=== PATIENT | female | born 1945 | race Caucasian/White ===

== ENCOUNTER → 2016-12-07 | Outpatient (CLI) | payer MEDICARE, BC ==
--- NOTE | 2016-12-07 09:57 | MM ---
Reason for exam: follow-up at short interval from prior study. Last mammogram was performed 7 months ago. History: Patient is postmenopausal. Benign MG stereo VAD BX LT of the left breast, May 26, 2016. Benign stereotactic core biopsy of the right breast, December 17, 1998. Core biopsy of the right breast. Excisional biopsy of the right breast. Took estrogen for 2 years. Physical Findings: Nurse did not find any significant physical abnormalities on exam. MG Diagnostic Mammo LT w CAD CC and MLO view(s) were taken of the left breast. Prior study comparison: May 07, 2016, bilateral MG 3d screening mammo w/cad. There are scattered fibroglandular densities. Previous mammotome biopsy in the left breast. No significant new findings when compared with previous films. These results were verbally communicated with the patient and result sheet given to the patient on 12/07/16. ASSESSMENT: Benign, BI-RAD 2 RECOMMENDATION: Return to routine screening mammogram schedule for both breasts. Back on schedule for April 2017.
== END | disposition home or self-care (01) ==
LOC: RADMAMWWP 08:46
PROVIDERS: ATTEND Internal Medicine
DX: R92.8 Other abnormal and inconclusive findings on diagnostic imaging of breast (principal)

== ENCOUNTER 2017-07-09 18:42 | Observation (INO) | payer MEDICARE, BC ==
--- NOTE | 2017-07-09 19:07 | ED ---
Chest Pain HPI - General Chief Complaint: Chest Pain Stated Complaint: chest pain Time Seen by Provider: 07/09/17 18:45 Source: patient, RN notes reviewed Mode of arrival: wheelchair Limitations: no limitations - History of Present Illness Initial Comments: This is a 72-year-old female who presents with complaints of chest pain that started about 3 hours ago. She points to left side of her chest wall is a 7/10 in severity is a heavy pressure-like pain. She states she's never had pain like this before she states goes from her chest and across her back. She does take 81 mg of aspirin daily she's had no fevers chills cough or phlegm production. The patient does deny any heavy lifting coughing sneezing been expressing long trips or history of blood clots. MD Complaint: chest pain - Related Data Home Medications Medication Instructions Recorded Confirmed Aspirin EC [Ecotrin Low Dose] 81 mg PO DAILY 07/09/17 07/09/17 Cholecalciferol [Vitamin D3] 1,000 unit PO DAILY 07/09/17 07/09/17 Cyanocobalamin [Vitamin B-12] 500 mcg PO BID 07/09/17 07/09/17 Doxycycline Hyclate 50 mg PO DAILY 07/09/17 07/09/17 Esomeprazole Magnesium [NexIUM] 40 mg PO DAILY 07/09/17 07/09/17 Fluticasone/Salmeterol [Advair 1 puff INHALATION RT-BID 07/09/17 07/09/17 100-50 Diskus] Losartan Potassium [Cozaar] 100 mg PO DAILY 07/09/17 07/09/17 Metoprolol Succinate (ER) [Toprol 25 mg PO DAILY 07/09/17 07/09/17 Xl] Phenobarb/Hyoscy/Atropine/Scop 16.2 mg PO TID 07/09/17 07/09/17 [] cycloSPORINE [Restasis] 1 drop BOTH EYES BID 07/09/17 07/09/17 lamoTRIgine [LaMICtal] 150 mg PO BID 07/09/17 07/09/17 Allergies Allergy/AdvReac Type Severity Reaction Status Date / Time Sulfa (Sulfonamide Allergy Unknown Verified 07/09/17 19:31 Antibiotics) Childhood Review of Systems ROS Statement: Those systems with pertinent positive or pertinent negative responses have been documented in the HPI. ROS Other: All systems not noted in ROS Statement are negative. EKG Findings - EKG Results: EKG: interpreted by APRILD, sinus rhythm (Normal sinus rhythm rate of 88. Interval 124 QRS duration 92 QT since QTC of 376/[address]-T wave changes. ) Past Medical History Additional Past Medical History / Comment(s): spastic bowel History of Any Multi-Drug Resistant Organisms: None Reported Past Surgical History: Cholecystectomy, Joint Replacement, Orthopedic Surgery Additional Past Surgical History / Comment(s): brain surgery,rt shoulder,rt knee , rt hand Past Psychological History: Anxiety Smoking Status: Never smoker Past Alcohol Use History: None Reported Past Drug Use History: None Reported General Exam - General Exam Comments Initial Comments: This is a well-developed well-nourished awake alert oriented 3 female Limitations: no limitations General appearance: alert, anxious Head exam: Present: atraumatic, normocephalic, normal inspection Eye exam: Present: normal appearance, PERRL, EOMI. Absent: scleral icterus, conjunctival injection, periorbital swelling ENT exam: Present: normal exam, mucous membranes moist Neck exam: Present: normal inspection. Absent: tenderness, meningismus, lymphadenopathy Respiratory exam: Present: chest wall tenderness. Absent: normal lung sounds bilaterally (Tenderness to palpation across the left costosternal margin. Step- off or crepitation), respiratory distress, wheezes, rales, rhonchi, stridor Cardiovascular Exam: Present: regular rate, normal rhythm, normal heart sounds. Absent: systolic murmur, diastolic murmur, rubs, gallop, clicks GI/Abdominal exam: Present: soft, normal bowel sounds. Absent: distended, tenderness, guarding, rebound, rigid Extremities exam: Present: normal inspection, full ROM, normal capillary refill. Absent: tenderness, pedal edema, joint swelling, calf tenderness Back exam: Present: normal inspection Neurological exam: Present: alert, oriented X3, CN II-XII intact Psychiatric exam: Present: normal affect, normal mood Skin exam: Present: warm, dry, intact, normal color. Absent: rash Course Vital Signs 07/09/17 07/09/17 07/09/17 18:43 19:41 19:50 Temperature 98.0 F Pulse Rate 97 80 106 H Respiratory 20 16 16 Rate Blood Pressure 172/84 145/63 105/58 O2 Sat by Pulse 97 100 99 Oximetry 07/09/17 07/09/17 20:00 20:26 Temperature Pulse Rate 90 98 Respiratory 16 18 Rate Blood Pressure 126/63 143/66 O2 Sat by Pulse 100 96 Oximetry - Reevaluation(s) Reevaluation #1: 07/09/17 20:04 The patient was given a sublingual nitroglycerin the patient blood pressure did drop and she did not feel very well. She does not believe her really help much so she did say she had a brief about 5 second period time with no pain but she had totally related to nitroglycerin. She was given fluid bolus with improvement of her blood pressure. Chest Pain MDM - MDM The patient will be admitted I did discuss case with Dr. Dumas. The patient is started on heparin also Dr. Overton was consulted. Disposition Clinical Impression: Unstable angina pectoris, Chest pain Disposition: ADMITTED IP TO THIS HOSP Condition: Stable Referrals: Becka Fletcher MD [Primary Care Provider] - 1-2 days
[2017-07-09] MEDS ORDERED: ASPIRIN 81 MG PO STA (19:34)
[2017-07-09] MEDS ORDERED: NITROGLYCERIN SL TABS 0.4 MG TAB SUBLINGUAL STA (19:34)
[2017-07-09 19:52] LABS: Basophils % (A) 0 %; CH 31.1; CHCM 34.3; Eosinophils # (A) 0.1 k/uL (0-0.7); Eosinophils % (A) 1 %; HCT 40.9 % (34.0-46.0); HDW 2.61; HGB 14.4 gm/dL (11.4-16.0); Luc # (Auto) 0.16; Luc % (Auto) 2; Lymphocytes % (A) 30 %; MCH 31.9 pg (25.0-35.0); MCHC 35.1 g/dL (31.0-37.0); Mean Platelet Volume 7.2; Monocytes # (A) 0.4 k/uL (0-1.0); Monocytes % (A) 4 %; Neutrophils # (A) 6.1 k/uL (1.3-7.7); Neutrophils % (A) 62 %; RDW 13.2 % (11.5-15.5); WBC 9.8 k/uL (3.8-10.6); WBC (Perox) 9.66
[2017-07-09] MEDS ORDERED: SODIUM CHLORIDE 0.9% 500 ML IV STA (19:54)
[2017-07-09] MEDS ORDERED: ONDANSETRON 4 MG/2 ML VIAL IVP STA (19:54)
[2017-07-09] MEDS ORDERED: KETOROLAC 30 MG/ML 1 ML VIAL IVP STA (20:02)
[2017-07-09 20:05] LABS: Partial Thromboplastin Time 23.8 sec (22.0-30.0); Prothrombin Time 9.8 sec (9.0-12.0)
[2017-07-09 20:16] LABS: ALT 35 U/L (9-52); AST 21 U/L (14-36); Alkaline Phosphatase 95 U/L (38-126); Amylase 38 U/L (30-110); Anion Gap 13 mmol/L; Blood Urea Nitrogen 13 mg/dL (7-17); Calcium 9.3 mg/dL (8.4-10.2); Carbon Dioxide 24 mmol/L (22-30); Chloride 102 mmol/L (98-107); Glucose 88 mg/dL (74-99); Magnesium 1.8 mg/dL (1.6-2.3); Non-African American GFR(MDRD) >60 (>60 ml/min/1.73 sqM); Sodium 139 mmol/L (137-145); Total Bilirubin 0.6 mg/dL (0.2-1.3); Total Protein 6.9 g/dL (6.3-8.2)
[2017-07-09 20:19] LABS: Creatine Kinase 64 U/L (30-135)
[2017-07-09] MEDS ORDERED: RX INFO: IV CONTRAST WAS GIVEN 1 EACH MISC MISCELLANE PRN (20:19)
--- NOTE | 2017-07-09 20:30 | XR ---
EXAMINATION TYPE: XR chest 2V DATE OF EXAM: 07/09/2017 COMPARISON: 10/27/2011 HISTORY: Chest pain TECHNIQUE: Frontal and lateral views of the chest are obtained. FINDINGS: There is no heart failure nor confluent pneumonic infiltrate. Costophrenic angles are selene r. There are chest leads. Bony thorax is intact. IMPRESSION: No active cardiopulmonary disease. No change.
[2017-07-09 20:31] LABS: Creatine Kinase MB 0.6 ng/mL (0.0-2.4); Troponin I <0.012 ng/mL (0.000-0.034)
[2017-07-09] MEDS ORDERED: NITROGLYCERIN SL TABS 0.4 MG TAB SUBLINGUAL PRN (21:17)
[2017-07-09] MEDS ORDERED: HEPARIN SODIUM,PORCINE 5,000 UNIT/ML 1 ML VIAL IV ONE (21:17)
[2017-07-09] MEDS ORDERED: SODIUM CHLORIDE 0.9% 1,000 ML IV SCH (21:30)
[2017-07-09] MEDS ORDERED: HEPARIN SODIUM,PORCINE/D5W PMX 25,000 UNIT in DEXTROSE/WATER 1 500ML.BAG IV SCH (21:30)
[2017-07-09] MEDS ORDERED: PHENOBARB/HYOSCY/ATROPINE/SCOP 16.2 MG TAB PO SCH (22:00)
--- NOTE | 2017-07-09 23:31 | CT ---
EXAM: CT Angiography Chest With Intravenous Contrast CLINICAL HISTORY: Reason: Pain TECHNIQUE: Axial computed tomographic angiography images of the chest with intravenous contrast using pulmonary embolism protocol. DLP is 627 mGy- cm. 88 mL of Omni 350 was administered intravenously for this exam. This CT exam was performed using one or more of the following dose reduction techniques: automated exposure control, adjustment of the mA and/or kV according to patient size, and/or use of iterative reconstruction technique. MIP reconstructed images were created and reviewed. COMPARISON: Chest x-ray from 07/09/17 FINDINGS: Pulmonary arteries: Unremarkable. No pulmonary embolism. Aorta: No acute findings. No thoracic aortic aneurysm. Lungs: Unremarkable. No mass. No consolidation. Pleural space: Unremarkable. No significant effusion. No pneumothorax. Heart: Unremarkable. No cardiomegaly. No significant pericardial effusion. No evidence of RV dysfunction. Bones/joints: No acute fracture. No dislocation. Soft tissues: Unremarkable. Lymph nodes: Unremarkable. No enlarged lymph nodes. IMPRESSION: Normal chest CTA. No pulmonary embolism.
[2017-07-10 01:00] VITALS: BMI 37.5
[2017-07-10 02:25] LABS: Creatine Kinase 55 U/L (30-135)
[2017-07-10 02:38] LABS: Troponin I <0.012 ng/mL (0.000-0.034)
[2017-07-10 02:41] LABS: Creatine Kinase MB 0.6 ng/mL (0.0-2.4)
[2017-07-10] MEDS: NITROGLYCERIN OINT 1 INCH/GM PACKET TOPICAL SCH ×3 (03:55→13:47)
[2017-07-10] MEDS ORDERED: SYMBICORT 80-4.5 MCG INHALER INHALATION SCH (08:00)
[2017-07-10] MEDS ORDERED: lamoTRIgine 100 MG TAB PO SCH (09:00)
[2017-07-10] MEDS ORDERED: ASPIRIN 325 MG TAB PO SCH (09:00)
[2017-07-10] MEDS ORDERED: DOXYCYCLINE 50 MG CAP PO SCH (09:00)
[2017-07-10] MEDS ORDERED: METOPROLOL SUCCINATE (ER) 25 MG TAB.ER.24H PO SCH (09:00)
[2017-07-10] MEDS ORDERED: CYANOCOBALAMIN 500 MCG TAB PO SCH (09:00)
[2017-07-10] MEDS ORDERED: PANTOPRAZOLE 40 MG TABLET PO SCH (09:00)
[2017-07-10] MEDS ORDERED: cycloSPORINE 0.05% OPHTH 0.4 ML DROPERETTE BOTH EYES SCH (09:00)
[2017-07-10] MEDS ORDERED: NON-FORMULARY DRUG (Aspirin Ec 81 MG) PO SCH (09:00)
[2017-07-10] MEDS ORDERED: LOSARTAN 50 MG TAB PO SCH (09:00)
[2017-07-10] MEDS ORDERED: CHOLECALCIFEROL 1,000 UNIT TAB PO SCH (09:00)
[2017-07-10 09:07] LABS: Cholesterol 159 mg/dL (<200); HDL Cholesterol 48 mg/dL (40-60)
[2017-07-10] MEDS ORDERED: PHENOBARB/HYOSCY/ATROPINE/SCOP 16.2 MG TAB PO SCH (10:15)
[2017-07-10 12:09] VITALS: BP 130/58; PULSE 60; RESP 16; TEMP 97.7
--- NOTE | 2017-07-10 12:28 | P.PN ---
Progress Note - Text Patient Lucille Agustin date of 1945 Pravastatin 10 mg by mouth daily is being prescribed for the purpose of reducing future heart attacks and strokes Your 10 year risk of experiencing adverse cardiovascular events is a little above 14% based upon the [employer] risk calculator Your risk is above the threshold of 7.5-10% Pravachol also happens to be a cholesterol-lowering pill. The intent is to lower your cardiovascular risk not simply your cholesterol level Recommendation Lifestyle modification, gradual weight reduction, low-salt diet, hydrate diet and statins
--- NOTE | 2017-07-10 13:35 | CONS ---
Lucille Agustin is a 72-year-old female who presented with chest discomfort lasting for several hours and came to the hospital. Today, she states that the discomfort that she came in with is now passed, but she has heartburn and retrosternal burning sensation ongoing. Cardiac enzymes are normal. Serial EKGs are normal. No dizziness, lightheadedness. No undo shortness of breath. She looks comfortable. REVIEW OF SYSTEMS: No fever, chills or rigors. No cough or expectoration. No nausea, vomiting, or diarrhea. No hematuria or dysuria. No strokes or seizures. No skin lesions or musculoskeletal complaints. Past medical history of hypertension. Her blood pressure is reasonably well controlled on Benicar and low dose beta blockers. She had a past history of cholecystectomy, joint replacement, orthopedic surgery. She has also had a brain tumor in 1988. She smoked in the past, but has stopped smoking for over 20 years now. Home medications include aspirin 81 mg daily, Benicar, metoprolol. Allergies to SULFA. On examination, her blood pressure is 143/66 and 159/73 mmHg, afebrile. Heart rates are normal. Head and neck examination shows no JVD, thyromegaly or carotid bruits. Heart sounds S1 and S2 are normal. No murmurs or gallops. Abdomen is soft and nontender. Extremities are warm. No edema. Labs are reviewed and are normal. Three sets of cardiac enzymes are normal. Her LDL is 94, HDL is 48, total cholesterol 159 and triglycerides 85. Electrolytes are normal. IMPRESSION: 1. Atypical chest discomfort lasting for hours with normal cardiac enzymes, normal ECGs. 2. Heartburn like sensation at this time. 3. Hypertension, reasonably well controlled. 4. ( ) cardiovascular risk calculated at about 14.3%, statins indicated. SUGGEST: Continue home medications. She did not receive any blood pressure medications this morning. Her blood pressure is 159 systolic. At this time, I would restart on the medications. I would also consider adding Pravachol 20 mg p.o. daily to her current regimen with a goal of reducing the LDL by at least 30 %. LDL is about 94 and I would aim for 30% reduction, which would be approximately 65 to 70 mg/dL. I would also recommend either an inpatient or outpatient stress test. She is getting a GI workup at this time because she continues to have the heartburn, which is somewhat different from her admission discomfort and she is being treated for this at this time. I will see her as an outpatient within 2 weeks. ZEE
--- NOTE | 2017-07-10 14:31 | P.HPIM ---
History of Present Illness H&P Date: 07/10/17 Chief Complaint: Chest pain This is a 72-year-old female with past medical history noted below significant for essential hypertension and mixed hyperlipidemia who presented to the hospital with chest discomfort and pain. Patient said that the pain was mostly retrosternal and burning in nature. There was no radiation. I'll was no association with dizziness or lightheadedness. No shortness of breath. Pain was nonexertional. Patient presented to the emergency room and twelve-lead EKG showed no acute ischemic change. Troponin were negative. D-dimer was slightly elevated CT angiogram was negative for PE. Patient was seen and evaluated by cardiology. Her chest pain was thought to be atypical in nature. No further testing recommended at this time. She was cleared for discharge home. She will continue taking her Nexium at home as prescribed. She will follow-up with cardiology in the office as directed. Review of Systems Review of system: 14 points review of systems were obtained and were negative except to what were mentioned in the HPI. Past Medical History Past Medical History: Seizure Disorder Additional Past Medical History / Comment(s): spastic bowel History of Any Multi-Drug Resistant Organisms: None Reported Past Surgical History: Cholecystectomy, Joint Replacement, Orthopedic Surgery Additional Past Surgical History / Comment(s): brain surgery,rt shoulder,rt knee , rt hand Past Anesthesia/Blood Transfusion Reactions: No Reported Reaction Past Psychological History: Anxiety Smoking Status: Never smoker Past Alcohol Use History: None Reported Past Drug Use History: None Reported Medications and Allergies Home Medications Medication Instructions Recorded Confirmed Type Aspirin EC [Ecotrin Low Dose] 81 mg PO DAILY 07/09/17 07/09/17 History Cholecalciferol [Vitamin D3] 1,000 unit PO DAILY 07/09/17 07/09/17 History Cyanocobalamin [Vitamin B-12] 500 mcg PO BID 07/09/17 07/09/17 History Doxycycline Hyclate 50 mg PO DAILY 07/09/17 07/09/17 History Esomeprazole Magnesium [NexIUM] 40 mg PO DAILY 07/09/17 07/09/17 History Fluticasone/Salmeterol [Advair 1 puff INHALATION RT-BID 07/09/17 07/09/17 History 100-50 Diskus] Losartan Potassium [Cozaar] 100 mg PO DAILY 07/09/17 07/09/17 History Metoprolol Succinate (ER) [Toprol 25 mg PO DAILY 07/09/17 07/09/17 History Xl] Phenobarb/Hyoscy/Atropine/Scop 16.2 mg PO TID 07/09/17 07/09/17 History [] cycloSPORINE [Restasis] 1 drop BOTH EYES BID 07/09/17 07/09/17 History lamoTRIgine [LaMICtal] 150 mg PO BID 07/09/17 07/09/17 History Allergies Allergy/AdvReac Type Severity Reaction Status Date / Time Sulfa (Sulfonamide Allergy Unknown Verified 07/09/17 19:31 Antibiotics) Childhood Physical Exam Vitals: Vital Signs Temp Pulse Pulse Pulse Resp BP BP 07/10/17 12:00 97.7 F 60 16 130/58 07/10/17 08:00 97.6 F 62 18 132/66 07/10/17 04:00 97.8 F 65 16 134/62 07/10/17 00:25 97.7 F 68 18 160/63 07/09/17 22:51 90 18 159/73 07/09/17 20:26 98 18 143/66 07/09/17 20:00 90 16 126/63 07/09/17 19:50 106 H 16 105/58 07/09/17 19:41 80 16 145/63 07/09/17 18:43 98.0 F 97 20 172/84 Pulse Ox 07/10/17 12:00 95 07/10/17 08:00 95 07/10/17 04:00 96 07/10/17 00:25 94 L 07/09/17 22:51 97 07/09/17 20:26 96 07/09/17 20:00 100 07/09/17 19:50 99 07/09/17 19:41 100 07/09/17 18:43 97 Intake and Output 07/09/17 07/10/17 07/10/17 22:59 06:59 14:59 Intake Total 186 Balance 186 Intake: Intake, IV Titration 186 Amount Heparin Sodium,Porcine/ 186 D5w Pmx 25,000 unit In Dextrose/Water 1 500ml. bag @ 9.186 UNITS/KG/HR 20 mls/hr IV .Q24H [facility] Rx #:[id number] Other: Voiding Method Toilet Weight 108.862 kg 108.862 kg General: The patient is awake and alert, in no distress Eye: there is normal conjunctiva bilaterally. Neck: The neck is supple, there is no JVD. Cardiovascular: Normal S1-S2, no S3-S4, no murmurs. Respiratory: Lungs clear to auscultation bilaterally Gastrointestinal: Abdomen is soft, nontender Musculoskeletal: There is no pedal edema. Neurological:. Speech is normal. Skin: Skin is warm and dry Results CBC & Chem 7: 07/09/17 18:57 07/09/17 18:57 Labs: Abnormal Lab Results - Last 24 Hours (Table) 07/09/17 07/10/17 Range/Units 18:57 04:11 APTT 35.2 H (22.0-30.0) sec D-Dimer 1.08 H (<0.60) mg/L FEU Thrombosis Risk Factor Assmnt - Choose All That Apply Each Factor Represents 1 point: Obesity (BMI >25) Each Risk Factor Represents 2 Points: Age 61-74 years Thrombosis Risk Factor Assessment Total Risk Factor Score: 3 Thrombosis Risk Factor Assessment Level: Moderate Risk Assessment and Plan Plan: This is a 72-year-old female with past medical history noted below significant for essential hypertension and mixed hyperlipidemia who presented to the hospital with chest discomfort and pain. Patient said that the pain was mostly retrosternal and burning in nature. There was no radiation. I'll was no association with dizziness or lightheadedness. No shortness of breath. Pain was nonexertional. Patient presented to the emergency room and twelve-lead EKG showed no acute ischemic change. Troponin were negative. D-dimer was slightly elevated CT angiogram was negative for PE. Patient was seen and evaluated by cardiology. Her chest pain was thought to be atypical in nature. No further testing recommended at this time. She was cleared for discharge home. She will continue taking her Nexium at home as prescribed. She will follow-up with cardiology in the office as directed.
== END 2017-07-10 15:06 | disposition home or self-care (01) ==
LOC: EC 18:42 → 3OBS 21:17
PROVIDERS: ADMIT Internal Medicine; ATTEND Internal Medicine
DX: R07.89 Other chest pain (principal); F41.9 Anxiety disorder, unspecified; I10 Essential (primary) hypertension; K58.9 Irritable bowel syndrome, unspecified; R12 Heartburn; E78.2 Mixed hyperlipidemia; G40.909 Epilepsy, unspecified, not intractable, without status epilepticus; Z90.49 Acquired absence of other specified parts of digestive tract; Z79.899 Other long term (current) drug therapy; Z79.82 Long term (current) use of aspirin; Z79.51 Long term (current) use of inhaled steroids; Z88.2 Allergy status to sulfonamides; Z87.891 Personal history of nicotine dependence; Z86.03 Personal history of neoplasm of uncertain behavior; Z79.2 Long term (current) use of antibiotics; E66.9 Obesity, unspecified; Z68.37 Body mass index [BMI] 37.0-37.9, adult
CPT/HCPCS: 99285 ×2; 93005 ×2; 96366 ×2; 96376; 96365; 96375; 36415; 94640; 85379; 83880; 80061; 80053; 82150; 82550 ×2; 82553 ×2; 83690; 83735; 84484 ×2; 85025; 85610; 85730 ×2; 71020; 71275; G0378 ×2; J1644 ×2; Q9967; J2405; J1885

== ENCOUNTER → 2018-03-21 | Outpatient (CLI) | payer MEDICARE, BC ==
--- NOTE | 2018-03-21 14:54 | MM ---
Reason for exam: screening (asymptomatic). Last mammogram was performed 1 year and 3 months ago. History: Patient is postmenopausal. Benign MG stereo VAD BX LT of the left breast, May 26, 2016. Benign stereotactic core biopsy of the right breast, December 17, 1998. Core biopsy of the right breast. Excisional biopsy of the right breast. Took estrogen for 2 years. Physical Findings: A clinical breast exam by your physician is recommended on an annual basis and results should be correlated with mammographic findings. MG 3D Screening Mammo W/Cad Bilateral CC and MLO view(s) were taken. XCCL view(s) were taken of the right breast. Prior study comparison: December 07, 2016, left breast MG diagnostic mammo LT w CAD. May 11, 2016, left breast MG 3d work up w/cad LT. There are scattered fibroglandular densities. There are typically benign round calcifications in both breasts. Previous mammotome biopsy in the right and left breast. Grouped calcifications in the left breast increased in number just posterior to clip. ASSESSMENT: Incomplete: need additional imaging evaluation, BI-RAD 0 RECOMMENDATION: Special view mammogram of the left breast. If lesion persists on supplemental views, image directed ultrasound is recommended. [facility] will attempt to contact patient to return for supplemental views and ultrasound if indicated.
== END ==
LOC: RADMAMWWP 08:58
PROVIDERS: ATTEND Internal Medicine
DX: Z12.31 Encounter for screening mammogram for malignant neoplasm of breast (principal)
CPT/HCPCS: 77063; 77067

== ENCOUNTER → 2018-03-25 | Outpatient (CLI) | payer MEDICARE, BC ==
--- NOTE | 2018-03-25 10:07 | MM ---
Reason for exam: additional evaluation requested from abnormal screening. Last mammogram was performed less than 1 month ago. History: Patient is postmenopausal. Benign MG stereo VAD BX LT of the left breast, May 26, 2016. Benign stereotactic core biopsy of the right breast, December 17, 1998. Core biopsy of the right breast. Excisional biopsy of the right breast. Took estrogen for 2 years. Physical Findings: Nurse did not find any significant physical abnormalities on exam. MG 3D Work Up W/Cad LT CC with magnification, ML with magnification, and ML view(s) were taken of the left breast. Prior study comparison: March 21, 2018, bilateral MG 3d screening mammo w/cad. December 07, 2016, left breast MG diagnostic mammo LT w CAD. Increasing indeterminate calcifications posterior to clip, recommend biopsy. These results were verbally communicated with the patient and result sheet given to the patient on 03/25/18. ASSESSMENT: Suspicious, BI-RAD 4 RECOMMENDATION: Stereotactic core biopsy of the left breast. Called Dr. Fletcher with mammographic findings and has scheduled an appointment for the patient for 04/08/18 at 10:[address] Us. PRELIMINARY REPORT CALLED AND FAXED TO DR. US ON 03/25/18.
== END | disposition home or self-care (01) ==
LOC: RADMAMWWP 08:54
PROVIDERS: ATTEND Internal Medicine
DX: R92.8 Other abnormal and inconclusive findings on diagnostic imaging of breast (principal)
CPT/HCPCS: 77065; G0279; 77061

== ENCOUNTER → 2018-04-01 | Outpatient (CLI) | payer MEDICARE, BC ==
--- NOTE | 2018-04-01 12:52 | XR ---
EXAMINATION TYPE: XR chest 2V DATE OF EXAM: 04/01/2018 COMPARISON: NONE HISTORY: Right-sided rib pain and productive cough TECHNIQUE: Frontal and lateral views of the chest are obtained. Additionally frontal and oblique vie ws of the right ribs were obtained. FINDINGS: There is no focal air space opacity, pleural effusion, or pneumothorax seen. The cardiac silhouette size is within normal limits. Moderate multilevel degenerative changes of the thoracic spi ne are seen. Moderate degenerative changes of the right and mild on the left acromioclavicular joint are also noted. Dedicated images of the right ribs demonstrate no evidence of acute displaced rib fracture or chronic healed fracture. Cholecystectomy clips are noted. IMPRESSION: No acute cardiopulmonary process. No displaced acute right rib fracture or healed rib fr acture deformity.
--- NOTE | 2018-04-01 13:21 | XR ---
EXAMINATION TYPE: XR ribs RT DATE OF EXAM: 04/01/2018 COMPARISON: NONE HISTORY: rib pain TECHNIQUE: 2 views FINDINGS: Arthropathy of the AC joint. Rib cage intact. Right lung clear. Hypertrophic and degenerati ve change of the spine. Surgical clips right upper quadrant. IMPRESSION: No acute displaced fracture.
== END | disposition home or self-care (01) ==
LOC: RADXRMAIN 11:40
PROVIDERS: ATTEND Internal Medicine
DX: R05 Cough (principal); R07.81 Pleurodynia
CPT/HCPCS: 71046

== ENCOUNTER → 2018-04-08 | Outpatient (CLI) | payer MEDICARE, BC ==
[2018-04-08 10:01] VITALS: BP 143/76; PULSE 58; TEMP 98.1; BMI 37.7
--- NOTE | 2018-04-08 10:54 | P.GSHP ---
History of Present Illness H&P Date: 04/08/18 Patient is a 72 year old white female who presents with a mammographic abnormality in the left breast. This was done March 25. She had a bilateral mammogram on 03-21-18. Additional views of hte left breast were ordered. Patient does not feel anything of concern in her breast. No nipple discharge or changes. Patient noted a slight rash at the 12 oclock position of the left breast. No pain in the breast. She has had 4 biopies on the right side, and one on the left in the past. The most recent was in 2016 and it was benign. The area now is posterior to that site. Patient breast are very large and she complains of back pain. family history: 1. maternal grandmother: lung cancer 2. brother: cancer uncertain of hte type 3. sister: lymphoma 4. sister: colon cancer 5. brother: lung cancer past surgical history: 1. brain tumor/benign 1987 2. gallbladder 3. shoulder 4. knee replacement 5. breast biopsies past medical history: 1. HTN 2. seizures social history: smoke: none alcohol: none drugs: none menstral periods: 15 pregnancies: 2., breast fed: none menopause: 66 BCP: 2 years hormones: 1 year ROS: HEENT: glasses Heart: HTN lung: asthma muscle skelatal: none skin: skin cancer neurologic: none Psychiatric: anxiety - Constitutional Constitutional: Denies chills, Denies fever - EENT Eyes: denies blurred vision, denies pain Ears: bilateral: decreased hearing, deny: ear discharge, earache, tinnitus Ears, nose, mouth and throat: Reports headache, Denies sore throat - Breasts Breasts: bilateral: as per HPI - Cardiovascular Cardiovascular: Reports high blood pressure - Respiratory Comment: asthma - Gastrointestinal Comment: spastic bowel Gastrointestinal: Reports abdominal pain, Denies diarrhea, Denies nausea, Denies vomiting - Genitourinary (Female) Genitourinary: Denies dysuria, Denies hematuria - Musculoskeletal Musculoskeletal: Denies myalgias - Integumentary Comment: history of skin cancer - Neurological Neurological: Denies numbness, Denies weakness - Psychiatric Psychiatric: Reports anxiety - Endocrine Endocrine: Denies fatigue, Denies weight change - Hematologic/Lymphatic Comment: takes aspirin - Allergic/Immunologic Allergic/Immunologic: Reports seasonal allergies Past Medical History Past Medical History: Seizure Disorder Additional Past Medical History / Comment(s): spastic bowel History of Any Multi-Drug Resistant Organisms: None Reported Past Surgical History: Cholecystectomy, Joint Replacement, Orthopedic Surgery Additional Past Surgical History / Comment(s): brain surgery. rt shoulder,rt knee, rt hand. BREAST BX: x5 Past Anesthesia/Blood Transfusion Reactions: No Reported Reaction Past Psychological History: Anxiety Smoking Status: Former smoker Past Alcohol Use History: None Reported Past Drug Use History: None Reported - Past Family History Mother Family Medical History: Diabetes Mellitus Father Family Medical History: Diabetes Mellitus Additional Family Medical History / Comment(s): HEART DISEASE Medications and Allergies Home Medications Medication Instructions Recorded Confirmed Type Aspirin EC [Ecotrin Low Dose] 81 mg PO DAILY 07/09/17 04/08/18 History Cholecalciferol [Vitamin D3] 1,000 unit PO DAILY 07/09/17 04/08/18 History Cyanocobalamin [Vitamin B-12] 500 mcg PO BID 07/09/17 04/08/18 History Doxycycline Hyclate 50 mg PO DAILY 07/09/17 04/08/18 History Esomeprazole Magnesium [NexIUM] 40 mg PO BID 07/09/17 04/08/18 History Fluticasone/Salmeterol [Advair 1 puff INHALATION RT-BID 07/09/17 04/08/18 History 100-50 Diskus] Losartan Potassium [Cozaar] 100 mg PO DAILY 07/09/17 04/08/18 History Metoprolol Succinate (ER) [Toprol 25 mg PO DAILY 07/09/17 04/08/18 History XL] Phenobarb/Hyoscy/Atropine/Scop 16.2 mg PO TID 07/09/17 04/08/18 History [] cycloSPORINE [Restasis] 1 drop BOTH EYES BID 07/09/17 04/08/18 History lamoTRIgine [LaMICtal] 150 mg PO BID 07/09/17 04/08/18 History Vit A/Vit C/Vit E/Zinc/Copper 1 cap PO DAILY 04/08/18 04/08/18 History [ICAPS SOFTGEL] Allergies Allergy/AdvReac Type Severity Reaction Status Date / Time Sulfa (Sulfonamide Allergy Unknown Verified 07/09/17 19:31 Antibiotics) Childhood Surgical - Exam Vital Signs Temp Pulse BP Pulse Ox 98.1 F 58 L 143/76 97 04/08/18 09:54 04/08/18 09:54 04/08/18 09:54 04/08/18 09:54 - General obese - Eyes normal ocular movement - ENT normal pinna, normal nares - Neck no masses, trachea midline, no lymphadectomy - Respiratory normal respiratory effort, clear to auscultation - Cardiovascular Rhythm: regular Heart Sounds: normal: S1, S2 - Abdomen Abdomen: soft, non tender, no guarding, no rigid, no rebound - Integumentary mild echymosis right flank - Neurologic no disoriented, no combative - Musculoskeletal normal gait, normal posture - Psychiatric oriented to time, oriented to person, oriented to place, speech is normal, memory intact right breast: no masses left breast: no masses breast are large WEARS 48D bra axilla: no adenopathy of concern Assessment and Plan Assessment: Impression/Plan 1. abnormal left breast mammogram 2. back pain 3. HTN 4. spastic bowel 5. recent UTI Plan: 1. sterotactic core biopsy of the left breast/ stop aspirin 1 week prior to biopsy 2. follow up with Dr. Fletcher cc: Dr. Fletcher
== END | disposition home or self-care (01) ==
LOC: WWCWWP 09:48
PROVIDERS: ATTEND Surgery
DX: R92.8 Other abnormal and inconclusive findings on diagnostic imaging of breast (principal); Z53.9 Procedure and treatment not carried out, unspecified reason

== ENCOUNTER 2018-04-12 15:23 | Inpatient (IN) | payer MEDICARE, BC ==
[2018-04-12] MEDS ORDERED: ASPIRIN 81 MG PO STA (15:44)
[2018-04-12] MEDS ORDERED: NITROGLYCERIN SL TABS 0.4 MG TAB SUBLINGUAL STA (15:44)
--- NOTE | 2018-04-12 15:50 | ED ---
General Adult HPI - General Chief complaint: Shortness of Breath Stated complaint: SOB Time Seen by Provider: 04/12/18 15:25 Source: patient, family, EMS, RN notes reviewed Mode of arrival: EMS Limitations: no limitations - History of Present Illness Initial comments: This is a 72-year-old female presents emergency Department chief complaint of chest heaviness and shortness of breath. Patient states symptoms started around 1:45 PM. Patient states that she no significant cardiac history other than hypertension denies diabetes, hyperlipidemia or any family history. Patient denies any fever, chills, cough. She has no current nausea vomiting no diaphoretic episodes. She did state that she was started on Flexeril yesterday because she's been having ongoing back pain which is evaluated by x-rays of her ribs and back. Patient denies a associated complaints. She has no pain with range of motion. - Related Data Home Medications Medication Instructions Recorded Confirmed Aspirin EC [Ecotrin Low Dose] 81 mg PO DAILY 07/09/17 04/12/18 Cholecalciferol [Vitamin D3] 1,000 unit PO BID 07/09/17 04/12/18 Cyanocobalamin [Vitamin B-12] 500 mcg PO BID 07/09/17 04/12/18 Doxycycline Hyclate 50 mg PO DAILY 07/09/17 04/12/18 Esomeprazole Magnesium [NexIUM] 40 mg PO DAILY 07/09/17 04/12/18 Losartan Potassium [Cozaar] 100 mg PO DAILY 07/09/17 04/12/18 Metoprolol Succinate (ER) [Toprol 25 mg PO DAILY 07/09/17 04/12/18 XL] Phenobarb/Hyoscy/Atropine/Scop 16.2 mg PO TID 07/09/17 04/12/18 [] cycloSPORINE [Restasis] 1 drop BOTH EYES BID 07/09/17 04/12/18 lamoTRIgine [LaMICtal] 150 mg PO BID 07/09/17 04/12/18 Vit A/Vit C/Vit E/Zinc/Copper 1 cap PO BID 04/08/18 04/12/18 [ICAPS SOFTGEL] Cyclobenzaprine [Flexeril] 10 mg PO Q8H 04/12/18 04/12/18 Pravastatin Sodium [Pravachol] 10 mg PO DAILY 04/12/18 04/12/18 Allergies Allergy/AdvReac Type Severity Reaction Status Date / Time Sulfa (Sulfonamide Allergy Unknown Verified 04/12/18 15:41 Antibiotics) Childhood Review of Systems ROS Statement: Those systems with pertinent positive or pertinent negative responses have been documented in the HPI. ROS Other: All systems not noted in ROS Statement are negative. Past Medical History Past Medical History: GERD/Reflux, Hypertension, Seizure Disorder Additional Past Medical History / Comment(s): spastic bowel History of Any Multi-Drug Resistant Organisms: None Reported Past Surgical History: Cholecystectomy, Joint Replacement, Orthopedic Surgery Additional Past Surgical History / Comment(s): brain surgery. rt shoulder,rt knee, rt hand. BREAST BX: x5 Past Anesthesia/Blood Transfusion Reactions: No Reported Reaction Past Psychological History: Anxiety Smoking Status: Former smoker Past Alcohol Use History: None Reported Past Drug Use History: None Reported - Past Family History Mother Family Medical History: Diabetes Mellitus Father Family Medical History: Diabetes Mellitus Additional Family Medical History / Comment(s): HEART DISEASE General Exam Limitations: no limitations General appearance: alert, in no apparent distress Head exam: Present: atraumatic, normocephalic, normal inspection ENT exam: Present: normal exam, normal oropharynx, mucous membranes moist Neck exam: Present: normal inspection. Absent: tenderness, meningismus, lymphadenopathy Respiratory exam: Present: normal lung sounds bilaterally. Absent: respiratory distress, wheezes, rales, rhonchi, stridor Cardiovascular Exam: Present: regular rate, normal rhythm, normal heart sounds. Absent: systolic murmur, diastolic murmur, rubs, gallop, clicks GI/Abdominal exam: Present: soft, normal bowel sounds. Absent: distended, tenderness, guarding, rebound, rigid Back exam: Absent: CVA tenderness (R), CVA tenderness (L) Skin exam: Present: warm, dry, intact, normal color. Absent: rash Course Vital Signs 04/12/18 04/12/18 04/12/18 15:25 16:30 16:47 Temperature 98.7 F Pulse Rate 69 66 70 Respiratory 22 20 20 Rate Blood Pressure 174/95 178/77 168/75 O2 Sat by Pulse 99 98 98 Oximetry 04/12/18 18:00 Temperature Pulse Rate 65 Respiratory 20 Rate Blood Pressure 169/61 O2 Sat by Pulse 99 Oximetry EKG Findings - EKG Comments: EKG Findings:: EKG performed at 15:36 normal sinus rhythm with a rate of 78 UT 144 QRS 82 QT/QTC 394/425 Medical Decision Making - Lab Data Result diagrams: 04/12/18 16:30 04/12/18 16:30 Lab Results 04/12/18 04/12/18 04/12/18 Range/Units 16:30 16:30 16:30 WBC 6.8 (3.8-10.6) k/uL RBC 4.19 (3.80-5.40) m/uL Hgb 12.9 (11.4-16.0) gm/dL Hct 38.3 (34.0-46.0) % MCV 91.3 (80.0-100.0) fL MCH 30.9 (25.0-35.0) pg MCHC 33.8 (31.0-37.0) g/dL RDW 13.3 (11.5-15.5) % Plt Count 194 (150-450) k/uL Neutrophils % 67 % Lymphocytes % 25 % Monocytes % 5 % Eosinophils % 2 % Basophils % 0 % Neutrophils # 4.6 (1.3-7.7) k/uL Lymphocytes # 1.7 (1.0-4.8) k/uL Monocytes # 0.3 (0-1.0) k/uL Eosinophils # 0.1 (0-0.7) k/uL Basophils # 0.0 (0-0.2) k/uL PT (9.0-12.0) sec INR (<1.2) APTT (22.0-30.0) sec D-Dimer (<0.60) mg/L FEU Sodium 141 (137-145) mmol/L Potassium 4.1 (3.5-5.1) mmol/L Chloride 103 (98-107) mmol/L Carbon Dioxide 26 (22-30) mmol/L Anion Gap 12 mmol/L BUN 15 (7-17) mg/dL Creatinine 0.70 (0.52-1.04) mg/dL Est GFR (CKD-EPI)AfAm >90 (>60 ml/min/1.73 sqM) Est GFR (CKD-EPI)NonAf 87 (>60 ml/min/1.73 sqM) Glucose 113 H (74-99) mg/dL Calcium 8.6 (8.4-10.2) mg/dL Magnesium 2.0 (1.6-2.3) mg/dL Total Bilirubin 0.3 (0.2-1.3) mg/dL AST 23 (14-36) U/L ALT 24 (9-52) U/L Alkaline Phosphatase 85 (38-126) U/L Total Creatine Kinase 33 (30-135) U/L CK-MB (CK-2) 0.3 (0.0-2.4) ng/mL CK-MB (CK-2) Rel Index 0.9 Troponin I <0.012 (0.000-0.034) ng/mL NT-Pro-B Natriuret Pep pg/mL Total Protein 5.9 L (6.3-8.2) g/dL Albumin 3.4 L (3.5-5.0) g/dL 04/12/18 04/12/18 Range/Units 16:30 16:30 WBC (3.8-10.6) k/uL RBC (3.80-5.40) m/uL Hgb (11.4-16.0) gm/dL Hct (34.0-46.0) % MCV (80.0-100.0) fL MCH (25.0-35.0) pg MCHC (31.0-37.0) g/dL RDW (11.5-15.5) % Plt Count (150-450) k/uL Neutrophils % % Lymphocytes % % Monocytes % % Eosinophils % % Basophils % % Neutrophils # (1.3-7.7) k/uL Lymphocytes # (1.0-4.8) k/uL Monocytes # (0-1.0) k/uL Eosinophils # (0-0.7) k/uL Basophils # (0-0.2) k/uL PT 9.4 (9.0-12.0) sec INR 0.9 (<1.2) APTT 22.5 (22.0-30.0) sec D-Dimer 0.80 H (<0.60) mg/L FEU Sodium (137-145) mmol/L Potassium (3.5-5.1) mmol/L Chloride (98-107) mmol/L Carbon Dioxide (22-30) mmol/L Anion Gap mmol/L BUN (7-17) mg/dL Creatinine (0.52-1.04) mg/dL Est GFR (CKD-EPI)AfAm (>60 ml/min/1.73 sqM) Est GFR (CKD-EPI)NonAf (>60 ml/min/1.73 sqM) Glucose (74-99) mg/dL Calcium (8.4-10.2) mg/dL Magnesium (1.6-2.3) mg/dL Total Bilirubin (0.2-1.3) mg/dL AST (14-36) U/L ALT (9-52) U/L Alkaline Phosphatase (38-126) U/L Total Creatine Kinase (30-135) U/L CK-MB (CK-2) (0.0-2.4) ng/mL CK-MB (CK-2) Rel Index Troponin I (0.000-0.034) ng/mL NT-Pro-B Natriuret Pep 348 pg/mL Total Protein (6.3-8.2) g/dL Albumin (3.5-5.0) g/dL Disposition Clinical Impression: Chest pain Disposition: ADMITTED IP TO THIS HOSP Condition: Stable Referrals: Becka Fletcher MD [Primary Care Provider] - 1-2 days
--- NOTE | 2018-04-12 16:26 | XR ---
EXAMINATION TYPE: XR chest 2V DATE OF EXAM: 04/12/2018 COMPARISON: 04/01/2018 HISTORY: 72 year-old female shortness of breath, chest pain, difficulty breathing TECHNIQUE: AP and lateral views FINDINGS: Heart normal size. Aorta within normal limits. There is increased interstitial opacity with some carlos bronchial cuffing. No consolidation or pleural effusion. IMPRESSION: Increased interstitial changes. Correlate for bronchitis, asthma, or atypical pneumonias.
[2018-04-12 16:48] LABS: Basophils % (A) 0 %; Eosinophils # (A) 0.1 k/uL (0-0.7); Eosinophils % (A) 2 %; HCT 38.3 % (34.0-46.0); HGB 12.9 gm/dL (11.4-16.0); Lymphocytes # (A) 1.7 k/uL (1.0-4.8); Lymphocytes % (A) 25 %; MCH 30.9 pg (25.0-35.0); MCHC 33.8 g/dL (31.0-37.0); MCV 91.3 fL (80.0-100.0); Mean Platelet Volume 7.2; Monocytes # (A) 0.3 k/uL (0-1.0); Monocytes % (A) 5 %; Neutrophils # (A) 4.6 k/uL (1.3-7.7); Neutrophils % (A) 67 %; Platelet Count 194 k/uL (150-450); RBC 4.19 m/uL (3.80-5.40); RDW 13.3 % (11.5-15.5); WBC 6.8 k/uL (3.8-10.6)
[2018-04-12 16:57] LABS: INR 0.9 (<1.2); Partial Thromboplastin Time 22.5 sec (22.0-30.0); Prothrombin Time 9.4 sec (9.0-12.0)
[2018-04-12 17:10] LABS: D-Dimer 0.8 mg/L FEU (<0.60)
[2018-04-12 17:11] LABS: Creatine Kinase 33 U/L (30-135)
[2018-04-12 17:14] LABS: ALT 24 U/L (9-52); AST 23 U/L (14-36); Albumin 3.4 g/dL (3.5-5.0); Alkaline Phosphatase 85 U/L (38-126); Anion Gap 12 mmol/L; Blood Urea Nitrogen 15 mg/dL (7-17); Calcium 8.6 mg/dL (8.4-10.2); Carbon Dioxide 26 mmol/L (22-30); Chloride 103 mmol/L (98-107); Glucose 113 mg/dL (74-99); Potassium 4.1 mmol/L (3.5-5.1); Sodium 141 mmol/L (137-145); Total Bilirubin 0.3 mg/dL (0.2-1.3); Total Protein 5.9 g/dL (6.3-8.2)
[2018-04-12 17:24] LABS: Creatine Kinase MB 0.3 ng/mL (0.0-2.4); Troponin I <0.012 ng/mL (0.000-0.034)
[2018-04-12] MEDS ORDERED: RX INFO: IV CONTRAST WAS GIVEN 1 EACH MISC MISCELLANE PRN (17:29)
--- NOTE | 2018-04-12 18:45 | CT ---
EXAMINATION TYPE: CT angio chest DATE OF EXAM: 04/12/2018 6:04 PM COMPARISON: 07/09/2017 HISTORY: Chest pain, fatigue, and bilateral hand numbness. CT DLP: 560 mGycm Automated exposure control for dose reduction was used. CONTRAST: CTA scan of the thorax is performed with IV Contrast, patient injected with 65ml mL of Isovue 370, pu lmonary embolism protocol. There are 3-D post processed images.. FINDINGS: The lungs are clear of consolidation. There is no pleural effusion. There is no evidence of a pulmona ry mass. I see no filling defects in the pulmonary arteries. There is no evidence of thoracic aortic aneurysm or dissection. There is no mediastinal adenopathy. There is a 1 cm pretracheal lymph node. T here are no hilar masses. There is spurring in the thoracic spine. There is mild thoracolumbar kyphot ic curvature. There is spurring anteriorly. IMPRESSION: NEGATIVE CT ANGIOGRAM OF THE CHEST. NO EVIDENCE OF PULMONARY EMBOLISM. NO ADVERSE CHANGE COMPARED TO OLD EXAM.
[2018-04-12] MEDS ORDERED: NITROGLYCERIN SL TABS 0.4 MG TAB SUBLINGUAL PRN (18:58)
[2018-04-12] MEDS ORDERED: HEPARIN SODIUM,PORCINE 5,000 UNIT/ML 1 ML VIAL IV ONE (18:58)
[2018-04-12] MEDS ORDERED: HEPARIN SODIUM,PORCINE/D5W PMX 25,000 UNIT in DEXTROSE/WATER 1 500ML.BAG IV SCH (19:00)
[2018-04-12] MEDS: SODIUM CHLORIDE 0.9% 500 ML IV SCH (20:00)
[2018-04-12 20:19] LABS: Appearance,Urine Clear (Clear); Bilirubin,Urine Negative (Negative); Blood,Urine Negative (Negative); Color,Urine Colorless; Glucose,Urine (UA) Negative (Negative); Ketones,Urine Negative (Negative); Leukocyte Esterase,Urine Negative (Negative); Nitrite,Urine Negative (Negative); Protein,Urine Negative (Negative); Specific Gravity,Urine 1.003 (1.001-1.035); Urobilinogen,Urine <2.0 mg/dL (<2.0)
[2018-04-12] MEDS ORDERED: HEPARIN SODIUM,PORCINE 5,000 UNIT/ML 1 ML VIAL IV PRN (21:30)
[2018-04-12] MEDS ORDERED: CYCLOBENZAPRINE 10 MG TAB PO PRN (22:15)
[2018-04-12 23:03] LABS: Creatine Kinase 29 U/L (30-135)
[2018-04-12 23:16] LABS: Creatine Kinase MB 0.3 ng/mL (0.0-2.4); Troponin I <0.012 ng/mL (0.000-0.034)
[2018-04-12] MEDS: VIT A,C & E-LUTEIN-MINERALS 1 EACH TAB PO SCH (23:28)
[2018-04-12] MEDS: CYANOCOBALAMIN 500 MCG TAB PO SCH (23:29)
[2018-04-12] MEDS: PHENOBARB/HYOSCY/ATROPINE/SCOP 16.2 MG TAB PO SCH (23:29)
[2018-04-12] MEDS: cycloSPORINE 0.05% OPHTH 0.4 ML DROPERETTE BOTH EYES SCH (23:29)
[2018-04-12] MEDS: CHOLECALCIFEROL 1,000 UNIT TAB PO SCH (23:29)
[2018-04-12] MEDS: lamoTRIgine 100 MG TAB PO SCH (23:29)
[2018-04-13 03:50] LABS: Creatine Kinase 27 U/L (30-135)
[2018-04-13 03:51] LABS: Cholesterol 134 mg/dL (<200); HDL Cholesterol 44 mg/dL (40-60); LDL Cholesterol,Calculated 73 mg/dL (0-99); Triglycerides 84 mg/dL (<150)
[2018-04-13 04:02] LABS: Creatine Kinase MB 0.2 ng/mL (0.0-2.4); Troponin I <0.012 ng/mL (0.000-0.034)
[2018-04-13] MEDS ORDERED: ASPIRIN 325 MG TAB PO SCH (09:00)
[2018-04-13] MEDS ORDERED: METOPROLOL SUCCINATE (ER) 25 MG TAB.ER.24H PO SCH (09:00)
[2018-04-13] MEDS: CHOLECALCIFEROL 1,000 UNIT TAB PO SCH ×2 (09:10→20:16)
[2018-04-13] MEDS: PANTOPRAZOLE SODIUM 40 MG GRANULE PKT PO SCH ×3 (09:10→20:16)
[2018-04-13] MEDS: LOSARTAN 50 MG TAB PO SCH (09:10)
[2018-04-13] MEDS: ASPIRIN 81 MG PO SCH (09:10)
[2018-04-13] MEDS: DOXYCYCLINE 50 MG CAP PO SCH (09:11)
[2018-04-13] MEDS: VIT A,C & E-LUTEIN-MINERALS 1 EACH TAB PO SCH ×2 (09:12→20:16)
[2018-04-13] MEDS: PRAVASTATIN SODIUM 20 MG TAB PO SCH (09:12)
[2018-04-13] MEDS: CYANOCOBALAMIN 500 MCG TAB PO SCH ×2 (09:12→20:16)
[2018-04-13] MEDS: lamoTRIgine 100 MG TAB PO SCH ×2 (09:13→20:16)
[2018-04-13] MEDS: PHENOBARB/HYOSCY/ATROPINE/SCOP 16.2 MG TAB PO SCH ×3 (09:13→21:31)
[2018-04-13] MEDS: cycloSPORINE 0.05% OPHTH 0.4 ML DROPERETTE BOTH EYES SCH ×2 (09:15→21:31)
--- NOTE | 2018-04-13 10:29 | P.HPIM ---
History of Present Illness H&P Date: 04/13/18April Darwin is a 72-year-old female who presented to [facility] emergency room with a chief complaint of chest pain patient describes a pressure sensation in the middle of her chest she was evaluated in emergency room first set of EKG and cardiac enzymes were negative she was admitted to 24- hour observation and further evaluation. D-dimer was slightly elevated in the emergency room at 0.8, patient had a computed tomography scan angiogram of the chest that failed to reveal any evidence of pulmonary embolism, there was no evidence of aortic aneurysm or dissection. Patient had a similar admission in June 2017, at that time cardiac enzymes were negative she was discharged home , she underwent a stress test treadmill echo as outpatient in July 2017 and that was within normal limits per patient. She is also complaining of epigastric and right upper quadrant abdominal pain, she is also complaining of cough with yellow sputum production. Otherwise she denies any complaints. Past Medical History Past Medical History: Asthma, Cancer, Chest Pain / Angina, GERD/Reflux, Hypertension, Pneumonia, Seizure Disorder Additional Past Medical History / Comment(s): had seizure after brain sx, "spastic bowel", put on a statin as preventive, rosacea,anxiety, stress test, had shingelles vaccine not sure of date.skin cancer History of Any Multi-Drug Resistant Organisms: None Reported Past Surgical History: Cholecystectomy, Joint Replacement, Orthopedic Surgery Additional Past Surgical History / Comment(s): brain tumor removed(benign), bruises easily. lt shoulder,rt knee replacemnent, rt hand for dupuytrens contracture. BREAST BX: 3 on rt side and 2 on lt. skin ca removed fron rt arm pt not sure what type Past Anesthesia/Blood Transfusion Reactions: No Reported Reaction Additional Past Anesthesia/Blood Transfusion Reaction / Comment(s): clausterphobia Smoking Status: Former smoker - Past Family History Mother Family Medical History: Diabetes Mellitus Father Family Medical History: Diabetes Mellitus Additional Family Medical History / Comment(s): HEART DISEASE Medications and Allergies Home Medications Medication Instructions Recorded Confirmed Type Aspirin EC [Ecotrin Low Dose] 81 mg PO DAILY 07/09/17 04/12/18 History Cholecalciferol [Vitamin D3] 1,000 unit PO BID 07/09/17 04/12/18 History Cyanocobalamin [Vitamin B-12] 500 mcg PO BID 07/09/17 04/12/18 History Doxycycline Hyclate 50 mg PO DAILY 07/09/17 04/12/18 History Esomeprazole Magnesium [NexIUM] 40 mg PO BID 07/09/17 04/12/18 History Losartan Potassium [Cozaar] 100 mg PO DAILY 07/09/17 04/12/18 History Metoprolol Succinate (ER) [Toprol 25 mg PO DAILY 07/09/17 04/12/18 History XL] Phenobarb/Hyoscy/Atropine/Scop 16.2 mg PO TID 07/09/17 04/12/18 History [] cycloSPORINE [Restasis] 1 drop BOTH EYES BID 07/09/17 04/12/18 History lamoTRIgine [LaMICtal] 150 mg PO BID 07/09/17 04/12/18 History Vit A/Vit C/Vit E/Zinc/Copper 1 cap PO BID 04/08/18 04/12/18 History [ICAPS SOFTGEL] Cyclobenzaprine [Flexeril] 10 mg PO Q8H PRN 04/12/18 04/12/18 History Pravastatin Sodium [Pravachol] 10 mg PO DAILY 04/12/18 04/12/18 History Allergies Allergy/AdvReac Type Severity Reaction Status Date / Time Sulfa (Sulfonamide Allergy Unknown Verified 04/12/18 21:36 Antibiotics) Childhood Physical Exam Vitals: Vital Signs Temp Pulse Pulse Pulse Resp BP BP 04/13/18 10:07 82 160/70 04/13/18 09:58 171/64 04/13/18 08:00 97.7 F 66 16 128/67 04/13/18 04:00 16 04/13/18 03:39 97.8 F 70 16 136/64 04/12/18 23:42 97.6 F 62 16 117/53 04/12/18 21:51 16 04/12/18 20:54 98.3 F 64 16 155/67 04/12/18 20:00 98.3 F 59 L 20 141/63 04/12/18 18:59 63 20 154/68 04/12/18 18:00 65 20 169/61 04/12/18 16:47 70 20 168/75 04/12/18 16:30 66 20 178/77 04/12/18 15:25 98.7 F 69 22 174/95 Pulse Ox 04/13/18 10:07 04/13/18 09:58 04/13/18 08:00 95 04/13/18 04:00 04/13/18 03:39 97 04/12/18 23:42 93 L 04/12/18 21:51 04/12/18 20:54 95 04/12/18 20:00 96 04/12/18 18:59 99 04/12/18 18:00 99 04/12/18 16:47 98 04/12/18 16:30 98 04/12/18 15:25 99 Intake and Output 04/12/18 04/13/18 04/13/18 22:59 06:59 14:59 Intake Total 161.667 Balance 161.667 Intake: Intake, IV Titration 161.667 Amount Heparin Sodium,Porcine/ 161.667 D5w Pmx 25,000 unit In Dextrose/Water 1 500ml. bag @ 9.799 UNITS/KG/HR 20 mls/hr IV .Q24H [facility] Rx #:[id number] Other: Voiding Method Toilet Toilet Toilet # Voids 2 Weight 109.8 kg In general patient is alert and oriented 3 in no apparent distress HEENT head normocephalic and atraumatic Neck is supple no JVD Chest exam is clear to auscultation no crackles no wheezing Cardiac exam reveals regular heart sounds S1 and S2 no gallops no murmurs Abdomen is soft with mild tenderness in the epigastric and right upper quadrant area no organomegaly no palpable masses Extremity exam reveals no edema no cyanosis or clubbing Results CBC & Chem 7: 04/12/18 16:30 04/12/18 16:30 Labs: Abnormal Lab Results - Last 24 Hours (Table) 04/12/18 04/12/18 04/12/18 Range/Units 16:30 16:30 22:19 APTT (22.0-30.0) sec D-Dimer 0.80 H (<0.60) mg/L FEU Glucose 113 H (74-99) mg/dL Total Creatine Kinase 29 L (30-135) U/L Total Protein 5.9 L (6.3-8.2) g/dL Albumin 3.4 L (3.5-5.0) g/dL 04/13/18 04/13/18 Range/Units 03:18 03:18 APTT 34.1 H (22.0-30.0) sec D-Dimer (<0.60) mg/L FEU Glucose (74-99) mg/dL Total Creatine Kinase 27 L (30-135) U/L Total Protein (6.3-8.2) g/dL Albumin (3.5-5.0) g/dL Thrombosis Risk Factor Assmnt - Choose All That Apply Any of the Below Risk Factors Present?: Yes Each Factor Represents 1 point: Obesity (BMI >25) Other Risk Factors: Yes Other congenital or acquired thrombophilia - If yes, enter type in comment: No Thrombosis Risk Factor Assessment Total Risk Factor Score: 1 Thrombosis Risk Factor Assessment Level: Low Risk Assessment and Plan Plan: #1 episode of chest pain, 3 sets of cardiac enzymes and EKG are ordered patient is seen by cardiology, she had a stress test done in July of last year. #2 right upper quadrant and epigastric pain Will check amylase and lipase and check abdomen ultrasound #3 cough was yellow sputum production she would be given IV Rocephin chest x- ray is suggestive of acute bronchitis #4 underlying history of hypertension blood pressure was elevated at the time of presentation #5 underlying history of hyperlipidemia maintained on Pravachol #6 underlying history of seizure disorder #7 underlying history of gastroesophageal reflux disease maintained on Protonix #8 morbid obesity At this time patient is admitted to 24-hour observation serial EKG and cardiac enzymes are ordered cardiology consultation following Will add Rocephin 1 g IV every 24 hours Will check amylase lipase and abdominal ultrasound Will follow during this admission
[2018-04-13 10:55] LABS: Amylase 48 U/L (30-110); Lipase 95 U/L (23-300)
[2018-04-13] MEDS ORDERED: REGADENOSON 0.4 MG/5 ML SYRINGE IV ONE (11:21)
[2018-04-13] MEDS ORDERED: AMINOPHYLLINE 500 MG/20 ML VIAL IV PRN (11:21)
--- NOTE | 2018-04-13 11:21 | P.CRDCN ---
History of Present Illness History of present illness: Mrs. Agustin is a pleasant 72-year-old male past medical history significant for hypertension, asthma, seizures, gastroesophageal reflux disease and anxiety. She has had a cath done in 2004 that was normal 2004 with no evidence of obstructive disease. She follows with Dr. Overton in the office. We have been asked to see her in consultation for chest pain. She states yesterday while she was doing laundry she felt an warm sensation in her chest and generally flushed. After continuing with her day she started feeling a pressure sensation in her chest and b/l shoulders. She describes it as someone was squeezing her upper body and holding her down. She was short of breath and slightly dizzy as well. She told her she didn't feel well and that is the last thing she can recall. She denies syncope or LOC only memory loss. Per her she was coherent and talking but she doesn't recall anything. She also states that she recently started Flexeril and had taken a dose Wednesday night and a second dose Wednesday morning a few hours before this episode. She has had no further symptoms of chest pain since admission. EKG reveals sinus mechanism with no acute ST or T-wave abnormalities. Telemetry tracings have been unremarkable. Chest x-ray reveals possible bronchitis, asthma versus viral pneumonitis. CT angio chest negative for pulmonary embolism. Laboratory data reviewed, hemoglobin 12.9, platelets 194, d-dimer 0.8, sodium 141, potassium 4.1, BUS and 15, creatinine 0.7, magnesium 2.0, cardiac enzymes negative 3, LDL 73, HDL 44, triglycerides 84, total cholesterol 134. Current cardiac medications include pravastatin 10 mg daily, Toprol 25 mg daily , losartan 100 mg daily, aspirin 81 mg daily. She also takes Lamictal, Restasis , , Nexium, doxycycline, Flexeril and vitamin supplementation. Most recent stress echocardiogram performed in the office August 2017 was negative for stress-induced ischemia. Most recent echocardiogram performed in the office July 2017 reveals preserved left ventricular systolic function with ejection fraction 60%. Review of Systems At the time of my exam: CONSTITUTIONAL: Denies fever. Denies chills. EYES: Denies blurred vision. Denies vision changes. Denies eye pain. EARS, NOSE, MOUTH & THROAT: Denies headache. Denies sore throat. Denies ear pain. CARDIOVASCULAR: Denies chest pain. Denies shortness of breath. Denies orthopnea. Denies PND. Denies palpitations. RESPIRATORY: Denies cough. GASTROINTESTINAL: Denies abdominal pain. Denies diarrhea. Denies constipation. Denies nausea. Denies vomiting. MUSCULOSKELETAL: Denies myalgias. INTEGUMENTARY: Denies pruitis. Denies rash. NEUROLOGIC: Denies numbness. Denies tingling. Denies weakness. PSYCHIATRIC: Denies anxiety. Denies depression. ENDOCRINE: Denies fatigue. Denies weight change. Denies polydipsia. Denies polyurina. GENITOURINARY: Denies burning, hematuria or urgency with micturation. HEMATOLOGIC: Denies history of anemia. Denies bleeding. Past Medical History Past Medical History: Asthma, Cancer, Chest Pain / Angina, GERD/Reflux, Hypertension, Pneumonia, Seizure Disorder Additional Past Medical History / Comment(s): had seizure after brain sx, "spastic bowel", put on a statin as preventive, rosacea,anxiety, stress test, had shingelles vaccine not sure of date.skin cancer History of Any Multi-Drug Resistant Organisms: None Reported Past Surgical History: Cholecystectomy, Joint Replacement, Orthopedic Surgery Additional Past Surgical History / Comment(s): brain tumor removed(benign), bruises easily. lt shoulder,rt knee replacemnent, rt hand for dupuytrens contracture. BREAST BX: 3 on rt side and 2 on lt. skin ca removed fron rt arm pt not sure what type Past Anesthesia/Blood Transfusion Reactions: No Reported Reaction Additional Past Anesthesia/Blood Transfusion Reaction / Comment(s): clausterphobia Smoking Status: Former smoker - Past Family History Mother Family Medical History: Diabetes Mellitus Father Family Medical History: Diabetes Mellitus Additional Family Medical History / Comment(s): HEART DISEASE Medications and Allergies Home Medications Medication Instructions Recorded Confirmed Type Aspirin EC [Ecotrin Low Dose] 81 mg PO DAILY 07/09/17 04/12/18 History Cholecalciferol [Vitamin D3] 1,000 unit PO BID 07/09/17 04/12/18 History Cyanocobalamin [Vitamin B-12] 500 mcg PO BID 07/09/17 04/12/18 History Doxycycline Hyclate 50 mg PO DAILY 07/09/17 04/12/18 History Esomeprazole Magnesium [NexIUM] 40 mg PO BID 07/09/17 04/12/18 History Losartan Potassium [Cozaar] 100 mg PO DAILY 07/09/17 04/12/18 History Metoprolol Succinate (ER) [Toprol 25 mg PO DAILY 07/09/17 04/12/18 History XL] Phenobarb/Hyoscy/Atropine/Scop 16.2 mg PO TID 07/09/17 04/12/18 History [] cycloSPORINE [Restasis] 1 drop BOTH EYES BID 07/09/17 04/12/18 History lamoTRIgine [LaMICtal] 150 mg PO BID 07/09/17 04/12/18 History Vit A/Vit C/Vit E/Zinc/Copper 1 cap PO BID 04/08/18 04/12/18 History [ICAPS SOFTGEL] Cyclobenzaprine [Flexeril] 10 mg PO Q8H PRN 04/12/18 04/12/18 History Pravastatin Sodium [Pravachol] 10 mg PO DAILY 04/12/18 04/12/18 History Allergies Allergy/AdvReac Type Severity Reaction Status Date / Time Sulfa (Sulfonamide Allergy Unknown Verified 04/12/18 21:36 Antibiotics) Childhood Physical Exam Vitals: Vital Signs Temp Pulse Pulse Resp BP BP Pulse Ox 04/13/18 04:00 16 04/13/18 03:39 97.8 F 70 16 136/64 97 04/12/18 23:42 97.6 F 62 16 117/53 93 L 04/12/18 21:51 16 04/12/18 20:54 98.3 F 64 16 155/67 95 04/12/18 20:00 98.3 F 59 L 20 141/63 96 04/12/18 18:59 63 20 154/68 99 04/12/18 18:00 65 20 169/61 99 04/12/18 16:47 70 20 168/75 98 04/12/18 16:30 66 20 178/77 98 04/12/18 15:25 98.7 F 69 22 174/95 99 Intake and Output 04/12/18 04/13/18 04/13/18 22:59 06:59 14:59 Intake Total 161.667 Balance 161.667 Intake: Intake, IV Titration 161.667 Amount Heparin Sodium,Porcine/ 161.667 D5w Pmx 25,000 unit In Dextrose/Water 1 500ml. bag @ 9.799 UNITS/KG/HR 20 mls/hr IV .Q24H [facility] Rx #:[id number] Other: Voiding Method Toilet Toilet # Voids 2 Weight 109.8 kg Blood pressure 128/67 heart rate 66 afebrile maintaining oxygen saturation on room air GENERAL: This is a 72-year-old female in no apparent distress at the time of my examination. Obese. HEENT: Head is atraumatic, normocephalic. Pupils are equal, round. Sclerae anicteric. Conjunctivae are clear. Mucous membranes of the mouth are moist. Neck is supple. There is no jugular venous distention. No carotid bruit is heard. LUNGS: Clear to auscultation no wheezes, rales or rhonchi. No chest wall tenderness is noted on palpation or with deep breathing. HEART: Regular rate and rhythm with faint murmur at the base, no rubs or gallops. S1 and S2 heard. ABDOMEN: Soft, nontender. Bowel sounds are heard. No organomegaly noted. EXTREMITIES: No evidence of peripheral edema and no calf tenderness noted. VASCULAR: Radial and dorsalis pedis pulses palpated, no evidence of clubbing. NEUROLOGIC: Patient is awake, alert and oriented x3. Results 04/12/18 16:30 04/12/18 16:30 Cardiac Enzymes 04/12/18 04/12/18 04/12/18 Range/Units 16:30 16:30 22:19 AST 23 (14-36) U/L CK-MB (CK-2) 0.3 0.3 (0.0-2.4) ng/mL Troponin I <0.012 <0.012 (0.000-0.034) ng/mL 04/13/18 Range/Units 03:18 AST (14-36) U/L CK-MB (CK-2) 0.2 (0.0-2.4) ng/mL Troponin I <0.012 (0.000-0.034) ng/mL Coagulation 04/12/18 04/13/18 Range/Units 16:30 03:18 PT 9.4 (9.0-12.0) sec APTT 22.5 34.1 H (22.0-30.0) sec Lipids 05/23/18 Range/Units 03:18 Triglycerides 84 (<150) mg/dL Cholesterol 134 (<200) mg/dL HDL Cholesterol 44 (40-60) mg/dL CBC 04/12/18 Range/Units 16:30 WBC 6.8 (3.8-10.6) k/uL RBC 4.19 (3.80-5.40) m/uL Hgb 12.9 (11.4-16.0) gm/dL Hct 38.3 (34.0-46.0) % Plt Count 194 (150-450) k/uL Comprehensive Metabolic Panel 04/12/18 Range/Units 16:30 Sodium 141 (137-145) mmol/L Potassium 4.1 (3.5-5.1) mmol/L Chloride 103 (98-107) mmol/L Carbon Dioxide 26 (22-30) mmol/L BUN 15 (7-17) mg/dL Creatinine 0.70 (0.52-1.04) mg/dL Glucose 113 H (74-99) mg/dL Calcium 8.6 (8.4-10.2) mg/dL AST 23 (14-36) U/L ALT 24 (9-52) U/L Alkaline Phosphatase 85 (38-126) U/L Total Protein 5.9 L (6.3-8.2) g/dL Albumin 3.4 L (3.5-5.0) g/dL Current Medications Generic Name Dose Route Start Last Admin Trade Name Freq PRN Reason Stop Dose Admin Aspirin 81 mg 04/13/18 09:00 Aspirin PO DAILY [facility] Belladonna/Phenobarbital 16.2 mg 04/12/18 22:30 04/12/18 23:29 PO 16.2 mg TID [facility] Administration Cholecalciferol 1,000 unit 04/12/18 22:30 04/12/18 23:29 Vitamin D3 PO 1,000 unit BID [facility] Administration Cyanocobalamin 500 mcg 04/12/18 22:30 04/12/18 23:29 Vitamin B-12 PO 500 mcg BID [facility] Administration Cyclobenzaprine HCl 10 mg 04/12/18 22:15 Flexeril PO Q8H PRN Muscle Spasm Cyclosporine 1 drops 04/12/18 22:30 04/12/18 23:29 Restasis 0.05% Ophth Soln BOTH EYES 1 drops BID [facility] Administration Doxycycline Monohydrate 50 mg 04/13/18 09:00 Vibramycin PO DAILY [facility] Heparin Sodium (Porcine) 0 unit 04/12/18 21:30 04/13/18 04:09 Heparin IV 4,000 unit PER PROTOCOL PRN Administration Low PTT Protocol Sodium Chloride 500 mls @ 20 mls/hr 04/12/18 19:15 04/12/18 20:00 Saline 0.9% IV 20 mls/hr .Q24H [facility] Administration Lamotrigine 150 mg 04/12/18 22:30 04/12/18 23:29 Lamictal PO 150 mg BID [facility] Administration Losartan Potassium 100 mg 04/13/18 09:00 Cozaar PO DAILY [facility] Metoprolol Succinate 25 mg 04/13/18 09:00 Toprol Xl PO DAILY [facility] Miscellaneous Information 1 each 04/12/18 17:29 Rx Info: Iv Contrast Was Given MISCELLANE 04/14/18 17:29 DAILY PRN Per Protocol Multivitamins/Minerals 1 each 04/12/18 22:30 04/12/18 23:28 Ivite PO 1 each BID [facility] Administration Nitroglycerin 0.4 mg 04/12/18 18:58 Nitrostat SUBLINGUAL Q5M PRN Chest Pain Pantoprazole Sodium 40 mg 04/13/18 07:30 Protonix PO AC-BID [facility] Pravastatin Sodium 10 mg 04/13/18 09:00 Pravachol PO DAILY [facility] Intake and Output 04/12/18 04/13/18 04/13/18 22:59 06:59 14:59 Intake Total 161.667 Balance 161.667 Intake: Intake, IV Titration 161.667 Amount Heparin Sodium,Porcine/ 161.667 D5w Pmx 25,000 unit In Dextrose/Water 1 500ml. bag @ 9.799 UNITS/KG/HR 20 mls/hr IV .Q24H [facility] Rx #:[id number] Other: Voiding Method Toilet Toilet # Voids 2 Weight 109.8 kg 04/12/18 16:30 04/12/18 16:30 Assessment and Plan Assessment: ASSESSMENT 1. Chest pain, atypical. An acute coronary event has been ruled out with no EKG evidence of ischemia and negative cardiac enzymes. 2. Hypertension 3. Dyslipidemia 4. Obesity PLAN Discontinue heparin infusion. An acute coronary event has been ruled out. Increase activity and ambulation in the halls. Continue to assess for chest discomfort. If she develops chest pain with activity we will consider repeating a stress test of a different modality. Thank you kindly for this consultation. Nurse Practitioner note has been reviewed, I agree with a documented findings and plan of care. Patient was seen and examined.
[2018-04-13] MEDS: cefTRIAXone IN SWFI 1,000 MG/10 ML SYRINGE IVP SCH (12:03)
[2018-04-13] MEDS: ACETAMINOPHEN TAB 325 MG TAB PO PRN (12:03)
--- NOTE | 2018-04-13 17:26 | US ---
EXAMINATION TYPE: US abdomen complete DATE OF EXAM: 04/13/2018 COMPARISON: Renal ultrasound 07/10/2014 CLINICAL HISTORY: abdominal pain. Difficult/limited exam due to patient body habitus and overlying florian wel gas. EXAM MEASUREMENTS: Liver Length: 16.4 cm Gallbladder Wall: Surgically absent CBD: 0.5 cm Spleen: 9.9 cm Right Kidney: 9.5 x 4.4 x 4.8 cm Left Kidney: 10.6 x 5.2 x 4.9 cm Pancreas: Obscured by bowel gas Liver: Limited visualization due to overlying bowel gas. Visualized portions are heterogeneous Gallbladder: Surgically absent Evidence for sonographic Jose's sign: No CBD: wnl as visualized, distal portion obscured by bowel gas Spleen: wnl Right Kidney: Hypoechoic area visualized mid pole measuring 1.5 x 1.3 x 1.0 cm, possible parapelvic cyst Left Kidney: No hydronephrosis or masses seen Upper IVC: wnl Abd Aorta: Proximal portion obscured by bowel gas. Atherosclerotic changes visualized IMPRESSION: Small right renal cortical cyst. No hydronephrosis. No dilated ducts.
[2018-04-13] MEDS: METOPROLOL SUCCINATE (ER) 25 MG TAB.ER.24H PO SCH (20:16)
[2018-04-13] MEDS: SODIUM CHLORIDE 0.9% 500 ML IV SCH (23:35)
[2018-04-14] MEDS: ACETAMINOPHEN TAB 325 MG TAB PO PRN ×2 (04:27→12:58)
[2018-04-14] MEDS ORDERED: ALPRAZolam 0.5 MG TAB PO STA (07:52)
--- NOTE | 2018-04-14 11:11 | NM ---
EXAMINATION TYPE: NM stress lexiscan cardiolite DATE OF EXAM: 04/14/2018 COMPARISON: NONE HISTORY: TECHNIQUE: After the intravenous administration of 11 mCi Tc 99m Sestamibi - Cardiolite resting SPEC T images acquired 45 minutes post injection. The patient received 0.4mg Lexiscan, 29.2 mCi Tc 99m Sestamibi - Stress images obtained [address] injection FINDINGS: Review of stress and rest SPECT images decreased perfusion on the rest images involving the inferior wall which may in part be related to attenuation artifact. Following stress imaging there is overall improvement noted within the inferior wall however there is persistent decreased perfusion involving the apical lateral wall which may reflect an area of stress-induced ischemia. Correlate clinically. G ated analysis shows normal wall motion with an estimated left ventricular ejection fraction of 70 %. IMPRESSION: I Cannot exclude a stress-induced ischemia involving the apical lateral wall. Correlate clinically.
[2018-04-14] MEDS: PANTOPRAZOLE SODIUM 40 MG GRANULE PKT PO SCH ×2 (11:17→18:03)
[2018-04-14] MEDS: cycloSPORINE 0.05% OPHTH 0.4 ML DROPERETTE BOTH EYES SCH ×2 (11:18→21:07)
[2018-04-14] MEDS: cefTRIAXone IN SWFI 1,000 MG/10 ML SYRINGE IVP SCH (11:18)
[2018-04-14] MEDS: CHOLECALCIFEROL 1,000 UNIT TAB PO SCH ×2 (11:18→20:35)
[2018-04-14] MEDS: CYANOCOBALAMIN 500 MCG TAB PO SCH ×2 (11:18→20:35)
[2018-04-14] MEDS: ASPIRIN 81 MG PO SCH (11:18)
[2018-04-14] MEDS: DOXYCYCLINE 50 MG CAP PO SCH (11:19)
[2018-04-14] MEDS: lamoTRIgine 100 MG TAB PO SCH ×2 (11:19→20:35)
[2018-04-14] MEDS: VIT A,C & E-LUTEIN-MINERALS 1 EACH TAB PO SCH ×2 (11:19→20:35)
[2018-04-14] MEDS: PRAVASTATIN SODIUM 20 MG TAB PO SCH (11:20)
[2018-04-14] MEDS: LOSARTAN 50 MG TAB PO SCH (11:20)
[2018-04-14] MEDS: PHENOBARB/HYOSCY/ATROPINE/SCOP 16.2 MG TAB PO SCH ×3 (11:20→20:35)
[2018-04-14] MEDS ORDERED: SODIUM CHLORIDE 0.9% 1,000 ML in EMPTY BAG 1 BAG IV ONE (13:43)
--- NOTE | 2018-04-14 13:54 | P.PN ---
Subjective Mrs. Kim underwent Lexiscan stress testing today which revealed possibility of stress-induced ischemia involving the apical lateral wall. Ejection fraction 70%. These results have been explained to the patient in detail my recommend moving forward with cardiac catheterization. Laboratory data obtained today revealed, LDL 73, HDL 44, triglycerides 64, total shoulder 134. Blood pressure 115/52 heart rate 66 afebrile maintaining oxygen saturation on nasal cannula 2 L. She denies having any further symptoms of chest pain 24 hours. Symmetric tracings have been unremarkable. Objective - Vital Signs Vital signs: Vital Signs Temp 97.4 F L 04/14/18 11:58 Pulse 66 04/14/18 12:00 Resp 18 04/14/18 12:00 BP 115/52 04/14/18 11:58 Pulse Ox 96 04/14/18 07:50 Intake & Output 04/13/18 04/14/18 04/14/18 18:59 06:59 18:59 Weight 109.769 kg Other: Voiding Method Toilet Toilet Toilet # Voids 3 - Exam GENERAL: Well-appearing, well-nourished and in no acute distress. NECK: Supple without JVD or thyromegaly. LUNGS: Breath sounds clear to auscultation bilaterally. Respiration equal and unlabored. No wheezes, rales or rhonchi. HEART: Regular rate and rhythm without murmurs, rubs or gallops. S1 and S2 heard. EXTREMITIES: Normal range of motion, no edema. No clubbing or cyanosis. Peripheral pulses intact and strong. - Labs CBC & Chem 7: 04/12/18 16:30 04/12/18 16:30 Assessment and Plan Assessment: ASSESSMENT 1. Chest pain, atypical. An acute coronary event has been ruled out with no EKG evidence of ischemia and negative cardiac enzymes. 2. Hypertension 3. Dyslipidemia 4. Obesity PLAN Recommend proceeding with cardiac catheterization to further assess the abnormal result a Lexiscan stress test. This has been explained to the patient in detail. I have discussed the risks, benefits and alternative therapies for the above-mentioned procedure and for both sedation/analgesia as well as necessary blood product administration, if indicated, as they pertain to this patient. The patient has indicated understanding and acceptance of the risks and procedures discussed. Questions have been answered properly and she is agreeable to move forward with the above stated procedure. She will be ambulated after midnight tonight and the case has been reported with the catheterization lab. Further recommendations based upon clinical course. Nurse Practitioner note has been reviewed, I agree with a documented findings and plan of care. Patient was seen and examined.
--- NOTE | 2018-04-14 15:23 | EST ---
EXERCISE STRESS AGE: 72 SEX: F HT: 5'8" WT: 238 PROTOCOL: Lexiscan Cardiolite Stress Test HEART RATE REST: 63 BLOOD PRESSURE REST: 129/67 MAXIMUM HEART RATE ACHIEVED: 93 MAXIMUM BLOOD PRESSURE: 219/76 INDICATIONS: Chest pain. CLINICAL INFORMATION: STRESS DATA: Pretesting physical examination showed a heart rate of 63, pressure 129/67 mmHg. Baseline EKG showed sinus mechanism. A 0.4 mg of Lexiscan was given to the patient over 15 seconds per protocol. Max heart rate was 93 beats per minute and maximum pressure was 219/76 mmHg. Clinically, the patient did not have any symptoms of chest pain or discomfort and the EKG did not show any significant ST or T-wave abnormalities consistent with ischemia. CONCLUSION: 1. Nondiagnostic electrocardiogram stress testing in response to Lexiscan. 2. Please follow up on the Cardiolite portion on separate report from the Radiology Department. MMODL / IJN: [id number] /
--- NOTE | 2018-04-14 15:51 | P.PN ---
Subjective Progress Note Date: 04/14/18April Darwin is a 72-year-old female who presented to [facility] emergency room with a chief complaint of chest pain patient describes a pressure sensation in the middle of her chest she was evaluated in emergency room first set of EKG and cardiac enzymes were negative she was admitted to 24- hour observation and further evaluation. D-dimer was slightly elevated in the emergency room at 0.8, patient had a computed tomography scan angiogram of the chest that failed to reveal any evidence of pulmonary embolism, there was no evidence of aortic aneurysm or dissection. Patient had a similar admission in June 2017, at that time cardiac enzymes were negative she was discharged home , she underwent a stress test treadmill echo as outpatient in July 2017 and that was within normal limits per patient. She is also complaining of epigastric and right upper quadrant abdominal pain, she is also complaining of cough with yellow sputum production. Otherwise she denies any complaints. 04/14/2018 patient's chest pain has improved. She underwent stress test today which reported cannot exclude a stress test induced ischemia involving the apical lateral wall. Cardiology has scheduled patient for heart catheterization tomorrow Objective - Vital Signs Vital signs: Vital Signs Temp 97.4 F L 04/14/18 11:58 Pulse 66 04/14/18 12:00 Resp 18 04/14/18 12:00 BP 115/52 04/14/18 11:58 Pulse Ox 96 04/14/18 07:50 Intake & Output 04/13/18 04/14/18 04/14/18 18:59 06:59 18:59 Intake Total 480 Balance 480 Weight 109.769 kg Intake: Oral 480 Other: Voiding Method Toilet Toilet Toilet # Voids 3 - Exam Head normocephalic Neck supple Lungs clear to auscultation bilaterally no wheezing or crackles Heart regular rate and rhythm S1-S2, no rub or gallop Abdomen is soft nontender nondistended positive bowel sounds no hepatosplenomegaly Extremities no edema Neuro alert and orientated to 3 - Labs CBC & Chem 7: 04/12/18 16:30 04/12/18 16:30 Assessment and Plan Assessment: #1 chest pain: Troponins negative 3 sets. EKG normal sinus rhythm. Patient's seen evaluated by cardiology underwent stress test that was abnormal. Patient scheduled for heart catheterization tomorrow #2 right upper quadrant and epigastric pain : improved. Amylase lipase LFTs are normal. Abdominal ultrasound only showing a small renal cyst on the right #3 acute tracheal bronchitis continue Rocephin. Cough is improving #4 underlying history of hypertension blood pressure was elevated at the time of presentation #5 underlying history of hyperlipidemia maintained on Pravachol #6 underlying history of seizure disorder #7 underlying history of gastroesophageal reflux disease maintained on Protonix #8 morbid obesity DVT prophylaxis subcu heparin and GI prophylaxis Protonix
[2018-04-14] MEDS: METOPROLOL SUCCINATE (ER) 25 MG TAB.ER.24H PO SCH (20:35)
[2018-04-14] MEDS: SODIUM CHLORIDE 0.9% 500 ML IV SCH (20:36)
[2018-04-14] MEDS: HEPARIN SODIUM,PORCINE 5,000 UNIT/ML 1 ML VIAL SQ SCH (20:42)
[2018-04-15] MEDS: DOXYCYCLINE 50 MG CAP PO SCH (06:00)
[2018-04-15] MEDS: cefTRIAXone IN SWFI 1,000 MG/10 ML SYRINGE IVP SCH (06:00)
[2018-04-15] MEDS: CHOLECALCIFEROL 1,000 UNIT TAB PO SCH ×2 (06:00→21:36)
[2018-04-15] MEDS: VIT A,C & E-LUTEIN-MINERALS 1 EACH TAB PO SCH ×2 (06:00→21:38)
[2018-04-15] MEDS: ASPIRIN 81 MG PO SCH (06:00)
[2018-04-15] MEDS: PANTOPRAZOLE SODIUM 40 MG GRANULE PKT PO SCH ×2 (06:00→15:56)
[2018-04-15] MEDS: PRAVASTATIN SODIUM 20 MG TAB PO SCH (06:01)
[2018-04-15] MEDS: CYANOCOBALAMIN 500 MCG TAB PO SCH ×2 (06:01→21:36)
[2018-04-15] MEDS: LOSARTAN 50 MG TAB PO SCH (06:01)
[2018-04-15] MEDS: PHENOBARB/HYOSCY/ATROPINE/SCOP 16.2 MG TAB PO SCH ×3 (06:01→21:38)
[2018-04-15] MEDS: lamoTRIgine 100 MG TAB PO SCH ×2 (06:01→21:37)
[2018-04-15] MEDS: cycloSPORINE 0.05% OPHTH 0.4 ML DROPERETTE BOTH EYES SCH ×2 (06:02→21:37)
[2018-04-15] MEDS: HEPARIN SODIUM,PORCINE 5,000 UNIT/ML 1 ML VIAL SQ SCH ×2 (06:03→21:40)
[2018-04-15] MEDS ORDERED: ALPRAZolam 0.25 MG TAB PO STA (10:16)
--- NOTE | 2018-04-15 13:51 | P.PN ---
Subjective Progress Note Date: 04/15/18 Principal diagnosis: Chest pain Patient is doing well today. She is very anxious about her left heart catheterization scheduled for this afternoon. No chest pain at this time. Objective - Vital Signs Vital signs: Vital Signs Temp 97.2 F L 04/15/18 12:00 Pulse 61 04/15/18 12:00 Resp 18 04/15/18 12:00 BP 150/68 04/15/18 12:00 Pulse Ox 94 L 04/15/18 12:00 Intake & Output 04/14/18 04/15/18 04/15/18 18:59 06:59 18:59 Intake Total 480 1100 Balance 480 1100 Weight 109.769 kg Intake: IV 1100 Sodium Chloride 0.9% 1, 1100 000 ml In Empty Bag 1 bag @ 1 ML/KG/HR 109.76 mls/ hr IV .Q9H7M [facility] Rx#: [id number] Oral 480 Other: Voiding Method Toilet Toilet Toilet # Voids 2 - Exam General: The patient is awake and alert, in no distress Eye: there is normal conjunctiva bilaterally. Neck: The neck is supple, there is no JVD. Cardiovascular: Normal S1-S2, no S3-S4, no murmurs. Respiratory: Lungs clear to auscultation bilaterally Gastrointestinal: Abdomen is soft, nontender Musculoskeletal: There is no pedal edema. Neurological:. Speech is normal. Skin: Skin is warm and dry - Labs CBC & Chem 7: 04/12/18 16:30 04/12/18 16:30 Assessment and Plan Assessment: #1 chest pain: Troponins negative 3 sets. EKG normal sinus rhythm. Patient's seen evaluated by cardiology underwent stress test that was abnormal. Patient scheduled for heart catheterization today #2 right upper quadrant and epigastric pain : improved. Amylase lipase LFTs are normal. Abdominal ultrasound only showing a small renal cyst on the right #3 acute tracheal bronchitis continue Rocephin. Cough is improving #4 Essential hypertension pressure not well controlled. Related to her anxiety. We will continue to monitor closely #5 underlying history of hyperlipidemia maintained on Pravachol #6 underlying history of seizure disorder #7 underlying history of gastroesophageal reflux disease maintained on Protonix #8 morbid obesity DVT prophylaxis subcu heparin and GI prophylaxis Protonix
[2018-04-15 14:07] LABS: Anion Gap 9 mmol/L; Blood Urea Nitrogen 12 mg/dL (7-17); Calcium 8.7 mg/dL (8.4-10.2); Carbon Dioxide 29 mmol/L (22-30); Chloride 104 mmol/L (98-107); Glucose 84 mg/dL (74-99); Potassium 4.6 mmol/L (3.5-5.1); Sodium 142 mmol/L (137-145)
[2018-04-15] MEDS: SODIUM CHLORIDE 0.9% 500 ML IV SCH (21:30)
[2018-04-15] MEDS: METOPROLOL SUCCINATE (ER) 25 MG TAB.ER.24H PO SCH (21:38)
[2018-04-16] MEDS: ASPIRIN 81 MG PO SCH (06:15)
[2018-04-16] MEDS: CHOLECALCIFEROL 1,000 UNIT TAB PO SCH (06:15)
[2018-04-16] MEDS: DOXYCYCLINE 50 MG CAP PO SCH (06:16)
[2018-04-16] MEDS: CYANOCOBALAMIN 500 MCG TAB PO SCH (06:16)
[2018-04-16] MEDS: lamoTRIgine 100 MG TAB PO SCH ×2 (06:16→19:47)
[2018-04-16] MEDS: LOSARTAN 50 MG TAB PO SCH (06:17)
[2018-04-16] MEDS: PHENOBARB/HYOSCY/ATROPINE/SCOP 16.2 MG TAB PO SCH ×4 (06:17→19:48)
[2018-04-16] MEDS: VIT A,C & E-LUTEIN-MINERALS 1 EACH TAB PO SCH (06:18)
[2018-04-16] MEDS: PRAVASTATIN SODIUM 20 MG TAB PO SCH (06:18)
[2018-04-16 06:38] LABS: Calcium 8.6 mg/dL (8.4-10.2); Potassium 3.9 mmol/L (3.5-5.1)
[2018-04-16] MEDS ORDERED: LIDOCAINE 2% INJ 20 MG/ML (20 ML MDV) ONE (07:11)
[2018-04-16] MEDS ORDERED: VERAPAMIL 2.5 MG/ML 2 ML AMP ONE (07:11)
[2018-04-16] MEDS ORDERED: IV FLUID CONTINUATION 300 ML IV ONE (07:20)
[2018-04-16] MEDS ORDERED: MIDAZOLAM 2 MG/2 ML VIAL IV ONE (07:40)
[2018-04-16] MEDS ORDERED: MIDAZOLAM 2 MG/2 ML VIAL ONE (07:41)
[2018-04-16] MEDS ORDERED: LIDOCAINE 2% INJ 20 MG/ML SQ ONE (07:45)
[2018-04-16] MEDS ORDERED: VERAPAMIL SYRINGE (5 MG/10 ML) INTRAARTER ONE (07:47)
[2018-04-16] MEDS ORDERED: HEPARIN SODIUM 1,000 UN/ML (10ML VL) ONE (07:47)
[2018-04-16] MEDS ORDERED: HEPARIN SODIUM 1,000 UN/ML (10ML VL) IV ONE (07:48)
[2018-04-16] MEDS ORDERED: IOPAMIDOL-370 125ML BTL INJ ONE (08:02)
[2018-04-16] MEDS ORDERED: RX INFO: IV CONTRAST WAS GIVEN 1 EACH MISC MISCELLANE PRN (08:08)
[2018-04-16] MEDS ORDERED: SODIUM CHLORIDE 0.9% 1,000 ML IV SCH (08:15)
[2018-04-16] MEDS: PANTOPRAZOLE SODIUM 40 MG GRANULE PKT PO SCH ×2 (08:45→16:01)
[2018-04-16] MEDS: cycloSPORINE 0.05% OPHTH 0.4 ML DROPERETTE BOTH EYES SCH ×2 (08:45→19:47)
[2018-04-16] MEDS: HEPARIN SODIUM,PORCINE 5,000 UNIT/ML 1 ML VIAL SQ SCH (08:45)
[2018-04-16] MEDS: cefTRIAXone IN SWFI 1,000 MG/10 ML SYRINGE IVP SCH (08:53)
--- NOTE | 2018-04-16 09:34 | CC ---
CARDIAC CATHETERIZATION REPORT DATE OF SERVICE: April 16, 2018 PERFORMING PHYSICIAN: Mark Wray MD, retail support specialist. PROCEDURE PERFORMED: Selective right and left coronary angiogram. INDICATION: This is a pleasant 72-year-old female patient who does have hypertension as well as dyslipidemia who presented to the hospital with chest discomfort and underwent a myocardial perfusion imaging stress test that revealed ischemia. In view of that, heart catheterization was recommended. APPROACH: Right radial artery. COMPLICATION: None. LEVEL OF SEDATION: Moderate with sedation length of 15 minutes. PROCEDURE DESCRIPTION: After obtaining an informed consent, the patient was brought to cardiac cathodic protection technician. The right radial artery was cannulated using micropuncture technique. Micropuncture technique and a micropuncture wire passed easily. Then I placed a 6-English sheath in the right radial artery. After that, I gave the patient 2 mg of verapamil IA and 10,000 units of heparin IV. Subsequently I did selective right and left coronary angiogram using JR4 and JL3.5 catheters. The procedure was completed without any complication. I attempted crossing the aortic valve using the pigtail catheter, but I was unable to cross the valve. The procedure was completed without any complication. SELECTIVE CORONARY ANGIOGRAM: 1. The right coronary artery is a large caliber vessel, dominant vessel as well. The RCA is angiographically normal in the proximal, mid and distal portion. Distally bifurcates into PDA and PLV branches both are angiographically normal. 2. The left main is angiographically normal. It bifurcates into the left circumflex and left anterior descending artery. 3. The left circumflex is a large caliber vessel. It is a nondominant vessel. The proximal circ is angiographically normal and gives rise into a large OM branch which bifurcates into 2 subbranches. The first OM itself with 2 subbranches are angiographically normal. The left circumflex after the first OM continues as a small to medium caliber vessel in the AV groove. 4. Left anterior descending coronary artery: The proximal LAD appeared to be angiographically normal and gives rise into 2 small diagonal branches both are angiographically normal. The mid LAD appeared to have a segment of myocardial bridging. The LAD distally appeared to be angiographically normal and does reach the apex. CONCLUSION: 1. Normal coronary angiogram. 2. Myocardial bridging of the mid LAD. POSTPROCEDURE MANAGEMENT: 1. Maximize medical treatment. 2. Follow up with the patient. MMODL / IJN: [id number] /
--- NOTE | 2018-04-16 13:55 | P.PN ---
Subjective Principal diagnosis: Chest pain Patient is doing well today. She had left heart cath this morning. Objective - Vital Signs Vital signs: Vital Signs Temp 98.0 F 04/16/18 07:15 Pulse 60 04/16/18 07:15 Resp 18 04/16/18 07:15 BP 154/70 04/16/18 07:15 Pulse Ox 97 04/16/18 07:15 Intake & Output 04/15/18 04/16/18 04/16/18 18:59 06:59 18:59 Intake Total 416 100 Balance 416 100 Intake: IV 100 Oral 416 Other: Voiding Method Toilet Toilet # Voids 1 1 - Exam General: The patient is awake and alert, in no distress Eye: there is normal conjunctiva bilaterally. Neck: The neck is supple, there is no JVD. Cardiovascular: Normal S1-S2, no S3-S4, no murmurs. Respiratory: Lungs clear to auscultation bilaterally Gastrointestinal: Abdomen is soft, nontender Musculoskeletal: There is no pedal edema. Neurological:. Speech is normal. Skin: Skin is warm and dry - Labs CBC & Chem 7: 04/12/18 16:30 04/16/18 05:43 Assessment and Plan Assessment: #1 chest pain: Troponins negative 3 sets. EKG normal sinus rhythm. Patient's seen evaluated by cardiology underwent stress test that was abnormal. Status post left heart catheterization with no thickened coronary artery disease. Awaiting radiology clearance for discharge. #2 right upper quadrant and epigastric pain : improved. Amylase lipase LFTs are normal. Abdominal ultrasound only showing a small renal cyst on the right #3 acute tracheal bronchitis continue Rocephin. Switch antibiotic to oral Levaquin #4 Essential hypertension pressure not well controlled. Related to her anxiety. We will continue to monitor closely #5 underlying history of hyperlipidemia maintained on Pravachol #6 underlying history of seizure disorder #7 underlying history of gastroesophageal reflux disease maintained on Protonix #8 morbid obesity DVT prophylaxis subcu heparin and GI prophylaxis Protonix
[2018-04-16] MEDS ORDERED: LEVOFLOXACIN 500 MG TAB PO SCH (14:00)
[2018-04-16] MEDS: ACETAMINOPHEN TAB 325 MG TAB PO PRN (19:46)
[2018-04-16] MEDS: METOPROLOL SUCCINATE (ER) 25 MG TAB.ER.24H PO SCH (19:48)
[2018-04-16] MEDS ORDERED: PRAVASTATIN SODIUM 40 MG TAB PO SCH (21:00)
[2018-04-17 04:57] VITALS: RESP 18
[2018-04-17] MEDS: PANTOPRAZOLE SODIUM 40 MG GRANULE PKT PO SCH (06:25)
[2018-04-17] MEDS: ASPIRIN 81 MG PO SCH (07:45)
[2018-04-17] MEDS: lamoTRIgine 100 MG TAB PO SCH (07:45)
[2018-04-17] MEDS: PHENOBARB/HYOSCY/ATROPINE/SCOP 16.2 MG TAB PO SCH (07:45)
[2018-04-17] MEDS: LOSARTAN 50 MG TAB PO SCH (07:45)
[2018-04-17] MEDS: cycloSPORINE 0.05% OPHTH 0.4 ML DROPERETTE BOTH EYES SCH (07:46)
[2018-04-17 12:02] VITALS: BP 131/73; PULSE 73; TEMP 97.6
--- NOTE | 2018-04-17 13:44 | PN ---
PROGRESS NOTE Mrs. Agustin underwent a cardiac cath performed by Dr. Wray yesterday. Her right radial site is clean and dry with a moderate area of ecchymosis but the pulse is good. She can be discharged today and she will see Dr. Wray in one week. Vital signs are stable. S1-S2 heard normally. Lungs are clear. Abdomen and lower extremity exam is unchanged. Right radial pulse is good. MMODL / IJN: [id number] /
--- NOTE | 2018-04-17 15:57 | P.DS ---
Providers Date of admission: 04/15/18 09:49 Expected date of discharge: 04/17/18 Attending physician: Becka Fletcher Consults: 04/12/18 18:59 Consult Physician Urgent Consulting Provider: Jitendra Overton Consult Reason/Comments: chest pain Do you want consulting provider notified?: Yes Primary care physician: Becka Vencor Hospital Course: #1 chest pain: Troponins negative 3 sets. EKG normal sinus rhythm. Patient's seen evaluated by cardiology underwent stress test that was abnormal. Status post left heart catheterization with no thickened coronary artery disease. Continue medical Management per cardiology #2 right upper quadrant and epigastric pain : improved. Amylase lipase LFTs are normal. Abdominal ultrasound only showing a small renal cyst on the right #3 acute tracheal bronchitis continue Rocephin. Switch antibiotic to oral Levaquin #4 Essential hypertension pressure well controlled #5 underlying history of hyperlipidemia maintained on Pravachol #6 underlying history of seizure disorder #7 underlying history of gastroesophageal reflux disease maintained on Protonix #8 morbid obesity Patient Condition at Discharge: Stable Plan - Discharge Summary Discharge Rx Participant: No New Discharge Prescriptions: Continue cycloSPORINE [Restasis] 1 drop BOTH EYES BID Phenobarb/Hyoscy/Atropine/Scop [] 16.2 mg PO TID Cyanocobalamin [Vitamin B-12] 500 mcg PO BID Cholecalciferol [Vitamin D3] 1,000 unit PO BID lamoTRIgine [LaMICtal] 150 mg PO BID Aspirin EC [Ecotrin Low Dose] 81 mg PO DAILY Doxycycline Hyclate 50 mg PO DAILY Esomeprazole Magnesium [NexIUM] 40 mg PO BID Metoprolol Succinate (ER) [Toprol XL] 25 mg PO DAILY Losartan Potassium [Cozaar] 100 mg PO DAILY Vit A/Vit C/Vit E/Zinc/Copper [ICAPS SOFTGEL] 1 cap PO BID Pravastatin Sodium [Pravachol] 10 mg PO DAILY Cyclobenzaprine [Flexeril] 10 mg PO Q8H PRN PRN Reason: Muscle Spasm Discharge Medication List Aspirin EC [Ecotrin Low Dose] 81 mg PO DAILY 07/09/17 [History] Cholecalciferol [Vitamin D3] 1,000 unit PO BID 07/09/17 [History] Cyanocobalamin [Vitamin B-12] 500 mcg PO BID 07/09/17 [History] Doxycycline Hyclate 50 mg PO DAILY 07/09/17 [History] Esomeprazole Magnesium [NexIUM] 40 mg PO BID 07/09/17 [History] Losartan Potassium [Cozaar] 100 mg PO DAILY 07/09/17 [History] Metoprolol Succinate (ER) [Toprol XL] 25 mg PO DAILY 07/09/17 [History] Phenobarb/Hyoscy/Atropine/Scop [] 16.2 mg PO TID 07/09/17 [History] cycloSPORINE [Restasis] 1 drop BOTH EYES BID 07/09/17 [History] lamoTRIgine [LaMICtal] 150 mg PO BID 07/09/17 [History] Vit A/Vit C/Vit E/Zinc/Copper [ICAPS SOFTGEL] 1 cap PO BID 04/08/18 [History] Cyclobenzaprine [Flexeril] 10 mg PO Q8H PRN 04/12/18 [History] Pravastatin Sodium [Pravachol] 10 mg PO DAILY 04/12/18 [History] Follow up Appointment(s)/Referral(s): Mark Wray MD [STAFF PHYSICIAN] - 1 Week (office closed - please call to make appointment) Becka Fletcher MD [Primary Care Provider] - 1-2 days (office closed - please call to make appointment) Patient Instructions/Handouts: Heart Catheterization (DC), After Radial Heart Catheterization (GEN) Discharge Disposition: HOME SELF-CARE
== END 2018-04-17 16:19 | disposition home or self-care (01) | DRG 287 ==
LOC: EC 15:23 → 3OBS 18:54 → 6SEL 04-14 23:07 → OBSVTOIN 04-15 09:49
PROVIDERS: ADMIT Internal Medicine; ATTEND Internal Medicine
PROC: B2111ZZ Fluoroscopy of Multiple Coronary Arteries using Low Osmolar Contrast (ICD-10-PCS; principal; 2018-04-16 07:30)
DX: R07.9 Chest pain, unspecified (principal); Q24.5 Malformation of coronary vessels; E66.01 Morbid (severe) obesity due to excess calories; E78.5 Hyperlipidemia, unspecified; F41.9 Anxiety disorder, unspecified; G40.909 Epilepsy, unspecified, not intractable, without status epilepticus; I10 Essential (primary) hypertension; J20.9 Acute bronchitis, unspecified; J45.909 Unspecified asthma, uncomplicated; K21.9 Gastro-esophageal reflux disease without esophagitis; N28.1 Cyst of kidney, acquired; L71.9 Rosacea, unspecified; M54.9 Dorsalgia, unspecified; R10.11 Right upper quadrant pain; R10.13 Epigastric pain; Z79.82 Long term (current) use of aspirin; Z79.899 Other long term (current) drug therapy; Z87.891 Personal history of nicotine dependence; Z68.36 Body mass index [BMI] 36.0-36.9, adult; Z88.2 Allergy status to sulfonamides; Z85.828 Personal history of other malignant neoplasm of skin; Z87.01 Personal history of pneumonia (recurrent); Z90.49 Acquired absence of other specified parts of digestive tract; Z96.651 Presence of right artificial knee joint; Z83.3 Family history of diabetes mellitus
CPT/HCPCS: 36415; 71046; 71275; 76700; 78452; 80048; 80053; 80061; 81003; 82150; 82550; 82553; 83690; 83735; 83880; 84484; 85025; 85379; 85610; 85730; 93005; 93017; 93454; 96365; 96376; 99285

== ENCOUNTER → 2018-04-28 | Day surgery (SDC) | payer MEDICARE, BC ==
[2018-04-28 07:17] VITALS: RESP 16; TEMP 98.1; BMI 36.3
[2018-04-28 09:23] VITALS: BP 124/83; PULSE 59
--- NOTE | 2018-04-28 09:56 | PCN ---
PROCEDURE NOTE PRE PROCEDURE DIAGNOSIS: Increasing indeterminate calcifications in the left breast. INDICATIONS: The patient is a 73-year-old white female who on a routine mammogram was noted to have increasing indeterminate calcifications in the left breast in the mid-lateral portion of the breast. No lesions of concern for biopsy were identified in the right breast. The patient on physical examination did not have any dominant mass or nodules of concern in either breast, only fibrocystic changes. No axillary adenopathy of concern. The location of the lesion was in the left breast in the more lateral midportion of the breast. The approach used to target the lesion was lateral to medial. The patient was brought to the stereo unit. The risks and benefits of the procedure have been discussed with the patient and consent obtained. The patient was placed on the stereo table and the area of the lesion was identified using a lateral to medial approach. The skin was prepped using Betadine, 1% lidocaine without epinephrine approximately 20 mL were utilized to anesthetize the area. A 9-gauge vacuum-assisted needle was driven to the correct coordinates after the lesion had been targeted and the six core biopsies were obtained. Radiograph of the specimen revealed microcalcifications in the specimen. A secure top-fish hatchery laborer was placed. There were no immediate postoperative complications. The marker was noted to be in the correct location. The patient tolerated the procedure in stable condition. Please note the patient is scheduled for followup with Dr. Gilmore in 1 week and specimen is sent to pathology. MMODL / IJN: [id number] /
--- NOTE | 2018-04-28 18:18 | MM ---
EXAMINATION TYPE: MG stereo VAD BX LT DATE OF EXAM: 04/28/2018 COMPARISON: NONE CLINICAL HISTORY: Abnormal mammogram TECHNIQUE: Stereotactic guided core biopsy of left breast. FINDINGS: The procedure of stereotactic guided core biopsy was explained to the patient. Benefits, alternatives, and risks were discussed. An informed consent was then obtained. The shortness pathway for biopsy was chosen. Shortness pathway was lateral approach. Dr. Rogers performed the localization, then surgeon, Dr. Mando Curtis performed the remainder of the procedure. A vacuum assisted biopsy gun was used to obtain multiple core samples. Calcifications within the sample. The patient was kept in the radiology department for short stay after the procedure and then discharged home in stable condition. Post biopsy mammogram shows the clip to appear in satisfactory position relative to the targeted area of concern on the preprocedure images. IMPRESSION: 1. Successful core biopsy left breast calcifications. Recommendations: 1. Recommendations are pending pathology results. Pathology Results: Benign BREAST, LEFT, STEREOTACTIC CORE BIOPSY: Fibroadenoma/fibroadenomatoid hyperplasia with hyalinization and calcifications. Background fibrocystic changes. Recommendation Follow up ultrasound of the left breast in 6 months. ZEE
== END | disposition home or self-care (01) ==
LOC: RADMAMWWP 06:52
PROVIDERS: ATTEND Surgery
DX: D24.2 Benign neoplasm of left breast (principal); N60.12 Diffuse cystic mastopathy of left breast; N62 Hypertrophy of breast; R92.1 Mammographic calcification found on diagnostic imaging of breast
CPT/HCPCS: 19081; 88305; A4648; J2001

== ENCOUNTER → 2018-05-05 | Outpatient (CLI) | payer MEDICARE, BC ==
--- NOTE | 2018-05-05 11:37 | P.PN ---
Progress Note - Text Progress Note Date: 05/05/18 Patient is a 73-year-old white female status post left breast stereotactic core biopsy on 04-28-18. Pathology revealed fibroadenoma/fibroadenomatoid hyperplasia , hyalinization and calcifications. She has no complaints at this time. The findings were felt to be concordant with the radiographic findings. Lungs: clear Heart: Regular rate and rhythm Left breast: Puncture site clean and dry no infection Impression/plan: 1. Repeat left breast mammogram in 6 months with physician exam at that time CC: Dr. Fletcher
== END | disposition home or self-care (01) ==
LOC: WWCWWP 10:54
PROVIDERS: ATTEND Surgery
DX: Z53.9 Procedure and treatment not carried out, unspecified reason (principal)

== ENCOUNTER → 2018-05-14 | Outpatient (CLI) | payer MEDICARE, BC ==
--- NOTE | 2018-05-15 11:09 | CT ---
EXAMINATION TYPE: CT thoracic spine wo con DATE OF EXAM: 05/15/2018 COMPARISON: NONE HISTORY: 73-year-old female Pain in thoracic spine TECHNIQUE: Contiguous axial scanning of the thoracic spine without IV contrast. Coronal and sagittal reconstructions performed. CT DLP: 1339.5 mGycm Automated exposure control for dose reduction was used. FINDINGS: There is an accentuated midthoracic kyphosis but with preserved alignment. Bridging anterior endplate spondylosis midthoracic spine compatible with dish. Mild multilevel degenerative disc disease is present with disc space narrowing. By CT, no large focal disc herniation is identified. Scattered mild facet degenerative change. On the left, there is mild neuroforaminal narrowing at T10-T11. On the right, there is mild neuroforaminal narrowing at T3-T4. No evident canal compromise is seen. Some ossification along the supraspinous ligament is noted. Vertebral body heights are maintained. No prevertebral or paravertebral soft tissue abnormality. IMPRESSION: 1. ACCENTUATED MID THORACIC KYPHOSIS. NORMAL ALIGNMENT. NO VERTEBRAL COMPRESSION COLLAPSE. 2. BRIDGING ANTERIOR ENDPLATE SPONDYLOSIS MIDTHORACIC SPINE AND OSSIFICATION ALONG THE SUPRASPINOUS L IGAMENT. FINDINGS SUGGEST DISH. 3. MILD DEGENERATIVE DISC DISEASE MID TO LOWER THORACIC SPINE. NO CANAL COMPROMISE IDENTIFIED BY CT. 4. THERE IS SCATTERED MILD FACET ARTHROPATHY WITH MILD RIGHT NEUROFORAMINAL NARROWING AT T3-T4 AND ON THE LEFT AT T10-T11.
== END | disposition home or self-care (01) ==
LOC: RADCTMAIN 08:16
PROVIDERS: ATTEND Internal Medicine
DX: M99.72 Connective tissue and disc stenosis of intervertebral foramina of thoracic region (principal); M51.34 Other intervertebral disc degeneration, thoracic region; M47.814 Spondylosis without myelopathy or radiculopathy, thoracic region; M46.94 Unspecified inflammatory spondylopathy, thoracic region; M40.204 Unspecified kyphosis, thoracic region
CPT/HCPCS: 72128

== ENCOUNTER 2018-09-23 07:42 | Day surgery (SDC) | payer MEDICARE, BC ==
[2018-09-23 09:05] VITALS: BP 140/67; PULSE 63; RESP 16; TEMP 98.1
--- NOTE | 2018-09-23 10:35 | US ---
EXAMINATION TYPE: US thyroid st tissue head/neck DATE OF EXAM: 09/23/2018 COMPARISON: NONE CLINICAL HISTORY: R22.1 swelling/mass/lump in neck. Left posterior neck palp x 15 years. No pain. S tates it has been getting bigger. Area of palpable scanned. Questionable superficial oval nonvascular lesion seen - 1.7 x 1.3 x 0.4 cm. Contralateral images taken. IMPRESSION: Possible elongated well-circumscribed oval 1.7 cm avascular lesion is seen at the area o f palpable abnormality that is similar in echogenicity to background tissue and could represent an en capsulated lipoma. Given the clinical interval growth enhanced CT neck could be considered.
--- NOTE | 2018-09-23 12:13 | US ---
ULTRASOUND GUIDED FNA NECK MASS: CLINICAL HISTORY: Posterior neck mass FINDINGS: The procedure was explained to the patient. The risks, complications, benefits and alternatives were discussed and any questions were answered. Informed consent was obtained. Patient was placed sitti ng upright position on the ultrasound table and prepped and draped in the usual sterile fashion. Preliminary ultrasound failed to demonstrate a definite underlying mass. IMPRESSION: 1. No definite underlying abnormalities seen by ultrasound prior to biopsy. There is a questionable a bnormality which did blend in with the tissue. Given the uncertainty of ultrasound recommend the giovani ent have a CT of the neck for more adequate assessment of the area for biopsy.
== END 2018-09-23 10:30 | disposition home or self-care (01) ==
LOC: RADPROMAIN 07:42
PROVIDERS: ATTEND Nurse Practitioner Family
DX: R22.1 Localized swelling, mass and lump, neck (principal); R21 Rash and other nonspecific skin eruption; I35.0 Nonrheumatic aortic (valve) stenosis; Z53.9 Procedure and treatment not carried out, unspecified reason; I35.8 Other nonrheumatic aortic valve disorders; K21.9 Gastro-esophageal reflux disease without esophagitis; H60.549 Acute eczematoid otitis externa, unspecified ear; J45.909 Unspecified asthma, uncomplicated; I10 Essential (primary) hypertension; K58.9 Irritable bowel syndrome, unspecified; G40.909 Epilepsy, unspecified, not intractable, without status epilepticus; Z79.82 Long term (current) use of aspirin; Z79.899 Other long term (current) drug therapy; Z79.891 Long term (current) use of opiate analgesic; Z82.49 Family history of ischemic heart disease and other diseases of the circulatory system; Z83.3 Family history of diabetes mellitus
CPT/HCPCS: 76536

== ENCOUNTER → 2018-10-17 | Outpatient (CLI) | payer MEDICARE, BC ==
--- NOTE | 2018-10-17 09:25 | MM ---
Reason for exam: follow-up at short interval from prior study. Last mammogram was performed 7 months ago. History: Patient is postmenopausal. Benign MG stereo VAD BX LT of the left breast, April 28, 2018. Benign MG stereo VAD BX LT of the left breast, May 26, 2016. Benign stereotactic core biopsy of the right breast, December 17, 1998. Core biopsy of the right breast. Excisional biopsy of the right breast. Took estrogen for 2 years. Physical Findings: Nurse did not find any significant physical abnormalities on exam. MG 3D Diag Mammo W/Cad LT CC, MLO, and ML view(s) were taken of the left breast. Prior study comparison: March 25, 2018, left breast MG 3d work up w/cad LT. March 21, 2018, bilateral MG 3d screening mammo w/cad. There are scattered fibroglandular densities. Left biopsy markers noted. Adjacent 2.5mm mass is stable. These results were verbally communicated with the patient and result sheet given to the patient on 10/17/18. ASSESSMENT: Benign, BI-RAD 2 RECOMMENDATION: Return to routine screening mammogram schedule for both breasts. Back on schedule for March 2019.
== END ==
LOC: RADMAMWWP 06:52
PROVIDERS: ATTEND Surgery
DX: R92.8 Other abnormal and inconclusive findings on diagnostic imaging of breast (principal)
CPT/HCPCS: 77065; G0279; 77061

== ENCOUNTER → 2018-10-20 | Outpatient (CLI) | payer MEDICARE, BC ==
[2018-10-20 09:40] VITALS: BP 142/69; PULSE 74; RESP 18; TEMP 97.6; BMI 38.0
== END ==
LOC: WWCWWP 09:06
PROVIDERS: ATTEND Surgery
DX: Z53.9 Procedure and treatment not carried out, unspecified reason (principal)

== ENCOUNTER → 2018-12-08 | Outpatient (CLI) | payer MEDICARE ==
[2018-12-08 09:32] VITALS: BP 127/69; PULSE 69; RESP 16; TEMP 96.1; BMI 36.9
--- NOTE | 2018-12-08 10:20 | P.PN ---
Subjective Progress Note Date: 12/08/18 Lucille is a 73-year-old white female who is status post a left breast stereotactic core biopsy performed on 6717. Pathology revealed fibroadenoma/ fibroadenomatoid hyperplasia, hyalinization and callus calcifications. She has no complaints at this time. The findings were thought to be concordant with her radiographic abnormality at that time. The patient has had a repeat left breast mammogram on 1120 618. This was felt to be benign BIRADS 2 and repeat bilateral mammogram back on schedule in March 2019. Patient with a complaint of headache for about two weeks. Objective - Vital Signs Vital signs: Vital Signs Temp 96.1 F L 12/08/18 09:21 Pulse 69 12/08/18 09:21 Resp 16 12/08/18 09:21 BP 127/69 12/08/18 09:21 Pulse Ox 95 12/08/18 09:21 Intake & Output 12/07/18 12/08/18 12/08/18 18:59 06:59 18:59 Weight 113.398 kg - Constitutional General appearance: Present: obese - EENT Eyes: Present: EOMI ENT: Present: hearing grossly normal - Neck Neck: Present: normal ROM - Respiratory Respiratory: bilateral: CTA - Cardiovascular Rhythm: regular Heart sounds: normal: S1, S2 - Gastrointestinal General gastrointestinal: Present: soft - Integumentary Integumentary Comment(s): Breast examination: Patient has very large breast they approximately 48 double D Right breast: Multiple positional exam no dominant masses or nodules of concern Right axilla: No adenopathy of concern Left breast: Multiple positional exam no dominant masses or nodules of concern Left axilla: No adenopathy of concern Integumentary: Present: normal turgor Assessment and Plan Assessment: Impression: 1. Bilateral fibrocystic breast changes 2. Status post left breast stereotactic core biopsy pathology benign 3. c/o of headache and neck pain Plan: 1. Bilateral Mammograms March 2019 with physician exam at that time 2. Follow-up with Dr. Fletcher regarding headaches/neck pain CC: Dr. Fletcher, Dr. Webb
== END | disposition home or self-care (01) ==
LOC: WWCWWP 09:10
PROVIDERS: ATTEND Surgery
DX: Z53.9 Procedure and treatment not carried out, unspecified reason (principal)

== ENCOUNTER → 2019-03-24 | Outpatient (CLI) | payer MEDICARE ==
--- NOTE | 2019-03-24 11:51 | CT ---
EXAMINATION TYPE: CT abdomen pelvis w con DATE OF EXAM: 03/24/2019 HISTORY: Stomach pains CT DLP: 2488.7mGycm Automated Exposure Control for Dose Reduction was Utilized. CONTRAST: CT scan of the abdomen and pelvis is performed with IV Contrast, patient injected with 100 mL of Isov ue 300. COMPARISON: Complete abdominal ultrasound April 13, 2018 FINDINGS: LUNG BASES: No significant abnormality is appreciated. LIVER/GB: Cholecystectomy clips are present. PANCREAS: No significant abnormality is seen. SPLEEN: A 8 mm splenule anterior splenic hilum axial image 24 is noted ADRENALS: No significant abnormality is seen. KIDNEYS: Simple appearing 1.1 cm cyst anteriorly left kidney upper pole level axial image 34 series 8 . BOWEL: Oral contrast reaches level of the hepatic flexure. There is no suspicious small or large sonia l dilatation. Some diverticula in the sigmoid colon are present without CT evidence for acute diverti culitis. Satisfactorily distended stomach without suspicious wall thickening. UTERUS/ADNEXA: Slightly lobulated contour to the uterus consistent with fibroids, there is 3.2 x 2.5 cm subserosal fibroid posterior superior right margin accident 81 noted. Both ovaries are identified and normal in size superior to this. LYMPH NODES: No greater than 1cm abdominal or pelvic lymph nodes are appreciated. OSSEOUS STRUCTURES: Moderate to advanced disc space narrowing L4-L5 and L5-S1 levels is present. Ther e is facet arthropathy in the lower lumbar spine. There is mild narrowing and spurring in both hip kavya ints. There is moderate multilevel spurring in the thoracic spine. OTHER: No significant additional abnormality is seen. IMPRESSION: No significant acute finding is seen to account for patient's clinical symptoms of epigas tric pain.
== END | disposition home or self-care (01) ==
LOC: RADCTMAIN 09:37
PROVIDERS: ATTEND Internal Medicine
DX: R10.84 Generalized abdominal pain (principal)
CPT/HCPCS: 82565; 84520; 74177; 36415; Q9967 ×2

== ENCOUNTER → 2019-05-31 | Outpatient (CLI) | payer MEDICARE ==
--- NOTE | 2019-06-02 13:40 | MM ---
Reason for exam: screening (asymptomatic). Last mammogram was performed 7 months ago. History: Patient is postmenopausal. Benign MG stereo VAD BX LT of the left breast, April 28, 2018. Benign MG stereo VAD BX LT of the left breast, May 26, 2016. Benign stereotactic core biopsy of the right breast, December 17, 1998. Core biopsy of the right breast. Excisional biopsy of the right breast. Took estrogen for 2 years. Physical Findings: A clinical breast exam by your physician is recommended on an annual basis and results should be correlated with mammographic findings. MG 3D Screening Mammo W/Cad Bilateral CC, MLO, and XCCL view(s) were taken. Prior study comparison: October 17, 2018, left breast MG 3d diag mammo w/cad LT. March 25, 2018, left breast MG 3d work up w/cad LT. Previous mammotome biopsy in the right and left breast. No significant changes when compared with prior studies. ASSESSMENT: Benign, BI-RAD 2 RECOMMENDATION: Routine screening mammogram of both breasts in 1 year.
== END | disposition home or self-care (01) ==
LOC: RADMAMWWP 13:24
PROVIDERS: ATTEND Surgery
DX: Z12.31 Encounter for screening mammogram for malignant neoplasm of breast (principal)
CPT/HCPCS: 77063; 77067

== ENCOUNTER → 2019-07-31 | Outpatient (CLI) | payer MEDICARE ==
--- NOTE | 2019-07-31 12:54 | US ---
EXAMINATION TYPE: US venous doppler duplex LE LT DATE OF EXAM: 07/31/2019 11:24 AM COMPARISON: NONE CLINICAL HISTORY: M79.662,R22.42 PAIN AND SWELLING IN LT LOWER LIMB. SIDE PERFORMED: Left TECHNIQUE: The lower extremity deep venous system is examined utilizing real time linear array sonog aislinn with graded compression, doppler sonography and color-flow sonography. VESSELS IMAGED: External Iliac Vein (EIV) Common Femoral Vein Deep Femoral Vein Greater Saphenous Vein * Femoral Vein Popliteal Vein Small Saphenous Vein * Proximal Calf Veins (* superficial vessels) Results communicated to Office by pest control chemical technician shortly after exam was completed Left Leg: Negative for DVT Grayscale, color doppler, spectral doppler imaging performed of the deep veins of the left lower extr emity. There is normal flow, compressibility, vascular waveforms. IMPRESSION: No ultrasound evidence for acute DVT in the left lower extremity.
== END | disposition home or self-care (01) ==
LOC: RADUSWWP 10:53
PROVIDERS: ATTEND Internal Medicine
DX: M79.662 Pain in left lower leg (principal)

== ENCOUNTER 2019-10-16 17:11 | Emergency (ER) | payer MEDICARE ==
[2019-10-16 17:31] VITALS: RESP 18
[2019-10-16] MEDS ORDERED: METOCLOPRAMIDE 5 MG/ML 2 ML VIAL IVP STA (18:24)
[2019-10-16] MEDS ORDERED: diphenhydrAMINE 50 MG/ML 1 ML VIAL IVP STA (18:24)
[2019-10-16] MEDS ORDERED: DEXAMETHASONE SOD PHOSPHATE 10 MG/ML 1 ML VIAL IV STA (18:25)
[2019-10-16] MEDS ORDERED: MAGNESIUM SULFATE-D5W PMX 1 GM in DEXTROSE/WATER 1 100ML.BAG IVPB ONE (18:25)
[2019-10-16 19:30] LABS: Basophils # (A) 0.1 k/uL (0-0.2); Basophils % (A) 1 %; Eosinophils # (A) 0.1 k/uL (0-0.7); Eosinophils % (A) 2 %; HCT 41.7 % (34.0-46.0); HGB 14.4 gm/dL (11.4-16.0); Lymphocytes % (A) 22 %; MCH 31.9 pg (25.0-35.0); MCHC 34.6 g/dL (31.0-37.0); Mean Platelet Volume 5.8; Monocytes # (A) 0.4 k/uL (0-1.0); Monocytes % (A) 4 %; Neutrophils # (A) 6.5 k/uL (1.3-7.7); Neutrophils % (A) 71 %; Platelet Count 213 k/uL (150-450); RBC 4.53 m/uL (3.80-5.40); RDW 12.9 % (11.5-15.5); WBC 9.2 k/uL (3.8-10.6)
[2019-10-16 19:37] LABS: Albumin 4.2 g/dL (3.5-5.0); Calcium 9.1 mg/dL (8.4-10.2); Potassium 4.5 mmol/L (3.5-5.1); Total Bilirubin 0.5 mg/dL (0.2-1.3); Total Protein 7.1 g/dL (6.3-8.2)
--- NOTE | 2019-10-16 20:11 | CT ---
EXAMINATION TYPE: CT brain wo con DATE OF EXAM: 10/16/2019 COMPARISON: None HISTORY: headache CT DLP: 1019.4 mGycm Automated exposure control for dose reduction was used. FINDINGS: There is bilateral posterior frontal lobe hypodensity. There is frontal craniotomy defect. Ventricles have normal size. There is no midline shift. There is no sign of intracranial hemorrhage. Skull base is intact. IMPRESSION: PREVIOUS SURGERY. BILATERAL POSTERIOR FRONTAL LOBE ENCEPHALOMALACIA. NO ACUTE INTRACRANIAL ABNORMALIT Y.
[2019-10-16] MEDS ORDERED: KETOROLAC 30 MG/ML 1 ML VIAL IVP STA (20:35)
--- NOTE | 2019-10-16 20:39 | ED ---
Headache HPI - General Chief Complaint: Headache Stated Complaint: headache Time Seen by Provider: 10/16/19 17:30 Mode of arrival: ambulatory Limitations: no limitations - History of Present Illness Initial Comments: Patient is a 74 year old female who presents to the ED with headache that has been persistent for 3 weeks. She has a history of brain tumor with resection 30 years ago. Saw her neurologist last week in office. She notified him that she was having a global headache. No fevers or chills. Denies visual changes. No sudden onset or maximal intensity. No unilateral numbness or weakness. He suggest that she have an MRI however she has yet to set this up. No recent t ravel. No blunt head trauma. - Related Data Home Medications Medication Instructions Recorded Confirmed Aspirin EC [Ecotrin Low Dose] 81 mg PO DAILY 07/09/17 12/08/18 Cholecalciferol [Vitamin D3 (25 1,000 unit PO BID 07/09/17 12/08/18 Mcg = 1000 Iu)] Cyanocobalamin [Vitamin B-12] 500 mcg PO BID 07/09/17 12/08/18 Doxycycline Hyclate 50 mg PO DAILY 07/09/17 12/08/18 Esomeprazole Magnesium [NexIUM] 40 mg PO BID 07/09/17 12/08/18 Losartan Potassium [Cozaar] 100 mg PO DAILY 07/09/17 12/08/18 Metoprolol Succinate (ER) [Toprol 25 mg PO DAILY 07/09/17 12/08/18 XL] Phenobarb/Hyoscy/Atropine/Scop 16.2 mg PO TID 07/09/17 12/08/18 [] cycloSPORINE [Restasis] 1 drop BOTH EYES BID 07/09/17 12/08/18 lamoTRIgine [LaMICtal] 150 mg PO BID 07/09/17 12/08/18 Vit A/Vit C/Vit E/Zinc/Copper 1 cap PO BID 04/08/18 12/08/18 [ICAPS SOFTGEL] Cyclobenzaprine [Flexeril] 10 mg PO Q8H PRN 04/12/18 12/08/18 Pravastatin Sodium [Pravachol] 40 mg PO DAILY 04/12/18 12/08/18 Allergies Allergy/AdvReac Type Severity Reaction Status Date / Time Sulfa (Sulfonamide Allergy Unknown Verified 10/16/19 17:31 Antibiotics) Childhood Review of Systems ROS Statement: Those systems with pertinent positive or pertinent negative responses have been documented in the HPI. ROS Other: All systems not noted in ROS Statement are negative. Past Medical History Past Medical History: Asthma, GERD/Reflux, Hypertension, Seizure Disorder Additional Past Medical History / Comment(s): had seizure after brain sx,"spastic bowel", put on a statin as preventive, rosacea,anxiety, stress test, had shingelles vaccine not sure of date.skin cancer History of Any Multi-Drug Resistant Organisms: None Reported Past Surgical History: Cholecystectomy, Heart Catheterization, Joint Replacement, Orthopedic Surgery Additional Past Surgical History / Comment(s): brain tumor removed(benign), bruises easily. lt shoulder,rt knee replacemnent, rt hand for dupuytrens contracture. BREAST BX: 3 on rt side and 2 on lt. skin ca removed fron rt arm pt not sure what type Past Anesthesia/Blood Transfusion Reactions: No Reported Reaction Additional Past Anesthesia/Blood Transfusion Reaction / Comment(s): clausterphobia Past Psychological History: Anxiety Smoking Status: Former smoker Past Alcohol Use History: None Reported Past Drug Use History: None Reported - Past Family History Mother Family Medical History: Diabetes Mellitus Father Family Medical History: Diabetes Mellitus Additional Family Medical History / Comment(s): HEART DISEASE General Exam Limitations: no limitations General appearance: alert, in no apparent distress Head exam: Present: atraumatic, normocephalic, normal inspection Eye exam: Present: normal appearance, PERRL, EOMI. Absent: scleral icterus, conjunctival injection, periorbital swelling ENT exam: Present: normal exam, mucous membranes moist Neck exam: Present: normal inspection. Absent: tenderness, meningismus, lymphadenopathy Respiratory exam: Present: normal lung sounds bilaterally. Absent: respiratory distress, wheezes, rales, rhonchi, stridor Cardiovascular Exam: Present: regular rate, normal rhythm, normal heart sounds. Absent: systolic murmur, diastolic murmur, rubs, gallop, clicks GI/Abdominal exam: Present: soft, normal bowel sounds. Absent: distended, tenderness, guarding, rebound, rigid Extremities exam: Present: normal inspection, full ROM, normal capillary refill. Absent: tenderness, pedal edema, joint swelling, calf tenderness Back exam: Present: normal inspection Neurological exam: Present: alert, oriented X3, CN II-XII intact Psychiatric exam: Present: normal affect, normal mood Skin exam: Present: warm, dry, intact, normal color. Absent: rash Course Vital Signs 10/16/19 10/16/19 17:26 20:50 Temperature 98 F 98.2 F Pulse Rate 73 65 Respiratory 18 18 Rate Blood Pressure 153/59 149/70 O2 Sat by Pulse 96 97 Oximetry Medical Decision Making - Medical Decision Making Patient was placed into room 23. I recommended lab studies and a CT. I discussed the diagnosis, differential and treatment options. Patient was given a migraine cocktail and feels much improved. She is instructed to follow up with her neurologist as she still may need an MRI. Return to the ED for any new or worsening symptoms She was in agreement and was discharged. - Lab Data Result diagrams: 10/16/19 19:18 10/16/19 19:18 Lab Results 10/16/19 10/16/19 Range/Units 19:18 19:18 WBC 9.2 (3.8-10.6) k/uL RBC 4.53 (3.80-5.40) m/uL Hgb 14.4 (11.4-16.0) gm/dL Hct 41.7 (34.0-46.0) % MCV 92.0 (80.0-100.0) fL MCH 31.9 (25.0-35.0) pg MCHC 34.6 (31.0-37.0) g/dL RDW 12.9 (11.5-15.5) % Plt Count 213 (150-450) k/uL Neutrophils % 71 % Lymphocytes % 22 % Monocytes % 4 % Eosinophils % 2 % Basophils % 1 % Neutrophils # 6.5 (1.3-7.7) k/uL Lymphocytes # 2.0 (1.0-4.8) k/uL Monocytes # 0.4 (0-1.0) k/uL Eosinophils # 0.1 (0-0.7) k/uL Basophils # 0.1 (0-0.2) k/uL Sodium 139 (137-145) mmol/L Potassium 4.5 (3.5-5.1) mmol/L Chloride 102 (98-107) mmol/L Carbon Dioxide 28 (22-30) mmol/L Anion Gap 9 mmol/L BUN 15 (7-17) mg/dL Creatinine 0.79 (0.52-1.04) mg/dL Est GFR (CKD-EPI)AfAm 87 (>60 ml/min/1.73 sqM) Est GFR (CKD-EPI)NonAf 75 (>60 ml/min/1.73 sqM) Glucose 100 H (74-99) mg/dL Calcium 9.1 (8.4-10.2) mg/dL Total Bilirubin 0.5 (0.2-1.3) mg/dL AST 23 (14-36) U/L ALT 24 (9-52) U/L Alkaline Phosphatase 92 (38-126) U/L Total Protein 7.1 (6.3-8.2) g/dL Albumin 4.2 (3.5-5.0) g/dL Disposition Clinical Impression: Headache Disposition: HOME SELF-CARE Condition: Stable Instructions (If sedation given, give patient instructions): Acute Headache (ED) Additional Instructions: Please follow-up with Dr. Webb in 2-4 days. Return to the emergency room for any new or worsening symptoms Is patient prescribed a controlled substance at d/c from ED?: No Referrals: Becka Fletcher MD [Primary Care Provider] - 1-2 days Time of Disposition: 20:38
[2019-10-16 20:53] VITALS: BP 149/70; PULSE 65; TEMP 98.2
== END 2019-10-16 20:50 | disposition home or self-care (01) ==
LOC: EC 17:11
DX: R51 Headache (principal); J45.909 Unspecified asthma, uncomplicated; K21.9 Gastro-esophageal reflux disease without esophagitis; I10 Essential (primary) hypertension; G40.909 Epilepsy, unspecified, not intractable, without status epilepticus; K58.9 Irritable bowel syndrome, unspecified; Z87.891 Personal history of nicotine dependence; Z88.2 Allergy status to sulfonamides; Z79.82 Long term (current) use of aspirin; Z79.899 Other long term (current) drug therapy; Z85.828 Personal history of other malignant neoplasm of skin; Z86.011 Personal history of benign neoplasm of the brain; Z98.890 Other specified postprocedural states
CPT/HCPCS: 36415; 80053; 85025; 70450; 99284; 96365; 96375 ×4; J1200; J1100; J2765; J1885; J3475

== ENCOUNTER → 2019-11-17 | Outpatient (CLI) | payer MEDICARE ==
--- NOTE | 2019-11-17 13:57 | US ---
EXAMINATION TYPE: US kidneys/renal and bladder DATE OF EXAM: 11/17/2019 COMPARISON: CT abdomen and pelvis March 24, 2019. CLINICAL HISTORY: rt flank pain R10.9. Microhematuria EXAM MEASUREMENTS: Right Kidney: 10.2 x 4.8 x 4.0 cm Left Kidney: 10.3 x 4.8 x 5.4 Right Kidney: No hydronephrosis or masses seen Left Kidney: No hydronephrosis or masses seen Bladder: mildly distended, anechoic Bilateral Jets not seen There is no evidence for hydronephrosis at this point in time. No nephrolithiasis is seen. No miguel s are identified. The urinary bladder is greatly distended. Bilateral ureteral jets are not seen. IMPRESSION: No hydronephrosis noted bilaterally. No source of right flank pain and microhematuria gayle ntified.
== END | disposition home or self-care (01) ==
LOC: RADUSWWP 13:27
PROVIDERS: ATTEND Internal Medicine
DX: R10.9 Unspecified abdominal pain (principal)
CPT/HCPCS: 76770

== ENCOUNTER 2020-01-24 07:44 | Day surgery (SDC) | payer MEDICARE ==
[2020-01-19 12:52] VITALS: BMI 37.8
[~2020-01-24 07:44] MED LIST: LIDOCAINE 1% (10MG/ML) FOR IV START INTRADERMA PRN
[2020-01-24 08:02] VITALS: TEMP 97.6
[2020-01-24] MEDS: LACTATED RINGERS 1,000 ML IV SCH ×2 (08:15→08:42)
[2020-01-24] MEDS ORDERED: LIDOCAINE 1% INJ 10MG/ML (20 ML MDV) ONE (08:27)
[2020-01-24] MEDS ORDERED: PROPOFOL 10 MG/ML 20 ML VIAL IV ONE (08:27)
--- NOTE | 2020-01-24 08:49 | P.PCN ---
Date of Procedure: 01/24/20 Procedure(s) Performed: Brief history: Patient is a pleasant 71-year-old white female scheduled for an elective upper endoscopy as well as colonoscopy as a part of evaluation of GERD and intermittent dysphagia to solids for the last 6 months duration. She has been on Nexium 40 mg daily. She also has prior history of colon polyps. Last colonoscopy was in 2013. Procedure performed: Esophagogastroduodenoscopy with biopsy Colonoscopy with biopsy Preoperative diagnosis: GERD/intermittent dysphagia to solids History of colon polyps Anesthesia: MAC Procedure: After informed consent was obtained from the patient was brought into the endoscopy unit and IV sedation was administered by anesthesia under continuous monitoring. Initially upper endoscopy was done. The Olympus GF 160 video endoscope was inserted inserted into the mouth and esophagus intubated without any difficulty and was gradually advanced into the stomach and duodenum and carefully examined. The bulb and second part of the duodenum appeared normal. The scope was then withdrawn into the stomach adequately insufflated with air and upon careful examination the antrum had mild gastritis and biopsies were done from this area. The body, cardia and fundus appeared normal. The scope was then withdrawn into the esophagus. The GE junction was located at 40 cm to the incisors. It appeared regular with no erythema erosions or ulcerations. The mucosa involving the mid and distal esophagus had somewhat thickened folds suspicious for eosinophilic esophagitis and hence biopsies were done from this area. Rest of the esophagus appeared normal. No evidence of esophageal stricture. Patient tolerated the procedure well. At this time the patient continued to remain sedation. Initial digital rectal examination was normal. Olympus CF 160 video colonoscope was then inserted into the rectum and gradually advanced to the cecum without any difficulty. Careful examination was performed as the scope was gradually being withdrawn. The prep was excellent. The cecum, ascending colon, appeared normal. In the mid transverse colon there was a 5 limited sessile polyp that was removed by cold biopsy. Rest of the transverse colon, descending colon, sigmoid colon and rectum appeared normal. Scattered similar diverticulosis seen. Retroflexion was performed in the rectum and no lesions were noted. Patient tolerated the procedure well. Impression: 1. Upper endoscopy revealed mild antral gastritis and mild thickening of the esophageal folds status post biopsy to rule out years of age esophagitis. No evidence of esophageal stricture. 2. Colonoscopy revealed a 5 mm sessile mid transverse colon polyp status post r emoval by cold biopsy. Scattered sigmoid diverticulosis. Recommendations: Findings of this examination were discussed with the patient as well chaya family. She was advised to follow with the biopsy results. She will continue with Nexium 40 mg daily and follow antireflux measures. She can have a repeat surveillance colonoscopy in 5 years.
[2020-01-24 09:22] VITALS: BP 117/66; PULSE 66; RESP 18
== END 2020-01-24 09:54 | disposition home or self-care (01) ==
LOC: ORWHC2ENDO 07:44
PROVIDERS: ATTEND Internal Medicine Gastroenterology
DX: Z12.11 Encounter for screening for malignant neoplasm of colon (principal); D12.3 Benign neoplasm of transverse colon; K29.50 Unspecified chronic gastritis without bleeding; K21.9 Gastro-esophageal reflux disease without esophagitis; K57.30 Diverticulosis of large intestine without perforation or abscess without bleeding; Z86.010 Personal history of colon polyps; I10 Essential (primary) hypertension; J45.909 Unspecified asthma, uncomplicated; R32 Unspecified urinary incontinence; Z85.828 Personal history of other malignant neoplasm of skin; R56.9 Unspecified convulsions; F41.9 Anxiety disorder, unspecified; L71.9 Rosacea, unspecified; Z87.440 Personal history of urinary (tract) infections; Z79.899 Other long term (current) drug therapy; Z79.82 Long term (current) use of aspirin; Z88.2 Allergy status to sulfonamides
CPT/HCPCS: 88305; 45380; 43239; J2001; J2704

== ENCOUNTER 2020-05-13 10:22 | Inpatient (IN) | payer MEDICARE ==
[2020-05-13] MEDS ORDERED: SODIUM CHLORIDE 0.9% 500 ML 500 ML IV ONE (10:46)
--- NOTE | 2020-05-13 11:06 | ED ---
General Adult HPI - General Chief complaint: Neuro Symptoms/Deficit Stated complaint: Headache, facial numbness Time Seen by Provider: 05/13/20 10:32 Source: patient, RN notes reviewed, old records reviewed Mode of arrival: wheelchair Limitations: no limitations - History of Present Illness Initial comments: 75-year-old female history of hypertension presenting for evaluation of headache, facial numbness, and elevated blood pressure. Patient has had headache which is been ongoing for the past one month. She has been dealing with her blood pressure as well as some dizziness. She's had several adjustments of her medication and has had an elevated blood pressure over the past one week. Her blood pressure medication and previously been decreased. She developed a left facial numbness, no facial weakness, no limb weakness. This symptom began at approximately 9 PM yesterday evening area 14 hours prior to arrival. She states it has improved since its onset. Denies any slurred speech, headache is persistent and is occipital in nature. Headache was gradual in onset and has been present for approximately one month. - Related Data Home Medications Medication Instructions Recorded Confirmed Aspirin EC [Ecotrin Low Dose] 81 mg PO HS 07/09/17 05/13/20 Cholecalciferol [Vitamin D3 (25 1,000 unit PO DAILY 07/09/17 05/13/20 Mcg = 1000 Iu)] Esomeprazole Magnesium [NexIUM] 40 mg PO BID 07/09/17 05/13/20 Losartan Potassium [Cozaar] 100 mg PO DAILY 07/09/17 05/13/20 Metoprolol Succinate (ER) [Toprol 25 mg PO DAILY 07/09/17 05/13/20 XL] Phenobarb/Hyoscy/Atropine/Scop 16.2 mg PO TID 07/09/17 05/13/20 [] cycloSPORINE [Restasis] 1 drop BOTH EYES BID 07/09/17 05/13/20 Vit A/Vit C/Vit E/Zinc/Copper 1 cap PO DAILY 04/08/18 05/13/20 [ICAPS SOFTGEL] Amitriptyline HCl [Elavil] 10 mg PO HS 01/19/20 05/13/20 lamoTRIgine 200 mg PO BID 01/19/20 05/13/20 Fluticasone/Salmeterol [Advair 2 puff INHALATION RT-BID 05/13/20 05/13/20 100-50 Diskus] Pravastatin Sodium [Pravachol] 40 mg PO HS 05/13/20 05/13/20 Allergies Allergy/AdvReac Type Severity Reaction Status Date / Time Sulfa (Sulfonamide Allergy Unknown Verified 05/13/20 10:55 Antibiotics) Childhood sertraline [From Zoloft] AdvReac DEPRESSION Verified 05/13/20 10:55 Review of Systems ROS Statement: Those systems with pertinent positive or pertinent negative responses have been documented in the HPI. ROS Other: All systems not noted in ROS Statement are negative. Past Medical History Past Medical History: Asthma, Cancer, GERD/Reflux, Hyperlipidemia, Hypertension, Seizure Disorder Additional Past Medical History / Comment(s): had seizure after brain sx,"spastic bowel", put on a statin as preventive, rosacea,anxiety, skin cancer, HAS BEEN HAVING PROBLEMS SWALLOWING AND SOME HEART BURN AT TIMES History of Any Multi-Drug Resistant Organisms: None Reported Past Surgical History: Cholecystectomy, Heart Catheterization, Joint Replacement, Orthopedic Surgery Additional Past Surgical History / Comment(s): brain tumor removed(benign), bruises easily. lt shoulder,rt knee replacemnent, rt hand for dupuytrens contracture. BREAST BX: 3 on rt side and 2 on lt. skin ca removed fron rt arm pt not sure what type. COLONOSCOPY Past Anesthesia/Blood Transfusion Reactions: No Reported Reaction Additional Past Anesthesia/Blood Transfusion Reaction / Comment(s): claustrophobia Past Psychological History: Anxiety Smoking Status: Former smoker - Past Family History Mother Family Medical History: Diabetes Mellitus Father Family Medical History: Diabetes Mellitus Additional Family Medical History / Comment(s): HEART DISEASE General Exam Limitations: no limitations General appearance: alert, in no apparent distress, anxious Head exam: Present: atraumatic, normocephalic Eye exam: Present: normal appearance, PERRL, EOMI ENT exam: Present: normal exam Neck exam: Present: normal inspection. Absent: tenderness, meningismus Respiratory exam: Present: normal lung sounds bilaterally. Absent: respiratory distress, wheezes Cardiovascular Exam: Present: regular rate, normal rhythm. Absent: bradycardia, tachycardia GI/Abdominal exam: Present: soft. Absent: distended, tenderness, guarding, rebound Extremities exam: Present: normal inspection, normal capillary refill. Absent: pedal edema Neurological exam: Present: alert, oriented X3, CN II-XII intact, other (NIH of 0). Absent: motor sensory deficit Psychiatric exam: Present: anxious Skin exam: Present: warm, dry, intact. Absent: cyanosis, diaphoretic Course Vital Signs 05/13/20 10:25 Temperature 98 F Pulse Rate 74 Respiratory 18 Rate Blood Pressure 174/69 O2 Sat by Pulse 97 Oximetry EKG Findings - EKG Comments: EKG Findings:: EKG: Normal sinus rhythm, LVH, rate of 64, VT interval 152, QRS duration 80, QTC 408, no ST segment elevation. Medical Decision Making - Medical Decision Making 75-year-old female presenting with headache, hypertension, left facial numbness which has improved since its onset yesterday evening. Head CT is performed shows encephalomalacia with previous history of brain tumor status post resection in the remote past. No acute intracranial hemorrhage. Cervical spine negative for fracture subluxation. Chest x-ray negative for acute cardiopulmonary disease. She has normal CBC, normal CMP. EKG is sinus rhythm. Patient given an aspirin in the emergency department, will be admitted for further TIA, CVA workup. Case discussed with Dr. Fletcher who will admit. - Lab Data Result diagrams: 05/13/20 11:08 05/13/20 11:08 Lab Results 05/13/20 05/13/20 05/13/20 Range/Units 11:08 11:08 11:08 WBC 8.7 (3.8-10.6) k/uL RBC 4.64 (3.80-5.40) m/uL Hgb 14.1 (11.4-16.0) gm/dL Hct 42.8 (34.0-46.0) % MCV 92.3 (80.0-100.0) fL MCH 30.4 (25.0-35.0) pg MCHC 32.9 (31.0-37.0) g/dL RDW 13.1 (11.5-15.5) % Plt Count 192 (150-450) k/uL Neutrophils % 64 % Lymphocytes % 29 % Monocytes % 4 % Eosinophils % 1 % Basophils % 0 % Neutrophils # 5.5 (1.3-7.7) k/uL Lymphocytes # 2.5 (1.0-4.8) k/uL Monocytes # 0.3 (0-1.0) k/uL Eosinophils # 0.1 (0-0.7) k/uL Basophils # 0.0 (0-0.2) k/uL PT 9.5 (9.0-12.0) sec INR 0.9 (<1.2) APTT 23.1 (22.0-30.0) sec Sodium 136 L (137-145) mmol/L Potassium 4.4 (3.5-5.1) mmol/L Chloride 104 (98-107) mmol/L Carbon Dioxide 24 (22-30) mmol/L Anion Gap 8 mmol/L BUN 13 (7-17) mg/dL Creatinine 0.74 (0.52-1.04) mg/dL Est GFR (CKD-EPI)AfAm >90 (>60 ml/min/1.73 sqM) Est GFR (CKD-EPI)NonAf 81 (>60 ml/min/1.73 sqM) Glucose 104 H (74-99) mg/dL Calcium 8.8 (8.4-10.2) mg/dL Total Bilirubin 0.4 (0.2-1.3) mg/dL AST 25 (14-36) U/L ALT 18 (4-34) U/L Alkaline Phosphatase 80 (38-126) U/L Troponin I (0.000-0.034) ng/mL Total Protein 7.1 (6.3-8.2) g/dL Albumin 4.1 (3.5-5.0) g/dL 05/13/20 Range/Units 11:08 WBC (3.8-10.6) k/uL RBC (3.80-5.40) m/uL Hgb (11.4-16.0) gm/dL Hct (34.0-46.0) % MCV (80.0-100.0) fL MCH (25.0-35.0) pg MCHC (31.0-37.0) g/dL RDW (11.5-15.5) % Plt Count (150-450) k/uL Neutrophils % % Lymphocytes % % Monocytes % % Eosinophils % % Basophils % % Neutrophils # (1.3-7.7) k/uL Lymphocytes # (1.0-4.8) k/uL Monocytes # (0-1.0) k/uL Eosinophils # (0-0.7) k/uL Basophils # (0-0.2) k/uL PT (9.0-12.0) sec INR (<1.2) APTT (22.0-30.0) sec Sodium (137-145) mmol/L Potassium (3.5-5.1) mmol/L Chloride (98-107) mmol/L Carbon Dioxide (22-30) mmol/L Anion Gap mmol/L BUN (7-17) mg/dL Creatinine (0.52-1.04) mg/dL Est GFR (CKD-EPI)AfAm (>60 ml/min/1.73 sqM) Est GFR (CKD-EPI)NonAf (>60 ml/min/1.73 sqM) Glucose (74-99) mg/dL Calcium (8.4-10.2) mg/dL Total Bilirubin (0.2-1.3) mg/dL AST (14-36) U/L ALT (4-34) U/L Alkaline Phosphatase (38-126) U/L Troponin I <0.012 (0.000-0.034) ng/mL Total Protein (6.3-8.2) g/dL Albumin (3.5-5.0) g/dL Critical Care Time Critical Care Time: Yes Total Critical Care Time: 35 Disposition Clinical Impression: Transient cerebral ischemia, Cerebrovascular accident (CVA) Disposition: ADMITTED IP TO THIS [facility] Condition: Stable Is patient prescribed a controlled substance at d/c from ED?: No Referrals: Becka Fletcher MD [Primary Care Provider] - 1-2 days Decision to Admit Reason: Admit from EC Decision Date: 05/13/20 Decision Time: 12:19
[2020-05-13 11:29] LABS: INR 0.9 (<1.2); Partial Thromboplastin Time 23.1 sec (22.0-30.0); Prothrombin Time 9.5 sec (9.0-12.0)
[2020-05-13 11:30] LABS: ALT 18 U/L (4-34); AST 25 U/L (14-36); African American GFR (CKD) >90 (>60 ml/min/1.73 sqM); Albumin 4.1 g/dL (3.5-5.0); Alkaline Phosphatase 80 U/L (38-126); Anion Gap 8 mmol/L; Blood Urea Nitrogen 13 mg/dL (7-17); Calcium 8.8 mg/dL (8.4-10.2); Carbon Dioxide 24 mmol/L (22-30); Chloride 104 mmol/L (98-107); Glucose 104 mg/dL (74-99); Non-African American GFR(CKD) 81 (>60 ml/min/1.73 sqM); Potassium 4.4 mmol/L (3.5-5.1); Sodium 136 mmol/L (137-145); Total Bilirubin 0.4 mg/dL (0.2-1.3); Total Protein 7.1 g/dL (6.3-8.2)
[2020-05-13 11:37] LABS: Basophils % (A) 0 %; Eosinophils # (A) 0.1 k/uL (0-0.7); Eosinophils % (A) 1 %; HCT 42.8 % (34.0-46.0); HGB 14.1 gm/dL (11.4-16.0); Lymphocytes # (A) 2.5 k/uL (1.0-4.8); Lymphocytes % (A) 29 %; MCH 30.4 pg (25.0-35.0); MCHC 32.9 g/dL (31.0-37.0); MCV 92.3 fL (80.0-100.0); Mean Platelet Volume 7.4; Monocytes # (A) 0.3 k/uL (0-1.0); Monocytes % (A) 4 %; Neutrophils # (A) 5.5 k/uL (1.3-7.7); Neutrophils % (A) 64 %; Platelet Count 192 k/uL (150-450); RBC 4.64 m/uL (3.80-5.40); RDW 13.1 % (11.5-15.5); WBC 8.7 k/uL (3.8-10.6)
--- NOTE | 2020-05-13 11:39 | XR ---
EXAMINATION TYPE: XR chest 2V DATE OF EXAM: 05/13/2020 COMPARISON: Chest x-ray and CTA chest April 12, 2018. HISTORY: Altered mental status and weakness. TECHNIQUE: Frontal and lateral views of the chest are obtained. FINDINGS: Low lung volumes are redemonstrated. There is no focal air space opacity, pleural effusion , or pneumothorax seen. The cardiac silhouette size is stable and within normal limits with atherosc lerotic change aortic knob. Multilevel spurring in the thoracic spine is present. Cholecystectomy cli ps are redemonstrated. IMPRESSION: Chronic changes without new suspicious acute pulmonary process.
--- NOTE | 2020-05-13 11:43 | CT ---
EXAMINATION TYPE: CT brain kit wo con DATE OF EXAM: 05/13/2020 COMPARISON: 10/16/2019 HISTORY: Headache, facial numbness CT DLP: 1170.2 mGycm, Automated exposure control for dose reduction was used. CONTRAST: Patient injected with mL of . CT of the brain is performed utilizing 3 mm thick sections through the posterior fossa and 3 mm thick sections through the remaining calvarium. Study is performed within 24 hours of arrival to the hospital. No abnormal hyperdensity is present to suggest an acute intracranial hemorrhage. No mass lesion is evident. No acute infarcts are evident. There is hypodensity through the frontal lobes near the vertex can be related to prior trauma and encephalomalacia. Subcortical infarcts could be considered. Acute change s are not evident. Away from the suspected encephalomalacia, Ventricles and sulci are appropriate for the patient age. Craniotomy is noted at the vertex and is contributing related to postsurgical change. Paranasal sinuses and mastoid air cells within the [id number] are clear. Hyperostosis frontalis internus is present. IMPRESSIONS: 1. There appears to be stable encephalomalacia at the frontal lobes Vertex. 2. No acute intracranial process. CT cervical spine. COMPARISON: None CT of the cervical spine is performed in the axial plane at 2 mm thick sections. Reconstructed image s in the coronal, and sagittal plane are reviewed on the computer. No acute fractures are evident. Vertebral body alignment is normal. Disc space narrowing is present C5-6 C6-7 to mild degree C3-4. Vertebral body heights are preserved. No spinal canal stenosis is evident. Uncovertebral joint hypertrophy at C5-6 is contributing to moderate bilateral foraminal stenosis. Tyrese e left foraminal narrowing at C6-7 is present. IMPRESSIONS: 1. No acute osseous abnormality cervical spine. 2. Degenerative changes within the cervical spine discussed above.
[2020-05-13] MEDS ORDERED: ASPIRIN 325 MG TAB PO STA (12:17)
--- NOTE | 2020-05-13 14:20 | US ---
EXAMINATION TYPE: US carotid duplex BILAT DATE OF EXAM: 05/13/2020 COMPARISON: NONE CLINICAL HISTORY: Stenosis. Light headed headaches and numbness. EXAM MEASUREMENTS: RIGHT: Peak Systolic Velocity (PSV) cm/sec ----- Right CCA: 70.9 ----- Right ICA: 129.9 ----- Right ECA: 66.8 ICA/CCA ratio: 1.8 RIGHT: End Diastole cm/sec ----- Right CCA: 12.8 ----- Right ICA: 25.4 ----- Right ECA: 12.8 LEFT: Peak Systolic Velocity (PSV) cm/sec ----- Left CCA: 64.8 ----- Left ICA: 98.2 ----- Left ECA: 104.1 ICA/CCA ratio: 1.5 LEFT: End Diastole cm/sec ----- Left CCA: 9.6 ----- Left ICA: 27.4 ----- Left ECA: 0 VERTEBRALS (direction of flow): Right Vertebral: Antegrade Left Vertebral: Antegrade Rhythm: Normal Some atheromatous plaquing is present at the right internal carotid artery origin. Minimal intimal th ickening is present on the left. IMPRESSION: Mild narrowing slightly greater than 50% based on velocities within the right internal c arotid artery. Criteria for Assigning % of Stenosis / Diameter reduction (Estimation based on the indirect measurements of the internal carotid artery velocities (ICA PSV). 1. Normal (no stenosis)=ICA PSV < 125 cm/s: ratio < 2.0: ICA EDV<40 cm/s. 2. Less than 50% stenosis=ICA PSV < 125 cm/s: ratio < 2.0: ICA EDV<40 cm/s. 3. 50 to 69% stenosis=ICA PSV of 125 to 230 cm/s: ration 2.0 ? 4.0: ICA EDV 40-100 cm/s. 4. Greater than 70% stenosis to near occlusion= ICA PSV > 230 cm/s: ratio > 4.0: ICA EDV > 100 cm/s. 5. Near occlusion= ICA PSV velocities may be low or undetectable: variable ratio and ICA EDV. 6. Total occlusion=unable to detect flow.
[2020-05-13] MEDS ORDERED: LOSARTAN 50 MG TAB PO SCH (19:30)
--- NOTE | 2020-05-13 19:30 | P.HPIM ---
History of Present Illness H&P Date: 05/13/20 Chief Complaint: Left facial numbness Lucille Hodge is a 75-year-old female who presented to [facility] emergency room with a chief complaint of left sided facial numbness, she states that over the last 2 weeks her blood pressure was on the low side and she was feeling dizzy she decided to stop taking her blood pressure medication losartan, subsequently her blood pressure was very high, she tried to take the pill again but she was not able to control her blood pressure, this morning she started having numbness on the left side of her face and she decided to come to emergency room for further evaluation, computed tomography scan of the brain was done in the emergency room and did not reveal any evidence of acute bleeding or acute stroke, she was admitted to telemetry floor for further evaluation, echocardiogram and carotid Doppler were ordered neurology consultation was requested. Patient denies any other symptoms there is no weakness or numbness in any of her extremities there is no change in her vision speech or gait. There is no fever or chills no headache or dizziness no chest pain no shortness of breath no cough no nausea or vomiting no abdominal pain no diarrhea no burning with urination no frequency or urgency and no hematuria. Past Medical History Past Medical History: Asthma, Cancer, GERD/Reflux, GI Bleed, Hearing Disorder / Deafness, Hypertension, Pneumonia, Seizure Disorder, Skin Disorder Additional Past Medical History / Comment(s): Intermittent dysphagia, diverticular disease, IBS, lower GI bleed, pt states placed on statin as a precaution, brain surgery for benign tumor, seizures since brain surgery with last seizure less than a year ago, bilateral tinnitis since brain surgery, bronchitis, sinus problems, rosacea, skin cancer with removal. History of Any Multi-Drug Resistant Organisms: None Reported Past Surgical History: Cholecystectomy, Heart Catheterization, Joint Replacement, Orthopedic Surgery Additional Past Surgical History / Comment(s): Brain tumor resection (benign), skin cancer removal R arm, L shoulder surgery for spur, total R knee arthroplasty, R hand dupuytren's surgery, 3 R breast biopsies (benign) and 2 L breast biopsies (benign), EGDs, colonoscopies/bening polypectomies Past Anesthesia/Blood Transfusion Reactions: No Reported Reaction, Postoperative Nausea & Vomiting (PONV) Additional Past Anesthesia/Blood Transfusion Reaction / Comment(s): claustrophobia Smoking Status: Former smoker - Past Family History Mother Family Medical History: Diabetes Mellitus Father Family Medical History: Diabetes Mellitus Additional Family Medical History / Comment(s): HEART DISEASE Medications and Allergies Home Medications Medication Instructions Recorded Confirmed Type Aspirin EC [Ecotrin Low Dose] 81 mg PO HS 07/09/17 05/13/20 History Cholecalciferol [Vitamin D3 (25 1,000 unit PO DAILY 07/09/17 05/13/20 History Mcg = 1000 Iu)] Esomeprazole Magnesium [NexIUM] 40 mg PO BID 07/09/17 05/13/20 History Losartan Potassium [Cozaar] 100 mg PO DAILY 07/09/17 05/13/20 History Metoprolol Succinate (ER) [Toprol 25 mg PO DAILY 07/09/17 05/13/20 History XL] Phenobarb/Hyoscy/Atropine/Scop 16.2 mg PO TID 07/09/17 05/13/20 History [] cycloSPORINE [Restasis] 1 drop BOTH EYES BID 07/09/17 05/13/20 History Vit A/Vit C/Vit E/Zinc/Copper 1 cap PO DAILY 04/08/18 05/13/20 History [ICAPS SOFTGEL] Amitriptyline HCl [Elavil] 10 mg PO HS 01/19/20 05/13/20 History lamoTRIgine 200 mg PO BID 01/19/20 05/13/20 History Fluticasone/Salmeterol [Advair 2 puff INHALATION RT-BID 05/13/20 05/13/20 History 100-50 Diskus] Pravastatin Sodium [Pravachol] 40 mg PO HS 05/13/20 05/13/20 History Allergies Allergy/AdvReac Type Severity Reaction Status Date / Time Sulfa (Sulfonamide Allergy Unknown Verified 05/13/20 10:55 Antibiotics) Childhood sertraline [From Zoloft] AdvReac DEPRESSION Verified 05/13/20 10:55 Physical Exam Vitals: Vital Signs Temp Pulse Pulse Resp BP BP Pulse Ox 05/13/20 16:00 98.3 F 58 L 16 144/73 97 05/13/20 14:00 61 152/62 05/13/20 13:50 55 L 152/62 05/13/20 12:50 56 L 170/78 94 L 05/13/20 10:25 98 F 74 18 174/69 97 Intake and Output 05/13/20 05/13/20 05/13/20 06:59 14:59 22:59 Intake Total 480 Balance 480 Intake: Oral 480 Other: # Voids 1 Weight 112.945 kg In general patient is alert and oriented 3 in no apparent distress HEENT head normocephalic and atraumatic Neck is supple no JVD no goiter no lymphadenopathy Chest exam reveals a few scattered crackles no wheezing Cardiac exam reveals regular heart sounds no gallops no murmurs Abdomen is soft nontender no organomegaly with normal bowel sounds Extremity exam reveals no edema no cyanosis or clubbing Neurological examination reveals no gross focal deficit Results CBC & Chem 7: 05/13/20 11:08 05/13/20 11:08 Labs: Abnormal Lab Results - Last 24 Hours (Table) 05/13/20 Range/Units 11:08 Sodium 136 L (137-145) mmol/L Glucose 104 H (74-99) mg/dL Thrombosis Risk Factor Assmnt - Choose All That Apply Any of the Below Risk Factors Present?: Yes Each Factor Represents 1 point: Obesity (BMI >25) Other Risk Factors: Yes Each Risk Factor Represents 2 Points: Age 61-74 years, Malignancy Other congenital or acquired thrombophilia - If yes, enter type in comment: No Thrombosis Risk Factor Assessment Total Risk Factor Score: 5 Thrombosis Risk Factor Assessment Level: High Risk Assessment and Plan Plan: 1. Left sided facial numbness, improved but was not totally resolved since admission, possible TIA, will check echo cardiogram with check carotid Doppler resume aspirin neurology consultation was requested, will keep patient on telem etry monitoring to rule out any cardiac arrhythmia. 2. Hypertension blood pressure is not well controlled we will resume losartan at 50 mg by mouth daily we will continue with atenolol, will monitor blood pressure and adjust medications as needed. 3. Underlying history of hyperlipidemia, maintained on pravastatin continue 4. Underlying history of gastroesophageal reflux disease maintained on Nexium continue. 5. Underlying history of brain surgery for benign tumor excision and subsequent history of seizure disorder 6. For DVT prophylaxis we will use subcu Lovenox Will follow during this admission for medical management
[2020-05-13] MEDS: AMITRIPTYLINE HCL 10 MG TAB PO SCH (20:25)
[2020-05-13] MEDS: PANTOPRAZOLE 40 MG TABLET PO SCH (20:25)
[2020-05-13] MEDS: PRAVASTATIN SODIUM 40 MG TAB PO SCH (20:25)
[2020-05-13] MEDS: lamoTRIgine 100 MG TAB PO SCH (20:25)
[2020-05-13] MEDS: METOPROLOL SUCCINATE (ER) 25 MG TAB.ER.24H PO SCH (20:28)
[2020-05-13] MEDS ORDERED: NON FORMULARY DRUG (Aspirin Ec 81 MG) PO SCH (21:00)
[2020-05-13] MEDS: cycloSPORINE 0.05% OPHTH 0.4 ML DROPERETTE BOTH EYES SCH (21:19)
[2020-05-13] MEDS: SYMBICORT 80-4.5 MCG INHALER INHALATION SCH (21:34)
[2020-05-14] MEDS: PHENOBARB/HYOSCY/ATROPINE/SCOP 16.2 MG TAB PO SCH ×4 (01:29→20:16)
[2020-05-14] MEDS: SYMBICORT 80-4.5 MCG INHALER INHALATION SCH ×2 (07:17→20:45)
[2020-05-14] MEDS: lamoTRIgine 100 MG TAB PO SCH ×2 (08:57→20:16)
[2020-05-14] MEDS: VIT A,C & E-LUTEIN-MINERALS 1 EACH TAB PO SCH (08:57)
[2020-05-14] MEDS: METOPROLOL SUCCINATE (ER) 25 MG TAB.ER.24H PO SCH ×2 (08:58→11:45)
[2020-05-14] MEDS: CHOLECALCIFEROL 1,000 UNIT TAB PO SCH (08:58)
[2020-05-14] MEDS: PANTOPRAZOLE 40 MG TABLET PO SCH ×2 (08:58→20:16)
[2020-05-14] MEDS: cycloSPORINE 0.05% OPHTH 0.4 ML DROPERETTE BOTH EYES SCH ×2 (08:59→20:17)
[2020-05-14] MEDS: ENOXAPARIN 40 MG/0.4 ML SYRINGE SQ SCH (08:59)
[2020-05-14] MEDS ORDERED: ASPIRIN 325 MG TAB PO SCH (09:00)
[2020-05-14] MEDS ORDERED: LOSARTAN 50 MG TAB PO SCH (09:00)
[2020-05-14 09:04] LABS: Basophils % (A) 0 %; Eosinophils # (A) 0.1 k/uL (0-0.7); Eosinophils % (A) 2 %; HCT 40.4 % (34.0-46.0); HGB 13.4 gm/dL (11.4-16.0); Lymphocytes # (A) 2.2 k/uL (1.0-4.8); Lymphocytes % (A) 36 %; MCH 31.2 pg (25.0-35.0); MCHC 33.1 g/dL (31.0-37.0); MCV 94.4 fL (80.0-100.0); Mean Platelet Volume 7.2; Monocytes # (A) 0.4 k/uL (0-1.0); Monocytes % (A) 6 %; Neutrophils # (A) 3.4 k/uL (1.3-7.7); Neutrophils % (A) 54 %; Platelet Count 166 k/uL (150-450); RBC 4.28 m/uL (3.80-5.40); WBC 6.2 k/uL (3.8-10.6)
[2020-05-14 09:19] LABS: Albumin 3.4 g/dL (3.5-5.0); Calcium 8.4 mg/dL (8.4-10.2); Potassium 5.1 mmol/L (3.5-5.1); Total Bilirubin 0.4 mg/dL (0.2-1.3); Total Protein 6.1 g/dL (6.3-8.2)
[2020-05-14] MEDS ORDERED: LORazepam 2 MG/ML INJ IV STA ×3 (12:04→12:31)
--- NOTE | 2020-05-14 15:35 | MR ---
EXAMINATION TYPE: MR angio head wo con DATE OF EXAM: 05/14/2020 3:30 PM COMPARISON: NONE HISTORY: Facial numbness, headache, encephalomalacia, hx brain tumor resection Three-dimensional [id number] intracranial MRA was performed with multiple intensity projection im ages submitted and source data reviewed at the workstation. The vertebrobasilar system as well as intracranial portions of the internal carotid arteries and thei r major tributaries are patent. I do not see evidence for sizable aneurysm or vascular malformation. IMPRESSION: Normal study.
--- NOTE | 2020-05-14 15:47 | MR ---
EXAMINATION TYPE: MR brain wo/w cspine wo DATE OF EXAM: 05/14/2020 COMPARISON: CT brain and cervical spine from yesterday. HISTORY: Facial numbness, headache, encephalomalacia, hx brain tumor resection TECHNIQUE: Multiplanar, multisequence images of the brain and brainstem is performed without and with IV contras t, utilizing 11 mL intravenous Gadavist . Multiplanar, multisequence imaging of cervical spine is per formed without contrast. FINDINGS: Examination is suboptimal as patient unable to hold still because of claustrophobia, fast b rain protocol had to be utilized. Brain: Diffusion weighted images demonstrate no evidence of a recent infarct or other diffusion abnormality. There is mild ventricular and sulcal prominence redemonstrated. There is artifact from high left fr ontal craniotomy with adjacent area of encephalomalacia involving the superior bilateral frontal lobe s redemonstrated. A few additional scattered foci of T2 hyperintensity seen throughout the deep and p eriventricular white matter. Midline structures demonstrate normal morphology. The craniocervical junction appears within normal limits. Post contrast images demonstrate no abnormal enhancement. The dural venous sinuses appear pa tent. The visualized sinuses are clear and the globes are intact. Nasal septum redemonstrated deviate d to the left of midline. IMPRESSION: High left frontal craniotomy changes with bilateral high frontal encephalomalacia. Backgr ound mild diffuse age-related cerebral atrophy and chronic small vessel ischemic change. No MRI evide nce for recent infarct or suspicious new enhancement identified. MRI CERVICAL SPINE: FINDINGS: Coronal images show slight dextro convex scoliotic curvature positioning in the upper thora cic spine. Sagittal images of the cervical spine show the craniocervical junction to appear within no rmal limits. The cervical and upper thoracic spinal cord is likely normal in course, caliber, and si gnal though there is significant motion artifact degradation present. Vertebral alignment is satisfa ctory on sagittal images. The vertebral body heights are normal. Mild to moderate spurring and disc space narrowing C5-C6 and C6-C7 levels with heterogeneous Modic type II endplate changes. Axial images are significantly degraded by artifact with multilevel uncovertebral facet degenerative changes causing multilevel neural foraminal narrowing likely greatest at C5-C6 and C6-C7 levels. Post erior spur disc complex mildly effaces the anterior thecal sac at C6-C7 level. IMPRESSION: Suboptimal study with some mild/moderate multilevel degenerative changes appreciated as d etailed above.
--- NOTE | 2020-05-14 16:43 | P.CNNES ---
History of Present Illness Consult date: 05/14/20 Reason for Consult: Headache facial numbness Chief complaint: Headache and facial numbness History of Present Illness: This is a new consult for a 75-year-old female who presented with headaches and facial numbness complaints and increasing blood pressure. The patient reported that her headache started 1 month prior to admission on and off. This appeared to be she thought closely correlated with her poorly controlled blood pressure. One week prior to admission she reports her primary care physician had adjusted her blood pressure medications decreasing the dosage. Approximately 14 hours prior to admission which would've been 9 PM the patient began to experience left facial numbness and weakness and on arrival to the emergency room this appeared to had improved. The patient's past medical history is significant for a benign brain tumor removal leaving her with a stable area of encephalomalacia involving the left frontal lobe. An MRI of the brain was obtained today and confirming that there is a high left frontal craniotomy with bilateral high frontal encephalomalacia. Mild diffuse age-related cerebral atrophy and chronic ischemic vascular changes but no evidence of any recent infarction. A computed tomography scan on admission showed stable encephalomalacia involving the frontal lobes and vertex. Patient underwent a carotid ultrasound during this admission showing some atheromatous plaque in the right internal carotid artery with mild narrowing less than 50%. Minimal thickening of the left internal carotid artery. An MRI of the C-spine and MRA of the head and neck were ordered as well today with the patient requiring pain medication with Ativan. The MRI of the C-spine and MRA of the head were not completed as of yet most likely due to the patient's inability to remain in the MRI scanner. During this intake the patient shows to be very highly anxious and tearful. There are significant social stressors in her life now that she was not willing to discuss. The patient does admit though that she has had very poor sleep continuity over the last several months, poor eating habits and overall her health is declining. At the present time the patient reports that her headache is minimal and the left facial numbness and weakness is subsiding. The patient was placed on seizure prophylaxis with lamotrigine now at 400 mg per day which is a high dose. She is also followed by a neurologist in the community for this closely. She reports she is never been evaluated for sleep apnea which is suspicious based on her history of poor sleep continuity mild snoring and excessive daytime sleepiness. Past medical history: Reactive airway disease. Skin cancer. Reflux. Dysli pidemia. Hypertension. Seizure disorder. Review of systems: A 10 point review of systems was obtained with positive pertinent negatives related to history of present illness. Patient does report difficulty more lately with swallowing and easy bruising. Next para if surgical history: Cholecystectomy. Heart catheterization. Joint replacement. Orthopedic surgery. Benign brain tumor removal. Rest biopsy. Past Medical History Past Medical History: Asthma, Cancer, GERD/Reflux, GI Bleed, Hearing Disorder / Deafness, Hypertension, Pneumonia, Seizure Disorder, Skin Disorder Additional Past Medical History / Comment(s): Intermittent dysphagia, diverticular disease, IBS, lower GI bleed, pt states placed on statin as a precaution, brain surgery for benign tumor, seizures since brain surgery with last seizure less than a year ago, bilateral tinnitis since brain surgery, bronchitis, sinus problems, rosacea, skin cancer with removal. History of Any Multi-Drug Resistant Organisms: None Reported Past Surgical History: Cholecystectomy, Heart Catheterization, Joint Replacement, Orthopedic Surgery Additional Past Surgical History / Comment(s): Brain tumor resection (benign), skin cancer removal R arm, L shoulder surgery for spur, total R knee arthropl asty, R hand dupuytren's surgery, 3 R breast biopsies (benign) and 2 L breast biopsies (benign), EGDs, colonoscopies/bening polypectomies Past Anesthesia/Blood Transfusion Reactions: No Reported Reaction, Postoperative Nausea & Vomiting (PONV) Additional Past Anesthesia/Blood Transfusion Reaction / Comment(s): claustrophobia Smoking Status: Former smoker - Past Family History Mother Family Medical History: Diabetes Mellitus Father Family Medical History: Diabetes Mellitus Additional Family Medical History / Comment(s): HEART DISEASE Medications and Allergies Home Medications Medication Instructions Recorded Confirmed Type Aspirin EC [Ecotrin Low Dose] 81 mg PO HS 07/09/17 05/13/20 History Cholecalciferol [Vitamin D3 (25 1,000 unit PO DAILY 07/09/17 05/13/20 History Mcg = 1000 Iu)] Esomeprazole Magnesium [NexIUM] 40 mg PO BID 07/09/17 05/13/20 History Losartan Potassium [Cozaar] 100 mg PO DAILY 07/09/17 05/13/20 History Metoprolol Succinate (ER) [Toprol 25 mg PO DAILY 07/09/17 05/13/20 History XL] Phenobarb/Hyoscy/Atropine/Scop 16.2 mg PO TID 07/09/17 05/13/20 History [] cycloSPORINE [Restasis] 1 drop BOTH EYES BID 07/09/17 05/13/20 History Vit A/Vit C/Vit E/Zinc/Copper 1 cap PO DAILY 04/08/18 05/13/20 History [ICAPS SOFTGEL] Amitriptyline HCl [Elavil] 10 mg PO HS 01/19/20 05/13/20 History lamoTRIgine 200 mg PO BID 01/19/20 05/13/20 History Fluticasone/Salmeterol [Advair 2 puff INHALATION RT-BID 05/13/20 05/13/20 History 100-50 Diskus] Pravastatin Sodium [Pravachol] 40 mg PO HS 05/13/20 05/13/20 History Allergies Allergy/AdvReac Type Severity Reaction Status Date / Time Sulfa (Sulfonamide Allergy Unknown Verified 05/13/20 10:55 Antibiotics) Childhood sertraline [From Zoloft] AdvReac DEPRESSION Verified 05/13/20 10:55 Physical Examination - Vital Signs Vital Signs: Vital Signs Temp Pulse Resp BP Pulse Ox 05/14/20 15:48 97.9 F 62 16 146/69 96 05/14/20 13:00 63 16 175/74 96 05/14/20 12:30 207/93 05/14/20 12:00 97.9 F 58 L 16 158/69 98 05/14/20 08:00 97.8 F 60 18 118/69 96 05/14/20 04:18 97.9 F 53 L 16 132/60 97 05/13/20 20:00 97.8 F 60 18 120/71 96 Intake and Output 05/14/20 05/14/20 05/14/20 06:59 14:59 22:59 Intake Total 120 370 Balance 120 370 Intake: IV 10 0.9 10 Oral 120 360 Other: # Voids 1 2 Weight 106.9 kg Gen. exam: Appearance: No acute distress. Moderately obese. HEENT: Clear sclera oropharynx clear. Shavon Romero grade 3. Narrow posterior pharynx. Neck supple. Chest: Clear to auscultation throughout. Cardiac: Regular rate and rhythm no murmurs noted. No carotid bruits present. Pulses: Radial pedal pulses are equal and symmetric. Skin: Poor skin turgor some mild bruising noted of different ages. Extremities: No edema noted in the hands or feet. Mild arthritic changes noted in the hands bilaterally. Neurologic exam Mental status: Awake alert speech fluent. Affect appropriate. Pupils: 2 mm equally reactive to light and accommodation. Cranial nerve examination: Tracks well no nystagmus noted on vertical horizontal gaze. Face symmetric. V1 through V3 sensory is intact symmetrically. Palate elevates symmetrically. Cranial nerve VIII is intact by clinical observation. Tongue is midline without fasciculations or deviation. Shoulder shrug symmetric. Motor examination normal muscle bulk and tone throughout. Strength is 5 out of 5 throughout. Pronator drift negative. Moves all 4 extremities equally. Coordination testing: Intact to finger to nose testing with eyes open and eyes closed. Rapid sequential finger tapping intact. He'll barragan maneuver intact. Deep tendon reflexes trace over the biceps brachial radialis. Patellar reflexes are trace bilaterally. Ankle jerks are absent bilaterally. Plantar responses are flexor bilaterally. Gait examination: Patient is able to transfer from sitting to standing and able to ambulate without assistance. No ataxia noted. Results - Laboratory Findings CBC and BMP: 05/14/20 08:26 05/14/20 08:26 Abnormal Lab Findings: Abnormal Labs 05/13/20 05/14/20 11:08 08:26 Sodium 136 L Glucose 104 H 104 H Total Protein 6.1 L Albumin 3.4 L HDL Cholesterol 34 L Assessment and Plan Assessment: 75-year-old female with poorly controlled blood pressure stroke risk factors of dyslipidemia hypertension MRI of the brain does not show any evidence of an acute recent infarct ischemic or hemorrhagic but does confirm her area craniotomy and extensive encephalomalacia in that area. As a result this patient is on lamotrigine for seizure prophylaxis. The patient's symptoms of left facial numbness and weakness, could still now be related to cervical neck disease the area that she points to is not closely related to the trigeminal area and more along C1-C2 dermatome distribution. Anticipate discharge after the MRI of the C-spine and MRA of the head is obtained. In the meantime we will recheck out to her neurologist and assure that she has had a recent lamotrigine level and has not supratherapeutic or subtherapeutic. I would also recommend checking a B12 folate level as well as thyroid panel. This patient has significant anxiety which raises concern for po ssible hyperthyroidism. Summary 1. Headache with intermittent left facial numbness weakness though no overt weakness seen on exam. 2. Stroke risk factors: Dyslipidemia and hypertension. 3. Seizure disorder on lamotrigine. 4. 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 5. History of panic disorder. Significant social stressors occurring now in her life. Recommendations: 1. Hold discharge until MRI of the C-spine and MRA of the head is completed. If there is cervical neck disease we will address that issue. 2. Labs: TSH, free T4 total T3. B12 and folate level tonight. 3. Continue with neuro checks every 4 hours while awake per nursing protocol. 4. Schedule formal swallow evaluation tomorrow based on patient's review of systems of increasing difficulty and trouble swallowing. 5. Continue with current home meds 6. Contact patient's neurologist to discuss current admission along with lamotrigine management and referral for workup for obstructive sleep apnea. Obstructive sleep apnea is the third leading risk factor for stroke independent of diabetes hypertension and atrial fibrillation. 7. Continue with current blood pressure management maintaining systolic blood pressures between 120-130 DBP: 8090 8. If her medical workup is negative would consider psychiatry consult. Thank you for this consultation. This patient's prognosis remains guarded. Further recommendations will be made as this case evolves.
--- NOTE | 2020-05-14 16:56 | P.PN ---
Subjective Progress Note Date: 05/14/20April Ayesha is a 75-year-old female who presented to [facility] emergency room with a chief complaint of left sided facial numbness, she states that over the last 2 weeks her blood pressure was on the low side and she was feeling dizzy she decided to stop taking her blood pressure medication losartan, subsequently her blood pressure was very high, she tried to take the pill again but she was not able to control her blood pressure, this morning she started having numbness on the left side of her face and she decided to come to emergency room for further evaluation, computed tomography scan of the brain was done in the emergency room and did not reveal any evidence of acute bleeding or acute stroke, she was admitted to telemetry floor for further evaluation, echocardiogram and carotid Doppler were ordered neurology consultation was requested. Patient denies any other symptoms there is no weakness or numbness in any of her extremities there is no change in her vision speech or gait. There is no fever or chills no headache or dizziness no chest pain no shortness of breath no cough no nausea or vomiting no abdominal pain no diarrhea no burning with urination no frequency or urgency and no hematuria. 05/14/2020 patient was seen and examined on the medical floor she is alert and oriented 3 in no apparent distress she just got back from having a MRI and MRA results are still pending she is drowsy at this time due to taking Ativan, blood pressure was quite elevated this morning despite taking Cozaar 50 mg daily Will increase to 50 mg twice daily and continue to monitor status tomorrow Objective - Vital Signs Vital signs: Vital Signs Temp 97.9 F 05/14/20 15:48 Pulse 62 05/14/20 15:48 Resp 16 05/14/20 15:48 BP 146/69 05/14/20 15:48 Pulse Ox 96 05/14/20 15:48 Intake & Output 05/13/20 05/14/20 05/14/20 18:59 06:59 18:59 Intake Total 480 120 370 Balance 480 120 370 Weight 112.945 kg 106.9 kg Intake: IV 10 0.9 10 Oral 480 120 360 Other: # Voids 1 1 2 - Exam In general patient is alert and oriented 3 in no apparent distress HEENT head normocephalic and atraumatic Neck is supple no JVD no goiter no lymphadenopathy Chest exam reveals a few scattered crackles no wheezing Cardiac exam reveals regular heart sounds no gallops no murmurs Abdomen is soft nontender no organomegaly with normal bowel sounds Extremity exam reveals no edema no cyanosis or clubbing Neurological examination reveals no gross focal deficit - Labs CBC & Chem 7: 05/14/20 08:26 05/14/20 08:26 Labs: Abnormal Lab Results - Last 24 Hours (Table) 05/14/20 Range/Units 08:26 Glucose 104 H (74-99) mg/dL Total Protein 6.1 L (6.3-8.2) g/dL Albumin 3.4 L (3.5-5.0) g/dL HDL Cholesterol 34 L (40-60) mg/dL Assessment and Plan Plan: 1. Left sided facial numbness, improved but was not totally resolved since admission, possible TIA, will check echo cardiogram with check carotid Doppler resume aspirin neurology consultation was requested, will keep patient on telemetry monitoring to rule out any cardiac arrhythmia. 2. Hypertension blood pressure is not well controlled we will resume losartan at 50 mg by mouth daily we will continue with atenolol, will monitor blood pressure and adjust medications as needed. 3. Underlying history of hyperlipidemia, maintained on pravastatin continue 4. Underlying history of gastroesophageal reflux disease maintained on Nexium continue. 5. Underlying history of brain surgery for benign tumor excision and subsequent history of seizure disorder 6. For DVT prophylaxis we will use subcu Lovenox Will follow during this admission for medical management
[2020-05-14] MEDS: LOSARTAN 50 MG TAB PO SCH (20:16)
[2020-05-14] MEDS: ASPIRIN 325 MG TAB PO SCH (20:16)
[2020-05-14] MEDS: PRAVASTATIN SODIUM 40 MG TAB PO SCH (20:16)
[2020-05-14] MEDS: AMITRIPTYLINE HCL 10 MG TAB PO SCH (20:16)
[2020-05-14] MEDS ORDERED: METOPROLOL SUCCINATE (ER) 25 MG TAB.ER.24H PO SCH (21:00)
[2020-05-15] MEDS: PHENOBARB/HYOSCY/ATROPINE/SCOP 16.2 MG TAB PO SCH ×3 (09:13→23:00)
[2020-05-15] MEDS: VIT A,C & E-LUTEIN-MINERALS 1 EACH TAB PO SCH (09:13)
[2020-05-15] MEDS: ENOXAPARIN 40 MG/0.4 ML SYRINGE SQ SCH (09:13)
[2020-05-15] MEDS: lamoTRIgine 100 MG TAB PO SCH ×2 (09:13→21:07)
[2020-05-15] MEDS: PANTOPRAZOLE 40 MG TABLET PO SCH ×2 (09:13→21:08)
[2020-05-15] MEDS: LOSARTAN 50 MG TAB PO SCH ×2 (09:13→21:08)
[2020-05-15] MEDS: METOPROLOL SUCCINATE (ER) 25 MG TAB.ER.24H PO SCH (09:14)
[2020-05-15] MEDS: CHOLECALCIFEROL 1,000 UNIT TAB PO SCH (09:14)
[2020-05-15] MEDS: cycloSPORINE 0.05% OPHTH 0.4 ML DROPERETTE BOTH EYES SCH ×2 (09:15→21:07)
[2020-05-15] MEDS: SYMBICORT 80-4.5 MCG INHALER INHALATION SCH ×2 (09:51→20:46)
--- NOTE | 2020-05-15 11:01 | ECHOF ---
Referral Reason:TIA MEASUREMENTS -------- HEIGHT: 175.3 cm WEIGHT: 106.6 kg BP: 132/60 RVIDd: 3.4 cm (< 3.3) IVSd: 1.2 cm (0.6 - 1.1) LVIDd: 3.3 cm (3.9 - 5.3) LVPWd: 1.3 cm (0.6 - 1.1) IVSs: 1.9 cm LVIDs: 1.9 cm LVPWs: 1.8 cm LAESV Index (A-L): 17.87 ml/m Ao Diam: 3.4 cm (2.0 - 3.7) AV Cusp: 2.5 cm (1.5 - 2.6) MV EXCURSION: 12.495 mm (> 18.000) MV EF SLOPE: 51 mm/s (70 - 150) EPSS: 1.1 cm MV E Mason: 0.82 m/s MV DecT: 232 ms MV A Mason: 0.99 m/s MV E/A Ratio: 0.83 AR PHT: 452 ms RAP: 5.00 mmHg RVSP: 34.46 mmHg FINDINGS -------- Resting bradycardia (HR<60bpm). This was a technically good study. The left ventricular size is normal. There is mild concentric left ventricular hypertrophy. Overa ll left ventricular systolic function is normal with, an EF between 60 - 65 %. The diastolic fillin g pattern is normal for the age of the patient 10.02. The right ventricle is mildly enlarged. Normal LA size by volume 22+/-6 ml/m2. The right atrial size is normal. Interatrial and interventricular septum intact. There is mild aortic valve sclerosis. Trace amount of aortic regurgitation. There is no evidence of aortic stenosis. Mild mitral annular calcification present. There is trace mitral regurgitation. Mild tricuspid regurgitation present. There is borderline pulmonary hypertension. The right ventr icular systolic pressure, as measured by Doppler, is 34.46mmHg. There is no pulmonic regurgitation present. The aortic root size is normal. IVC Not well visulized. There is no pericardial effusion. CONCLUSIONS -------- 1. Resting bradycardia (HR<60bpm). 2. This was a technically good study. 3. The left ventricular size is normal. 4. There is mild concentric left ventricular hypertrophy. 5. Overall left ventricular systolic function is normal with, an EF between 60 - 65 %. 6. The diastolic filling pattern is normal for the age of the patient 10.02 7. The right ventricle is mildly enlarged. 8. Normal LA size by volume 22+/-6 ml/m2. 9. The right atrial size is normal. 10. Interatrial and interventricular septum intact. 11. There is mild aortic valve sclerosis. 12. Trace amount of aortic regurgitation. 13. There is no evidence of aortic stenosis. 14. Mild mitral annular calcification present. 15. There is trace mitral regurgitation. 16. Mild tricuspid regurgitation present. 17. There is borderline pulmonary hypertension. 18. The right ventricular systolic pressure, as measured by Doppler, is 34.46mmHg. 19. There is no pulmonic regurgitation present. 20. The aortic root size is normal. 21. IVC Not well visulized. 22. There is no pericardial effusion. BOX INSPECTOR: Mayra Valiente RDCS
--- NOTE | 2020-05-15 12:17 | EEG ---
ELECTROENCEPHALOGRAM REPORT DATE OF SERVICE: May 14, 2020. DATE OF INTERPRETATION: May 15, 2020. 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 The patient came in for left-sided numbness and weakness of the face. This EEG is performed to establish baseline and rule out subclinical seizures. The patient is on lamotrigine at 400 mg per day for seizure prevention. TECHNICAL REPORT: This is an inpatient EEG performed on the live[employer] EEG monitor with electrodes placed according to the International 10-20 system and a single EKG channel. Simultaneous video EEG monitoring was performed. This EEG was reviewed in both longitudinal bipolar common average referential and transverse montages. Photic stimulation was performed. Hyperventilation was not performed due to the patient's underlying medical condition. The recording begins with a low amplitude synchronous background with posterior dominant rhythm between 8-9 hertz that attenuates with eye opening. Intermittent muscle and movement artifact contaminate tracing. Low amplitude beta activity is prominent over the anterior and central head regions. Intermittent electric pop occurs at the electrode artifact at the left frontal head region. Photic stimulation was performed at various flash frequencies and failed to elicit a consistent driving response. Deeper stages of sleep were not achieved during the study. IMPRESSION: This is a normal wake only EEG study. The patient did not enter drowsiness or other deeper stages of sleep. No epileptiform activity, electrographic seizures or clinical events were recorded. No abnormalities were noted in the EKG. CLINICAL CORRELATION: A normal wake only EEG does not preclude an underlying seizure tendency thus further clinical correlation is needed. If clinically indicated, serial EEGs and/or a more prolonged overnight ambulatory EEG could be helpful. MMODL / IJN: [id number] /
--- NOTE | 2020-05-15 17:45 | P.PN ---
Subjective Progress Note Date: 05/15/20April Ayesha is a 75-year-old female who presented to [facility] emergency room with a chief complaint of left sided facial numbness, she states that over the last 2 weeks her blood pressure was on the low side and she was feeling dizzy she decided to stop taking her blood pressure medication losartan, subsequently her blood pressure was very high, she tried to take the pill again but she was not able to control her blood pressure, this morning she started having numbness on the left side of her face and she decided to come to emergency room for further evaluation, computed tomography scan of the brain was done in the emergency room and did not reveal any evidence of acute bleeding or acute stroke, she was admitted to telemetry floor for further evaluation, echocardiogram and carotid Doppler were ordered neurology consultation was requested. Patient denies any other symptoms there is no weakness or numbness in any of her extremities there is no change in her vision speech or gait. There is no fever or chills no headache or dizziness no chest pain no shortness of breath no cough no nausea or vomiting no abdominal pain no diarrhea no burning with urination no frequency or urgency and no hematuria. 05/14/2020 patient was seen and examined on the medical floor she is alert and oriented 3 in no apparent distress she just got back from having a MRI and MRA results are still pending she is drowsy at this time due to taking Ativan, blood pressure was quite elevated this morning despite taking Cozaar 50 mg daily Will increase to 50 mg twice daily and continue to monitor status tomorrow. On 05/15/2020 patient is alert and oriented 3 in no apparent distress she is still complaining of left sided facial numbness otherwise she denies any complaints there is no fever or chills no headache or dizziness no chest pain no shortness of breath no cough no nausea or vomiting no abdominal pain no diarrhea no burning was urination no frequency or urgency and no hematuria, patient is scheduled for EEG today Will follow closely Objective - Vital Signs Vital signs: Vital Signs Temp 97.9 F 05/15/20 08:30 Pulse 61 05/15/20 12:15 Resp 18 05/15/20 12:15 BP 109/55 05/15/20 12:15 Pulse Ox 95 05/15/20 12:15 Intake & Output 05/14/20 05/15/20 05/15/20 18:59 06:59 18:59 Intake Total 370 480 Balance 370 480 Weight 107 kg Intake: IV 10 0.9 10 Oral 360 480 Other: # Voids 2 1 2 - Exam In general patient is alert and oriented 3 in no apparent distress HEENT head normocephalic and atraumatic Neck is supple no JVD no goiter no lymphadenopathy Chest exam reveals a few scattered crackles no wheezing Cardiac exam reveals regular heart sounds no gallops no murmurs Abdomen is soft nontender no organomegaly with normal bowel sounds Extremity exam reveals no edema no cyanosis or clubbing Neurological examination reveals no gross focal deficit - Labs CBC & Chem 7: 05/14/20 08:26 05/14/20 08:26 Assessment and Plan Plan: 1. Left sided facial numbness, improved but was not totally resolved since admission, possible TIA, will check echo cardiogram with check carotid Doppler resume aspirin neurology consultation was requested, will keep patient on telemetry monitoring to rule out any cardiac arrhythmia. 2. Hypertension blood pressure is not well controlled we will resume losartan at 50 mg by mouth daily we will continue with atenolol, will monitor blood pressure and adjust medications as needed. 3. Underlying history of hyperlipidemia, maintained on pravastatin continue 4. Underlying history of gastroesophageal reflux disease maintained on Nexium continue. 5. Underlying history of brain surgery for benign tumor excision and subsequent history of seizure disorder 6. For DVT prophylaxis we will use subcu Lovenox Will follow during this admission for medical management
--- NOTE | 2020-05-15 18:03 | P.PN ---
Subjective Progress Note Date: 05/15/20 Principal diagnosis: Headache and left-sided facial numbness Subjective: Patient reports overall she has had no increase or worsening of her symptoms. Headache has been mild today. Patient was able to undergo MRI scan with the use of Ativan. Patient reports her headache now is at a level of 2-3. There is still mild numbness along the V1 through V3 sensory distribution. The patient reports that she still notices at times she has difficulty pronouncing words simple words such as like. The patient tells me now that she has been seen by speech therapy in the past for this. We have reviewed the results of her studies the EEG and MRI. The only study that is pending a has not been completed and it is the cervical spine. We discussed the reasons for a cervical spine to rule out possibly any cervical disc disease that could be explaining the headache that appears to have an occipital distribution and C1-C2 along with numbness in her face. Objective - Vital Signs Vital signs: Vital Signs Temp 97.9 F 05/15/20 08:30 Pulse 61 05/15/20 12:15 Resp 18 05/15/20 12:15 BP 109/55 05/15/20 12:15 Pulse Ox 95 05/15/20 12:15 Intake & Output 05/14/20 05/15/20 05/15/20 18:59 06:59 18:59 Intake Total 370 480 Balance 370 480 Weight 107 kg Intake: IV 10 0.9 10 Oral 360 480 Other: # Voids 2 1 2 - Exam Examined chart reviewed. Examination: Mental status: Awake alert oriented times place and person. Her speech is fluent. Cranial nerves: Radial nurse 3 through 12 appear intact there is still however s ome mild decrease to light touch V1 through V3. There is mild tenderness along the posterior left neck. Motor examination normal muscle bulk and tone throughout. Her strength is 5 out of 5 throughout. Pronator drift negative. No tremors noted. Coordination testing reflexes and gait examination deferred. Next para of sensory examination grossly intact to light touch throughout. Gait examination the patient is been able to walk without assistance today no ataxia or difficulty with gait noted or reported. - Labs CBC & Chem 7: 05/14/20 08:26 05/14/20 08:26 Assessment and Plan Assessment: 75-year-old female with poorly controlled blood pressure stroke risk factors of dyslipidemia hypertension MRI of the brain does not show any evidence of an acute recent infarct ischemic or hemorrhagic but does confirm her area craniotomy and extensive encephalomalacia in that area. As a result this patient is on lamotrigine for seizure prophylaxis and followed by a outpatient neurologist Dr. Webb. The patient's symptoms of left facial numbness and weakness, could still now be related to cervical neck disease along C1-C2 dermatome distribution. Anticipate discharge after the MRI of the C-spine. B12 folate levels are normal. Normal awake only EEG study. I have spoken with Dr. Webb her neurologist today who recommends holding discharge until she can complete the MRI of the C-spine to rule out possible cervical neck disease. This was discussed today with the patient and her and they agree to proceed with this. 1. Headache with intermittent left facial numbness weakness though no overt weakness seen on exam. 2. Stroke risk factors: Dyslipidemia and hypertension. 3. Seizure disorder on lamotrigine. 4. 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 5. History of panic disorder. Significant social stressors occurring now in her life. Recommendations: 1. Hold discharge until MRI of the C-spine. 2. . 3. Continue with neuro checks every 8 hours while awake per nursing protocol. 4. Continue with current home meds 6. I have discussed with patient's neurologist current admission along with lamotrigine management and referral for workup for obstructive sleep apnea and chronic sleep onset and sleep maintenance insomnia. Obstructive sleep apnea is the third leading risk factor for stroke indepen dent of diabetes hypertension and atrial fibrillation. 7. Continue with current blood pressure management maintaining systolic blood pressures between 120-130 DBP: 8090 8. Anticipate discharge planning once MRI of C-spine is completed. Thank you for this consultation. Further recommendations will be made as this case evolves.
[2020-05-15] MEDS: AMITRIPTYLINE HCL 10 MG TAB PO SCH (21:06)
[2020-05-15] MEDS: ASPIRIN 325 MG TAB PO SCH (21:07)
[2020-05-15] MEDS: PRAVASTATIN SODIUM 40 MG TAB PO SCH (21:08)
[2020-05-16] MEDS: SYMBICORT 80-4.5 MCG INHALER INHALATION SCH (07:23)
[2020-05-16] MEDS: CHOLECALCIFEROL 1,000 UNIT TAB PO SCH (08:23)
[2020-05-16] MEDS: cycloSPORINE 0.05% OPHTH 0.4 ML DROPERETTE BOTH EYES SCH (08:24)
[2020-05-16] MEDS: lamoTRIgine 100 MG TAB PO SCH (08:24)
[2020-05-16] MEDS: ENOXAPARIN 40 MG/0.4 ML SYRINGE SQ SCH (08:24)
[2020-05-16] MEDS: PANTOPRAZOLE 40 MG TABLET PO SCH (08:25)
[2020-05-16] MEDS: PHENOBARB/HYOSCY/ATROPINE/SCOP 16.2 MG TAB PO SCH ×2 (08:25→16:07)
[2020-05-16] MEDS: METOPROLOL SUCCINATE (ER) 25 MG TAB.ER.24H PO SCH (08:25)
[2020-05-16] MEDS: LOSARTAN 50 MG TAB PO SCH (08:25)
[2020-05-16] MEDS: VIT A,C & E-LUTEIN-MINERALS 1 EACH TAB PO SCH (08:26)
[2020-05-16] MEDS ORDERED: LORazepam 2 MG/ML INJ IV STA (08:47)
--- NOTE | 2020-05-16 13:15 | MR ---
EXAMINATION TYPE: MR angio neck wo con DATE OF EXAM: 05/16/2020 COMPARISON: Carotid ultrasound May 13, 2020. HISTORY: Headache, facial numbness, abnormal US Standard multiplanar, multisequence MRI departmental protocol MR imaging of the neck performed without contrast. 2-D and 3-D reconstructed images created on MRI sc an and reviewed. FINDINGS: Exam noted suboptimal due to lack of IV contrast. The level of carotid bulbs there is no significant stenosis in the distal common carotid or proximal internal carotid arteries. There are patent external carotid arteries without significant stenosis. T here is adequate visualization to mid internal carotid artery level. There is codominant vertebrobasi lar system patent to the basilar junction. IMPRESSION: No significant stenosis at carotid bulb level bilaterally. Findings correlate with caroti d ultrasound 3 days earlier.
[2020-05-16 15:57] VITALS: BP 136/75; PULSE 59; RESP 16; TEMP 98.1
--- NOTE | 2020-05-18 11:59 | CDI ---
Documentation Clarification Form Date: 05/18/20 From: Gertrude Kaur Phone: If you have a question about this query, please contact Mary Membreno, Parking Regulation Enforcement Officer at [phone] between 8am and 5pm. Admit Date: 05/13/20 Discharge Date: 05/17/20 Patient Name: ANGEL YIN Visit Number: [id number] ATTENTION: The Clinical Documentation Specialists (CDI) and [facility] Coding Staff appreciate your assistance in clarifying documentation. Please respond to the clarification below the line at the bottom and electronically sign. The CDI & [facility] Coding staff will review the response and follow-up if needed. Please note: Queries are made part of the Legal Health Record. If you have any questions, please contact the author of this message via ITS. Dear Dr. Ashu Fletcher, The patients principal diagnosis has not been clearly identified and requires clarification. She presented with the following left sided facial numbness, improved but was not totally resolved since admission per H&P. Per consult patient also had headaches and increasing blood pressure. History/Risk factors: HTN, s/p removal of benign brain tumor now w encephalomalacia involvgin the frontal lobes and vertex, Lab findings: Na-136, Glucose-104 Brain MRI: High left frontal craniotomy changes with bilateral high frontal encephalomalacia. Background mild diffuse age-related cerebral atrophy and chronic small vessel ischemic change. No MRI evidence for recent infarct or suspicious new enhancement identified. Vital Signs: T-98, P-58, R-18, BP-151/68, O2-97 Treatment: Neuro checks every 8 hrs, maintain SBP: 120-130 & DBP: 80-90 In your professional opinion, can you please clarify which diagnosis, after study, accounted for the patients presenting symptoms and was the reason chiefly responsible for the admission? TIA due to right carotid stenosis TIA Epilepsy Other specified TIA MTDD
== END 2020-05-16 17:42 | disposition home or self-care (01) | DRG 69 ==
LOC: EC 10:22 → 3SCARD 12:17
PROVIDERS: ADMIT Internal Medicine; ATTEND Internal Medicine
DX: G45.9 Transient cerebral ischemic attack, unspecified (principal); R51 Headache; I11.9 Hypertensive heart disease without heart failure; G93.89 Other specified disorders of brain; E78.5 Hyperlipidemia, unspecified; G40.909 Epilepsy, unspecified, not intractable, without status epilepticus; G31.9 Degenerative disease of nervous system, unspecified; Z11.59 Encounter for screening for other viral diseases; R13.10 Dysphagia, unspecified; I65.21 Occlusion and stenosis of right carotid artery; H93.13 Tinnitus, bilateral; J45.909 Unspecified asthma, uncomplicated; F41.0 Panic disorder [episodic paroxysmal anxiety]; K21.9 Gastro-esophageal reflux disease without esophagitis; K58.9 Irritable bowel syndrome, unspecified; L71.9 Rosacea, unspecified; H91.90 Unspecified hearing loss, unspecified ear; E66.9 Obesity, unspecified; Z68.35 Body mass index [BMI] 35.0-35.9, adult; Z79.82 Long term (current) use of aspirin; Z79.51 Long term (current) use of inhaled steroids; Z79.899 Other long term (current) drug therapy; Z86.011 Personal history of benign neoplasm of the brain; Z85.828 Personal history of other malignant neoplasm of skin; Z90.49 Acquired absence of other specified parts of digestive tract; Z87.19 Personal history of other diseases of the digestive system; Z87.891 Personal history of nicotine dependence; Z96.651 Presence of right artificial knee joint; Z87.01 Personal history of pneumonia (recurrent); Z98.890 Other specified postprocedural states; Z88.2 Allergy status to sulfonamides; Z91.048 Other nonmedicinal substance allergy status; Z83.3 Family history of diabetes mellitus; Z82.49 Family history of ischemic heart disease and other diseases of the circulatory system
CPT/HCPCS: 36415; 70450; 70544; 70547; 70553; 71046; 72125; 72141; 80053; 80061; 84484; 85025; 85610; 85730; 93005; 93306; 93880; 94640; 95816; 96360; 99291

== ENCOUNTER 2020-12-28 16:59 | Observation (INO) | payer MEDICARE ==
[2020-12-28] MEDS ORDERED: ASPIRIN 81 MG PO STA (17:20)
[2020-12-28] MEDS ORDERED: NITROGLYCERIN SL TABS 0.4 MG TAB SUBLINGUAL STA (17:20)
--- NOTE | 2020-12-28 17:24 | ED ---
Chest Pain HPI - General Source: patient Mode of arrival: ambulatory Limitations: no limitations <Humza Lucio - Last Filed: 12/28/20 19:30> <Dominick Curtis - Last Filed: 12/28/20 19:43> - General Chief Complaint: Chest Pain Stated Complaint: Chest Pain Time Seen by Provider: 12/28/20 17:11 - History of Present Illness Initial Comments: 75-year-old female with history of CVA, GERD,hypertension, dyslipidemia presents to the emergency department with a chief complaint of chest pain. States that pain began yesterday after she was eating. Patient states it felt like indigestion initially but then it continued. Patient reports it feels like a squeezing pressure in the midsternal region with some radiation to her right breast. She reports the pain is exacerbated on exertion. She also reports mild exertional dyspnea as well. She does report feeling lightheaded but denies any dizziness. reports she had a stress test performed about one year ago and an echocardiogram along with a Holter monitor were performed [address] Overton., blurry vision, headache, one-sided weakness or paresthesias. she denies history of smoking, diabetes but does have strong family history of a early cardiac related events. (Humza Lucio) - Related Data Home Medications Medication Instructions Recorded Confirmed Aspirin EC [Ecotrin Low Dose] 81 mg PO HS 07/09/17 12/28/20 Cholecalciferol [Vitamin D3 (25 25 mcg PO DAILY 07/09/17 12/28/20 Mcg = 1000 Iu)] Esomeprazole Magnesium [NexIUM] 40 mg PO BID 07/09/17 12/28/20 Losartan Potassium [Cozaar] 100 mg PO DAILY 07/09/17 12/28/20 Metoprolol Succinate (ER) [Toprol 25 mg PO HS 07/09/17 12/28/20 XL] Phenobarb/Hyoscy/Atropine/Scop 16.2 mg PO TID 07/09/17 12/28/20 [] lamoTRIgine 200 mg PO BID 01/19/20 12/28/20 Fluticasone/Salmeterol [Advair 1 puff INHALATION RT-BID 05/13/20 12/28/20 100-50 Diskus] Pravastatin Sodium [Pravachol] 40 mg PO HS 05/13/20 12/28/20 Baclofen [Lioresal] 10 mg PO HS 12/28/20 12/28/20 Cyanocobalamin (Vitamin B-12) 1,000 mcg PO DAILY 12/28/20 12/28/20 [Vitamin B-12] Vit C/E/Zn/Coppr/Lutein/Zeaxan 1 cap PO HS 12/28/20 12/28/20 [Preservision Areds 2 Softgel] Allergies Allergy/AdvReac Type Severity Reaction Status Date / Time Sulfa (Sulfonamide Allergy Unknown Verified 12/28/20 17:59 Antibiotics) Childhood sertraline [From Zoloft] AdvReac DEPRESSION Verified 12/28/20 17:59 Review of Systems ROS Other: All systems not noted in ROS Statement are negative. <Humza Lucio - Last Filed: 12/28/20 19:30> ROS Other: All systems not noted in ROS Statement are negative. <Dominick Curtis - Last Filed: 12/28/20 19:43> ROS Statement: Those systems with pertinent positive or pertinent negative responses have been documented in the HPI. Past Medical History Past Medical History: Asthma, Cancer, GERD/Reflux, GI Bleed, Hearing Disorder / Deafness, Hypertension, Pneumonia, Seizure Disorder, Skin Disorder Additional Past Medical History / Comment(s): Intermittent dysphagia, diverticular disease, IBS, lower GI bleed, pt states placed on statin as a precaution, brain surgery for benign tumor, seizures since brain surgery with last seizure less than a year ago, bilateral tinnitis since brain surgery, bronchitis, sinus problems, rosacea, skin cancer with removal. History of Any Multi-Drug Resistant Organisms: None Reported Past Surgical History: Cholecystectomy, Heart Catheterization, Joint Replacement, Orthopedic Surgery Additional Past Surgical History / Comment(s): Brain tumor resection (benign), skin cancer removal R arm, L shoulder surgery for spur, total R knee arthroplasty, R hand dupuytren's surgery, 3 R breast biopsies (benign) and 2 L breast biopsies (benign), EGDs, colonoscopies/bening polypectomies Past Anesthesia/Blood Transfusion Reactions: No Reported Reaction, Postoperative Nausea & Vomiting (PONV) Additional Past Anesthesia/Blood Transfusion Reaction / Comment(s): claustrophobia Past Psychological History: No Psychological Hx Reported Smoking Status: Former smoker Past Alcohol Use History: None Reported Past Drug Use History: None Reported - Past Family History Mother Family Medical History: Diabetes Mellitus Father Family Medical History: Diabetes Mellitus Additional Family Medical History / Comment(s): HEART DISEASE <Humza Lucio - Last Filed: 12/28/20 19:30> General Exam Limitations: no limitations General appearance: alert, in no apparent distress, obese Head exam: Present: atraumatic, normocephalic, normal inspection Eye exam: Present: normal appearance, PERRL, EOMI Pupils: Present: normal accommodation ENT exam: Present: normal exam, normal oropharynx, mucous membranes moist Neck exam: Present: normal inspection, full ROM. Absent: tenderness Respiratory exam: Present: normal lung sounds bilaterally. Absent: respiratory distress Cardiovascular Exam: Present: regular rate, normal rhythm, normal heart sounds GI/Abdominal exam: Present: soft. Absent: distended, tenderness, guarding, rebound Extremities exam: Present: normal inspection, full ROM, normal capillary refill Back exam: Present: normal inspection, full ROM. Absent: tenderness, CVA tenderness (R), CVA tenderness (L) Neurological exam: Present: alert, oriented X3, normal gait Psychiatric exam: Present: normal affect, normal mood Skin exam: Present: warm, dry, intact, normal color <Humza Lucio - Last Filed: 12/28/20 19:30> Course <Humza Lucio - Last Filed: 12/28/20 19:30> <Dominick Curtis - Last Filed: 12/28/20 19:43> Vital Signs 12/28/20 12/28/20 12/28/20 17:00 17:58 19:08 Temperature 98.0 F Pulse Rate 78 64 57 L Respiratory 18 18 16 Rate Blood Pressure 145/82 124/60 112/60 O2 Sat by Pulse 99 98 97 Oximetry - Reevaluation(s) Reevaluation #1: 12/28/20 19:32 medical records reviewed (Humza Lucio) Reevaluation #2: 12/28/20 19:43 PEs supervision: I did evaluate this case patient did present with complaints of chest pain which was consistent with angina. Currently the workup was negative however for acute EKG or enzyme changes. She currently is pain-free. Patient workup will be completed and patient did discuss case with Dr. Fletcher. DL to be consulted. Ultrasound were reviewed. (Dominick Curtis) Chest Pain MDM <Humza Lucio - Last Filed: 12/28/20 19:30> - MDM 75-year-old female with history of dyslipidemia and hypertension presents emergency Department with a chief complaint of chest pain. On physical examination, patient is resting comfortably. She is not diaphoretic or in any respiratory distress. She has palpable pulses in bilateral upper and lower extremities. CBC CMP unremarkable. D-dimer is 0.64 . Initial troponins negative. EKG appears to be similar to her most recent one. chest x-ray is unremarkable. patient was given aspirin and nitro. There was improvement in her symptoms after taking the nitro. 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 Patient will be admitted for further medical management. Serial troponins. Case was discussed with Dr. Curtis. Admitting physician is Dr. Fletcher Cardiology consulted (Humza Lucio) Disposition Is patient prescribed a controlled substance at d/c from ED?: No Time of Disposition: 19:33 <Humza Lucio - Last Filed: 12/28/20 19:30> <Dominick Curtis - Last Filed: 12/28/20 19:43> Clinical Impression: Chest pain Disposition: ADMITTED IP TO THIS HOSP Condition: Stable Instructions (If sedation given, give patient instructions): Chest Pain (ED) Referrals: Becka Fletcher MD [Primary Care Provider] - 1-2 days
[2020-12-28 17:30] LABS: Basophils # (A) 0.1 k/uL (0-0.2); Basophils % (A) 1 %; Eosinophils # (A) 0.1 k/uL (0-0.7); Eosinophils % (A) 1 %; HCT 44.9 % (34.0-46.0); HGB 15.3 gm/dL (11.4-16.0); Lymphocytes # (A) 3.7 k/uL (1.0-4.8); Lymphocytes % (A) 41 %; MCH 30.9 pg (25.0-35.0); MCHC 34.1 g/dL (31.0-37.0); MCV 90.6 fL (80.0-100.0); Mean Platelet Volume 7.1; Monocytes # (A) 0.4 k/uL (0-1.0); Monocytes % (A) 4 %; Neutrophils # (A) 4.8 k/uL (1.3-7.7); Neutrophils % (A) 52 %; Platelet Count 186 k/uL (150-450); RBC 4.96 m/uL (3.80-5.40); RDW 12.9 % (11.5-15.5); WBC 9.2 k/uL (3.8-10.6)
[2020-12-28 17:40] LABS: Albumin 4.2 g/dL (3.5-5.0); Calcium 9.4 mg/dL (8.4-10.2); Total Bilirubin 0.7 mg/dL (0.2-1.3); Total Protein 7.5 g/dL (6.3-8.2)
[2020-12-28 17:42] LABS: Potassium 4.2 mmol/L (3.5-5.1)
[2020-12-28 17:55] LABS: INR 0.9 (<1.2); Partial Thromboplastin Time 22.6 sec (22.0-30.0)
--- NOTE | 2020-12-28 17:58 | XR ---
EXAMINATION TYPE: XR chest 2V DATE OF EXAM: 12/28/2020 COMPARISON: 05/13/2020 HISTORY: Chest pain TECHNIQUE: 2 views FINDINGS: Heart and mediastinum are normal. Lungs are clear. Diaphragm is normal. Bony thorax is inta ct. There are chest leads. IMPRESSION: No active cardiopulmonary disease. No change.
[2020-12-28 17:59] LABS: D-Dimer 0.64 mg/L FEU (<0.60)
[2020-12-28] MEDS ORDERED: NITROGLYCERIN SL TABS 0.4 MG TAB SUBLINGUAL PRN (18:45)
[2020-12-28] MEDS: ENOXAPARIN 40 MG/0.4 ML SYRINGE SQ SCH (22:50)
[2020-12-29 07:40] VITALS: BP 124/78; PULSE 61; RESP 18; TEMP 97.6
[2020-12-29] MEDS ORDERED: SYMBICORT 80-4.5 MCG INHALER INHALATION SCH (08:00)
[2020-12-29] MEDS: ENOXAPARIN 40 MG/0.4 ML SYRINGE SQ SCH (08:17)
[2020-12-29] MEDS ORDERED: PANTOPRAZOLE 40 MG TABLET PO SCH (09:00)
[2020-12-29] MEDS ORDERED: CYANOCOBALAMIN 500 MCG TAB PO SCH (09:00)
[2020-12-29] MEDS ORDERED: LOSARTAN 50 MG TAB PO SCH (09:00)
[2020-12-29] MEDS ORDERED: PHENOBARB/HYOSCY/ATROPINE/SCOP 16.2 MG TAB PO SCH (09:00)
[2020-12-29] MEDS ORDERED: CHOLECALCIFEROL 25 MCG (1000 IU) TABLET PO SCH (09:00)
[2020-12-29] MEDS ORDERED: lamoTRIgine 100 MG TAB PO SCH (09:00)
[2020-12-29] MEDS ORDERED: ASPIRIN 325 MG TAB PO SCH (09:00)
[2020-12-29 10:37] LABS: Basophils # (A) 0.03 X 10*3/uL (0.00-0.10); Basophils % (A) 0.4 %; Eosinophils # (A) 0.11 X 10*3/uL (0.04-0.35); Eosinophils % (A) 1.5 %; HCT 40.6 % (37.2-46.3); HGB 13.2 g/dL (12.0-15.0); Lymphocytes % (A) 42.8 %; MCH 30.3 pg (27.0-32.0); MCHC 32.5 g/dL (32.0-37.0); MCV 93.3 fL (80.0-97.0); Mean Platelet Volume 10.3 fL (9.5-12.2); Monocytes # (A) 0.56 X 10*3/uL (0.20-1.00); Monocytes % (A) 7.7 %; Neutrophils # (A) 3.43 X 10*3/uL (1.80-7.70); Neutrophils % (A) 47.5 %; Platelet Count 171 X 10*3/uL (140-440); RBC 4.35 X 10*6/uL (4.10-5.20); RDW 12.6 % (11.5-14.5); WBC 7.24 X 10*3/uL (4.50-10.00)
[2020-12-29 11:03] LABS: African American GFR (CKD) 84.2 (60.0-200.0); Albumin/Globulin Ratio 2.22 (1.60-3.17); Anion Gap 10.7 mmol/L (4.00-12.00); BUN/Creat Ratio 17.5 Ratio (12.00-20.00); Calcium 8.9 mg/dL (8.7-10.3); Carbon Dioxide 24.3 mmol/L (21.6-31.8); Chol/HDL Ratio 4.24; Globulin 1.8 g/dL (1.6-3.3); LDL Cholesterol,Calculated 96.2 mg/dL (0.0-131.0); Non-African American GFR(CKD) 72.6 (60.0-200.0); Total Bilirubin 0.3 mg/dL (0.2-1.2); Total Protein 5.8 g/dL (6.2-8.2); VLDL Calculation 23.8 mg/dL (5.00-40.00)
--- NOTE | 2020-12-29 11:26 | P.HPIM ---
History of Present Illness H&P Date: 12/29/20 Chief Complaint: Chest pain Lucille Agustin, is a 75-year-old female who presented to [facility] emergency room with a chief complaint of chest pain, patient stated that on the day before admission she was having episodes of acid reflux with heartburn, subsequently she felt a pressure sensation in her chest, patient stated that her pain was relieved after she received sublingual nitroglycerin in the emergency room , she was evaluated in the emergency room, vital examination on presentation revealed a temperature of 98 pulse 78 respiration 18 blood press ure 145/82 pulse ox 99% on room air laboratory data revealed a white blood count of 9.2 hemoglobin 15.3 platelet count 186 d-dimer was mildly elevated at 0.64 sodium 138 potassium 4.2 glucose 104 first troponin was less than 0.012 coronavirus PCR was negative EKG on presentation was normal, chest x-ray revealed no active cardiopulmonary disease. Patient was admitted to telemetry floor cardiology consultation was requested in regard to chest pain. Her past medical history is significant for history of hypertension, history of asthma, history of gastroesophageal reflux disease, history of gastrointestinal bleeding, history of seizure disorder, and history of brain tumor with resection. Patient had a cardiac catheterization in March 2018 that revealed normal coronary arteries. On review of systems patient is alert and oriented 3 in no apparent distress there is no fever or chills no headache or dizziness no chest pain at this time no shortness of breath no cough no palpitation no nausea or vomiting no abdominal pain no diarrhea no blood in the stools no burning with urination no frequency or urgency and no hematuria Past Medical History Past Medical History: Asthma, Cancer, GERD/Reflux, GI Bleed, Hearing Disorder / Deafness, Hypertension, Pneumonia, Seizure Disorder, Skin Disorder Additional Past Medical History / Comment(s): Intermittent dysphagia, diverticular disease, IBS, lower GI bleed, pt states placed on statin as a precaution, brain surgery for benign tumor, seizures since brain surgery with last seizure less than a year ago, bilateral tinnitis since brain surgery, bronchitis, sinus problems, rosacea, skin cancer with removal. History of Any Multi-Drug Resistant Organisms: None Reported Past Surgical History: Cholecystectomy, Heart Catheterization, Joint Replacement, Orthopedic Surgery Additional Past Surgical History / Comment(s): Brain tumor resection (benign), skin cancer removal R arm, L shoulder surgery for spur, total R knee arthroplasty, R hand dupuytren's surgery, 3 R breast biopsies (benign) and 2 L breast biopsies (benign), EGDs, colonoscopies/bening polypectomies Past Anesthesia/Blood Transfusion Reactions: No Reported Reaction, Postoperative Nausea & Vomiting (PONV) Additional Past Anesthesia/Blood Transfusion Reaction / Comment(s): claustrophobia Past Psychological History: No Psychological Hx Reported Additional Psychological History / Comment(s): Pt resides with her spouse and adult grandson. She is independent. Smoking Status: Former smoker Past Alcohol Use History: None Reported Additional Past Alcohol Use History / Comment(s): Pt started smoking in 1957 and quit in 1984, smoked 1/2 ppd Past Drug Use History: None Reported - Past Family History Mother Family Medical History: Diabetes Mellitus Father Family Medical History: Diabetes Mellitus Additional Family Medical History / Comment(s): HEART DISEASE Medications and Allergies Home Medications Medication Instructions Recorded Confirmed Type Aspirin EC [Ecotrin Low Dose] 81 mg PO HS 07/09/17 12/28/20 History Cholecalciferol [Vitamin D3 (25 25 mcg PO DAILY 07/09/17 12/28/20 History Mcg = 1000 Iu)] Esomeprazole Magnesium [NexIUM] 40 mg PO BID 07/09/17 12/28/20 History Losartan Potassium [Cozaar] 100 mg PO DAILY 07/09/17 12/28/20 History Metoprolol Succinate (ER) [Toprol 25 mg PO HS 07/09/17 12/28/20 History XL] Phenobarb/Hyoscy/Atropine/Scop 16.2 mg PO TID 07/09/17 12/28/20 History [] lamoTRIgine 200 mg PO BID 01/19/20 12/28/20 History Fluticasone/Salmeterol [Advair 1 puff INHALATION RT-BID 05/13/20 12/28/20 History 100-50 Diskus] Pravastatin Sodium [Pravachol] 40 mg PO HS 05/13/20 12/28/20 History Baclofen [Lioresal] 10 mg PO HS 12/28/20 12/28/20 History Cyanocobalamin (Vitamin B-12) 1,000 mcg PO DAILY 12/28/20 12/28/20 History [Vitamin B-12] Vit C/E/Zn/Coppr/Lutein/Zeaxan 1 cap PO HS 12/28/20 12/28/20 History [Preservision Areds 2 Softgel] Allergies Allergy/AdvReac Type Severity Reaction Status Date / Time Sulfa (Sulfonamide Allergy Unknown Verified 12/28/20 17:59 Antibiotics) Childhood sertraline [From Zoloft] AdvReac DEPRESSION Verified 12/28/20 17:59 Physical Exam Vitals: Vital Signs Temp Pulse Pulse Resp BP BP Pulse Ox 12/29/20 07:39 97.6 F 61 18 124/78 95 12/29/20 01:50 97.7 F 60 101/60 95 12/28/20 20:25 98.4 F 57 L 122/75 98 12/28/20 20:20 98.4 F 57 L 122/75 98 12/28/20 19:08 57 L 16 112/60 97 12/28/20 17:58 64 18 124/60 98 12/28/20 17:00 98.0 F 78 18 145/82 99 Intake and Output 12/28/20 12/29/20 12/29/20 22:59 06:59 14:59 Intake Total 320 Balance 320 Intake: Oral 320 Other: Voiding Method Toilet Weight 112.945 kg In general patient is alert confused in no apparent distress HEENT head normocephalic and atraumatic Neck is supple no JVD no goiter no lymphadenopathy Chest exam reveals a few scattered rhonchi no wheezing Cardiac exam reveals regular heart sounds S1 and S2 no gallops no murmurs Abdomen is soft nontender no organomegaly with normal bowel sounds Extremity exam reveals no edema no cyanosis or clubbing Neurological examination reveals no gross focal deficit Results CBC & Chem 7: 12/29/20 03:42 12/29/20 03:42 Labs: Abnormal Lab Results - Last 24 Hours (Table) 12/28/20 12/28/20 Range/Units 17:23 17:23 D-Dimer 0.64 H (<0.60) mg/L FEU Glucose 104 H (74-99) mg/dL Thrombosis Risk Factor Assmnt - Choose All That Apply Each Factor Represents 1 point: Obesity (BMI >25) Each Risk Factor Represents 2 Points: Age 61-74 years Thrombosis Risk Factor Assessment Total Risk Factor Score: 3 Thrombosis Risk Factor Assessment Level: Moderate Risk Assessment and Plan Plan: 1. Episode of chest pain 2. Underlying history of hypertension 3. Underlying history of seizure disorder 4. Previous history of brain tumor with resection 5. Underlying history of gastroesophageal reflux disease maintained on Nexium 6. Slightly elevated d-dimer in the emergency room At this time, patient is admitted to telemetry floor, serial EKG and cardiac enzymes ordered repeat d-dimer ordered patient was started on subcu Lovenox Cardiology consultation requested Will follow closely
--- NOTE | 2020-12-29 11:29 | P.DS ---
Providers Date of admission: 12/28/20 19:42 Expected date of discharge: 12/29/20 Attending physician: Becka Fletcher Consults: 12/28/20 18:45 Consult Physician Urgent Consulting Provider: Jitendra Overton Consult Reason/Comments: chest pain Do you want consulting provider notified?: Yes Primary care physician: Becka Fletcher [facility] Course: Discharge diagnosis 1. Episode of chest pain . Troponins negative 3. D-dimer negative. Patient was evaluated by cardiology and cleared for discharge 2. Underlying history of hypertension 3. Underlying history of seizure disorder 4. Previous history of brain tumor with resection 5. Underlying history of gastroesophageal reflux disease maintained on Nexium 6. Slightly elevated d-dimer in the emergency room. Repeat d-dimer 0.45 Hospital course Lucille Agustin, is a 75-year-old female who presented to [facility] emergency room with a chief complaint of chest pain, patient stated that on the day before admission she was having episodes of acid reflux with heartburn, subsequently she felt a pressure sensation in her chest, patient stated that her pain was relieved after she received sublingual nitroglycerin in the emergency room , she was evaluated in the emergency room, vital examination on presentation revealed a temperature of 98 pulse 78 respiration 18 blood pressure 145/82 pulse ox 99% on room air laboratory data revealed a white blood count of 9.2 hemoglobin 15.3 platelet count 186 d-dimer was mildly elevated at 0.64 sodium 138 potassium 4.2 glucose 104 first troponin was less than 0.012 coronavirus PCR was negative EKG on presentation was normal, chest x-ray revealed no active cardiopulmonary disease. Patient was admitted to telemetry floor cardiology consultation was requested in regard to chest pain. Her past medical history is significant for history of hypertension, history of asthma, history of gastroesophageal reflux disease, history of gastrointestinal bleeding, history of seizure disorder, and history of brain tumor with resection. Patient had a cardiac catheterization in March 2018 that revealed normal coronary arteries. On review of systems patient is alert and oriented 3 in no apparent distress there is no fever or chills no headache or dizziness no chest pain at this time no shortness of breath no cough no palpitation no nausea or vomiting no abdominal pain no diarrhea no blood in the stools no burning with urination no frequency or urgency and no hematuria On 12/29/2020 patient is alert and oriented 3. Patient has been cleared for discharge from cardiology standpoint. Repeat d-dimer 0.45. Troponins negative 3. Spoke to nurse practitioner with cardiology team patient cleared for discharge Patient Condition at Discharge: Stable Plan - Discharge Summary New Discharge Prescriptions: Continue Phenobarb/Hyoscy/Atropine/Scop [] 16.2 mg PO TID Cholecalciferol [Vitamin D3 (25 Mcg = 1000 Iu)] 25 mcg PO DAILY Aspirin EC [Ecotrin Low Dose] 81 mg PO HS Esomeprazole Magnesium [NexIUM] 40 mg PO BID Metoprolol Succinate (ER) [Toprol XL] 25 mg PO HS Losartan Potassium [Cozaar] 100 mg PO DAILY lamoTRIgine 200 mg PO BID Fluticasone/Salmeterol [Advair 100-50 Diskus] 1 puff INHALATION RT-BID Pravastatin Sodium [Pravachol] 40 mg PO HS Cyanocobalamin (Vitamin B-12) [Vitamin B-12] 1,000 mcg PO DAILY Baclofen [Lioresal] 10 mg PO HS Vit C/E/Zn/Coppr/Lutein/Zeaxan [Preservision Areds 2 Softgel] 1 cap PO HS Discharge Medication List Aspirin EC [Ecotrin Low Dose] 81 mg PO HS 07/09/17 [History] Cholecalciferol [Vitamin D3 (25 Mcg = 1000 Iu)] 25 mcg PO DAILY 07/09/17 [Hi story] Esomeprazole Magnesium [NexIUM] 40 mg PO BID 07/09/17 [History] Losartan Potassium [Cozaar] 100 mg PO DAILY 07/09/17 [History] Metoprolol Succinate (ER) [Toprol XL] 25 mg PO HS 07/09/17 [History] Phenobarb/Hyoscy/Atropine/Scop [] 16.2 mg PO TID 07/09/17 [History] lamoTRIgine 200 mg PO BID 01/19/20 [History] Fluticasone/Salmeterol [Advair 100-50 Diskus] 1 puff INHALATION RT-BID 05/13/20 [History] Pravastatin Sodium [Pravachol] 40 mg PO HS 05/13/20 [History] Baclofen [Lioresal] 10 mg PO HS 12/28/20 [History] Cyanocobalamin (Vitamin B-12) [Vitamin B-12] 1,000 mcg PO DAILY 12/28/20 [History] Vit C/E/Zn/Coppr/Lutein/Zeaxan [Preservision Areds 2 Softgel] 1 cap PO HS 12/28/20 [History] Follow up Appointment(s)/Referral(s): Becka Fletcher MD [Primary Care Provider] - 1-2 days Patient Instructions/Handouts: Chest Pain (ED) Discharge Disposition: HOME SELF-CARE
--- NOTE | 2020-12-29 11:51 | P.CRDCN ---
History of Present Illness Consult date: 12/29/20 History of present illness: CHIEF COMPLAINT: Chest pain HISTORY OF PRESENT ILLNESS: This is a 75-year-old female with a past medical history significant for hypertension, hyperlipidemia, GERD, seizure disorder, and obesity. Patient follows in the office with Dr. Overton. We have been asked to see the patient in consultation for chest pain. Patient examined this morning at the bedside. Patient states she began having some chest discomfort 2 days ago. She initially states that it felt like heartburn. She reports then h aving some sharp shooting pains on the right side of her chest. She states that it felt like her whole chest was squeezing in on her. She states the pain radiated into her back. She reports feeling diaphoretic. She denied nausea or vomiting. Denies shortness of breath. She states the pain was not worse with movement or deep inspiration. She states the pain lasted for approximately 2 days and was not relieved until she received nitro in the emergency room. At the time of examination this morning, the patient denies any chest pain or pressure. The patient does have tenderness with palpation of chest wall this morning. Patient underwent a heart cath in 2017 revealing normal coronary a rteries. She had an echocardiogram completed in April 2020 revealing an ejection fraction of 60-65% DIAGNOSTICS: EKG reveals sinus mechanism with no signs of acute ischemia Chest xray negative for acute process Laboratory data: WBC 7.24. Hemoglobin 13.2. Platelet count 171. D-dimer 0.45. Sodium 139. Potassium 4.0. B UN 14. Creatinine 0.8. Troponin negative 3. Current home cardiac medications include metoprolol succinate 25 mg daily, losartan 100 mg daily, aspirin 81 mg daily REVIEW OF SYSTEMS: At the time of my exam: CONSTITUTIONAL: Denies fever or chills. HEENT: Denies blurred vision, vision changes, or eye pain. Denies hemoptysis CARDIOVASCULAR: Denies chest pain, orthopnea, PND or palpitations RESPIRATORY: No shortness of breath. GASTROINTESTINAL: Denies abdominal pain. Denies nausea or vomiting. HEMATOLOGIC: Denies bleeding disorders. GENITOURINARY: Denies any blood in urine. SKIN: Denies pruitis. Denies rash. PHYSICAL EXAM: VITAL SIGNS: Reviewed. GENERAL: Well-developed in no acute distress. HEENT: Head is normocephalic. Pupils are equal, round. Sclerae anicteric. Mucous membranes of the mouth are moist. Neck supple. No JVD or thyromegaly LUNGS: Respirations even and unlabored. Lungs essentially clear to auscultation bilaterally. HEART: Regular rate and rhythm. S1 and S2 heard. Tenderness upon palpation of chest wall. ABDOMEN: Soft. Nondistended. Nontender. EXTREMITIES: Normal range of motion. No clubbing or cyanosis. Peripheral pulses intact. No lower extremity edema NEUROLOGIC: Awake and alert. Oriented x 3. ASSESSMENT: Chest pain, atypical, troponin negative 3 Hypertension Hyperlipidemia Seizure disorder GERD Obesity: BMI 36.8 PLAN: An acute coronary event has been ruled out Resume home cardiac medications Patient may be discharged home today and follow up outpatient with Dr. Overton Nurse practitioner note has been reviewed by physician. Signing provider agrees with the documented findings, assessment, and plan of care. Past Medical History Past Medical History: Asthma, Cancer, GERD/Reflux, GI Bleed, Hearing Disorder / Deafness, Hypertension, Pneumonia, Seizure Disorder, Skin Disorder Additional Past Medical History / Comment(s): Intermittent dysphagia, diverticular disease, IBS, lower GI bleed, pt states placed on statin as a precaution, brain surgery for benign tumor, seizures since brain surgery with last seizure less than a year ago, bilateral tinnitis since brain surgery, bronchitis, sinus problems, rosacea, skin cancer with removal. History of Any Multi-Drug Resistant Organisms: None Reported Past Surgical History: Cholecystectomy, Heart Catheterization, Joint Rep lacement, Orthopedic Surgery Additional Past Surgical History / Comment(s): Brain tumor resection (benign), skin cancer removal R arm, L shoulder surgery for spur, total R knee arthroplasty, R hand dupuytren's surgery, 3 R breast biopsies (benign) and 2 L breast biopsies (benign), EGDs, colonoscopies/bening polypectomies Past Anesthesia/Blood Transfusion Reactions: No Reported Reaction, Postoperative Nausea & Vomiting (PONV) Additional Past Anesthesia/Blood Transfusion Reaction / Comment(s): claustrophobia Past Psychological History: No Psychological Hx Reported Additional Psychological History / Comment(s): Pt resides with her spouse and adult grandson. She is independent. Smoking Status: Former smoker Past Alcohol Use History: None Reported Additional Past Alcohol Use History / Comment(s): Pt started smoking in 1958 and quit in 1984, smoked 1/2 ppd Past Drug Use History: None Reported - Past Family History Mother Family Medical History: Diabetes Mellitus Father Family Medical History: Diabetes Mellitus Additional Family Medical History / Comment(s): HEART DISEASE Medications and Allergies Home Medications Medication Instructions Recorded Confirmed Type Aspirin EC [Ecotrin Low Dose] 81 mg PO HS 07/09/17 12/28/20 History Cholecalciferol [Vitamin D3 (25 25 mcg PO DAILY 07/09/17 12/28/20 History Mcg = 1000 Iu)] Esomeprazole Magnesium [NexIUM] 40 mg PO BID 07/09/17 12/28/20 History Losartan Potassium [Cozaar] 100 mg PO DAILY 07/09/17 12/28/20 History Metoprolol Succinate (ER) [Toprol 25 mg PO HS 07/09/17 12/28/20 History XL] Phenobarb/Hyoscy/Atropine/Scop 16.2 mg PO TID 07/09/17 12/28/20 History [] lamoTRIgine 200 mg PO BID 01/19/20 12/28/20 History Fluticasone/Salmeterol [Advair 1 puff INHALATION RT-BID 05/13/20 12/28/20 History 100-50 Diskus] Pravastatin Sodium [Pravachol] 40 mg PO HS 05/13/20 12/28/20 History Baclofen [Lioresal] 10 mg PO HS 12/28/20 12/28/20 History Cyanocobalamin (Vitamin B-12) 1,000 mcg PO DAILY 12/28/20 12/28/20 History [Vitamin B-12] Vit C/E/Zn/Coppr/Lutein/Zeaxan 1 cap PO HS 12/28/20 12/28/20 History [Preservision Areds 2 Softgel] Allergies Allergy/AdvReac Type Severity Reaction Status Date / Time Sulfa (Sulfonamide Allergy Unknown Verified 12/28/20 17:59 Antibiotics) Childhood sertraline [From Zoloft] AdvReac DEPRESSION Verified 12/28/20 17:59 Physical Exam Vitals: Vital Signs Temp Pulse Pulse Resp BP BP Pulse Ox 12/29/20 07:39 97.6 F 61 18 124/78 95 12/29/20 01:50 97.7 F 60 101/60 95 12/28/20 20:25 98.4 F 57 L 122/75 98 12/28/20 20:20 98.4 F 57 L 122/75 98 12/28/20 19:08 57 L 16 112/60 97 12/28/20 17:58 64 18 124/60 98 12/28/20 17:00 98.0 F 78 18 145/82 99 Intake and Output 12/28/20 12/29/20 12/29/20 22:59 06:59 14:59 Intake Total 320 Balance 320 Intake: Oral 320 Other: Voiding Method Toilet Weight 112.945 kg Results 12/29/20 03:42 12/29/20 03:42 Cardiac Enzymes 12/28/20 12/28/20 12/28/20 Range/Units 17:23 17:23 20:52 AST 30 (14-36) U/L Troponin I <0.012 <0.012 (0.000-0.034) ng/mL 12/28/20 12/29/20 Range/Units 23:51 03:42 AST 22 (14-36) U/L Troponin I <0.012 (0.000-0.034) ng/mL Coagulation 12/28/20 Range/Units 17:23 PT 10.0 (9.0-12.0) sec APTT 22.6 (22.0-30.0) sec Lipids 12/29/20 Range/Units 03:42 Triglycerides 119.0 (0.0-149.0) mg/dL Cholesterol 157 (0-200) mg/dL HDL Cholesterol 37.0 L (40.0-60.0) mg/dL Cholesterol/HDL Ratio 4.24 CBC 12/28/20 12/29/20 Range/Units 17:23 03:42 WBC 9.2 7.24 (3.8-10.6) k/uL RBC 4.96 4.35 (3.80-5.40) m/uL Hgb 15.3 13.2 (11.4-16.0) gm/dL Hct 44.9 40.6 (34.0-46.0) % Plt Count 186 171 (150-450) k/uL Comprehensive Metabolic Panel 12/28/20 12/29/20 Range/Units 17:23 03:42 Sodium 138 139 (137-145) mmol/L Potassium 4.2 4.0 (3.5-5.1) mmol/L Chloride 102 104 (98-107) mmol/L Carbon Dioxide 25 24.3 (22-30) mmol/L BUN 12 14.0 (7-17) mg/dL Creatinine 0.80 0.8 (0.52-1.04) mg/dL Glucose 104 H 85 (74-99) mg/dL Calcium 9.4 8.9 (8.4-10.2) mg/dL AST 30 22 (14-36) U/L ALT 23 20 (4-34) U/L Alkaline Phosphatase 79 71 (38-126) U/L Total Protein 7.5 5.8 L (6.3-8.2) g/dL Albumin 4.2 4.00 (3.5-5.0) g/dL Current Medications Generic Name Dose Route Start Last Admin Trade Name Freq PRN Reason Stop Dose Admin Aspirin 81 mg 12/29/20 21:00 Aspirin 81 Mg PO HS JAIME Baclofen 10 mg 12/29/20 21:00 Baclofen 10 Mg Tab PO HS JAIME Belladonna/Phenobarbital 16.2 mg 12/29/20 09:00 12/29/20 08:18 Phenobarb/Hyoscy/Atropine/Scop 16.2 Mg Tab PO 16.2 mg TID JAIME Administration Budesonide/Formoterol Fumarate 2 puff 12/29/20 08:00 12/29/20 08:18 Symbicort 80-4.5 Mcg Inhaler INHALATION 2 puff RT-BID JAIME Administration Cholecalciferol 25 mcg 12/29/20 09:00 12/29/20 08:17 Cholecalciferol 25 Mcg (1000 Iu) Tablet PO 25 mcg DAILY JAIME Administration Cyanocobalamin 1,000 mcg 12/29/20 09:00 12/29/20 08:17 Cyanocobalamin 500 Mcg Tab PO 1,000 mcg DAILY JAIME Administration Enoxaparin Sodium 40 mg 12/28/20 23:00 12/29/20 08:17 Enoxaparin 40 Mg/0.4 Ml Syringe SQ 40 mg DAILY JAIME Administration Lamotrigine 200 mg 12/29/20 09:00 12/29/20 08:18 Lamotrigine 100 Mg Tab PO 200 mg BID JAIME Administration Losartan Potassium 100 mg 12/29/20 09:00 12/29/20 08:18 Losartan 50 Mg Tab PO 100 mg DAILY JAIME Administration Metoprolol Succinate 25 mg 12/29/20 21:00 Metoprolol Succinate (Er) 25 Mg Tab.Er.24h PO HS [facility] Multivitamins/Minerals 1 each 12/29/20 21:00 Vit A,C & S-[id number] 1 Each Tab PO HS [facility] Nitroglycerin 0.4 mg 12/28/20 18:45 Nitroglycerin Sl Tabs 0.4 Mg Tab SUBLINGUAL Q5M PRN Chest Pain Pantoprazole Sodium 40 mg 12/29/20 09:00 12/29/20 08:18 Pantoprazole 40 Mg Tablet PO 40 mg BID JAIME Administration Pravastatin Sodium 40 mg 12/29/20 21:00 Pravastatin Sodium 40 Mg Tab PO HS [facility] Intake and Output 12/28/20 12/29/20 12/29/20 22:59 06:59 14:59 Intake Total 320 Balance 320 Intake: Oral 320 Other: Voiding Method Toilet Weight 112.945 kg 12/29/20 03:42 12/29/20 03:42
[2020-12-29] MEDS ORDERED: METOPROLOL SUCCINATE (ER) 25 MG TAB.ER.24H PO SCH (21:00)
[2020-12-29] MEDS ORDERED: VIT A,C & E-LUTEIN-MINERALS 1 EACH TAB PO SCH (21:00)
[2020-12-29] MEDS ORDERED: BACLOFEN 10 MG TAB PO SCH (21:00)
[2020-12-29] MEDS ORDERED: PRAVASTATIN SODIUM 40 MG TAB PO SCH (21:00)
[2020-12-29] MEDS ORDERED: ASPIRIN 81 MG PO SCH (21:00)
== END 2020-12-29 12:35 | disposition home or self-care (01) ==
LOC: EC 16:59 → 6NMEDSUR 19:42
PROVIDERS: ADMIT Internal Medicine; ATTEND Internal Medicine
DX: R07.89 Other chest pain (principal); K21.9 Gastro-esophageal reflux disease without esophagitis; I10 Essential (primary) hypertension; E78.5 Hyperlipidemia, unspecified; R06.09 Other forms of dyspnea; R42 Dizziness and giddiness; R12 Heartburn; R61 Generalized hyperhidrosis; R79.89 Other specified abnormal findings of blood chemistry; Z86.011 Personal history of benign neoplasm of the brain; J45.909 Unspecified asthma, uncomplicated; G40.909 Epilepsy, unspecified, not intractable, without status epilepticus; H91.90 Unspecified hearing loss, unspecified ear; R13.10 Dysphagia, unspecified; K58.9 Irritable bowel syndrome, unspecified; L71.9 Rosacea, unspecified; Z79.82 Long term (current) use of aspirin; Z79.899 Other long term (current) drug therapy; Z88.2 Allergy status to sulfonamides; Z88.8 Allergy status to other drugs, medicaments and biological substances; Z87.19 Personal history of other diseases of the digestive system; Z87.01 Personal history of pneumonia (recurrent); Z85.828 Personal history of other malignant neoplasm of skin; Z90.49 Acquired absence of other specified parts of digestive tract; Z96.651 Presence of right artificial knee joint; Z86.73 Personal history of transient ischemic attack (TIA), and cerebral infarction without residual deficits; Z87.891 Personal history of nicotine dependence; E66.9 Obesity, unspecified; Z68.36 Body mass index [BMI] 36.0-36.9, adult; Z83.3 Family history of diabetes mellitus; Z82.49 Family history of ischemic heart disease and other diseases of the circulatory system; Z20.822 Contact with and (suspected) exposure to COVID-19
CPT/HCPCS: 96372 ×2; 93005 ×2; 99285; 36415; 94640; 85379 ×2; 80061; 80053 ×2; 83735; 84484; 85025 ×2; 85610; 85730; 87635; 71046; G0378 ×2; J1650 ×2

== ENCOUNTER 2021-04-09 07:24 | Emergency (ER) | payer MEDICARE ==
[2021-04-09 07:29] VITALS: RESP 18; TEMP 97.5
--- NOTE | 2021-04-09 08:08 | ED ---
General Adult HPI - General Chief complaint: Abdominal Pain Stated complaint: abd pain Time Seen by Provider: 04/09/21 07:41 Source: patient Mode of arrival: ambulatory Limitations: no limitations - History of Present Illness Initial comments: 75-year-old female with a past medical history of asthma, GERD, hypertension, seizure disorder, diverticular disease presents to the emergency room for a chief complaint of abdominal pain. Patient reports a few days ago she started to have a pressure in her lower abdomen. States she had some nausea vomiting when the pain first started. States it has progressed from a pressure type pain yesterday. Patient did have some loose stool as well. She denies fevers. Patient does report she has prolapsed bladder. States that she has been urinating less than normal. Hx of cholecystectomy, tubal ligation. Patient has no other complaints at this time including shortness of breath, chest pain, headache, or visual changes. - Related Data Home Medications Medication Instructions Recorded Confirmed Aspirin EC [Ecotrin Low Dose] 81 mg PO HS 07/09/17 12/28/20 Cholecalciferol [Vitamin D3 (25 25 mcg PO DAILY 07/09/17 12/28/20 Mcg = 1000 Iu)] Esomeprazole Magnesium [NexIUM] 40 mg PO BID 07/09/17 12/28/20 Losartan Potassium [Cozaar] 100 mg PO DAILY 07/09/17 12/28/20 Metoprolol Succinate (ER) [Toprol 25 mg PO HS 07/09/17 12/28/20 XL] Phenobarb/Hyoscy/Atropine/Scop 16.2 mg PO TID 07/09/17 12/28/20 [] lamoTRIgine 200 mg PO BID 01/19/20 12/28/20 Fluticasone/Salmeterol [Advair 1 puff INHALATION RT-BID 05/13/20 12/28/20 100-50 Diskus] Pravastatin Sodium [Pravachol] 40 mg PO HS 05/13/20 12/28/20 Baclofen [Lioresal] 10 mg PO HS 12/28/20 12/28/20 Cyanocobalamin (Vitamin B-12) 1,000 mcg PO DAILY 12/28/20 12/28/20 [Vitamin B-12] Vit C/E/Zn/Coppr/Lutein/Zeaxan 1 cap PO HS 12/28/20 12/28/20 [Preservision Areds 2 Softgel] Previous Rx's Medication Instructions Recorded Ondansetron [Zofran ODT] 4 mg PO Q8HR PRN #15 tab 04/09/21 Allergies Allergy/AdvReac Type Severity Reaction Status Date / Time Sulfa (Sulfonamide Allergy Unknown Verified 04/09/21 07:26 Antibiotics) Childhood sertraline [From Zoloft] AdvReac DEPRESSION Verified 04/09/21 07:26 Review of Systems ROS Statement: Those systems with pertinent positive or pertinent negative responses have been documented in the HPI. ROS Other: All systems not noted in ROS Statement are negative. Past Medical History Past Medical History: Asthma, Cancer, GERD/Reflux, GI Bleed, Hearing Disorder / Deafness, Hypertension, Pneumonia, Seizure Disorder, Skin Disorder Additional Past Medical History / Comment(s): Intermittent dysphagia, diverticular disease, IBS, lower GI bleed, pt states placed on statin as a precaution, brain surgery for benign tumor, seizures since brain surgery with last seizure less than a year ago, bilateral tinnitis since brain surgery, bronchitis, sinus problems, rosacea, skin cancer with removal. History of Any Multi-Drug Resistant Organisms: None Reported Past Surgical History: Cholecystectomy, Heart Catheterization, Joint Replacement, Orthopedic Surgery Additional Past Surgical History / Comment(s): Brain tumor resection (benign), skin cancer removal R arm, L shoulder surgery for spur, total R knee arthroplasty, R hand dupuytren's surgery, 3 R breast biopsies (benign) and 2 L breast biopsies (benign), EGDs, colonoscopies/bening polypectomies Past Anesthesia/Blood Transfusion Reactions: No Reported Reaction, Postoperative Nausea & Vomiting (PONV) Additional Past Anesthesia/Blood Transfusion Reaction / Comment(s): claustrophobia Past Psychological History: No Psychological Hx Reported Smoking Status: Former smoker Past Alcohol Use History: None Reported Past Drug Use History: None Reported - Past Family History Mother Family Medical History: Diabetes Mellitus Father Family Medical History: Diabetes Mellitus Additional Family Medical History / Comment(s): HEART DISEASE General Exam Limitations: no limitations General appearance: alert, in no apparent distress Head exam: Present: atraumatic, normocephalic, normal inspection Eye exam: Present: normal appearance, PERRL, EOMI. Absent: scleral icterus, conjunctival injection, periorbital swelling ENT exam: Present: normal exam, mucous membranes moist Neck exam: Present: normal inspection, full ROM. Absent: tenderness, meningismus, lymphadenopathy Respiratory exam: Present: normal lung sounds bilaterally. Absent: respiratory distress, wheezes, rales, rhonchi, stridor Cardiovascular Exam: Present: regular rate, normal rhythm, normal heart sounds. Absent: systolic murmur, diastolic murmur, rubs, gallop, clicks GI/Abdominal exam: Present: soft, tenderness (suprapubic tenderness, no upper abdominal tenderness), normal bowel sounds. Absent: distended, guarding, rebound, rigid Course Vital Signs 04/09/21 07:26 Temperature 97.5 F L Pulse Rate 65 Respiratory 18 Rate Blood Pressure 158/85 O2 Sat by Pulse 97 Oximetry Medical Decision Making - Medical Decision Making Vitals are stable. HPI physical exam is documented. Patient was given fluids. CBC CMP unremarkable. Urinalysis will be cultured. CT abdomen and pelvis did show prominent fluid-filled small bowel loops in the mid and lower abdomen and liquid stool in the cecum. Consider a nonspecific enteritis. This is consistent with patient's symptoms of abdominal pain, nausea vomiting, and diar debbie. At this time A she is stable for discharge home. We will start her on Zofran. She will follow up with her doctor. She will return here for any worsening symptoms. - Lab Data Result diagrams: 04/09/21 08:04 04/09/21 08:04 Lab Results 04/09/21 04/09/21 04/09/21 Range/Units 08:04 08:04 08:40 WBC 8.0 (3.8-10.6) k/uL RBC 4.43 (3.80-5.40) m/uL Hgb 13.9 (11.4-16.0) gm/dL Hct 40.3 (34.0-46.0) % MCV 91.1 (80.0-100.0) fL MCH 31.4 (25.0-35.0) pg MCHC 34.5 (31.0-37.0) g/dL RDW 13.0 (11.5-15.5) % Plt Count 186 (150-450) k/uL MPV 7.1 Neutrophils % 64 % Lymphocytes % 28 % Monocytes % 5 % Eosinophils % 1 % Basophils % 0 % Neutrophils # 5.1 (1.3-7.7) k/uL Lymphocytes # 2.3 (1.0-4.8) k/uL Monocytes # 0.4 (0-1.0) k/uL Eosinophils # 0.1 (0-0.7) k/uL Basophils # 0.0 (0-0.2) k/uL Sodium 139 (137-145) mmol/L Potassium 4.0 (3.5-5.1) mmol/L Chloride 103 (98-107) mmol/L Carbon Dioxide 30 (22-30) mmol/L Anion Gap 6 mmol/L BUN 11 (7-17) mg/dL Creatinine 0.87 (0.52-1.04) mg/dL Est GFR (CKD-EPI)AfAm 76 (>60 ml/min/1.73 sqM) Est GFR (CKD-EPI)NonAf 66 (>60 ml/min/1.73 sqM) Glucose 106 H (74-99) mg/dL Calcium 8.9 (8.4-10.2) mg/dL Total Bilirubin 0.5 (0.2-1.3) mg/dL AST 27 (14-36) U/L ALT 18 (4-34) U/L Alkaline Phosphatase 80 (38-126) U/L Total Protein 6.5 (6.3-8.2) g/dL Albumin 4.0 (3.5-5.0) g/dL Lipase 25 (23-300) U/L Urine Color Yellow Urine Appearance Cloudy H (Clear) Urine pH 6.0 (5.0-8.0) Ur Specific [place] 1.022 (1.001-1.035) Urine Protein Trace H (Negative) Urine Glucose (UA) Negative (Negative) Urine Ketones Negative (Negative) Urine Blood Negative (Negative) Urine Nitrite Negative (Negative) Urine Bilirubin Negative (Negative) Urine Urobilinogen <2.0 (<2.0) mg/dL Ur Leukocyte Esterase Large H (Negative) Urine RBC 4 (0-5) /hpf Urine WBC 12 H (0-5) /hpf Ur Squamous Epith Cells 7 H (0-4) /hpf Urine Bacteria Many H (None) /hpf Urine Mucus Many H (None) /hpf Disposition Clinical Impression: Abdominal pain, Enteritis Disposition: HOME SELF-CARE Condition: Good Instructions (If sedation given, give patient instructions): Abdominal Pain (ED), Acute Nausea and Vomiting (ED) Additional Instructions: Please drink plenty of fluids. Please follow-up with your doctor in one to 2 days. Return to the emergency room for any worsening symptoms. Prescriptions: Ondansetron [Zofran ODT] 4 mg PO Q8HR PRN #15 tab PRN Reason: Nausea Is patient prescribed a controlled substance at d/c from ED?: No Referrals: Becka Fletcher MD [Primary Care Provider] - 1-2 days Time of Disposition: 10:25
[2021-04-09] MEDS ORDERED: MORPHINE SULFATE 2 MG/ML SYRINGE IVP STA (08:11)
[2021-04-09] MEDS ORDERED: SODIUM CHLORIDE 0.9% 500 ML 500 ML IV STA (08:11)
[2021-04-09] MEDS ORDERED: ONDANSETRON 4 MG/2 ML VIAL IVP STA (08:11)
[2021-04-09] MEDS ORDERED: KETOROLAC 15 MG/ML 1 ML VIAL IVP STA (08:19)
[2021-04-09 08:21] LABS: Basophils % (A) 0 %; Eosinophils # (A) 0.1 k/uL (0-0.7); Eosinophils % (A) 1 %; HCT 40.3 % (34.0-46.0); HGB 13.9 gm/dL (11.4-16.0); Lymphocytes # (A) 2.3 k/uL (1.0-4.8); Lymphocytes % (A) 28 %; MCH 31.4 pg (25.0-35.0); MCHC 34.5 g/dL (31.0-37.0); MCV 91.1 fL (80.0-100.0); Mean Platelet Volume 7.1; Monocytes # (A) 0.4 k/uL (0-1.0); Monocytes % (A) 5 %; Neutrophils # (A) 5.1 k/uL (1.3-7.7); Neutrophils % (A) 64 %; Platelet Count 186 k/uL (150-450); RBC 4.43 m/uL (3.80-5.40)
[2021-04-09 08:33] LABS: Calcium 8.9 mg/dL (8.4-10.2); Total Bilirubin 0.5 mg/dL (0.2-1.3); Total Protein 6.5 g/dL (6.3-8.2)
[2021-04-09 09:19] LABS: Appearance,Urine Cloudy (Clear); Bacteria,Urine Many /hpf; Bilirubin,Urine Negative (Negative); Blood,Urine Negative (Negative); Color,Urine Yellow; Glucose,Urine (UA) Negative (Negative); Ketones,Urine Negative (Negative); Leukocyte Esterase,Urine Large (Negative); Mucus,Urine Many /hpf; Nitrite,Urine Negative (Negative); Protein,Urine Trace (Negative); RBC,Urine 4 /hpf (0-5); Specific Gravity,Urine 1.022 (1.001-1.035); Squamous Epithelial Cell,Urine 7 /hpf (0-4); Urobilinogen,Urine <2.0 mg/dL (<2.0); WBC,Urine 12 /hpf (0-5)
--- NOTE | 2021-04-09 09:31 | CT ---
EXAMINATION TYPE: CT abdomen pelvis w con DATE OF EXAM: 04/09/2021 COMPARISON: 03/24/2019 HISTORY: 75-year-old female Abdominal pain TECHNIQUE: Contiguous axial scanning of the abdomen and pelvis following administration of 100 ml Iso selene 300 IV contrast. Delayed images through the kidneys and coronal/sagittal reconstructions perform ed. CT DLP: 2673.4 mGycm Automated exposure control for dose reduction was used. FINDINGS: Heart normal size without pericardial effusion. Lung bases clear without pleural effusion. Liver mildly enlarged at 18.9 cm. Portal venous system is patent. No biliary ductal dilatation. Laura cystectomy clips. Adrenal glands, right kidney, spleen with hilar splenule, and atrophic pancreas show no gross abnorma lity. A 1.3 cm cyst anterior left kidney slightly larger from 1 cm in 2019. No dilated small bowel, free fluid, or free air. No mesenteric or retroperitoneal lymphadenopathy. Some scattered prominent fluid within mid to lower abdominal small bowel loops and liquid stool in th e cecum. Normal appendix. Sigmoid diverticulosis without pericolonic inflammation. Bladder nondistended. Pelvic phleboliths. Uterus is retroverted. Redemonstrated synthetic subserosal 3.4 cm fibroid from the left posterior uterine body versus 3.2 cm on 03/24/2019. Both ovaries are visua lized. No abnormal fluid collection pelvis or pelvic lymphadenopathy. Bones: Osteitis pubis. Mild degenerative change at the hips. Advanced degenerative disc disease L4-L5 and L5-S1. Facet arthropathy mid to lower lumbar spine. Trace grade 1 anterolisthesis L3-L4. IMPRESSION: 1. SOME PROMINENT FLUID-FILLED SMALL BOWEL LOOPS IN THE MID AND LOWER ABDOMEN AND LIQUID STOOL IN THE CECUM. CONSIDER A NONSPECIFIC ENTERITIS. 2. SIGMOID DIVERTICULOSIS WITHOUT ACUTE DIVERTICULITIS. 3. EXOPHYTIC 3.4 CM FIBROID FROM THE LEFT POSTERIOR UTERINE BODY VERSUS 3.2 CM ON 03/24/2019.
[2021-04-09 10:34] VITALS: BP 143/72; PULSE 53
== END 2021-04-09 10:34 | disposition home or self-care (01) ==
LOC: EC 07:24
DX: K52.9 Noninfective gastroenteritis and colitis, unspecified (principal); K57.30 Diverticulosis of large intestine without perforation or abscess without bleeding; G40.909 Epilepsy, unspecified, not intractable, without status epilepticus; I10 Essential (primary) hypertension; J45.909 Unspecified asthma, uncomplicated; K21.9 Gastro-esophageal reflux disease without esophagitis; Z79.51 Long term (current) use of inhaled steroids; Z79.82 Long term (current) use of aspirin; Z79.899 Other long term (current) drug therapy; Z82.49 Family history of ischemic heart disease and other diseases of the circulatory system; Z83.3 Family history of diabetes mellitus; Z85.828 Personal history of other malignant neoplasm of skin; Z87.891 Personal history of nicotine dependence; Z88.2 Allergy status to sulfonamides; Z90.49 Acquired absence of other specified parts of digestive tract; Z96.651 Presence of right artificial knee joint
CPT/HCPCS: 99284; 96374; 96375; 96361 ×2; 51798; 36415; 80053; 83690; 85025; 81001; 87086; 74177; J2405; J1885; Q9967

== ENCOUNTER 2022-10-27 17:45 | Observation (INO) | payer MEDICARE ==
[2022-10-27] MEDS ORDERED: ACETAMINOPHEN TAB 500 MG TAB PO STA (19:27)
[2022-10-27 19:54] LABS: Basophils % (A) 0 %; Eosinophils # (A) 0.1 k/uL (0-0.7); Eosinophils % (A) 1 %; HCT 40.1 % (34.0-46.0); Lymphocytes % (A) 26 %; MCH 31.4 pg (25.0-35.0); MCV 89.8 fL (80.0-100.0); Monocytes # (A) 0.4 k/uL (0-1.0); Monocytes % (A) 5 %; Neutrophils # (A) 5.2 k/uL (1.3-7.7); Neutrophils % (A) 66 %; Platelet Count 202 k/uL (150-450); RBC 4.47 m/uL (3.80-5.40); RDW 12.8 % (11.5-15.5); WBC 7.9 k/uL (3.8-10.6)
[2022-10-27 20:16] LABS: Calcium 9.1 mg/dL (8.4-10.2)
--- NOTE | 2022-10-27 20:42 | XR ---
EXAMINATION TYPE: XR chest 2V DATE OF EXAM: 10/27/2022 COMPARISON: 11/28/2021 HISTORY: Chest pain TECHNIQUE: 2 views FINDINGS: Heart is normal. Lungs are clear. Diaphragm is normal. Bony thorax is intact IMPRESSION: Normal chest. No change.
--- NOTE | 2022-10-27 20:42 | ED ---
Chest Pain HPI - General Chief Complaint: Chest Pain Stated Complaint: Chest Pain Source: patient Mode of arrival: wheelchair Limitations: no limitations - History of Present Illness Initial Comments: 77-year-old female with past history of asthma, hypertension presents to the emergency department with chest pain since 10 AM. She describes it as a sharp substernal pain which radiates in between her shoulder blades. No associated shortness of breath. No nausea, vomiting or diaphoresis. No fevers or cough. No history of cardiac disease. Had an echo one month ago. Is scheduled for a stress test in 1 week. She did not take any medications at home for her symptoms before coming into the emergency department. She denies ripping or tearing sensation. No numbness, tingling or weakness in her extremities. No other alleviating, precipitating or modifying factors - Related Data Home Medications Medication Instructions Recorded Confirmed Aspirin EC [Ecotrin Low Dose] 81 mg PO DAILY 07/09/17 11/28/21 Esomeprazole Magnesium [NexIUM] 40 mg PO BID 07/09/17 11/28/21 Losartan Potassium [Cozaar] 100 mg PO DAILY 07/09/17 11/28/21 Metoprolol Succinate (ER) [Toprol 25 mg PO HS 07/09/17 11/28/21 XL] Phenobarb/Hyoscy/Atropine/Scop 16.2 mg PO BID 07/09/17 11/28/21 [] lamoTRIgine 200 mg PO BID 01/19/20 11/28/21 Fluticasone Propion/Salmeterol 1 puff INHALATION RT-BID 05/13/20 11/28/21 [Advair 100-50 Diskus] Baclofen [Lioresal] 10 mg PO HS 12/28/20 11/28/21 Vit C/E/Zn/Coppr/Lutein/Zeaxan 1 cap PO DAILY 12/28/20 11/28/21 [Preservision Areds 2 Softgel] ALPRAZolam [Xanax] 0.25 mg PO BID PRN 11/28/21 11/28/21 Cholecalciferol [Vitamin D3 (125 125 mcg PO DAILY 11/28/21 11/28/21 Mcg = 5000 Iu)] Linaclotide [Linzess] 145 mcg PO AC-BRKFST 11/28/21 11/28/21 Rosuvastatin [Crestor] 10 mg PO HS 11/28/21 11/28/21 amLODIPine [Norvasc] 5 mg PO HS 11/28/21 11/28/21 cycloSPORINE 0.05% OPHTH SOLN 1 drop BOTH EYES BID 11/28/21 11/28/21 [Restasis] Allergies Allergy/AdvReac Type Severity Reaction Status Date / Time Sulfa (Sulfonamide Allergy Unknown Verified 11/28/21 11:23 Antibiotics) Childhood sertraline [From Zoloft] AdvReac DEPRESSION Verified 11/28/21 11:23 Review of Systems ROS Statement: Those systems with pertinent positive or pertinent negative responses have been documented in the HPI. ROS Other: All systems not noted in ROS Statement are negative. EKG Findings - EKG Comments: EKG Findings:: EKG completed at 1832 demented sinus rhythm with rate of 67. MN of 154. QRS 80. QTC of 395. No acute ST segment elevations or depressions EKG interpreted by myself Past Medical History Past Medical History: Asthma, Cancer, GERD/Reflux, GI Bleed, Hearing Disorder / Deafness, Hypertension, Pneumonia, Seizure Disorder, Skin Disorder Additional Past Medical History / Comment(s): Intermittent dysphagia, diverticular disease, IBS, lower GI bleed, pt states placed on statin as a precaution, brain surgery for benign tumor, seizures since brain surgery with last seizure less than a year ago, bilateral tinnitis since brain surgery, bronchitis, sinus problems, rosacea, skin cancer with removal. History of Any Multi-Drug Resistant Organisms: None Reported Past Surgical History: Cholecystectomy, Heart Catheterization, Joint Replacement, Orthopedic Surgery Additional Past Surgical History / Comment(s): Brain tumor resection (benign), skin cancer removal R arm, L shoulder surgery for spur, total R knee arthroplasty, R hand dupuytren's surgery, 3 R breast biopsies (benign) and 2 L breast biopsies (benign), EGDs, colonoscopies/bening polypectomies Past Anesthesia/Blood Transfusion Reactions: No Reported Reaction, Postoperative Nausea & Vomiting (PONV) Additional Past Anesthesia/Blood Transfusion Reaction / Comment(s): claustrophobia Past Psychological History: No Psychological Hx Reported Smoking Status: Former smoker Past Alcohol Use History: None Reported Past Drug Use History: None Reported - Past Family History Mother Family Medical History: Diabetes Mellitus Father Family Medical History: Diabetes Mellitus Additional Family Medical History / Comment(s): HEART DISEASE General Exam Limitations: no limitations Course Vital Signs 10/27/22 10/27/22 18:03 19:46 Temperature 97.7 F Pulse Rate 69 97 Respiratory 16 18 Rate Blood Pressure 99/55 132/70 O2 Sat by Pulse 98 97 Oximetry Chest Pain MDM - MDM On arrival patient was placed in room 19. A thorough history and physical exam was performed. IV access is established laboratory studies are conducted. Patient was given Tylenol for pain control. Laboratory studies are reviewed and demonstrate a d-dimer of 0.69. This is suggested for the patient's age and is negative. Troponin is negative. Chest x-ray demonstrates no acute process. Results are discussed with the patient. Recommend admission for cardio consult and to trend the patient's troponins. She was agreeable to this. Patient given an aspirin. She does remain pain-free with in the emergency department. She is pending a bed on the floor in stable condition Disposition Clinical Impression: Chest pain Disposition: ADMITTED IP TO THIS HOSP Condition: Stable Is patient prescribed a controlled substance at d/c from ED?: No Referrals: Becka Fletcher MD [Primary Care Provider] - 1-2 days Time of Disposition: 21:57 Decision to Admit Reason: Admit from EC
[2022-10-27 20:48] LABS: Potassium 4.7 mmol/L (3.5-5.1)
[2022-10-27 20:49] LABS: Magnesium 1.8 mg/dL (1.6-2.3); Total Bilirubin 1.1 mg/dL (0.2-1.3)
[2022-10-27 21:03] LABS: INR 0.9 (<1.2)
[2022-10-27] MEDS ORDERED: NALOXONE 0.4 MG/ML 1 ML VIAL IV PRN (22:05)
[2022-10-27] MEDS ORDERED: ASPIRIN 81 MG PO STA (22:05)
[2022-10-28 04:27] LABS: Basophils % (A) 0 %; Eosinophils # (A) 0.1 k/uL (0-0.7); Eosinophils % (A) 1 %; HCT 37.1 % (34.0-46.0); HGB 12.9 gm/dL (11.4-16.0); Lymphocytes # (A) 3.1 k/uL (1.0-4.8); Lymphocytes % (A) 40 %; MCH 31.7 pg (25.0-35.0); MCHC 34.9 g/dL (31.0-37.0); MCV 90.7 fL (80.0-100.0); Mean Platelet Volume 7.8; Monocytes # (A) 0.4 k/uL (0-1.0); Monocytes % (A) 5 %; Neutrophils # (A) 3.8 k/uL (1.3-7.7); Neutrophils % (A) 50 %; Platelet Count 192 k/uL (150-450); RBC 4.09 m/uL (3.80-5.40); WBC 7.6 k/uL (3.8-10.6)
[2022-10-28 04:37] LABS: Calcium 8.7 mg/dL (8.4-10.2)
--- NOTE | 2022-10-28 10:31 | P.HPIM ---
History of Present Illness H&P Date: 10/28/22April Vamsi, is a 77 year old female who presented to [facility] with a chief complaint of chest pain, patient describes a pressure sensation in the lower sternal area radiating to the back and radiating to the left arm that started on the day prior to admission and was intensifying. Patient also stated that she has been having episodes of chest pain on and off for the last several weeks she had an appointment to see cardiology and was scheduled for a stress test on November 05 as outpatient, however she was having more severe and constant chest pain and she decided to come to emergency room. She was evaluated in the emergency room vital examination on presentation reve aled a temperature of 97.7 pulse 69 aspiration 16 blood pressure 99/55 pulse ox 98% on room air Laboratory data revealed a white blood count of 7.9 hemoglobin 14.0 platelet count 202 BUN 20 creatinine 0.91 d-dimer 0.69 troponin level less than 0.012 Testing in the emergency room revealed EKG done in the emergency room revealed sinus rhythm with possible old anterior myocardial infarction, chest x-ray done in the emergency room revealed normal chest. Patient was admitted to medical floor for further evaluation and treatment. Past Medical History Past Medical History: Asthma, Cancer, GERD/Reflux, GI Bleed, Hearing Disorder / Deafness, Hypertension, Pneumonia, Seizure Disorder, Skin Disorder Additional Past Medical History / Comment(s): Intermittent dysphagia, diverticular disease, IBS, lower GI bleed, pt states placed on statin as a precaution, brain surgery for benign tumor, seizures since brain surgery with last seizure less than a year ago, bilateral tinnitis since brain surgery, bronchitis, sinus problems, rosacea, skin cancer with removal. History of Any Multi-Drug Resistant Organisms: None Reported Past Surgical History: Cholecystectomy, Heart Catheterization, Joint Replacement, Orthopedic Surgery Additional Past Surgical History / Comment(s): Brain tumor resection (benign), skin cancer removal R arm, L shoulder surgery for spur, total R knee arthroplasty, R hand dupuytren's surgery, 3 R breast biopsies (benign) and 2 L breast biopsies (benign), EGDs, colonoscopies/bening polypectomies Past Anesthesia/Blood Transfusion Reactions: No Reported Reaction, Postoperative Nausea & Vomiting (PONV) Additional Past Anesthesia/Blood Transfusion Reaction / Comment(s): claustrophobia Past Psychological History: No Psychological Hx Reported Smoking Status: Former smoker Past Alcohol Use History: None Reported Past Drug Use History: None Reported - Past Family History Mother Family Medical History: Diabetes Mellitus Father Family Medical History: Diabetes Mellitus Additional Family Medical History / Comment(s): HEART DISEASE Medications and Allergies Home Medications Medication Instructions Recorded Confirmed Type Aspirin EC [Ecotrin Low Dose] 81 mg PO DAILY 07/09/17 10/27/22 History Esomeprazole Magnesium [NexIUM] 40 mg PO BID 07/09/17 10/27/22 History Phenobarb/Hyoscy/Atropine/Scop 16.2 mg PO BID 07/09/17 10/27/22 History [] lamoTRIgine 200 mg PO BID 01/19/20 10/27/22 History Fluticasone Propion/Salmeterol 1 puff INHALATION RT-BID 05/13/20 10/27/22 History [Advair 100-50 Diskus] Baclofen [Lioresal] 10 mg PO HS 12/28/20 10/27/22 History Vit C/E/Zn/Coppr/Lutein/Zeaxan 1 cap PO DAILY@1200 12/28/20 10/27/22 History [Preservision Areds 2 Softgel] Cholecalciferol [Vitamin D3 (125 125 mcg PO DAILY@1200 11/28/21 10/27/22 History Mcg = 5000 Iu)] amLODIPine [Norvasc] 5 mg PO BID 11/28/21 10/27/22 History cycloSPORINE 0.05% OPHTH SOLN 1 drop BOTH EYES BID 11/28/21 10/27/22 History [Restasis] Atorvastatin [Lipitor] 20 mg PO HS 10/27/22 10/27/22 History Losartan/Hydrochlorothiazide 1 tab PO DAILY 10/27/22 10/27/22 History [Losartan-Hctz 100-12.5 mg Tab] Allergies Allergy/AdvReac Type Severity Reaction Status Date / Time Sulfa (Sulfonamide Allergy Unknown Verified 11/28/21 11:23 Antibiotics) Childhood sertraline [From Zoloft] AdvReac DEPRESSION Verified 11/28/21 11:23 Physical Exam Vitals: Vital Signs Temp Pulse Pulse Resp BP BP Pulse Ox 10/28/22 08:44 97.6 F 68 17 143/65 98 10/28/22 07:30 98.0 F 85 16 134/54 98 10/28/22 00:05 67 18 134/54 98 10/27/22 22:00 18 148/58 98 10/27/22 19:46 97 18 132/70 97 10/27/22 18:03 97.7 F 69 16 99/55 98 Intake and Output 10/27/22 10/28/22 10/28/22 22:59 06:59 14:59 Other: Weight 113.398 kg In general patient is alert and oriented x 3 in no distress HEENT head normocephalic and atraumatic Neck is supple no JVD no goiter no lymphadenopathy no carotid bruit Chest examination is clear to auscultation no crackles no wheezing Cardiac exam reveals regular heart sounds S1 and S2 no gallops no murmurs Abdomen is soft nontender no organomegaly with normal bowel sounds Extremity exam reveals no edema no cyanosis or clubbing Neurological examination reveals no gross focal deficits Results CBC & Chem 7: 10/28/22 03:52 10/28/22 03:52 Labs: Abnormal Lab Results - Last 24 Hours (Table) 10/27/22 10/27/22 10/28/22 Range/Units 19:39 19:39 03:52 D-Dimer 0.69 H (<0.60) mg/L FEU Sodium 133 L 132 L (137-145) mmol/L BUN 20 H 19 H (7-17) mg/dL Glucose 107 H (74-99) mg/dL AST 40 H (14-36) U/L Assessment and Plan Plan: Episodes of chest pain Underlying history of hypertension Underlying history of gastroesophageal reflux disease Underlying history of asthma Previous history of gastrointestinal bleeding Underlying history of seizure disorder Previous history of brain surgery for benign tumor At this time patient was seen and examined on the telemetry floor Home medications reviewed and reordered Cardiology consultation was requested Will follow closely
[2022-10-28] MEDS: lamoTRIgine 100 MG TAB PO SCH ×2 (10:45→20:43)
[2022-10-28] MEDS: CHOLECALCIFEROL 125 MCG (5000 IU) TABLET PO SCH (10:45)
[2022-10-28] MEDS: LOSARTAN 50 MG TAB PO SCH (10:45)
[2022-10-28] MEDS: amLODIPine 5 MG TAB PO SCH ×2 (10:45→20:43)
[2022-10-28] MEDS: VIT A,C & E-LUTEIN-MINERALS 1 EACH TAB PO SCH (11:46)
[2022-10-28] MEDS: LOSARTAN-HCTZ 50-12.5 MG 1 EACH TAB PO SCH (11:46)
[2022-10-28] MEDS: PANTOPRAZOLE 40 MG TABLET PO SCH (17:39)
[2022-10-28] MEDS ORDERED: ALPRAZolam 0.25 MG TAB PO PRN (20:41)
[2022-10-28] MEDS ORDERED: ACETAMINOPHEN TAB 325 MG TAB PO PRN (20:41)
[2022-10-28] MEDS: cycloSPORINE 0.05% OPHTH 0.4 ML DROPERETTE BOTH EYES SCH (20:43)
[2022-10-28] MEDS: PHENOBARB/HYOSCY/ATROPINE/SCOP 16.2 MG TAB PO SCH (20:43)
[2022-10-28] MEDS ORDERED: ATORVASTATIN 20 MG TAB PO SCH (21:00)
[2022-10-28] MEDS ORDERED: BACLOFEN 10 MG TAB PO SCH (21:00)
[2022-10-28] MEDS ORDERED: METOPROLOL SUCCINATE (ER) 25 MG TAB.ER.24H PO SCH ×2 (21:00)
[2022-10-28] MEDS: SYMBICORT 80-4.5 MCG INHALER INHALATION SCH (21:29)
[2022-10-29] MEDS: PANTOPRAZOLE 40 MG TABLET PO SCH ×2 (06:40→13:41)
[2022-10-29 07:40] VITALS: RESP 18
[2022-10-29] MEDS: SYMBICORT 80-4.5 MCG INHALER INHALATION SCH (07:57)
[2022-10-29] MEDS ORDERED: ASPIRIN 81 MG PO SCH (09:00)
[2022-10-29] MEDS: amLODIPine 5 MG TAB PO SCH (09:06)
[2022-10-29] MEDS: cycloSPORINE 0.05% OPHTH 0.4 ML DROPERETTE BOTH EYES SCH (09:06)
[2022-10-29] MEDS: lamoTRIgine 100 MG TAB PO SCH (09:06)
[2022-10-29] MEDS: PHENOBARB/HYOSCY/ATROPINE/SCOP 16.2 MG TAB PO SCH (09:06)
--- NOTE | 2022-10-29 11:01 | P.CRDCN ---
History of Present Illness Consult date: 10/29/22 Consult reason: chest pain History of present illness: HISTORY OF PRESENT ILLNESS: This is a 77-year-old female with a past medical history significant for hypertension, hyperlipidemia, GERD, seizure disorder, and obesity. Patient follows in the office with Dr. Overton. We have been asked to see the patient in consultation for chest pain. Patient gives history that a couple nights ago she had burning in her stomach and it continued to worsen and went up into her chest pain was sharp and between her shoulder blades. Patient states she has GERD and has appointment with Dr. Dolores Cazares next week. Patient noted has significant tenderness in epigastric area and right upper quadrant. Patient underwent a heart cath in 2018 revealing normal coronary arteries. She had an echocardiogram completed in April 2020 revealing an ejection fraction of 60-65% DIAGNOSTICS: EKG reveals sinus mechanism with slightly flat T waves, no signs of acute ischemia Chest xray negative for acute process Laboratory data: CBC within normal limits. Creatinine 0.92. D-dimer initially 0.69 and repeated at 0.49. Troponins negative on 3 draws. Lipid panel from 08/2022 reveals triglycerides 66, cholesterol 128, HDL 47, LDL 66. Current home cardiac medications include amlodipine 5 mg twice daily, Lipitor 20 mg at bedtime, losartan/hydrochlorothiazide 89112 0.5 mg daily, Toprol-XL 25 mg at bedtime REVIEW OF SYSTEMS: At the time of my exam: CONSTITUTIONAL: Denies fever or chills. HEENT: Denies blurred vision, vision changes, or eye pain. Denies hemoptysis CARDIOVASCULAR: Denies chest pain, orthopnea, PND or palpitations RESPIRATORY: No shortness of breath. GASTROINTESTINAL: Reports abdominal pain. Denies nausea or vomiting. HEMATOLOGIC: Denies bleeding disorders. GENITOURINARY: Denies any blood in urine. SKIN: Denies pruitis. Denies rash. PHYSICAL EXAM: VITAL SIGNS: Reviewed. GENERAL: Well-developed in no acute distress. HEENT: Head is normocephalic. Pupils are equal, round. Sclerae anicteric. Mucous membranes of the mouth are moist. Neck supple. No JVD or thyromegaly LUNGS: Respirations even and unlabored. Lungs essentially clear to auscultation bilaterally. HEART: Regular rate and rhythm. S1 and S2 heard. Tenderness upon palpation of chest wall. ABDOMEN: Soft. Nondistended. Nontender. EXTREMITIES: Normal range of motion. No clubbing or cyanosis. Peripheral pulses intact. No lower extremity edema NEUROLOGIC: Awake and alert. Oriented x 3. ASSESSMENT: Chest pain, atypical, troponin negative 3, acute coronary syndrome ruled out Epigastric pain and tenderness Hypertension Hyperlipidemia Seizure disorder GERD Obesity: BMI 36.8 PLAN: An acute coronary event has been ruled out Resume home cardiac medications Patient may be discharged home today and follow up outpatient with Dr. Overton Recommend follow-up with GI as scheduled. Nurse practitioner note has been reviewed by physician. Signing provider agrees with the documented findings, assessment, and plan of care. Past Medical History Past Medical History: Asthma, Cancer, GERD/Reflux, GI Bleed, Hearing Disorder / Deafness, Hypertension, Pneumonia, Seizure Disorder, Skin Disorder Additional Past Medical History / Comment(s): Intermittent dysphagia, diverticular disease, IBS, lower GI bleed, pt states placed on statin as a precaution, brain surgery for benign tumor, seizures since brain surgery with last seizure less than a year ago, bilateral tinnitis since brain surgery, bronchitis, sinus problems, rosacea, skin cancer with removal. History of Any Multi-Drug Resistant Organisms: None Reported Past Surgical History: Cholecystectomy, Heart Catheterization, Joint Replacement, Orthopedic Surgery Additional Past Surgical History / Comment(s): Brain tumor resection (benign), skin cancer removal R arm, L shoulder surgery for spur, total R knee arthroplasty, R hand dupuytren's surgery, 3 R breast biopsies (benign) and 2 L breast biopsies (benign), EGDs, colonoscopies/bening polypectomies Past Anesthesia/Blood Transfusion Reactions: No Reported Reaction, Postoperative Nausea & Vomiting (PONV) Additional Past Anesthesia/Blood Transfusion Reaction / Comment(s): claustrophobia Past Psychological History: No Psychological Hx Reported Additional Psychological History / Comment(s): Pt resides with her spouse and adult grandson. She is independent. Smoking Status: Former smoker Past Alcohol Use History: None Reported Additional Past Alcohol Use History / Comment(s): Pt started smoking in 1958 and quit in 1984, smoked 1/2 ppd Past Drug Use History: None Reported - Past Family History Mother Family Medical History: Diabetes Mellitus Father Family Medical History: Diabetes Mellitus Additional Family Medical History / Comment(s): HEART DISEASE Medications and Allergies Home Medications Medication Instructions Recorded Confirmed Type Aspirin EC [Ecotrin Low Dose] 81 mg PO DAILY 07/09/17 10/27/22 History Esomeprazole Magnesium [NexIUM] 40 mg PO BID 07/09/17 10/27/22 History Phenobarb/Hyoscy/Atropine/Scop 16.2 mg PO BID 07/09/17 10/27/22 History [] lamoTRIgine 200 mg PO BID 01/19/20 10/27/22 History Fluticasone Propion/Salmeterol 1 puff INHALATION RT-BID 05/13/20 10/27/22 History [Advair 100-50 Diskus] Baclofen [Lioresal] 10 mg PO HS 12/28/20 10/27/22 History Vit C/E/Zn/Coppr/Lutein/Zeaxan 1 cap PO DAILY@1200 12/28/20 10/27/22 History [Preservision Areds 2 Softgel] Cholecalciferol [Vitamin D3 (125 125 mcg PO DAILY@1200 11/28/21 10/27/22 History Mcg = 5000 Iu)] amLODIPine [Norvasc] 5 mg PO BID 11/28/21 10/27/22 History cycloSPORINE 0.05% OPHTH SOLN 1 drop BOTH EYES BID 11/28/21 10/27/22 History [Restasis] Atorvastatin [Lipitor] 20 mg PO HS 10/27/22 10/27/22 History Losartan/Hydrochlorothiazide 1 tab PO DAILY 10/27/22 10/27/22 History [Losartan-Hctz 100-12.5 mg Tab] Metoprolol Succinate (ER) [Toprol 25 mg PO HS 10/28/22 10/28/22 History Xl] Allergies Allergy/AdvReac Type Severity Reaction Status Date / Time Sulfa (Sulfonamide Allergy Unknown Verified 11/28/21 11:23 Antibiotics) Childhood sertraline [From Zoloft] AdvReac DEPRESSION Verified 11/28/21 11:23 Physical Exam Vitals: Vital Signs Temp Pulse Resp BP Pulse Ox 10/29/22 07:00 98.1 F 58 L 18 106/59 94 L 10/29/22 02:29 97.5 F L 68 16 118/58 94 L 10/28/22 18:59 98.1 F 75 17 150/71 98 10/28/22 15:03 97.2 F L 96 17 145/72 96 10/28/22 13:21 97.2 F L 84 17 145/72 96 10/28/22 08:44 97.6 F 68 17 143/65 98 Intake and Output 10/28/22 10/29/22 10/29/22 22:59 06:59 14:59 Other: Voiding Method Toilet # Voids 2 2 Results 10/28/22 03:52 10/28/22 03:52 Current Medications Generic Name Dose Route Start Last Admin Trade Name Freq PRN Reason Stop Dose Admin Acetaminophen 650 mg 10/28/22 20:41 10/28/22 20:54 Acetaminophen Tab 325 Mg Tab PO 650 mg Q6HR PRN Administration Fever and/ or Pain Alprazolam 0.25 mg 10/28/22 20:41 10/28/22 20:54 Alprazolam 0.25 Mg Tab PO 0.25 mg QID PRN Administration Anxiety Amlodipine Besylate 5 mg 10/28/22 09:45 10/28/22 20:43 Amlodipine 5 Mg Tab PO 5 mg BID JAIME Administration Aspirin 81 mg 10/29/22 09:00 Aspirin 81 Mg PO DAILY JAIME Atorvastatin Calcium 20 mg 10/28/22 21:00 10/28/22 20:43 Atorvastatin 20 Mg Tab PO 20 mg HS JAIME Administration Baclofen 10 mg 10/28/22 21:00 10/28/22 20:43 Baclofen 10 Mg Tab PO 10 mg HS JAIME Administration Belladonna/Phenobarbital 16.2 mg 10/28/22 21:00 10/28/22 20:43 Phenobarb/Hyoscy/Atropine/Scop 16.2 Mg Tab PO Not Given BID JAIME Budesonide/Formoterol Fumarate 2 puff 10/28/22 20:00 10/29/22 07:57 Symbicort 80-4.5 Mcg Inhaler INHALATION 2 puff RT-BID JAIME Administration Cholecalciferol 125 mcg 10/28/22 12:00 10/28/22 10:45 Cholecalciferol 125 Mcg (5000 Iu) Tablet PO 125 mcg DAILY@1200 JAIME Administration Cyclosporine 1 drops 10/28/22 21:00 10/28/22 20:43 Cyclosporine 0.05% Ophth 0.4 Ml Droperette BOTH EYES 1 drops BID JAIME Administration HCTZ/Losartan Potassium 1 each 10/28/22 09:45 10/28/22 11:46 Losartan-Hctz 50-12.5 Mg 1 Each Tab PO 1 each DAILY JAIME Administration Lamotrigine 200 mg 10/28/22 09:45 10/28/22 20:43 Lamotrigine 100 Mg Tab PO 200 mg BID JAIME Administration Losartan Potassium 50 mg 10/28/22 09:45 10/28/22 10:45 Losartan 50 Mg Tab PO 50 mg DAILY JAIME Administration Metoprolol Succinate 25 mg 10/28/22 21:00 10/28/22 20:43 Metoprolol Succinate (Er) 25 Mg Tab.Er.24h PO 25 mg HS JAIME Administration Multivitamins/Minerals 1 each 10/28/22 12:00 10/28/22 11:46 Vit A,C & X-Zraizv-Glecqlyb 1 Each Tab PO 1 each DAILY@1200 JAIME Administration Naloxone HCl 0.2 mg 10/27/22 22:05 Naloxone 0.4 Mg/Ml 1 Ml Vial IV Q2M PRN Opioid Reversal Pantoprazole Sodium 40 mg 10/28/22 17:30 10/29/22 06:40 Pantoprazole 40 Mg Tablet PO 40 mg AC-BID JAIME Administration Intake and Output 10/28/22 10/29/22 10/29/22 22:59 06:59 14:59 Other: Voiding Method Toilet # Voids 2 2 10/28/22 03:52 10/28/22 03:52
[2022-10-29] MEDS: VIT A,C & E-LUTEIN-MINERALS 1 EACH TAB PO SCH (12:48)
[2022-10-29] MEDS: LOSARTAN 50 MG TAB PO SCH (12:48)
[2022-10-29] MEDS: CHOLECALCIFEROL 125 MCG (5000 IU) TABLET PO SCH (12:48)
[2022-10-29] MEDS: LOSARTAN-HCTZ 50-12.5 MG 1 EACH TAB PO SCH (12:48)
--- NOTE | 2022-10-29 13:11 | P.DS ---
Providers Date of admission: 10/27/22 22:06 Expected date of discharge: 10/29/22 Attending physician: Bekca Fletcher Consults: 10/27/22 22:05 Consult Physician Urgent Consulting Provider: [facility] Consult Reason/Comments: acute chest pain, possible acs Do you want consulting provider notified?: Yes Primary care physician: Beckaderrek Fletcher [facility] Course: Diagnosis on discharge: Episodes of chest pain Underlying history of hypertension Underlying history of gastroesophageal reflux disease Underlying history of asthma Previous history of gastrointestinal bleeding Underlying history of seizure disorder Previous history of brain surgery for benign tumor Hospital course: Lucille Agustin, is a 77 year old female who presented to [facility] with a chief complaint of chest pain, patient describes a pressure sensation in the lower sternal area radiating to the back and radiating to the left arm that started on the day prior to admission and was intensifying. Patient also stated that she has been having episodes of chest pain on and off for the last several weeks she had an appointment to see cardiology and was scheduled for a stress test on November 05 as outpatient, however she was having more severe and constant chest pain and she decided to come to emergency room. She was evaluated in the emergency room vital examination on presentation revealed a temperature of 97.7 pulse 69 aspiration 16 blood pressure 99/55 pulse ox 98% on room air Laboratory data revealed a white blood count of 7.9 hemoglobin 14.0 platelet count 202 BUN 20 creatinine 0.91 d-dimer 0.69 troponin level less than 0.012 Testing in the emergency room revealed EKG done in the emergency room revealed sinus rhythm with possible old anterior myocardial infarction, chest x-ray done in the emergency room revealed normal chest. Patient was admitted to medical floor for further evaluation and treatment. On 10/29/2022 patient was seen and examined on the telemetry floor she is alert and oriented 3 in no apparent distress she is complaining of heartburn she denies any new episodes of chest pain serial EKG and cardiac enzymes were negative patient was seen by cardiology and cleared for discharge no intervention or testing necessary at this time patient will keep her appointment for stress test as outpatient as scheduled from before patient will also follow- up was Dr. Marychuy Cazares in regard to her upper GI symptoms. She will resume same medications as prior to admission she will be followed in our office within one week for further evaluation and treatment Patient Condition at Discharge: Stable Plan - Discharge Summary Discharge Rx Participant: No New Discharge Prescriptions: Continue Phenobarb/Hyoscy/Atropine/Scop [] 16.2 mg PO BID Aspirin EC [Ecotrin Low Dose] 81 mg PO DAILY Esomeprazole Magnesium [NexIUM] 40 mg PO BID lamoTRIgine 200 mg PO BID Fluticasone Propion/Salmeterol [Advair 100-50 Diskus] 1 puff INHALATION RT- BID Baclofen [Lioresal] 10 mg PO HS Vit C/E/Zn/Coppr/Lutein/Zeaxan [Preservision Areds 2 Softgel] 1 cap PO DAILY@1200 Atorvastatin [Lipitor] 20 mg PO HS Metoprolol Succinate (ER) [Toprol XL] 25 mg PO HS cycloSPORINE 0.05% OPHTH SOLN [Restasis] 1 drop BOTH EYES BID amLODIPine [Norvasc] 5 mg PO BID Cholecalciferol [Vitamin D3 (125 Mcg = 5000 Iu)] 125 mcg PO DAILY@1200 Losartan/Hydrochlorothiazide [Losartan-Hctz 100-12.5 mg Tab] 1 tab PO DAILY Discharge Medication List Aspirin EC [Ecotrin Low Dose] 81 mg PO DAILY 07/09/17 [History] Esomeprazole Magnesium [NexIUM] 40 mg PO BID 07/09/17 [History] Phenobarb/Hyoscy/Atropine/Scop [] 16.2 mg PO BID 07/09/17 [History] lamoTRIgine 200 mg PO BID 01/19/20 [History] Fluticasone Propion/Salmeterol [Advair 100-50 Diskus] 1 puff INHALATION RT-BID 05/13/20 [History] Baclofen [Lioresal] 10 mg PO HS 12/28/20 [History] Vit C/E/Zn/Coppr/Lutein/Zeaxan [Preservision Areds 2 Softgel] 1 cap PO DAILY@1200 12/28/20 [History] Cholecalciferol [Vitamin D3 (125 Mcg = 5000 Iu)] 125 mcg PO DAILY@1200 11/28/21 [History] amLODIPine [Norvasc] 5 mg PO BID 11/28/21 [History] cycloSPORINE 0.05% OPHTH SOLN [Restasis] 1 drop BOTH EYES BID 11/28/21 [History] Atorvastatin [Lipitor] 20 mg PO HS 10/27/22 [History] Losartan/Hydrochlorothiazide [Losartan-Hctz 100-12.5 mg Tab] 1 tab PO DAILY 10/27/22 [History] Metoprolol Succinate (ER) [Toprol XL] 25 mg PO HS 10/28/22 [History] Follow up Appointment(s)/Referral(s): Jitendra Overton MD [STAFF PHYSICIAN] - 11/12/22 2:45 pm (Previously scheduled outpatient stress test at [facility] on 11/05/2022 at 7:45 AM and previously scheduled follow-up with Dr. Overton on 11/12/2022 at 2:45 PM.) Becka Fletcher MD [Primary Care Provider] - 1-2 days
[2022-10-29 14:53] VITALS: BP 126/65; PULSE 52; TEMP 98
--- NOTE | 2022-10-30 09:05 | CA ---
Transthoracic Echo Report Name: Lucille Agustin Age: 77 Gender: F : 1945 Exam Date: 10/29/2022 09:15 Exam Location: [place] [facility] Ht (in): 67 Wt (lb): 250 Ordering Physician: Deana Julio Attending/Referring Phys: [id number], [employer] Technician Mayra Valiente RDCS Procedure CPT: Indications: LVF Cardiac Hx: Technical Quality: Fair Contrast 1: Total Dose (mL): Contrast 2: Total Dose (mL): MEASUREMENTS (Male / Female) Normal Values 2D ECHO LV Diastolic Diameter PLAX 2.9 cm 4.2 - 5.9 / 3.9 - 5.3 cm LV Systolic Diameter PLAX 2.1 cm IVS Diastolic Thickness 1.4 cm 0.6 - 1.0 / 0.6 - 0.9 cm LVPW Diastolic Thickness 1.2 cm 0.6 - 1.0 / 0.6 - 0.9 cm LV Relative Wall Thickness 0.9 RV Internal Dim ED PLAX 2.8 cm LA Volume 53.9 cm??? 18 - 58 / 22 - 52 cm??? M-MODE Aortic Root Diameter MM 3.4 cm DOPPLER AV Peak Velocity 125.1 cm/s AV Peak Gradient 6.3 mmHg AV Mean Velocity 92.6 cm/s AV Mean Gradient 3.7 mmHg AV Velocity Time Integral 26.8 cm AI Peak Velocity 365.6 cm/s AI Peak Gradient 53.5 mmHg AI Pressure Half Time 651.0 ms LVOT Peak Velocity 111.6 cm/s LVOT Peak Gradient 5.0 mmHg MV Area PHT 2.7 cm??? Mitral E Point Velocity 65.0 cm/s Mitral A Point Velocity 104.9 cm/s Mitral E to A Ratio 0.6 MV Deceleration Time 283.9 ms MV E' Velocity 7.0 cm/s Mitral E to MV E' Ratio 9.3 TR Peak Velocity 177.2 cm/s TR Peak Gradient 12.6 mmHg Right Ventricular Systolic Press 17.6 mmHg FINDINGS Left Ventricle Moderately increased left ventricular wall thickness. Normal left ventricular systolic function with no obvious regional wall motion abnormalities. Left ventricular ejection fraction is estimated at 55-60 %. Right Ventricle Normal right ventricular size and function. Right ventricular systolic pressure within normal limits. Right Atrium Normal right atrial size. Left Atrium Mildly increased left atrial volume. Mitral Valve Structurally normal mitral valve. Mitral valve thickened. Mild mitral annular calcification. Mild mitral regurgitation. Aortic Valve Trileaflet aortic valve. Aortic valve sclerosis. Trace to mild aortic regurgitation. Tricuspid Valve Structurally normal tricuspid valve. Mild tricuspid regurgitation. Pulmonic Valve Trace pulmonic regurgitation. Pericardium No pericardial effusion. Aorta Normal size aortic root and proximal ascending aorta. CONCLUSIONS LVH with preserved systolic function Mildly dilated RV with preserved systolic functio Previewed by: Dr. Sekou Castillo MD (Electronically Signed) Final Date: 30 October 2022 09:04
== END 2022-10-29 14:55 | disposition home or self-care (01) ==
LOC: EC 17:45 → 6NMEDSUR 22:06
PROVIDERS: ADMIT Internal Medicine; ATTEND Internal Medicine
DX: R07.89 Other chest pain (principal); I10 Essential (primary) hypertension; J45.909 Unspecified asthma, uncomplicated; K21.9 Gastro-esophageal reflux disease without esophagitis; K58.9 Irritable bowel syndrome, unspecified; E78.5 Hyperlipidemia, unspecified; G40.909 Epilepsy, unspecified, not intractable, without status epilepticus; E66.9 Obesity, unspecified; Z68.36 Body mass index [BMI] 36.0-36.9, adult; Z98.890 Other specified postprocedural states; Z85.828 Personal history of other malignant neoplasm of skin; Z96.651 Presence of right artificial knee joint; Z87.891 Personal history of nicotine dependence; Z79.82 Long term (current) use of aspirin; Z79.899 Other long term (current) drug therapy; Z88.2 Allergy status to sulfonamides
CPT/HCPCS: 99285; 36415; 94640 ×2; 93005; 93306; 85379 ×2; 80053; 80048; 83690; 83735; 84484 ×2; 85025 ×2; 85610; 85730; 71046; G0378 ×3

== ENCOUNTER → 2023-02-16 | Outpatient (CLI) | payer MEDICARE ==
--- NOTE | 2023-02-16 11:21 | CT ---
EXAMINATION TYPE: CT iac w con DATE OF EXAM: 02/16/2023 COMPARISON: None HISTORY: Tinnitus, unspecified ear, bilateral pulsitile CT DLP: 257 mGycm Automated exposure control for dose reduction was used. CONTRAST: CT scan of the IACs is performed with IV Contrast, patient injected with 100 ml mL of Isovue 300. FINDINGS: The external auditory canals are patent bilaterally. Mastoid air cells show no evidence of abnormal opacification bilaterally. The middle ear ossicles are symmetric and unremarkable. There is no evidence of suspicious surrounding soft tissue density to suggest cholesteatoma. The scutum is preserved bilaterally. The cochlea and the semicircular canals are symmetric and unremarkable. Ves tibular aqueduct and internal carotid canal appear unremarkable. Temporomandibular joints are mainta ined bilaterally. IMPRESSION: No significant abnormality seen to account for patient's symptoms.
== END | disposition home or self-care (01) ==
LOC: RADCTMAIN 09:56
PROVIDERS: ATTEND Otolaryngology
DX: H93.13 Tinnitus, bilateral (principal)
CPT/HCPCS: 82565; 84520; 70481; 36415; Q9967

== ENCOUNTER → 2024-01-19 | Outpatient (CLI) | payer MEDICARE ==
--- NOTE | 2024-01-19 22:21 | MM ---
Reason for Exam: Screening (asymptomatic). Last mammogram was performed 4 year(s) and 7 month(s) ago. Patient History: Menarche at age 16. First Full-Term at age 21. Postmenopausal. Patient used Estrogen for 2 years. Core Biopsy on the Right side. Excisional Biopsy on the Right side. 04/28/2018, Benign Core Biopsy on the left side. 05/26/2016, Benign Core Biopsy on the left side. 12/17/1998, Benign Stereotactic Core Biopsy on the right side. Risk Values: Yessy 5 year model risk: 2.1%. NCI Lifetime model risk: 4.1%. Prior Study Comparison: 03/25/2018 Left Diagnostic Mammogram, [facility]. 10/17/2018 Left Diagnostic Mammogram, [facility]. 05/31/2019 Bilateral Screening Mammogram, [facility]. Tissue Density: There are scattered fibroglandular densities. Findings: Analyzed By CAD. The pattern is symmetrical. Scattered benign calcifications present bilaterally. A core marker is adjacent to microcalcifications left breast. Core markers within the right breast. No suspicious groups of microcalcifications, spiculated or lobular masses, architectural distortion or other secondary signs of malignancy are mammographically apparent. Overall Assessment: Benign, BI-RAD 2 Management: Screening Mammogram of both breasts in 1 year. A negative mammogram report should not preclude additional follow up of suspicious palpable abnormalities. Patient should continue monthly self breast exam. A clinical breast exam by your physician is recommended on an annual basis and results should be correlated with mammographic findings. Electronically signed and approved by: Amari Rogers D.O. Radiologis
== END | disposition home or self-care (01) ==
LOC: RADMAMWWP 11:11
PROVIDERS: ATTEND Internal Medicine
DX: Z12.31 Encounter for screening mammogram for malignant neoplasm of breast (principal); Z78.0 Asymptomatic menopausal state
CPT/HCPCS: 77063; 77067

== ENCOUNTER 2024-12-13 15:46 | Observation (INO) | payer MEDICARE ==
--- NOTE | 2024-12-13 16:28 | ED ---
Chest Pain HPI - General Chief Complaint: Chest Pain Stated Complaint: chest pain Time Seen by Provider: 12/13/24 16:26 Source: patient, family, RN notes reviewed Mode of arrival: ambulatory Limitations: no limitations - History of Present Illness Initial Comments: 79-year-old female presented to the ER for evaluation of chest discomfort. Patient states for the past 3 days she has been experiencing a heaviness sensation across her chest. She does report radiation into bilateral axilla. She states pain started while she was sitting in her recliner. She does state the pain is intermittent in nature with no known triggers. She currently rates her discomfort an 8 out of 10. She reports minimal shortness of breath and lightheadedness. She denies any nausea, vomiting or diaphoresis. Patient denies a history of myocardial infarction or cardiac stents. She does have a history of atrial fibrillation for which she takes Eliquis. She reports a cough for "a while". Denies congestion, abdominal pain, constipation/diarrhea, urinary complaints or peripheral edema. - Related Data Home Medications Medication Instructions Recorded Confirmed lamoTRIgine 200 mg PO BID 01/19/20 12/13/24 Fluticasone Propion/Salmeterol 1 puff INHALATION RT-BID 05/13/20 12/13/24 [Advair 100-50 Diskus] cycloSPORINE 0.05% OPHTH SOLN 1 drop BOTH EYES BID 11/28/21 12/13/24 [Restasis] Atorvastatin [Lipitor] 20 mg PO HS 10/27/22 12/13/24 Pantoprazole [Protonix] 40 mg PO W/SUPPER 01/14/23 12/13/24 Dicyclomine [Bentyl] 10 mg PO TID 12/13/24 12/13/24 Losartan/Hydrochlorothiazide 1 tab PO W/SUPPER 12/13/24 12/13/24 [Hyzaar 100-12.5 Tablet] Previous Rx's Medication Instructions Recorded Apixaban [Eliquis] 5 mg PO BID 30 Days #60 tab 01/17/23 Metoprolol Succinate (ER) [Toprol 50 mg PO DAILY 30 Days #30 tab 01/17/23 XL] Allergies Allergy/AdvReac Type Severity Reaction Status Date / Time Sulfa (Sulfonamide Allergy Unknown Verified 12/13/24 18:22 Antibiotics) Childhood sertraline [From Zoloft] AdvReac DEPRESSION Verified 12/13/24 18:22 Review of Systems ROS Statement: Those systems with pertinent positive or pertinent negative responses have been documented in the HPI. ROS Other: All systems not noted in ROS Statement are negative. EKG Findings - EKG Comments: EKG Findings:: EKG taken at 16: 01 showing a sinus bradycardia. No ST segment elevations or depressions. No T wave abnormalities. Ventricular rate 51, CA interval 163, QRS duration 94, QT/QTc 441/417. Past Medical History Past Medical History: Atrial Fibrillation, Asthma, Cancer, GERD/Reflux, GI Bleed, Hearing Disorder / Deafness, Hypertension, Pneumonia, Seizure Disorder, Skin Disorder Additional Past Medical History / Comment(s): Intermittent dysphagia, diverticular disease, IBS, lower GI bleed, pt states placed on statin as a precaution, brain surgery for benign tumor, seizures since brain surgery with last seizure less than a year ago, bilateral tinnitis since brain surgery, bronchitis, sinus problems, rosacea, skin cancer with removal. History of Any Multi-Drug Resistant Organisms: None Reported Past Surgical History: Cholecystectomy, Heart Catheterization, Joint Replacement, Orthopedic Surgery Additional Past Surgical History / Comment(s): Brain tumor resection (benign), skin cancer removal R arm, L shoulder surgery for spur, total R knee arthroplasty, R hand dupuytren's surgery, 3 R breast biopsies (benign) and 2 L breast biopsies (benign), EGDs, colonoscopies/bening polypectomies Past Anesthesia/Blood Transfusion Reactions: No Reported Reaction, Postoperative Nausea & Vomiting (PONV) Additional Past Anesthesia/Blood Transfusion Reaction / Comment(s): claustrophobia Past Psychological History: No Psychological Hx Reported Smoking Status: Former smoker Past Alcohol Use History: Rare Past Drug Use History: None Reported - Past Family History Mother Family Medical History: Diabetes Mellitus Father Family Medical History: Diabetes Mellitus Additional Family Medical History / Comment(s): HEART DISEASE General Exam Limitations: no limitations General appearance: alert, in no apparent distress Respiratory exam: Present: normal lung sounds bilaterally. Absent: respiratory distress, wheezes, rales, rhonchi, stridor Cardiovascular Exam: Present: regular rate, normal rhythm, normal heart sounds. Absent: systolic murmur, diastolic murmur, rubs, gallop, clicks GI/Abdominal exam: Present: soft, normal bowel sounds. Absent: distended, tenderness, guarding, rebound, rigid Extremities exam: Present: normal inspection, full ROM, normal capillary refill. Absent: tenderness, pedal edema, joint swelling, calf tenderness Neurological exam: Present: alert, oriented X3, CN II-XII intact Skin exam: Present: warm, dry, intact, normal color. Absent: rash Course Vital Signs 12/13/24 12/13/24 12/13/24 15:49 16:41 17:57 Temperature 97.3 F L Pulse Rate 80 51 L 51 L Respiratory 16 16 18 Rate Blood Pressure 152/72 172/80 173/84 O2 Sat by Pulse 98 100 98 Oximetry - Reevaluation(s) Reevaluation #1: 12/13/24 18:[address] Fletcher for admission. 12/13/24 18:03 HEART score 4. Chest Pain MDM - MDM Was pt. sent in by a medical professional or institution (, PA, SLASHER, urgent care, hospital, or senior care...) When possible be specific @ -No Did you speak to anyone other than the patient for history (EMS, parent, family, police, friend...)? What history was obtained from this source @ -No Did you review nursing and triage notes (agree or disagree)? Why? @ -I reviewed and agree with nursing and triage notes Were old charts reviewed (outside hosp., previous admission, EMS record, old EKG, old radiological studies, urgent care reports/EKG's, senior care records)? Report findings @ -No old charts were reviewed Differential Diagnosis (chest pain, altered mental status, abdominal pain women, abdominal pain men, vaginal bleeding, weakness, fever, dyspnea, syncope, headache, dizziness, GI bleed, back pain, seizure, CVA, palpatations, mental health, musculoskeletal)? @ -Differential Chest Pain:Stable Angina, Unstable Angina, STEMI, NSTEMI Aortic Dissection, Pneumothorax, Musculoskeletal, Esophageal Spasm GERD, Cholecystitis, Pancreatitis, Zoster, this is not meant to be an all-inclusive list. EKG interpreted by me (3pts min.). @ -As above X-rays interpreted by me (1pt min.). @ -CXR interpreted negative for focal consolidations, pneumothorax or pleural effusions. CT interpreted by me (1pt min.). @ -None done U/S interpreted by me (1pt. min.). @ -None done What testing was considered but not performed or refused? (CT, X-rays, U/S, labs)? Why? @ -None What meds were considered but not given or refused? Why? @ -None Did you discuss the management of the patient with other professionals (professionals i.e. , PA, SLASHER, lab, RT, psych nurse, social science research assistant, parakeet raiser, teacher, chief communications officer, casework specialist)? Give summary @ -Yes, case and admission discussed with Dr. Fletcher. Was smoking cessation discussed for >3mins.? @ -No Was critical care preformed (if so, how long)? @ -No Were there social determinants of health that impacted care today? How? (Homeles sness, low income, unemployed, alcoholism, drug addiction, transportation, low edu. Level, literacy, decrease access to med. care, [facility], rehab)? @ -No Was there de-escalation of care discussed even if they declined (Discuss DNR or withdrawal of care, Hospice)? DNR status @ -No What co-morbidities impacted this encounter? (DM, HTN, Smoking, COPD, CAD, Cancer, CVA, ARF, Chemo, Hep., AIDS, mental health diagnosis, sleep apnea, morbid obesity)? @ -hx a.fib on eliquis, hypertension Was patient admitted / discharged? Hospital course, mention meds given and route, prescriptions, significant lab abnormalities, going to OR and other pertinent info. @ -Admitted. 79-year-old female presented the ER for evaluation of chest discomfort. Upon rooming, history and physical exam completed. Vitals within acceptable limits. Patient in no signs of acute distress nontoxic-appearing. EKG showing a sinus bradycardia with no acute evidence of infarct or ischemia. CBC unremarkable. Troponin undetectable. MIAN with a BUN of 21, creatinine 1.31 and a GFR of 39 for which patient received 1 L IV fluids. CXR negative. Nitropaste for chest discomfort in the ER. Given patient's comorbidities and age admission was considered and discussed with Dr. Fletcher for cardiac rule out. Cardiology on consult. Patient agreeable. Case discussed with the attending by Dr. Day. Undiagnosed new problem with uncertain prognosis? @ -No Drug Therapy requiring intensive monitoring for toxicity (Heparin, Nitro, Insulin, Cardizem)? @ -No Were any procedures done? @ -No Diagnosis/symptom? @ -Chest pain/MIAN Acute, or Chronic, or Acute on Chronic? @ -Acute Uncomplicated (without systemic symptoms) or Complicated (systemic symptoms)? @ -Complicated Side effects of treatment? @ -No Exacerbation, Progression, or Severe Exacerbation? @ -No Poses a threat to life or bodily function? How? (Chest pain, USA, PA, pneumonia, PE, COPD, DKA, ARF, appy, cholecystitis, CVA, Diverticulitis, Homicidal, Suicidal, threat to staff... and all critical care pts) @ -Yes, chest pain can be an ACS which can lead to lethal cardiac arrhythmias. Disposition Clinical Impression: Chest pain, MIAN (acute kidney injury) Disposition: ADMITTED IP TO THIS HOSP Condition: Stable Time of Disposition: 18:03
[2024-12-13] MEDS: NITROGLYCERIN OINT 1 INCH/GM PACKET TOPICAL STA (16:40)
[2024-12-13] MEDS: SODIUM CHLORIDE 0.9% 1,000 ML IV STA (16:40)
[2024-12-13 16:42] LABS: Basophils % (A) 0 %; Eosinophils # (A) 0.1 k/uL (0-0.7); Eosinophils % (A) 2 %; HCT 40.2 % (34.0-46.0); HGB 13.6 gm/dL (11.4-16.0); Lymphocytes # (A) 2.9 k/uL (1.0-4.8); Lymphocytes % (A) 37 %; MCH 31.1 pg (25.0-35.0); MCHC 33.8 g/dL (31.0-37.0); Mean Platelet Volume 7.4; Monocytes # (A) 0.4 k/uL (0-1.0); Monocytes % (A) 5 %; Neutrophils # (A) 4.3 k/uL (1.3-7.7); Neutrophils % (A) 54 %; Platelet Count 182 k/uL (150-450); RBC 4.37 m/uL (3.80-5.40); RDW 12.8 % (11.5-15.5); WBC 7.9 k/uL (3.8-10.6)
[2024-12-13 16:51] LABS: Partial Thromboplastin Time 25.1 sec (22.0-30.0); Prothrombin Time 11.2 sec (10.0-12.5)
[2024-12-13 17:07] LABS: ALT 19 U/L (4-34); AST 23 U/L (14-36); African American GFR (CKD) 45 (>60 ml/min/1.73 sqM); Albumin 3.8 g/dL (3.5-5.0); Alkaline Phosphatase 128 U/L (38-126); Anion Gap 9 mmol/L; Blood Urea Nitrogen 21 mg/dL (7-17); Calcium 9.5 mg/dL (8.4-10.2); Carbon Dioxide 28 mmol/L (22-30); Chloride 99 mmol/L (98-107); Glucose 109 mg/dL (74-99); Magnesium 1.9 mg/dL (1.6-2.3); Non-African American GFR(CKD) 39 (>60 ml/min/1.73 sqM); Potassium 3.9 mmol/L (3.5-5.1); Sodium 136 mmol/L (137-145); Total Bilirubin 0.8 mg/dL (0.2-1.3); Total Protein 6.9 g/dL (6.3-8.2)
--- NOTE | 2024-12-13 17:33 | XR ---
EXAMINATION TYPE: XR chest 2V DATE OF EXAM: 12/13/2024 CLINICAL HISTORY: Chest pain TECHNIQUE: Frontal and lateral views of the chest are obtained. COMPARISON: Prior chest x-ray January 14, 2023 FINDINGS: Low lung volumes are redemonstrated. There is no focal air space opacity, pleural effusion, or pneumothorax seen. The cardiac silhouette size is within normal limits. Degenerative change left glenohumeral joint. IMPRESSION: No acute pulmonary process. [facility], , 12/13/2024 5:31 PM
[2024-12-13 17:37] LABS: Influenza A Not Detected (Not Detectd); Influenza B Not Detected (Not Detectd); RSV Not Detected (Not Detectd)
[2024-12-13] MEDS ORDERED: ACETAMINOPHEN TAB 325 MG TAB PO PRN (18:01)
[2024-12-13] MEDS ORDERED: NALOXONE 0.4 MG/ML 1 ML VIAL IV PRN (18:01)
[2024-12-13] MEDS: SODIUM CHLORIDE 0.9% 1,000 ML IV SCH (18:41)
[2024-12-13] MEDS: SYMBICORT 80-4.5 MCG INHALER INHALATION SCH (19:58)
[2024-12-13] MEDS: DICYCLOMINE 10 MG CAP PO SCH (20:20)
[2024-12-13] MEDS: LOSARTAN 50 MG TAB PO SCH (20:20)
[2024-12-13] MEDS: hydroCHLOROthiazide 12.5 MG CAP PO SCH (20:20)
[2024-12-13] MEDS: cycloSPORINE 0.05% OPHTH 0.4 ML DROPERETTE BOTH EYES SCH (20:20)
[2024-12-13] MEDS: APIXABAN 5 MG TAB PO SCH (20:22)
[2024-12-13] MEDS: ATORVASTATIN 20 MG TAB PO SCH (20:22)
[2024-12-13 21:15] VITALS: RESP 17
[2024-12-13] MEDS: lamoTRIgine 100 MG TAB PO SCH (21:31)
[2024-12-14 08:32] VITALS: BP 129/74; TEMP 97.5
[2024-12-14 08:37] VITALS: PULSE 65
[2024-12-14] MEDS: METOPROLOL SUCCINATE (ER) 50 MG TAB.ER.24H PO SCH (08:45)
--- NOTE | 2024-12-14 09:57 | P.HPIM ---
History of Present Illness H&P Date: 12/14/24April Vamsi is a 79-year-old female patient who presented with complaints of chest pain. Patient reports for the past 3 days she has been experiencing heaviness across her chest denies any associated shortness of breath and that the pain is intermittent in nature.. Denies any recent illness denies associated nausea vomiting or diaphoresis patient does have a history of OR and cardiac stents. Patient additional medical history includes A-fib in which she takes Eliquis, asthma, GERD, GI bleed, hypertension, seizure disorder, IBS and cholecystectomy. Chest x-ray completed showing no acute pulmonary process. EKG completed showing sinus bradycardia heart rate 51. Lab work revealing creat inine 1.31 bun 21 WBC 7.9 troponins negative x 2. Influenza RSV and COVID-19 negative. At this time patient will be admitted cardiology services have been consulted. Patient is resting comfortably in bed. Patient denies chest pain or shortness of breath. Patient denies nausea vomiting or diarrhea. Patient denies any urinary burning or frequency Review of Systems Please refer to HPI otherwise unremarkable Past Medical History Past Medical History: Atrial Fibrillation, Asthma, Cancer, GERD/Reflux, GI Bleed, Hearing Disorder / Deafness, Hypertension, Pneumonia, Seizure Disorder, Skin Disorder Additional Past Medical History / Comment(s): Intermittent dysphagia, diverticular disease, IBS, lower GI bleed, pt states placed on statin as a precaution, brain surgery for benign tumor, seizures since brain surgery with last seizure less than a year ago, bilateral tinnitis since brain surgery, bronchitis, sinus problems, rosacea, skin cancer with removal. History of Any Multi-Drug Resistant Organisms: None Reported Past Surgical History: Cholecystectomy, Heart Catheterization, Joint Replacement, Orthopedic Surgery Additional Past Surgical History / Comment(s): Brain tumor resection (benign), skin cancer removal R arm, L shoulder surgery for spur, total R knee arthroplasty, R hand dupuytren's surgery, 3 R breast biopsies (benign) and 2 L breast biopsies (benign), EGDs, colonoscopies/bening polypectomies. left hand s urgery Past Anesthesia/Blood Transfusion Reactions: No Reported Reaction, Postoperative Nausea & Vomiting (PONV) Additional Past Anesthesia/Blood Transfusion Reaction / Comment(s): claustrophobia Past Psychological History: No Psychological Hx Reported Additional Psychological History / Comment(s): Pt resides with her spouse and adult grandson. She is independent. Smoking Status: Former smoker Past Alcohol Use History: Rare Additional Past Alcohol Use History / Comment(s): Pt started smoking in 1958 and quit in 1984, smoked 1/2 ppd Past Drug Use History: None Reported - Past Family History Mother Family Medical History: Diabetes Mellitus Father Family Medical History: Diabetes Mellitus Additional Family Medical History / Comment(s): HEART DISEASE Medications and Allergies Home Medications Medication Instructions Recorded Confirmed Type lamoTRIgine 200 mg PO BID 01/19/20 12/13/24 History Fluticasone Propion/Salmeterol 1 puff INHALATION RT-BID 05/13/20 12/13/24 History [Advair 100-50 Diskus] cycloSPORINE 0.05% OPHTH SOLN 1 drop BOTH EYES BID 11/28/21 12/13/24 History [Restasis] Atorvastatin [Lipitor] 20 mg PO HS 10/27/22 12/13/24 History Pantoprazole [Protonix] 40 mg PO W/SUPPER 01/14/23 12/13/24 History Apixaban [Eliquis] 5 mg PO BID 30 Days #60 tab 01/17/23 12/13/24 Rx Metoprolol Succinate (ER) [Toprol 50 mg PO DAILY 30 Days #30 tab 01/17/23 12/13/24 Rx XL] Dicyclomine [Bentyl] 10 mg PO TID 12/13/24 12/13/24 History Losartan/Hydrochlorothiazide 1 tab PO W/SUPPER 12/13/24 12/13/24 History [Hyzaar 100-12.5 Tablet] Allergies Allergy/AdvReac Type Severity Reaction Status Date / Time Sulfa (Sulfonamide Allergy Unknown Verified 12/13/24 18:22 Antibiotics) Childhood sertraline [From Zoloft] AdvReac DEPRESSION Verified 12/13/24 18:22 Physical Exam Vitals: Vital Signs Temp Pulse Pulse Resp BP BP Pulse Ox 12/14/24 08:28 65 12/14/24 07:00 97.5 F L 55 L 17 129/74 95 12/14/24 02:00 97.9 F 72 17 126/60 96 12/13/24 20:00 97.7 F 70 17 136/55 93 L 12/13/24 19:29 51 L 18 146/76 98 12/13/24 17:57 51 L 18 173/84 98 12/13/24 16:41 51 L 16 172/80 100 12/13/24 15:49 97.3 F L 80 16 152/72 98 Intake and Output 12/13/24 12/14/24 12/14/24 22:59 06:59 14:59 Other: Voiding Method Toilet Toilet # Voids 1 4 Weight 108.862 kg Head normocephalic Neck supple Lungs clear to auscultation bilaterally no wheezing or crackles Heart regular rate and rhythm S1-S2, no rub or gallop Abdomen is soft nontender nondistended positive bowel sounds no hepatosplenomegaly Extremities no edema Neuro alert and orientated to 3 Results CBC & Chem 7: 12/13/24 16:22 12/13/24 16:22 Labs: Abnormal Lab Results - Last 24 Hours (Table) 12/13/24 Range/Units 16:22 Sodium 136 L (137-145) mmol/L BUN 21 H (7-17) mg/dL Creatinine 1.31 H (0.52-1.04) mg/dL Glucose 109 H (74-99) mg/dL Alkaline Phosphatase 128 H (38-126) U/L Thrombosis Risk Factor Assmnt - Choose All That Apply Any of the Below Risk Factors Present?: Yes Each Factor Represents 1 point: Obesity (BMI >25) Each Risk Factor Represents 3 Points: Age 75 years or older Thrombosis Risk Factor Assessment Total Risk Factor Score: 4 Thrombosis Risk Factor Assessment Level: Moderate Risk Assessment and Plan Assessment: 1. Chest pain. Troponins negative x 3 2. History of paroxysmal atrial fibrillation maintained on Eliquis 3. History of essential hypertension 4. History of GERD 5. History of GI bleed 6. History of seizure disorder 7. History of brain surgery for benign tumor 8. History of hyperlipidemia DVT prophylaxis Eliquis. GI prophylaxis Protonix Cardiology services consulted Repeat labs ordered Time with Patient: Greater than 30 (Greater than 60% of the total time spent in counseling and coordination of care)
--- NOTE | 2024-12-14 13:41 | P.CRDCN ---
History of Present Illness Consult date: 12/14/24 Consult reason: chest pain History of present illness: This is a 79-year old female patient of Dr. Overton with past medical history of paroxysmal atrial fibrillation on Eliquis, dyslipidemia, hypertension. We have been asked to evaluate the patient for chest pain. Patient states that she has been having chest pain that comes and goes but yesterday it woke her at 630 and is stayed all day. She denies any other symptoms with it. She does states she has had a cough for the past 6 months. No fever or chills. Yesterday the pain was at 8 out of 10. She did receive Nitropaste and about 20 minutes later the chest pain seemed to ease up. Pain today is a 1 out of 10. She denies any new medications. Her blood pressure has been up but she states this usually just happens when she is anxious. She denies any palpitations. No nausea vomiting or diarrhea. Pain is across the upper to mid chest area and it was tender earlier but not now. Blood pressure 129/74, heart rate 55, pulse ox 95% on room air. Patient has been resumed on her home medications, status post 1 L of IV fluid and Nitropaste. -EKG: Sinus bradycardia [address] changes -Chest x-ray: No acute process. -Laboratory studies: CBC and INR within normal limits. Sodium 136, potassium 3.9, BUN 21 creatinine 1.31. Alkaline phosphatase 128. Troponin negative x 2. Cepheid negative. -Home cardiac medications: Eliquis 5 mg twice daily, atorvastatin 20 mg at bed time, losartan hydrochlorothiazide 100-12.5 mg with supper, metoprolol succinate 50 mg daily. -Echocardiogram performed 01/01/2024 in the office reveals normal EF, mild to moderate AR, mild TR, mild MR. -Lexiscan Cardiolite stress test performed in the office on 11/05/2022 revealed EF of 60% and probably normal study. -Cardiac catheterization performed 04/15/2018 revealed normal coronaries, right dominant, LAD bridging. Review Of Systems: At the time of my exam: CONSTITUTIONAL: Denies fever or chills. HEENT: Denies blurred vision, vision changes, or eye pain. Denies hemoptysis CARDIOVASCULAR: Denies chest pain. Denies orthopnea. Denies PND. Denies palpitations RESPIRATORY: Denies shortness of breath. GASTROINTESTINAL: Denies abdominal pain. Denies nausea or vomiting. HEMATOLOGIC: Denies bleeding disorders. GENITOURINARY: Denies any blood in urine. SKIN: Denies puritis. Denies rash. Physical examination: Gen: This is a 79-year-old female in no acute distress VS: reviewed HEENT: Head is atraumatic, normocephalic. Pupils equal, round. Sclerae is anicteric. NECK: Supple. No JVD. LUNGS: Clear to auscultation. No wheezes or rhonchi. No intercostal retractions. HEART: Regular rate and rhythm. 2/6 systolic murmur. ABDOMEN: Soft No tenderness. EXTREMITIES: No pedal edema. No calf tenderness. NEUROLOGICAL: Patient is awake, alert and oriented x3. Assessment: Atypical chest pain, acute coronary syndrome ruled out Paroxysmal atrial fibrillation currently in sinus rhythm Dyslipidemia Hypertension Plan: Resume patient's home cardiac medications No further cardiac workup at this time. Patient is cleared for discharge and may follow-up with Dr. Overton in 1 to 2 weeks. Thank you kindly for this consultation. Nurse practitioner note has been reviewed, I agree with documented findings and plan of care. Patient was seen and examined. Past Medical History Past Medical History: Atrial Fibrillation, Asthma, Cancer, GERD/Reflux, GI B leed, Hearing Disorder / Deafness, Hypertension, Pneumonia, Seizure Disorder, Skin Disorder Additional Past Medical History / Comment(s): Intermittent dysphagia, diverticular disease, IBS, lower GI bleed, pt states placed on statin as a precaution, brain surgery for benign tumor, seizures since brain surgery with last seizure less than a year ago, bilateral tinnitis since brain surgery, bronchitis, sinus problems, rosacea, skin cancer with removal. History of Any Multi-Drug Resistant Organisms: None Reported Past Surgical History: Cholecystectomy, Heart Catheterization, Joint Replacement, Orthopedic Surgery Additional Past Surgical History / Comment(s): Brain tumor resection (benign), skin cancer removal R arm, L shoulder surgery for spur, total R knee arthroplasty, R hand dupuytren's surgery, 3 R breast biopsies (benign) and 2 L breast biopsies (benign), EGDs, colonoscopies/bening polypectomies. left hand surgery Past Anesthesia/Blood Transfusion Reactions: No Reported Reaction, Postoperative Nausea & Vomiting (PONV) Additional Past Anesthesia/Blood Transfusion Reaction / Comment(s): claustrophobia Past Psychological History: No Psychological Hx Reported Additional Psychological History / Comment(s): Pt resides with her spouse and adult grandson. She is independent. Smoking Status: Former smoker Past Alcohol Use History: Rare Additional Past Alcohol Use History / Comment(s): Pt started smoking in 1957 and quit in 1984, smoked 1/2 ppd Past Drug Use History: None Reported - Past Family History Mother Family Medical History: Diabetes Mellitus Father Family Medical History: Diabetes Mellitus Additional Family Medical History / Comment(s): HEART DISEASE Medications and Allergies Home Medications Medication Instructions Recorded Confirmed Type lamoTRIgine 200 mg PO BID 01/19/20 12/13/24 History Fluticasone Propion/Salmeterol 1 puff INHALATION RT-BID 05/13/20 12/13/24 History [Advair 100-50 Diskus] cycloSPORINE 0.05% OPHTH SOLN 1 drop BOTH EYES BID 11/28/21 12/13/24 History [Restasis] Atorvastatin [Lipitor] 20 mg PO HS 10/27/22 12/13/24 History Pantoprazole [Protonix] 40 mg PO W/SUPPER 01/14/23 12/13/24 History Apixaban [Eliquis] 5 mg PO BID 30 Days #60 tab 01/17/23 12/13/24 Rx Metoprolol Succinate (ER) [Toprol 50 mg PO DAILY 30 Days #30 tab 01/17/23 12/13/24 Rx XL] Dicyclomine [Bentyl] 10 mg PO TID 12/13/24 12/13/24 History Losartan/Hydrochlorothiazide 1 tab PO W/SUPPER 12/13/24 12/13/24 History [Hyzaar 100-12.5 Tablet] Allergies Allergy/AdvReac Type Severity Reaction Status Date / Time Sulfa (Sulfonamide Allergy Unknown Verified 12/13/24 18:22 Antibiotics) Childhood sertraline [From Zoloft] AdvReac DEPRESSION Verified 12/13/24 18:22 Physical Exam Vitals: Vital Signs Temp Pulse Pulse Resp BP BP Pulse Ox 12/14/24 08:28 65 12/14/24 07:00 97.5 F L 55 L 17 129/74 95 12/14/24 02:00 97.9 F 72 17 126/60 96 12/13/24 20:00 97.7 F 70 17 136/55 93 L 12/13/24 19:29 51 L 18 146/76 98 12/13/24 17:57 51 L 18 173/84 98 12/13/24 16:41 51 L 16 172/80 100 12/13/24 15:49 97.3 F L 80 16 152/72 98 Intake and Output 12/13/24 12/14/24 12/14/24 22:59 06:59 14:59 Other: Voiding Method Toilet # Voids 1 4 Weight 108.862 kg Results 12/13/24 16:22 12/13/24 16:22 Cardiac Enzymes 12/13/24 12/13/24 12/13/24 Range/Units 16:22 16:22 19:47 AST 23 (14-36) U/L Troponin I <0.012 <0.012 (0.000-0.034) ng/mL Coagulation 12/13/24 Range/Units 16:22 PT 11.2 (10.0-12.5) sec APTT 25.1 (22.0-30.0) sec CBC 12/13/24 Range/Units 16:22 WBC 7.9 (3.8-10.6) k/uL RBC 4.37 (3.80-5.40) m/uL Hgb 13.6 (11.4-16.0) gm/dL Hct 40.2 (34.0-46.0) % Plt Count 182 (150-450) k/uL Comprehensive Metabolic Panel 12/13/24 Range/Units 16:22 Sodium 136 L (137-145) mmol/L Potassium 3.9 (3.5-5.1) mmol/L Chloride 99 (98-107) mmol/L Carbon Dioxide 28 (22-30) mmol/L BUN 21 H (7-17) mg/dL Creatinine 1.31 H (0.52-1.04) mg/dL Glucose 109 H (74-99) mg/dL Calcium 9.5 (8.4-10.2) mg/dL AST 23 (14-36) U/L ALT 19 (4-34) U/L Alkaline Phosphatase 128 H (38-126) U/L Total Protein 6.9 (6.3-8.2) g/dL Albumin 3.8 (3.5-5.0) g/dL Current Medications Generic Name Dose Route Start Last Admin Trade Name Freq PRN Reason Stop Dose Admin Acetaminophen 650 mg 12/13/24 18:01 Acetaminophen Tab 325 Mg Tab PO Q6HR PRN Mild Pain or Fever > 100.5 Apixaban 5 mg 12/13/24 21:00 12/13/24 20:22 Apixaban 5 Mg Tab PO 5 mg BID JAIME Administration Protocol Atorvastatin Calcium 20 mg 12/13/24 21:00 12/13/24 20:22 Atorvastatin 20 Mg Tab PO 20 mg HS JAIME Administration Budesonide/Formoterol Fumarate 2 puff 12/13/24 20:00 12/13/24 19:58 Symbicort 80-4.5 Mcg Inhaler INHALATION 2 puff RT-BID JAIME Administration Cyclosporine 1 drops 12/13/24 21:00 12/13/24 20:20 Cyclosporine 0.05% Ophth 0.4 Ml Droperette BOTH EYES 1 drops BID JAIME Administration Dicyclomine HCl 10 mg 12/13/24 22:00 12/13/24 20:20 Dicyclomine 10 Mg Cap PO 10 mg TID JIAME Administration Hydrochlorothiazide 12.5 mg 12/13/24 19:30 12/13/24 20:20 Hydrochlorothiazide 12.5 Mg Cap PO 12.5 mg W/SUPPER JAIME Administration Sodium Chloride 1,000 mls @ 75 mls/hr 12/13/24 18:15 12/13/24 18:41 Saline 0.9% IV 75 mls/hr .[id number] JAIME Administration Lamotrigine 200 mg 12/13/24 21:00 12/13/24 21:31 Lamotrigine 100 Mg Tab PO 200 mg BID JAIME Administration Losartan Potassium 100 mg 12/13/24 19:30 12/13/24 20:20 Losartan 50 Mg Tab PO 100 mg W/SUPPER JAIME Administration Metoprolol Succinate 50 mg 12/14/24 09:00 Metoprolol Succinate (Er) 50 Mg Tab.Er.24h PO DAILY JAIME Naloxone HCl 0.2 mg 12/13/24 18:01 Naloxone 0.4 Mg/Ml 1 Ml Vial IV Q2M PRN Opioid Reversal Pantoprazole Sodium 40 mg 12/14/24 17:30 Pantoprazole 40 Mg Tablet PO W/SUPPER JAIME Intake and Output 12/13/24 12/14/24 12/14/24 22:59 06:59 14:59 Other: Voiding Method Toilet # Voids 1 4 Weight 108.862 kg 12/13/24 16:22 12/13/24 16:22
--- NOTE | 2024-12-14 14:56 | P.DS ---
Providers Date of admission: 12/13/24 17:48 Expected date of discharge: 12/14/24 Attending physician: Becka Fletcher Consults: 12/13/24 18:01 Consult Physician Urgent Consulting Provider: Sekou Castillo Consult Reason/Comments: chest pain hx a fib Do you want consulting provider notified?: Yes, Notify in am Primary care physician: Becka Fletcher [facility] Course: Diagnosis on discharge: 1. Chest pain. Troponins negative x 3 2. History of paroxysmal atrial fibrillation maintained on Eliquis 3. History of essential hypertension 4. History of GERD 5. History of GI bleed 6. History of seizure disorder 7. History of brain surgery for benign tumor 8. History of hyperlipidemia Hospital course: Lucille Agustin is a 79-year-old female patient who presented with complaints of chest pain. Patient reports for the past 3 days she has been experiencing heaviness across her chest denies any associated shortness of breath and that the pain is intermittent in nature.. Denies any recent illness denies associated nausea vomiting or diaphoresis patient does have a history of DE and cardiac stents. Patient additional medical history includes A-fib in which she takes Eliquis, asthma, GERD, GI bleed, hypertension, seizure disorder, IBS and cholecystectomy. Chest x-ray completed showing no acute pulmonary process. EKG completed showing sinus bradycardia heart rate 51. Lab work revealing creatinine 1.31 bun 21 WBC 7.9 troponins negative x 2. Influenza RSV and COVID- 19 negative. At this time patient will be admitted cardiology services have been consulted. Patient is resting comfortably in bed. Patient denies chest pain or shortness of breath. Patient denies nausea vomiting or diarrhea. Patient denies any urinary burning or frequency On 12/14/2024 patient was seen and examined on the medical floor she is alert and oriented x 3 in no apparent distress there is no fever or chills no headache or dizziness no new episodes of chest pain no shortness of breath no cough no nausea or vomiting no abdominal pain no diarrhea no urinary symptoms. Cardiac enzymes and EKGs are within normal limits. Patient was evaluated by cardiology and was cleared for discharge. No further cardiac testing was recommended at this time. Patient will follow-up with her director of safety Dr. Overton in 1 to 2 weeks. Patient Condition at Discharge: Stable Plan - Discharge Summary Discharge Rx Participant: No New Discharge Prescriptions: Continue lamoTRIgine 200 mg PO BID Fluticasone Propion/Salmeterol [Advair 100-50 Diskus] 1 puff INHALATION RT- BID Atorvastatin [Lipitor] 20 mg PO HS Pantoprazole [Protonix] 40 mg PO W/SUPPER Apixaban [Eliquis] 5 mg PO BID 30 Days #60 tab Dicyclomine [Bentyl] 10 mg PO TID Losartan/Hydrochlorothiazide [Hyzaar 100-12.5 Tablet] 1 tab PO W/SUPPER cycloSPORINE 0.05% OPHTH SOLN [Restasis] 1 drop BOTH EYES BID Metoprolol Succinate (ER) [Toprol XL] 50 mg PO DAILY 30 Days #30 tab Discharge Medication List lamoTRIgine 200 mg PO BID 01/19/20 [History] Fluticasone Propion/Salmeterol [Advair 100-50 Diskus] 1 puff INHALATION RT-BID 05/13/20 [History] cycloSPORINE 0.05% OPHTH SOLN [Restasis] 1 drop BOTH EYES BID 11/28/21 [History] Atorvastatin [Lipitor] 20 mg PO HS 10/27/22 [History] Pantoprazole [Protonix] 40 mg PO W/SUPPER 01/14/23 [History] Apixaban [Eliquis] 5 mg PO BID 30 Days #60 tab 01/17/23 [Rx] Metoprolol Succinate (ER) [Toprol XL] 50 mg PO DAILY 30 Days #30 tab 01/17/23 [Rx] Dicyclomine [Bentyl] 10 mg PO TID 12/13/24 [History] Losartan/Hydrochlorothiazide [Hyzaar 100-12.5 Tablet] 1 tab PO W/SUPPER 12/13/24 [History] Follow up Appointment(s)/Referral(s): Jitendra Overton MD [STAFF PHYSICIAN] - 1 Week Becka Fletcher MD [Primary Care Provider] - 1-2 days
[2024-12-14] MEDS ORDERED: PANTOPRAZOLE 40 MG TABLET PO SCH (17:30)
== END 2024-12-14 15:53 | disposition home or self-care (01) ==
LOC: EC 15:46 → 6NMEDSUR 17:48
PROVIDERS: ADMIT Internal Medicine; ATTEND Internal Medicine
DX: R07.89 Other chest pain (principal); N17.9 Acute kidney failure, unspecified; I48.0 Paroxysmal atrial fibrillation; E78.5 Hyperlipidemia, unspecified; I10 Essential (primary) hypertension; K21.9 Gastro-esophageal reflux disease without esophagitis; J45.909 Unspecified asthma, uncomplicated; G40.909 Epilepsy, unspecified, not intractable, without status epilepticus; I25.2 Old myocardial infarction; Z85.828 Personal history of other malignant neoplasm of skin; Z87.891 Personal history of nicotine dependence; Z95.5 Presence of coronary angioplasty implant and graft; Z79.01 Long term (current) use of anticoagulants; Z79.51 Long term (current) use of inhaled steroids; Z79.899 Other long term (current) drug therapy; Z88.2 Allergy status to sulfonamides
CPT/HCPCS: 99285; 36415; 94640 ×2; 93005; 80053; 83735; 84484; 85025; 85610; 85730; 87636; 71046; G0378 ×2

== ENCOUNTER 2025-01-11 21:14 | Observation (INO) | payer MEDICARE ==
--- NOTE | 2025-01-11 21:45 | ED ---
Fall HPI - General Source: patient, EMS, RN notes reviewed Mode of arrival: EMS Limitations: no limitations - History of Present Illness MD Complaint: fall <Grace Armstrong - Last Filed: 01/12/25 00:39> <Marva Strickland - Last Filed: 01/12/25 07:19> - General Chief Complaint: Fall Stated Complaint: Weakness Time Seen by Provider: 01/11/25 21:29 - History of Present Illness Initial Comments: This is a 79-year-old female who presents to the emergency department for weakness and a fall. Patient was evaluated here earlier today and diagnosed with influenza A. States that when she was discharged home she continued to feel very weak. She tried to go to bed this evening, but states that in the process she ended up falling and hitting her back and left ankle. She is on a blood thinner but denies hitting her head. Denies any loss of consciousness. Currently complaining of pain to the mid to lower back and left ankle. She also continues to feel very weak and is worried about her ability to get around at home in her current state. She is also concerned about her being able to help her. Denies any chest pain or shortness of breath. She does continue to have a cough, which she states is similar to earlier today. (Grace Armstrong) - Related Data Home Medications Medication Instructions Recorded Confirmed lamoTRIgine 200 mg PO BID 01/19/20 12/13/24 Fluticasone Propion/Salmeterol 1 puff INHALATION RT-BID 05/13/20 12/13/24 [Advair 100-50 Diskus] cycloSPORINE 0.05% OPHTH SOLN 1 drop BOTH EYES BID 11/28/21 12/13/24 [Restasis] Atorvastatin [Lipitor] 20 mg PO HS 10/27/22 12/13/24 Pantoprazole [Protonix] 40 mg PO W/SUPPER 01/14/23 12/13/24 Dicyclomine [Bentyl] 10 mg PO TID 12/13/24 12/13/24 Losartan/Hydrochlorothiazide 1 tab PO W/SUPPER 12/13/24 12/13/24 [Hyzaar 100-12.5 Tablet] Previous Rx's Medication Instructions Recorded Apixaban [Eliquis] 5 mg PO BID 30 Days #60 tab 01/17/23 Metoprolol Succinate (ER) [Toprol 50 mg PO DAILY 30 Days #30 tab 01/17/23 XL] Azithromycin [Zithromax Z Pack] 0 tab PO DIRECTED #6 tab 01/11/25 Oseltamivir [Tamiflu] 75 mg PO Q12HR #10 cap 01/11/25 predniSONE 50 mg PO DAILY #5 tab 01/11/25 Allergies Allergy/AdvReac Type Severity Reaction Status Date / Time Sulfa (Sulfonamide Allergy Unknown Verified 01/11/25 21:23 Antibiotics) Childhood sertraline [From Zoloft] AdvReac DEPRESSION Verified 01/11/25 21:23 Review of Systems ROS Other: All systems not noted in ROS Statement are negative. <Grace Armstrong - Last Filed: 01/12/25 00:39> ROS Other: All systems not noted in ROS Statement are negative. <Marva Strickland - Last Filed: 01/12/25 07:19> ROS Statement: Those systems with pertinent positive or pertinent negative responses have been documented in the HPI. Past Medical History Past Medical History: Atrial Fibrillation, Asthma, Cancer, GERD/Reflux, GI Bleed, Hearing Disorder / Deafness, Hypertension, Pneumonia, Seizure Disorder, Skin Disorder Additional Past Medical History / Comment(s): Intermittent dysphagia, diverticular disease, IBS, lower GI bleed, pt states placed on statin as a precaution, brain surgery for benign tumor, seizures since brain surgery with last seizure less than a year ago, bilateral tinnitis since brain surgery, bro nchitis, sinus problems, rosacea, skin cancer with removal. History of Any Multi-Drug Resistant Organisms: None Reported Past Surgical History: Cholecystectomy, Heart Catheterization, Joint Replacement, Orthopedic Surgery Additional Past Surgical History / Comment(s): Brain tumor resection (benign), skin cancer removal R arm, L shoulder surgery for spur, total R knee arthroplasty, R hand dupuytren's surgery, 3 R breast biopsies (benign) and 2 L breast biopsies (benign), EGDs, colonoscopies/bening polypectomies. left hand surgery Past Anesthesia/Blood Transfusion Reactions: No Reported Reaction, Postoperative Nausea & Vomiting (PONV) Additional Past Anesthesia/Blood Transfusion Reaction / Comment(s): claustrophobia Past Psychological History: No Psychological Hx Reported Smoking Status: Former smoker Past Alcohol Use History: Rare Past Drug Use History: None Reported - Past Family History Mother Family Medical History: Diabetes Mellitus Father Family Medical History: Diabetes Mellitus Additional Family Medical History / Comment(s): HEART DISEASE <Grace Armstrong - Last Filed: 01/12/25 00:39> General Exam Limitations: no limitations General appearance: alert, in no apparent distress Head exam: Present: atraumatic, normocephalic, normal inspection Respiratory exam: Present: normal lung sounds bilaterally. Absent: respiratory distress, wheezes, rales, rhonchi, stridor Cardiovascular Exam: Present: regular rate, normal rhythm Extremities exam: Present: other (Tenderness to palpation of the left ankle. Full range of motion. No swelling or ecchymosis. 2+ DP and PT pulses) Back exam: Present: other (Tenderness to the left mid back. No ecchymosis.) Neurological exam: Present: alert, oriented X3, CN II-XII intact Psychiatric exam: Present: normal affect, normal mood Skin exam: Present: warm, dry, intact, normal color. Absent: rash <Grace Armstrong - Last Filed: 01/12/25 00:39> Course Vital Signs 01/11/25 01/12/25 01/12/25 21:16 00:37 00:56 Temperature 97.4 F L 97.8 F Pulse Rate 53 L Respiratory 18 19 Rate Blood Pressure 120/62 123/57 107/46 O2 Sat by Pulse 95 Oximetry 01/12/25 01/12/25 01/12/25 02:21 03:31 04:07 Temperature 98.1 F Pulse Rate 61 62 18 L Respiratory 20 16 15 Rate Blood Pressure 149/49 146/48 136/70 O2 Sat by Pulse 96 96 96 Oximetry Medical Decision Making - Lab Data Result diagrams: 01/11/25 21:51 01/11/25 21:53 - Radiology Data Radiology results: report reviewed, image reviewed <Grace Armstrong - Last Filed: 01/12/25 00:39> - Lab Data Result diagrams: 01/11/25 21:51 01/11/25 21:53 <Marva Strickland - Last Filed: 01/12/25 07:19> - Medical Decision Making This is a 79-year-old female who presents to the emergency department for a fall and weakness. Was pt. sent in by a medical professional or institution? @ -No Did you speak to anyone other than the patient for history? @ -No Did you review nursing and triage notes? @ -Yes, and I agree, it is accurate with regards to the patient's symptoms. Were old charts reviewed? @ -Influenza test from earlier today which was positive. Differential Diagnosis? @ -Differential Weakness: Hypoglycemia, shock, sepsis, hyponatremia, anemia, infection, [place], ETOH, adverse medicine reaction, overdose, stroke, this is not meant to be an all-inclusive list. EKG interpreted by me (3pts min.)? @ -EKG interpreted by me demonstrating the following: Sinus rhythm. Ventricular rate 60 bpm, WV interval 145 ms, QRS duration 106 ms, QTc 405 ms. X-rays interpreted by me (1pt min.)? @ -X-ray of the left ankle, thoracic spine, and lumbar spine obtained. My interpretation identifies no acute fractures. CT interpreted by me (1pt min.)? @ -Not obtained U/S interpreted by me (1pt. min.)? @ -Not obtained What testing was considered but not performed? (CT, X-rays, U/S, labs)? Why? @ -None What meds were considered but not given? Why? @ -None Did you discuss the management of the patient with other professionals? @ -No Did you reconcile home meds? @ -No Was smoking cessation discussed for >3mins.? @ -No Was critical care preformed (if so, how long)? @ -No Were there social determinants of health that impacted care today? How? (Homelessness, low income, unemployed, alcoholism, drug addiction, transportation, low edu. Level, literacy, decrease access to med. care, usp, rehab)? @ -No Was there de-escalation of care discussed even if they declined? (Discuss DNR or withdrawal of care, Hospice)? @ -No What co-morbidities impacted this encounter? (DM, HTN, Smoking, COPD, CAD, Cancer, CVA, Hep., AIDS, mental health diagnosis, sleep apnea, morbid obesity)? @ -A-fib, HTN, asthma Was patient admitted / discharged? @ -Lab work demonstrates signs of dehydration and mild hypokalemia of 3.4. Urinalysis negative for signs of infection. X-ray of the left ankle, thoracic spine, and lumbar spine obtained revealing no acute process. 1 L of IV fluids administered along with Tylenol and a lidocaine patch for her discomfort. We tried to get the patient up for an ambulation trial, however she started to get lightheaded and had to sit back down. Blood pressure then checked and she was found to be hypotensive. Patient requested to rest and try again in a little bit. Case signed out to Dr. Strickland, ED attending, at shift completion pending second ambulation trial and disposition. Undiagnosed new problem with uncertain prognosis? @ -None Drug Therapy requiring intensive monitoring for toxicity (Heparin, Nitro, Insulin, Cardizem)? @ -None Were any procedures done? @ -None (Grace Armstrong) Patient signed out to myself pending repeat ambulatory trial. Patient apparently becomes weak and dizzy upon standing, did become hypotensive as well consistent with orthostatic hypotension. On my assault reassessment patient is concerned that due to continued weakness she will likely fall if returns home this time. I suspect patient's MIAN and volume depletion are secondary to decreased intake while having influenza. She will be started on maintenance fluids and admitted for PT OT evaluation. Case discussed with Dr. Fletcher, kindly except patient for admission. Diagnosis/symptom? @MIAN, dehydration, orthostatic hypotension, generalized weakness Acute, or Chronic, or Acute on Chronic? Acute Uncomplicated (without systemic symptoms) or Complicated (systemic symptoms)? Complicated Side effects of treatment? @ -No Exacerbation, Progression, or Severe Exacerbation? @ -No Poses a threat to life or bodily function? How? (Chest pain, [place], [place], pneumonia, PE, COPD, DKA, ARF, appy, cholecystitis, CVA, Diverticulitis, Homicidal, Suicidal, threat to staff... and all critical care pts) @ -No (Marva Strickland) - Lab Data Lab Results 01/11/25 01/11/25 01/11/25 Range/Units 21:51 21:53 22:53 WBC 6.5 (3.8-10.6) k/uL RBC 4.67 (3.80-5.40) m/uL Hgb 14.4 (11.4-16.0) gm/dL Hct 41.4 (34.0-46.0) % MCV 88.5 (80.0-100.0) fL MCH 30.9 (25.0-35.0) pg MCHC 34.8 (31.0-37.0) g/dL RDW 13.2 (11.5-15.5) % Plt Count 198 (150-450) k/uL MPV 8.0 Neutrophils % 64 % Lymphocytes % 30 % Monocytes % 3 % Eosinophils % 0 % Basophils % 1 % Neutrophils # 4.1 (1.3-7.7) k/uL Lymphocytes # 2.0 (1.0-4.8) k/uL Monocytes # 0.2 (0-1.0) k/uL Eosinophils # 0.0 (0-0.7) k/uL Basophils # 0.0 (0-0.2) k/uL PT (10.0-12.5) sec INR (<1.2) APTT (22.0-30.0) sec Sodium 132 L (137-145) mmol/L Potassium 3.4 L (3.5-5.1) mmol/L Chloride 98 (98-107) mmol/L Carbon Dioxide 20 L (22-30) mmol/L Anion Gap 14 mmol/L BUN 41 H (7-17) mg/dL Creatinine 1.84 H (0.52-1.04) mg/dL Est GFR (CKD-EPI)AfAm 30 (>60 ml/min/1.73 sqM) Est GFR (CKD-EPI)NonAf 26 (>60 ml/min/1.73 sqM) Glucose 144 H (74-99) mg/dL Plasma Lactic Acid Speedy (0.7-2.0) mmol/L Calcium 8.8 (8.4-10.2) mg/dL Magnesium 2.0 (1.6-2.3) mg/dL Total Bilirubin 0.8 (0.2-1.3) mg/dL AST 41 H (14-36) U/L ALT 27 (4-34) U/L Alkaline Phosphatase 103 (38-126) U/L Total Protein 7.0 (6.3-8.2) g/dL Albumin 3.8 (3.5-5.0) g/dL Urine Color Yellow Urine Appearance Cloudy H (Clear) Urine pH 5.5 (5.0-8.0) Ur Specific [place] 1.019 (1.001-1.035) Urine Protein 1+ H (Negative) Urine Glucose (UA) Negative (Negative) Urine Ketones Negative (Negative) Urine Blood Negative (Negative) Urine Nitrite Negative (Negative) Urine Bilirubin Negative (Negative) Urine Urobilinogen <2.0 (<2.0) mg/dL Ur Leukocyte Esterase Small H (Negative) Urine RBC 1 (0-5) /hpf Urine WBC 4 (0-5) /hpf Ur Squamous Epith Cells 3 (0-4) /hpf Amorphous Sediment Rare H (None) /hpf Hyaline Casts 81 H (0-2) /lpf Urine Mucus Rare H (None) /hpf Urine Yeast (Budding) Rare H (None) /hpf 01/11/25 01/11/25 Range/Units 22:53 22:53 WBC (3.8-10.6) k/uL RBC (3.80-5.40) m/uL Hgb (11.4-16.0) gm/dL Hct (34.0-46.0) % MCV (80.0-100.0) fL MCH (25.0-35.0) pg MCHC (31.0-37.0) g/dL RDW (11.5-15.5) % Plt Count (150-450) k/uL MPV Neutrophils % % Lymphocytes % % Monocytes % % Eosinophils % % Basophils % % Neutrophils # (1.3-7.7) k/uL Lymphocytes # (1.0-4.8) k/uL Monocytes # (0-1.0) k/uL Eosinophils # (0-0.7) k/uL Basophils # (0-0.2) k/uL PT 11.3 (10.0-12.5) sec INR 1.0 (<1.2) APTT 22.1 (22.0-30.0) sec Sodium (137-145) mmol/L Potassium (3.5-5.1) mmol/L Chloride (98-107) mmol/L Carbon Dioxide (22-30) mmol/L Anion Gap mmol/L BUN (7-17) mg/dL Creatinine (0.52-1.04) mg/dL Est GFR (CKD-EPI)AfAm (>60 ml/min/1.73 sqM) Est GFR (CKD-EPI)NonAf (>60 ml/min/1.73 sqM) Glucose (74-99) mg/dL Plasma Lactic Acid Speedy 1.8 (0.7-2.0) mmol/L Calcium (8.4-10.2) mg/dL Magnesium (1.6-2.3) mg/dL Total Bilirubin (0.2-1.3) mg/dL AST (14-36) U/L ALT (4-34) U/L Alkaline Phosphatase (38-126) U/L Total Protein (6.3-8.2) g/dL Albumin (3.5-5.0) g/dL Urine Color Urine Appearance (Clear) Urine pH (5.0-8.0) Ur Specific [place] (1.001-1.035) Urine Protein (Negative) Urine Glucose (UA) (Negative) Urine Ketones (Negative) Urine Blood (Negative) Urine Nitrite (Negative) Urine Bilirubin (Negative) Urine Urobilinogen (<2.0) mg/dL Ur Leukocyte Esterase (Negative) Urine RBC (0-5) /hpf Urine WBC (0-5) /hpf Ur Squamous Epith Cells (0-4) /hpf Amorphous Sediment (None) /hpf Hyaline Casts (0-2) /lpf Urine Mucus (None) /hpf Urine Yeast (Budding) (None) /hpf Disposition <Grace Armstrong - Last Filed: 01/12/25 00:39> <Marva Strickland - Last Filed: 01/12/25 07:19> Clinical Impression: Generalized weakness, MIAN (acute kidney injury), Orthostatic hypotension Disposition: ADMITTED IP TO THIS HOSP Condition: Stable
[2025-01-11] MEDS: SODIUM CHLORIDE 0.9% 1,000 ML IV STA (21:57)
--- NOTE | 2025-01-11 22:30 | XR ---
EXAMINATION TYPE: XR ankle complete LT DATE OF EXAM: 01/11/2025 CLINICAL HISTORY: Falling injury with pain TECHNIQUE: Frontal, lateral and oblique images of the left ankle are obtained. COMPARISON: None. FINDINGS: There is no acute fracture/dislocation evident in the left ankle. The ankle mortise appea rs within normal limits. The overlying soft tissue appears unremarkable. Moderate size inferior calc aneal spur incidentally noted. IMPRESSION: There is no acute fracture or dislocation in the left ankle. [facility], , 01/11/2025 10:28 PM
--- NOTE | 2025-01-11 22:32 | XR ---
EXAMINATION TYPE: XR lumbar spine 2 or 3V DATE OF EXAM: 01/11/2025 CLINICAL HISTORY: Fall injury with pain TECHNIQUE: Frontal and lateral images of the lumbar spine are obtained. COMPARISON: Lumbar spine x-ray 2010 FINDINGS: There are 5 lumbar type vertebral bodies redemonstrated. The lumbar spine shows stable an d satisfactory alignment without evidence of acute fracture or dislocation. Vertebral body heights re main within normal limits. There is moderate to severe disc space narrowing at L4-L5 and L5-S1 levels now identified more prominent from prior. Cholecystectomy clips within the overlying soft tissue is now seen. IMPRESSION: No acute fracture or dislocation is seen in the lumbar spine. [facility], , 01/11/2025 10:30 PM
[2025-01-11 22:37] LABS: Basophils % (A) 1 %; Eosinophils % (A) 0 %; HCT 41.4 % (34.0-46.0); HGB 14.4 gm/dL (11.4-16.0); Lymphocytes % (A) 30 %; MCH 30.9 pg (25.0-35.0); MCHC 34.8 g/dL (31.0-37.0); MCV 88.5 fL (80.0-100.0); Monocytes # (A) 0.2 k/uL (0-1.0); Monocytes % (A) 3 %; Neutrophils # (A) 4.1 k/uL (1.3-7.7); Neutrophils % (A) 64 %; Platelet Count 198 k/uL (150-450); RBC 4.67 m/uL (3.80-5.40); RDW 13.2 % (11.5-15.5); WBC 6.5 k/uL (3.8-10.6)
--- NOTE | 2025-01-11 22:39 | XR ---
EXAMINATION TYPE: XR thoracic spine 2V DATE OF EXAM: 01/11/2025 CLINICAL HISTORY: Fall with mid back pain. TECHNIQUE: Frontal, lateral, and swimmer's view of thoracic spine are obtained. COMPARISON: CT of thoracic spine 2018 FINDINGS: Thoracic spine show dextroconvex scoliotic curvature without evidence of acute fracture or dislocation. Vertebral body heights and disc space heights are preserved. Multilevel spurring and br idging osteophytes in the thoracic spine are redemonstrated. Visualized ribs are intact bilaterally. Cholecystectomy clips are redemonstrated. IMPRESSION: No acute fracture or dislocation is seen in the thoracic spine. [facility], , 01/11/2025 10:37 PM
[2025-01-11 22:49] LABS: ALT 27 U/L (4-34); AST 41 U/L (14-36); African American GFR (CKD) 30 (>60 ml/min/1.73 sqM); Albumin 3.8 g/dL (3.5-5.0); Alkaline Phosphatase 103 U/L (38-126); Anion Gap 14 mmol/L; Blood Urea Nitrogen 41 mg/dL (7-17); Calcium 8.8 mg/dL (8.4-10.2); Carbon Dioxide 20 mmol/L (22-30); Chloride 98 mmol/L (98-107); Glucose 144 mg/dL (74-99); Non-African American GFR(CKD) 26 (>60 ml/min/1.73 sqM); Potassium 3.4 mmol/L (3.5-5.1); Sodium 132 mmol/L (137-145); Total Bilirubin 0.8 mg/dL (0.2-1.3)
[2025-01-11 23:19] LABS: Amorphous Sediment,Urine Rare /hpf; Appearance,Urine Cloudy (Clear); Bilirubin,Urine Negative (Negative); Blood,Urine Negative (Negative); Budding Yeast,Urine Rare /hpf; Color,Urine Yellow; Glucose,Urine (UA) Negative (Negative); Hyaline Casts,Urine 81 /lpf (0-2); Ketones,Urine Negative (Negative); Leukocyte Esterase,Urine Small (Negative); Mucus,Urine Rare /hpf; Nitrite,Urine Negative (Negative); PH, Urine 5.5 (5.0-8.0); Protein,Urine 1+ (Negative); RBC,Urine 1 /hpf (0-5); Specific Gravity,Urine 1.019 (1.001-1.035); Squamous Epithelial Cell,Urine 3 /hpf (0-4); Urobilinogen,Urine <2.0 mg/dL (<2.0); WBC,Urine 4 /hpf (0-5)
[2025-01-11 23:29] LABS: Partial Thromboplastin Time 22.1 sec (22.0-30.0); Prothrombin Time 11.3 sec (10.0-12.5)
[2025-01-11] MEDS: ACETAMINOPHEN TAB 500 MG TAB PO STA (23:41)
[2025-01-11] MEDS: LIDOCAINE 4% PATCH TOPICAL ONE (23:42)
[2025-01-12] MEDS: POTASSIUM CHLORIDE ER 20 MEQ TAB.ER PO STA
[2025-01-12] MEDS: SODIUM CHLORIDE 0.9% 500 ML 500 ML IV ONE (01:17)
[2025-01-12] MEDS: SODIUM CHLORIDE 0.9% 1,000 ML IV SCH (02:25)
[2025-01-12] MEDS ORDERED: MAG HYDROX/AL HYDROX/SIMETH 30 ML CUP PO PRN (03:33)
[2025-01-12] MEDS ORDERED: NALOXONE 0.4 MG/ML 1 ML VIAL IV PRN (03:33)
[2025-01-12] MEDS ORDERED: ACETAMINOPHEN TAB 325 MG TAB PO PRN (03:33)
[2025-01-12] MEDS ORDERED: CALCIUM CARBONATE 500 MG CHEWABLE PO PRN (03:33)
[2025-01-12] MEDS ORDERED: HYDROcodone/APAP 5-325MG 1 EACH TAB PO PRN (03:33)
[2025-01-12] MEDS: METOPROLOL SUCCINATE (ER) 50 MG TAB.ER.24H PO SCH (08:47)
[2025-01-12] MEDS: lamoTRIgine 100 MG TAB PO SCH (08:47)
[2025-01-12] MEDS: APIXABAN 5 MG TAB PO SCH (08:47)
[2025-01-12] MEDS: FAMOTIDINE 20 MG TAB PO SCH (08:47)
[2025-01-12] MEDS: OSELTAMIVIR 30 MG CAP PO SCH (08:54)
--- NOTE | 2025-01-12 09:19 | P.HPIM ---
History of Present Illness H&P Date: 01/12/25April Vamsi is a 79-year-old female patient who presented with complaints of generalized weakness. Patient reports that she she was diagnosed with influenza A from the ER was discharged home but became very weak prompting her to come back to ER for further further evaluation. Ankle x-ray completed showing no acute fracture or dislocation. Lumbar x-ray completed showing no acute fracture or dislocation. Thoracic spine showing no acute fracture or dislocation EKG completed showing sinus rhythm. Lab work completed showing white blood cell 6.5 hemoglobin 14.4, creatinine 1.84 bun 41 sodium 132 potassium 3.4. Influenza A positive COVID-19 RSV negative. At this time patient will be admitted patient started on IV fluid and Tamiflu chest x-ray from 220 showing no acute process patient was started outpatient on a Zithromax and prednisone we will continue those at this time along with Tamiflu. At this time patient is resting comfortably in bed. Patient reports improvement with overall symptoms. Patient denies any further episodes of nausea vomiting or diarrhea. Patient reports mi ld cough. Patient denies chest pain or shortness of breath. Patient denies any urinary burning or frequency. Current vital signs temp 97.7, heart rate 68, respiratory rate 17, blood pressure 107/67 with a pulse ox of 97% on room air Review of Systems Please refer to HPI otherwise unremarkable Past Medical History Past Medical History: Atrial Fibrillation, Asthma, Cancer, GERD/Reflux, GI Bleed, Hearing Disorder / Deafness, Hypertension, Pneumonia, Seizure Disorder, Skin Disorder Additional Past Medical History / Comment(s): Intermittent dysphagia, diverticular disease, IBS, lower GI bleed, pt states placed on statin as a precaution, brain surgery for benign tumor, seizures since brain surgery with last seizure more than a year ago, bilateral tinnitis since brain surgery, bronchitis, sinus problems, rosacea, skin cancer with removal. History of Any Multi-Drug Resistant Organisms: None Reported Past Surgical History: Cholecystectomy, Heart Catheterization, Joint Replacement, Orthopedic Surgery Additional Past Surgical History / Comment(s): Brain tumor resection (benign), skin cancer removal R arm, L shoulder surgery for spur, total R knee arthroplasty, R hand dupuytren's surgery, 3 R breast biopsies (benign) and 2 L breast biopsies (benign), EGDs, colonoscopies/bening polypectomies. left hand surgery Past Anesthesia/Blood Transfusion Reactions: No Reported Reaction, Postoperative Nausea & Vomiting (PONV) Additional Past Anesthesia/Blood Transfusion Reaction / Comment(s): claustrophobia Past Psychological History: No Psychological Hx Reported Additional Psychological History / Comment(s): Pt resides with her spouse and adult grandson. She is independent. Smoking Status: Former smoker Past Alcohol Use History: Rare Additional Past Alcohol Use History / Comment(s): Pt started smoking in 1957 and quit in 1984, smoked 1/2 ppd Past Drug Use History: None Reported - Past Family History Mother Family Medical History: Diabetes Mellitus Father Family Medical History: Diabetes Mellitus Additional Family Medical History / Comment(s): HEART DISEASE Medications and Allergies Home Medications Medication Instructions Recorded Confirmed Type lamoTRIgine 200 mg PO BID 01/19/20 01/12/25 History Fluticasone Propion/Salmeterol 1 puff INHALATION RT-BID 05/13/20 01/12/25 History [Advair 100-50 Diskus] cycloSPORINE 0.05% OPHTH SOLN 1 drop BOTH EYES BID 11/28/21 01/12/25 History [Restasis] Atorvastatin [Lipitor] 20 mg PO HS 10/27/22 01/12/25 History Pantoprazole [Protonix] 40 mg PO W/SUPPER 01/14/23 01/12/25 History Apixaban [Eliquis] 5 mg PO BID 30 Days #60 tab 01/17/23 01/12/25 Rx Metoprolol Succinate (ER) [Toprol 50 mg PO DAILY 30 Days #30 tab 01/17/23 01/12/25 Rx XL] Dicyclomine [Bentyl] 10 mg PO TID 12/13/24 01/12/25 History Losartan/Hydrochlorothiazide 1 tab PO W/SUPPER 12/13/24 01/12/25 History [Hyzaar 100-12.5 Tablet] Oseltamivir [Tamiflu] 75 mg PO Q12HR #10 cap 01/11/25 01/12/25 Rx predniSONE 50 mg PO DAILY #5 tab 01/11/25 01/12/25 Rx Azithromycin [Zithromax Z Pack] See Taper PO DIRECTED 01/12/25 01/12/25 History Baclofen [Lioresal] 20 mg PO BID PRN 01/12/25 01/12/25 History Allergies Allergy/AdvReac Type Severity Reaction Status Date / Time Sulfa (Sulfonamide Allergy Unknown Verified 01/12/25 07:42 Antibiotics) Childhood sertraline [From Zoloft] AdvReac DEPRESSION Verified 01/12/25 07:42 Physical Exam Vitals: Vital Signs Temp Pulse Pulse Resp BP BP Pulse Ox 01/12/25 07:15 97.7 F 68 17 107/67 97 01/12/25 04:23 97.4 F L 59 L 17 136/79 96 01/12/25 04:07 98.1 F 18 L 15 136/70 96 01/12/25 03:31 62 16 146/48 96 01/12/25 02:21 61 20 149/49 96 01/12/25 00:56 107/46 01/12/25 00:37 97.8 F 53 L 19 123/57 95 01/11/25 21:16 97.4 F L 18 120/62 Intake and Output 01/11/25 01/12/25 01/12/25 22:59 06:59 14:59 Intake Total 540 Balance 540 Intake: Oral 540 Other: Weight 108.862 kg 108.862 kg Head normocephalic Neck supple Lungs clear to auscultation bilaterally no wheezing or crackles Heart regular rate and rhythm S1-S2, no rub or gallop Abdomen is soft nontender nondistended positive bowel sounds no hepatosplenomegaly Extremities no edema Neuro alert and orientated to 3 Results CBC & Chem 7: 01/11/25 21:51 01/11/25 21:53 Labs: Abnormal Lab Results - Last 24 Hours (Table) 01/11/25 01/11/25 Range/Units 21:53 22:53 Sodium 132 L (137-145) mmol/L Potassium 3.4 L (3.5-5.1) mmol/L Carbon Dioxide 20 L (22-30) mmol/L BUN 41 H (7-17) mg/dL Creatinine 1.84 H (0.52-1.04) mg/dL Glucose 144 H (74-99) mg/dL AST 41 H (14-36) U/L Urine Appearance Cloudy H (Clear) Urine Protein 1+ H (Negative) Ur Leukocyte Esterase Small H (Negative) Amorphous Sediment Rare H (None) /hpf Hyaline Casts 81 H (0-2) /lpf Urine Mucus Rare H (None) /hpf Urine Yeast (Budding) Rare H (None) /hpf Thrombosis Risk Factor Assmnt - Choose All That Apply Any of the Below Risk Factors Present?: Yes Each Factor Represents 1 point: Obesity (BMI >25) Other Risk Factors: Yes Each Risk Factor Represents 3 Points: Age 75 years or older Thrombosis Risk Factor Assessment Total Risk Factor Score: 4 Thrombosis Risk Factor Assessment Level: Moderate Risk Assessment and Plan Assessment: 1. Generalized weakness secondary to MIAN and influenza A 2. Influenza A continue Tamiflu 3. Acute kidney injury secondary to dehydration 4. History of paroxysmal atrial fibrillation maintained on Eliquis 5. History of GERD 6. History of essential hypertension 7. History of GI bleed 8. History of seizure disorder 9. History of brain surgery for benign tumor 10. History of hyperlipidemia DVT prophylaxis Eliquis. GI prophylax Protonix Continue IV fluid Patient maintained on Tamiflu Repeat labs ordered Time with Patient: Greater than 30 (Greater than 60% of the total time spent in counseling and coordination of care)
[2025-01-12 09:24] LABS: Basophils % (A) 0 %; Eosinophils % (A) 0 %; HCT 38.3 % (34.0-46.0); HGB 12.5 gm/dL (11.4-16.0); Lymphocytes # (A) 1.4 k/uL (1.0-4.8); Lymphocytes % (A) 29 %; MCH 29.8 pg (25.0-35.0); MCHC 32.7 g/dL (31.0-37.0); MCV 91.1 fL (80.0-100.0); Mean Platelet Volume 7.8; Monocytes # (A) 0.1 k/uL (0-1.0); Monocytes % (A) 3 %; Neutrophils # (A) 3.2 k/uL (1.3-7.7); Neutrophils % (A) 67 %; Platelet Count 162 k/uL (150-450); RDW 12.9 % (11.5-15.5); WBC 4.8 k/uL (3.8-10.6)
[2025-01-12 09:32] LABS: ALT 26 U/L (4-34); AST 32 U/L (14-36); African American GFR (CKD) 37 (>60 ml/min/1.73 sqM); Albumin 3.6 g/dL (3.5-5.0); Albumin/Globulin Ratio 1.2; Alkaline Phosphatase 92 U/L (38-126); Anion Gap 8 mmol/L; Blood Urea Nitrogen 38 mg/dL (7-17); Calcium 8.4 mg/dL (8.4-10.2); Carbon Dioxide 22 mmol/L (22-30); Chloride 102 mmol/L (98-107); Globulin 2.9 g/dL; Glucose 170 mg/dL (74-99); Non-African American GFR(CKD) 32 (>60 ml/min/1.73 sqM); Potassium 3.5 mmol/L (3.5-5.1); Sodium 132 mmol/L (137-145); Total Bilirubin 0.6 mg/dL (0.2-1.3); Total Protein 6.5 g/dL (6.3-8.2)
[2025-01-12] MEDS ORDERED: LOSARTAN-HCTZ 50-12.5 MG 1 EACH TAB PO SCH (17:30)
[2025-01-12] MEDS: PANTOPRAZOLE 40 MG TABLET PO SCH (18:16)
[2025-01-12] MEDS: LOSARTAN 50 MG TAB PO SCH (18:16)
[2025-01-12] MEDS ORDERED: SYMBICORT 80-4.5 MCG INHALER INHALATION SCH (20:00)
[2025-01-12] MEDS: cycloSPORINE 0.05% OPHTH 0.4 ML DROPERETTE BOTH EYES SCH (22:14)
[2025-01-12] MEDS: ATORVASTATIN 20 MG TAB PO SCH (22:14)
[2025-01-13] MEDS: AZITHROMYCIN 500 MG TAB PO SCH (08:57)
[2025-01-13] MEDS: predniSONE 50 MG TAB PO SCH (08:57)
[2025-01-13 10:02] LABS: Basophils # (A) 0.01 X 10*3/uL (0.00-0.10); Basophils % (A) 0.1 %; Eosinophils # (A) 0.03 X 10*3/uL (0.04-0.35); Eosinophils % (A) 0.4 %; HCT 34.6 % (37.2-46.3); HGB 11.6 g/dL (12.0-15.0); Lymphocytes # (A) 2.96 X 10*3/uL (0.90-5.00); Lymphocytes % (A) 41.8 %; MCH 30.1 pg (27.0-32.0); MCHC 33.5 g/dL (32.0-37.0); MCV 89.6 FL (80.0-97.0); Mean Platelet Volume 10.3 FL (9.5-12.2); Monocytes # (A) 0.59 X 10*3/uL (0.20-1.00); Monocytes % (A) 8.3 %; NRBC Per 100 WBC 0 X 10*3/uL (0.00-0.01); Neutrophils # (A) 3.48 X 10*3/uL (1.80-7.70); Neutrophils % (A) 49.3 %; Platelet Count 157 X 10*3/uL (140-440); RBC 3.86 X 10*6/uL (4.10-5.20); RDW 12.9 % (11.5-14.5); WBC 7.08 X 10*3/uL (4.50-10.00)
[2025-01-13 10:13] LABS: ALT 22 U/L (8-44); AST 28 U/L (13-35); Albumin 3.4 g/dL (3.8-4.9); Albumin/Globulin Ratio 1.36 Ratio (1.60-3.17); Alkaline Phosphatase 83 U/L (41-126); BUN/Creat Ratio 21.62 Ratio (12.00-20.00); Blood Urea Nitrogen 28.1 mg/dL (9.0-27.0); Calcium 8.3 mg/dL (8.7-10.3); Carbon Dioxide 21.9 mmol/L (21.6-31.8); Chloride 106 mmol/L (96-109); Globulin 2.5 g/dL (1.6-3.3); Glucose 96 mg/dL (70-110); Magnesium 1.9 mg/dL (1.5-2.4); Potassium 2.9 mmol/L (3.5-5.5); Sodium 138 mmol/L (135-145); Total Bilirubin 0.4 mg/dL (0.3-1.2); Total Protein 5.9 g/dL (6.2-8.2)
[2025-01-13] MEDS ORDERED: Potassium Replacement Protocol 1 EACH MISC MISCELLANE PRN (14:29)
--- NOTE | 2025-01-13 14:54 | P.PN ---
Subjective Progress Note Date: 01/13/25April Vamsi is a 79-year-old female patient who presented with complaints of generalized weakness. Patient reports that she she was diagnosed with influenza A from the ER was discharged home but became very weak prompting her to come back to ER for further further evaluation. Ankle x-ray completed showing no acute fracture or dislocation. Lumbar x-ray completed showing no acute fracture or dislocation. Thoracic spine showing no acute fracture or dislocation EKG completed showing sinus rhythm. Lab work completed showing white blood cell 6.5 hemoglobin 14.4, creatinine 1.84 bun 41 sodium 132 potassium 3.4. Influenza A positive COVID-19 RSV negative. At this time patient will be admitted patient started on IV fluid and Tamiflu chest x-ray from 220 showing no acute process patient was started outpatient on a Zithromax and prednisone we will continue those at this time along with Tamiflu. At this time patient is resting comfortably in bed. Patient reports improvement with overall symptoms. Patient denies any further episodes of nausea vomiting or diarrhea. Patient reports mild cough. Patient denies chest pain or shortness of breath. Patient denies any urinary burning or frequency. Current vital signs temp 97.7, heart rate 68, respiratory rate 17, blood pressure 107/67 with a pulse ox of 97% on room air On 01/13/2025 patient was seen and examined on the medical floor she is alert and oriented x 3 in no apparent distress she is still complaining of cough shortness of breath and weakness potassium today is down to 2.9 kidney function is improving creatinine on presentation was 1.84 it is down to 1.3 today patient is doing better potassium replacement protocol was ordered possible discharge to home tomorrow if stable Objective - Vital Signs Vital signs: Vital Signs Temp 97.4 F L 01/13/25 13:54 Pulse 66 01/13/25 13:54 Resp 16 01/13/25 13:54 BP 142/78 01/13/25 13:54 Pulse Ox 99 01/13/25 13:54 FiO2 Intake & Output 01/12/25 01/13/25 01/13/25 18:59 06:59 18:59 Other: Voiding Method Toilet Toilet # Voids 4 1 - Exam April Vamsi is a 79-year-old female patient who presented with complaints of generalized weakness. Patient reports that she she was diagnosed with influenza A from the ER was discharged home but became very weak prompting her to come back to ER for further further evaluation. Ankle x-ray completed showing no acute fracture or dislocation. Lumbar x-ray completed showing no acute fracture or dislocation. Thoracic spine showing no acute fracture or dislocation EKG completed showing sinus rhythm. Lab work completed showing white blood cell 6.5 hemoglobin 14.4, creatinine 1.84 bun 41 sodium 132 potassium 3.4. Influenza A positive COVID-19 RSV negative. At this time patient will be admitted patient started on IV fluid and Tamiflu chest x-ray from 220 showing no acute process patient was started outpatient on a Zithromax and prednisone we will continue those at this time along with Tamiflu. At this time patient is resting comfortably in bed. Patient reports improvement with overall symptoms. Patient denies any further episodes of nausea vomiting or diarrhea. Patient reports mild cough. Patient denies chest pain or shortness of breath. Patient denies any urinary burning or frequency. Current vital signs temp 97.7, heart rate 68, respiratory rate 17, blood pressure 107/67 with a pulse ox of 97% on room air - Labs CBC & Chem 7: 01/13/25 04:03 01/13/25 04:03 Labs: Abnormal Lab Results - Last 24 Hours (Table) 01/13/25 01/13/25 Range/Units 04:03 04:03 RBC 3.86 L (4.10-5.20) X 10*6/uL Hgb 11.6 L (12.0-15.0) g/dL Hct 34.6 L (37.2-46.3) % Eosinophils # 0.03 L (0.04-0.35) X 10*3/uL Potassium 2.9 L (3.5-5.5) mmol/L BUN 28.1 H (9.0-27.0) mg/dL Est GFR (CKD-EPI) 42 L (>=60) BUN/Creatinine Ratio 21.62 H (12.00-20.00) Ratio Calcium 8.3 L (8.7-10.3) mg/dL Total Protein 5.9 L (6.2-8.2) g/dL Albumin 3.4 L (3.8-4.9) g/dL Albumin/Globulin Ratio 1.36 L (1.60-3.17) Ratio Assessment and Plan Assessment: 1. Generalized weakness secondary to MIAN and influenza A 2. Influenza A continue Tamiflu 3. Acute kidney injury secondary to dehydration 4. History of paroxysmal atrial fibrillation maintained on Eliquis 5. History of GERD 6. History of essential hypertension 7. History of GI bleed 8. History of seizure disorder 9. History of brain surgery for benign tumor 10. History of hyperlipidemia 11. Electrolyte imbalance with hypokalemia DVT prophylaxis Eliquis. GI prophylax Protonix Continue IV fluid Patient maintained on Tamiflu Repeat labs ordered
[2025-01-13] MEDS: POTASSIUM CHLORIDE ER 20 MEQ TAB.ER PO SCH (16:23)
[2025-01-13] MEDS: OSELTAMIVIR 30 MG CAP PO SCH (21:01)
[2025-01-14 07:24] VITALS: BP 111/71; PULSE 63; RESP 18; TEMP 97.2
[2025-01-14 10:33] LABS: ALT 25 U/L (4-34); AST 30 U/L (14-36); African American GFR (CKD) 60 (>60 ml/min/1.73 sqM); Albumin 3.4 g/dL (3.5-5.0); Albumin/Globulin Ratio 1.2; Alkaline Phosphatase 81 U/L (38-126); Anion Gap 7 mmol/L; Blood Urea Nitrogen 24 mg/dL (7-17); Calcium 8.7 mg/dL (8.4-10.2); Carbon Dioxide 26 mmol/L (22-30); Chloride 104 mmol/L (98-107); Globulin 2.9 g/dL; Glucose 101 mg/dL (74-99); Non-African American GFR(CKD) 52 (>60 ml/min/1.73 sqM); Potassium 3.6 mmol/L (3.5-5.1); Sodium 137 mmol/L (137-145); Total Bilirubin 0.9 mg/dL (0.2-1.3); Total Protein 6.3 g/dL (6.3-8.2)
[2025-01-14] MEDS ORDERED: Potassium Replacement Protocol 1 EACH MISC MISCELLANE PRN (11:17)
--- NOTE | 2025-01-14 11:25 | P.DS ---
Providers Date of admission: 01/12/25 03:36 Expected date of discharge: 01/14/25 Attending physician: Becka Fletcher Primary care physician: Becka Fletcher Assessment: Discharge diagnosis 1. Generalized weakness secondary to MIAN and influenza A 2. Influenza A continue Tamiflu 3. Acute kidney injury secondary to dehydration 4. History of paroxysmal atrial fibrillation maintained on Eliquis 5. History of GERD 6. History of essential hypertension 7. History of GI bleed 8. History of seizure disorder 9. History of brain surgery for benign tumor 10. History of hyperlipidemia 11. Electrolyte imbalance with hypokalemia Hospital course Lucille Agustin is a 79-year-old female patient who presented with complaints of generalized weakness. Patient reports that she she was diagnosed with influenza A from the ER was discharged home but became very weak prompting her to come back to ER for further further evaluation. Ankle x-ray completed showing no acute fracture or dislocation. Lumbar x-ray completed showing no acute fracture or dislocation. Thoracic spine showing no acute fracture or dislocation EKG completed showing sinus rhythm. Lab work completed showing white blood cell 6.5 hemoglobin 14.4, creatinine 1.84 bun 41 sodium 132 potassium 3.4. Influenza A positive COVID-19 RSV negative. At this time patient will be admitted patient started on IV fluid and Tamiflu chest x-ray from 220 showing no acute process patient was started outpatient on a Zithromax and prednisone we will continue those at this time along with Tamiflu. At this time patient is resting comfortably in bed. Patient reports improvement with overall symptoms. Patient denies any further episodes of nausea vomiting or diarrhea. Patient reports mild cough. Patient denies chest pain or shortness of breath. Patient denies any urinary burning or frequency. Current vital signs temp 97.7, heart rate 68, respiratory rate 17, blood pressure 107/67 with a pulse ox of 97% on room air On 01/13/2025 patient was seen and examined on the medical floor she is alert and oriented x 3 in no apparent distress she is still complaining of cough shortness of breath and weakness potassium today is down to 2.9 kidney function is improving creatinine on presentation was 1.84 it is down to 1.3 today patient is doing better potassium replacement protocol was ordered possible discharge to home tomorrow if stable On 01/14/2025 patient is alert and oriented x 3. Creatinine improving today. Potassium improving to 3.6. Patient will receive potassium replacement prior to discharge patient will be DC'd home on prednisone taper. Patient denies chest pain or shortness of breath. Patient denies nausea vomiting or diarrhea. Patient denies any urinary burning or frequency Patient Condition at Discharge: Stable Plan - Discharge Summary Discharge Rx Participant: Yes New Discharge Prescriptions: New predniSONE 10 mg PO DIRECTED 12 Days #30 tab Continue lamoTRIgine 200 mg PO BID Fluticasone Propion/Salmeterol [Advair 100-50 Diskus] 1 puff INHALATION RT- BID Atorvastatin [Lipitor] 20 mg PO HS Pantoprazole [Protonix] 40 mg PO W/SUPPER Apixaban [Eliquis] 5 mg PO BID 30 Days #60 tab Dicyclomine [Bentyl] 10 mg PO TID Losartan/Hydrochlorothiazide [Hyzaar 100-12.5 Tablet] 1 tab PO W/SUPPER cycloSPORINE 0.05% OPHTH SOLN [Restasis] 1 drop BOTH EYES BID Metoprolol Succinate (ER) [Toprol XL] 50 mg PO DAILY 30 Days #30 tab Oseltamivir [Tamiflu] 75 mg PO Q12HR #10 cap Baclofen [Lioresal] 20 mg PO BID PRN PRN Reason: Muscle Spasm Discontinued predniSONE 50 mg PO DAILY #5 tab Azithromycin [Zithromax Z Pack] See Taper PO DIRECTED Discharge Medication List lamoTRIgine 200 mg PO BID 01/19/20 [History] Fluticasone Propion/Salmeterol [Advair 100-50 Diskus] 1 puff INHALATION RT-BID 05/13/20 [History] cycloSPORINE 0.05% OPHTH SOLN [Restasis] 1 drop BOTH EYES BID 11/28/21 [History] Atorvastatin [Lipitor] 20 mg PO HS 10/27/22 [History] Pantoprazole [Protonix] 40 mg PO W/SUPPER 01/14/23 [History] Apixaban [Eliquis] 5 mg PO BID 30 Days #60 tab 01/17/23 [Rx] Metoprolol Succinate (ER) [Toprol XL] 50 mg PO DAILY 30 Days #30 tab 01/17/23 [Rx] Dicyclomine [Bentyl] 10 mg PO TID 12/13/24 [History] Losartan/Hydrochlorothiazide [Hyzaar 100-12.5 Tablet] 1 tab PO W/SUPPER 12/13/24 [History] Oseltamivir [Tamiflu] 75 mg PO Q12HR #10 cap 01/11/25 [Rx] Baclofen [Lioresal] 20 mg PO BID PRN 01/12/25 [History] predniSONE 10 mg PO DIRECTED 12 Days #30 tab 01/14/25 [Rx] Follow up Appointment(s)/Referral(s): Becka Fletcher MD [Primary Care Provider] - 1-2 days
[2025-01-14] MEDS: POTASSIUM CHLORIDE ER 20 MEQ TAB.ER PO SCH (11:32)
== END 2025-01-14 12:06 | disposition home or self-care (01) ==
LOC: EC 21:14 → 4SSUR 01-12 03:36
PROVIDERS: ADMIT Internal Medicine; ATTEND Internal Medicine
DX: N17.9 Acute kidney failure, unspecified (principal); E86.0 Dehydration; J10.1 Influenza due to other identified influenza virus with other respiratory manifestations; E78.5 Hyperlipidemia, unspecified; E87.6 Hypokalemia; G40.909 Epilepsy, unspecified, not intractable, without status epilepticus; I10 Essential (primary) hypertension; I48.0 Paroxysmal atrial fibrillation; J45.909 Unspecified asthma, uncomplicated; K21.9 Gastro-esophageal reflux disease without esophagitis; Z79.01 Long term (current) use of anticoagulants; Z79.899 Other long term (current) drug therapy; Z85.828 Personal history of other malignant neoplasm of skin; Z87.891 Personal history of nicotine dependence; Z88.2 Allergy status to sulfonamides; Z88.8 Allergy status to other drugs, medicaments and biological substances
CPT/HCPCS: 96361 ×4; 96360; 99285; 36415; 93005; 97161; 97165; 80053 ×4; 83605; 83735 ×2; 85025 ×3; 85610; 85730; 81001; 72070; 72100; 73610; G0378 ×3; J7512 ×2

== ENCOUNTER 2025-03-18 13:22 | Observation (INO) | payer MEDICARE ==
--- NOTE | 2025-03-18 13:45 | ED ---
General Adult HPI - General Chief complaint: Chest Pain Stated complaint: Chest pain, hypertension Time Seen by Provider: 03/18/25 13:28 Source: patient, family, RN notes reviewed Mode of arrival: ambulatory Limitations: no limitations - History of Present Illness Initial comments: Patient is a 79-year-old female presenting to the emergency department with concerns with chest discomfort. Onset of symptoms was this morning. Discomfort has been somewhat steady rated 6/10. Discomfort feels like tightness. No history of similar symptoms previously.. Pressure has been running high the past few days up to 170 or 180 systolic. No associated dyspnea. Patient did feel a little bit sweaty this morning. - Related Data Home Medications Medication Instructions Recorded Confirmed lamoTRIgine 200 mg PO BID 01/19/20 03/18/25 Fluticasone Propion/Salmeterol 1 puff INHALATION RT-BID 05/13/20 03/18/25 [Advair 100-50 Diskus] cycloSPORINE 0.05% OPHTH SOLN 1 drop BOTH EYES BID 11/28/21 03/18/25 [Restasis] Atorvastatin [Lipitor] 20 mg PO HS 10/27/22 03/18/25 Pantoprazole [Protonix] 40 mg PO W/SUPPER 01/14/23 03/18/25 Dicyclomine [Bentyl] 10 mg PO TID 12/13/24 03/18/25 Baclofen [Lioresal] 10 mg PO DAILY 01/12/25 03/18/25 Baclofen [Lioresal] 20 mg PO HS 03/18/25 03/18/25 Losartan Potassium [Cozaar] 100 mg PO W/SUPPER 03/18/25 03/18/25 Rifaximin [Xifaxan] 550 mg PO TID 03/18/25 03/18/25 Previous Rx's Medication Instructions Recorded Apixaban [Eliquis] 5 mg PO BID 30 Days #60 tab 01/17/23 Metoprolol Succinate (ER) [Toprol 50 mg PO DAILY 30 Days #30 tab 01/17/23 XL] Allergies Allergy/AdvReac Type Severity Reaction Status Date / Time Sulfa (Sulfonamide Allergy Unknown Verified 03/18/25 14:54 Antibiotics) Childhood sertraline [From Zoloft] AdvReac DEPRESSION Verified 03/18/25 14:54 Review of Systems ROS Statement: Those systems with pertinent positive or pertinent negative responses have been documented in the HPI. ROS Other: All systems not noted in ROS Statement are negative. Constitutional: Denies: fever Eyes: Denies: eye pain ENT: Denies: ear pain Respiratory: Denies: dyspnea Cardiovascular: Reports: as per HPI, chest pain Endocrine: Denies: fatigue Gastrointestinal: Denies: abdominal pain Genitourinary: Denies: dysuria Past Medical History Past Medical History: Atrial Fibrillation, Asthma, Cancer, GERD/Reflux, GI Bleed, Hearing Disorder / Deafness, Hypertension, Pneumonia, Seizure Disorder, Skin Disorder Additional Past Medical History / Comment(s): Intermittent dysphagia, diverticular disease, IBS, lower GI bleed, pt states placed on statin as a precaution, brain surgery for benign tumor, seizures since brain surgery with last seizure more than a year ago, bilateral tinnitis since brain surgery, bronchitis, sinus problems, rosacea, skin cancer with removal. History of Any Multi-Drug Resistant Organisms: None Reported Past Surgical History: Cholecystectomy, Heart Catheterization, Joint Repl acement, Orthopedic Surgery Additional Past Surgical History / Comment(s): Brain tumor resection (benign), skin cancer removal R arm, L shoulder surgery for spur, total R knee arthroplasty, R hand dupuytren's surgery, 3 R breast biopsies (benign) and 2 L breast biopsies (benign), EGDs, colonoscopies/bening polypectomies. left hand surgery Past Anesthesia/Blood Transfusion Reactions: No Reported Reaction, Postoperative Nausea & Vomiting (PONV) Additional Past Anesthesia/Blood Transfusion Reaction / Comment(s): claustroph obia Past Psychological History: No Psychological Hx Reported Smoking Status: Former smoker Past Alcohol Use History: Rare Past Drug Use History: None Reported - Past Family History Mother Family Medical History: Diabetes Mellitus Father Family Medical History: Diabetes Mellitus Additional Family Medical History / Comment(s): HEART DISEASE General Exam Limitations: no limitations General appearance: alert, in no apparent distress Head exam: Present: normocephalic Eye exam: Present: normal appearance Respiratory exam: Present: normal lung sounds bilaterally. Absent: chest wall tenderness Cardiovascular Exam: Present: regular rate, normal rhythm, normal heart sounds Expanded Peripheral pulses: 2+: Radial (R), Radial (L), Posterior Tibialis (R), Posterior Tibialis (L) GI/Abdominal exam: Present: soft. Absent: tenderness Extremities exam: Present: pedal edema (Patient states chronic). Absent: calf tenderness Neurological exam: Present: alert Psychiatric exam: Present: normal affect, normal mood Skin exam: Present: normal color Course Vital Signs 03/18/25 03/18/25 03/18/25 13:25 14:30 15:02 Temperature 97.9 F Pulse Rate 69 53 L 47 L Respiratory 18 18 16 Rate Blood Pressure 160/81 161/69 143/63 O2 Sat by Pulse 95 95 95 Oximetry EKG Findings - EKG Results: EKG: interpreted by ERMD, sinus rhythm, normal axis, normal QRS, normal ST/T Medical Decision Making - Medical Decision Making Was pt. sent in by a medical professional or institution (, PA, LAMP SHADE ASSEMBLER, urgent care, hospital, or senior care...) When possible be specific @ -No Did you speak to anyone other than the patient for history (EMS, parent, family, police, friend...)? What history was obtained from this source @ -Family helps provide history including patient's blood pressure list Did you review nursing and triage notes (agree or disagree)? Why? @ -I reviewed and agree with nursing and triage notes Were old charts reviewed (outside hosp., previous admission, EMS record, old EKG, old radiological studies, urgent care reports/EKG's, senior care records)? Report findings @ -No old charts were reviewed Differential Diagnosis (chest pain, altered mental status, abdominal pain women, abdominal pain men, vaginal bleeding, weakness, fever, dyspnea, syncope, headache, dizziness, GI bleed, back pain, seizure, CVA, palpatations, mental health, musculoskeletal)? @ -Differential Chest Pain: Stable Angina, Unstable Angina, STEMI, NSTEMI Aortic Dissection, Pneumothorax, Musculoskeletal, Esophageal Spasm GERD, Cholecystitis, Pancreatitis, Zoster, this is not meant to be an all-inclusive list. EKG interpreted by me (3pts min.). @ -As above X-rays interpreted by me (1pt min.). @ -Chest x-ray shows low lung volumes CT interpreted by me (1pt min.). @ -None done U/S interpreted by me (1pt. min.). @ -None done What testing was considered but not performed or refused? (CT, X-rays, U/S, labs)? Why? @ -None What meds were considered but not given or refused? Why? @ -None Did you discuss the management of the patient with other professionals (professionals i.e. , PA, LAMP SHADE ASSEMBLER, lab, RT, psych nurse, family welfare social work professor, transfer machine operator, teacher, juvenile probation officer, community case manager)? Give summary @ -Case was discussed with Dr. Fletcher who will admit his patient Was smoking cessation discussed for >3mins.? @ -No Was critical care preformed (if so, how long)? @ -No Were there social determinants of health that impacted care today? How? (Homelessness, low income, unemployed, alcoholism, drug addiction, transportation, low edu. Level, literacy, decrease access to med. care, correction, rehab)? @ -No Was there de-escalation of care discussed even if they declined (Discuss DNR or withdrawal of care, Hospice)? DNR status @ -No What co-morbidities impacted this encounter? (DM, HTN, Smoking, COPD, CAD, Cancer, CVA, ARF, Chemo, Hep., AIDS, mental health diagnosis, sleep apnea, morbid obesity)? @ -Hypertension Was patient admitted / discharged? Hospital course, mention meds given and route, prescriptions, significant lab abnormalities, going to OR and other pertinent info. @ -Patient presents with chest discomfort and hypertension. Initial evaluation unremarkable. Patient will be admitted with cardiac consult. Patient reevaluated and updated. Jbphh orders written. Undiagnosed new problem with uncertain prognosis? @ -No Drug Therapy requiring intensive monitoring for toxicity (Heparin, Nitro, Insulin, Cardizem)? @ -No Were any procedures done? @ -No Diagnosis/symptom? @ -Chest pain Acute, or Chronic, or Acute on Chronic? @ -Acute Uncomplicated (without systemic symptoms) or Complicated (systemic symptoms)? @ -Default Side effects of treatment? @ -No Exacerbation, Progression, or Severe Exacerbation? @ -No Poses a threat to life or bodily function? How? (Chest pain, USA, PR, pneumonia, PE, COPD, DKA, ARF, appy, cholecystitis, CVA, Diverticulitis, Homicidal, Suicidal, threat to staff... and all critical care pts) @ -Threat to cardiac function - Lab Data Result diagrams: 03/18/25 14:10 03/18/25 14:10 Lab Results 03/18/25 03/18/2503/18/25 Range/Units 14:10 14:10 14:10 WBC 6.17 (4.50-10.00) 10*3/uL RBC 3.63 L (4.10-5.20) 10*6/uL Hgb 11.3 L (12.0-15.0) g/dL Hct 33.8 L (37.2-46.3) % MCV 93.1 (80.0-97.0) fL MCH 31.1 (27.0-32.0) pg MCHC 33.4 (32.0-37.0) g/dL Plt Count 144 (140-440) 10*3/uL MPV 9.5 (9.5-12.2) fL Immature Gran % (Auto) 0.3 % Neutrophils % 62.8 % Lymphocytes % 28.0 % Monocytes % 7.3 % Eosinophils % 1.1 % Basophils % 0.5 % Immature Gran # 0.02 (0.00-0.04) 10*3/uL Neutrophils # 3.87 (1.80-7.70) 10*3/uL Lymphocytes # 1.73 (0.90-5.00) 10*3/uL Monocytes # 0.45 (0.20-1.00) 10*3/uL Eosinophils # 0.07 (0.04-0.35) 10*3/uL Basophils # 0.03 (0.00-0.10) 10*3/uL PT 10.5 (10.0-12.5) sec INR 0.9 (<1.2) APTT 22.6 (22.0-30.0) sec Sodium 158 H (137-145) mmol/L Potassium 3.7 (3.5-5.1) mmol/L Chloride 106 (98-107) mmol/L Carbon Dioxide 26 (22-30) mmol/L Anion Gap 26 mmol/L BUN 14 (7-17) mg/dL Creatinine 0.98 (0.52-1.04) mg/dL Est GFR (CKD-EPI)AfAm 64 (>60 ml/min/1.73 sqM) Est GFR (CKD-EPI)NonAf 55 (>60 ml/min/1.73 sqM) Glucose 138 H (74-99) mg/dL Calcium 9.0 (8.4-10.2) mg/dL Magnesium 2.0 (1.6-2.3) mg/dL Total Bilirubin 0.8 (0.2-1.3) mg/dL AST 22 (14-36) U/L ALT 18 (4-34) U/L Alkaline Phosphatase 81 (38-126) U/L Troponin I (0.000-0.034) ng/mL Total Protein 6.0 L (6.3-8.2) g/dL Albumin 3.3 L (3.5-5.0) g/dL 03/18/25 Range/Units 14:10 WBC (4.50-10.00) 10*3/uL RBC (4.10-5.20) 10*6/uL Hgb (12.0-15.0) g/dL Hct (37.2-46.3) % MCV (80.0-97.0) fL MCH (27.0-32.0) pg MCHC (32.0-37.0) g/dL Plt Count (140-440) 10*3/uL MPV (9.5-12.2) fL Immature Gran % (Auto) % Neutrophils % % Lymphocytes % % Monocytes % % Eosinophils % % Basophils % % Immature Gran # (0.00-0.04) 10*3/uL Neutrophils # (1.80-7.70) 10*3/uL Lymphocytes # (0.90-5.00) 10*3/uL Monocytes # (0.20-1.00) 10*3/uL Eosinophils # (0.04-0.35) 10*3/uL Basophils # (0.00-0.10) 10*3/uL PT (10.0-12.5) sec INR (<1.2) APTT (22.0-30.0) sec Sodium (137-145) mmol/L Potassium (3.5-5.1) mmol/L Chloride (98-107) mmol/L Carbon Dioxide (22-30) mmol/L Anion Gap mmol/L BUN (7-17) mg/dL Creatinine (0.52-1.04) mg/dL Est GFR (CKD-EPI)AfAm (>60 ml/min/1.73 sqM) Est GFR (CKD-EPI)NonAf (>60 ml/min/1.73 sqM) Glucose (74-99) mg/dL Calcium (8.4-10.2) mg/dL Magnesium (1.6-2.3) mg/dL Total Bilirubin (0.2-1.3) mg/dL AST (14-36) U/L ALT (4-34) U/L Alkaline Phosphatase (38-126) U/L Troponin I <0.012 (0.000-0.034) ng/mL Total Protein (6.3-8.2) g/dL Albumin (3.5-5.0) g/dL Disposition Clinical Impression: Chest pain Disposition: ADMITTED IP TO THIS HOSP Is patient prescribed a controlled substance at d/c from ED?: No Referrals: Becka Fletcher MD [Primary Care Provider] - 1-2 days Time of Disposition: 16:19
[2025-03-18] MEDS: ASPIRIN 81 MG PO STA (13:48)
[2025-03-18] MEDS: NITROGLYCERIN SL TABS 0.4 MG TAB SUBLINGUAL STA ×3 (13:49→15:15)
[2025-03-18 14:23] LABS: Basophils # (A) 0.03 10*3/uL (0.00-0.10); Basophils % (A) 0.5 %; Eosinophils # (A) 0.07 10*3/uL (0.04-0.35); Eosinophils % (A) 1.1 %; HCT 33.8 % (37.2-46.3); HGB 11.3 g/dL (12.0-15.0); Lymphocytes # (A) 1.73 10*3/uL (0.90-5.00); MCH 31.1 pg (27.0-32.0); MCHC 33.4 g/dL (32.0-37.0); MCV 93.1 fL (80.0-97.0); Mean Platelet Volume 9.5 fL (9.5-12.2); Monocytes # (A) 0.45 10*3/uL (0.20-1.00); Monocytes % (A) 7.3 %; Neutrophils # (A) 3.87 10*3/uL (1.80-7.70); Neutrophils % (A) 62.8 %; Platelet Count 144 10*3/uL (140-440); RBC 3.63 10*6/uL (4.10-5.20); RDW 13.6 % (11.5-14.5); WBC 6.17 10*3/uL (4.50-10.00)
[2025-03-18 14:38] LABS: ALT 18 U/L (4-34); AST 22 U/L (14-36); African American GFR (CKD) 64 (>60 ml/min/1.73 sqM); Albumin 3.3 g/dL (3.5-5.0); Alkaline Phosphatase 81 U/L (38-126); Anion Gap 26 mmol/L; Blood Urea Nitrogen 14 mg/dL (7-17); Carbon Dioxide 26 mmol/L (22-30); Chloride 106 mmol/L (98-107); Glucose 138 mg/dL (74-99); Non-African American GFR(CKD) 55 (>60 ml/min/1.73 sqM); Potassium 3.7 mmol/L (3.5-5.1); Sodium 158 mmol/L (137-145); Total Bilirubin 0.8 mg/dL (0.2-1.3)
--- NOTE | 2025-03-18 14:49 | XR ---
EXAMINATION TYPE: XR chest 2V DATE OF EXAM: 03/18/2025 2:32 PM COMPARISON: Chest radiographs from 01/11/2025. CLINICAL INDICATION: Female, 79 years old with history of Chest Pain; TECHNIQUE: XR chest 2V Frontal and lateral views of the chest. FINDINGS: Lungs/Pleura: Low lung volumes are present. There is no evidence of pleural effusion, focal consolida tion, or pneumothorax. Pulmonary vascularity: Unremarkable. Heart/mediastinum: Cardiomediastinal silhouette is unremarkable. Musculoskeletal: No acute osseous pathology. IMPRESSION: Low lung volumes with a generalized hazy appearance which could represent atelectasis versus pulmonar y edema correlate with serum BNP. [facility], , 03/18/2025 2:46 PM
[2025-03-18 14:53] LABS: INR 0.9 (<1.2); Partial Thromboplastin Time 22.6 sec (22.0-30.0); Prothrombin Time 10.5 sec (10.0-12.5)
[2025-03-18] MEDS ORDERED: NITROGLYCERIN SL TABS 0.4 MG TAB SUBLINGUAL PRN (16:20)
[2025-03-18] MEDS: PANTOPRAZOLE 40 MG TABLET PO SCH (17:08)
[2025-03-18] MEDS: LOSARTAN 50 MG TAB PO SCH (17:10)
[2025-03-18] MEDS: NITROGLYCERIN OINT 1 INCH/GM PACKET TOPICAL SCH (17:11)
[2025-03-18] MEDS: lamoTRIgine 100 MG TAB PO SCH (21:36)
[2025-03-18] MEDS: APIXABAN 5 MG TAB PO SCH (21:37)
[2025-03-18] MEDS: ATORVASTATIN 20 MG TAB PO SCH (21:37)
[2025-03-18] MEDS: BACLOFEN 10 MG TAB PO SCH (21:37)
[2025-03-18] MEDS: cycloSPORINE 0.05% OPHTH 0.4 ML DROPERETTE BOTH EYES SCH (21:37)
[2025-03-18] MEDS: DICYCLOMINE 10 MG CAP PO SCH (22:26)
[2025-03-19] MEDS: SYMBICORT 80-4.5 MCG INHALER INHALATION SCH (01:56)
[2025-03-19 07:28] VITALS: RESP 15; TEMP 98.1
[2025-03-19 08:25] VITALS: BP 148/54; PULSE 96
[2025-03-19 08:39] LABS: Chol/HDL Ratio 2.44 Ratio; LDL Cholesterol,Calculated 52.5 mg/dL (0.0-131.0); VLDL Calculation 12.54 mg/dL (5.00-40.00)
[2025-03-19] MEDS: METOPROLOL SUCCINATE (ER) 50 MG TAB.ER.24H PO SCH (09:02)
[2025-03-19] MEDS: ASPIRIN 325 MG TAB PO SCH (09:03)
[2025-03-19] MEDS: BACLOFEN 10 MG TAB PO SCH (09:03)
--- NOTE | 2025-03-19 10:26 | P.CRDCN ---
History of Present Illness Consult date: 03/19/25 Consult reason: chest pain History of present illness: This is a 79-year old female patient of Dr. Overton with past medical history of paroxysmal atrial fibrillation on Eliquis, dyslipidemia, hypertension. We have been asked to evaluate the patient for chest pain. Patient states for the past 3 mornings her blood pressure was high with systolic running between 173 and 182. She states she has not been feeling well due to lightheadedness. She states she has had lightheadedness for the past 3 years even with sitting but more so with standing. Currently her blood pressure is 171/68, heart rate is in the 50s and 60s, pulse ox 95% on room air. She has recently been started on Xifaxan by Dr. Rich Cazares. She currently denies having any chest pain, pressure or tightness. She denies dizziness. She states the room never spins. She does feel better at this time. She denies any change in her weight. Yesterday she did have a heaviness feeling in her chest still there when she arrived to the ER but none now. She states she does have a problem with anxiety. Patient has been given the option of a stress test either in the hospital or in the office and she has elected to go to the office and have a stress test done there. -EKG: Sinus rhythm with no acute ST changes -Chest x-ray: Low lung volumes with generalized haziness could represent atelectasis versus pulmonary edema. -Laboratory studies: Hemoglobin 11.3, sodium 158, potassium 3.7, creatinine 0.98. Troponin negative x 3. proBNP 1250. Triglycerides 62, cholesterol 110, LDL 52.. -Home cardiac medications: Eliquis 5 mg twice daily, atorvastatin 20 mg at bedtime, losartan 100 mg with supper, metoprolol succinate 50 mg daily. -Echocardiogram performed 01/01/2024 in the office reveals normal EF, mild to moderate AR, mild TR, mild MR. -Lexiscan Cardiolite stress test performed in the office on 11/05/2022 revealed EF of 60% and probably normal study. -Cardiac catheterization performed 04/15/2018 revealed normal coronaries, right dominant, LAD bridging. Review Of Systems: At the time of my exam: CONSTITUTIONAL: Denies fever or chills. HEENT: Denies blurred vision, vision changes, or eye pain. Denies hemoptysis CARDIOVASCULAR: Denies chest pain. Denies orthopnea. Denies PND. Denies palpitations RESPIRATORY: Denies shortness of breath. GASTROINTESTINAL: Denies abdominal pain. Denies nausea or vomiting. HEMATOLOGIC: Denies bleeding disorders. GENITOURINARY: Denies any blood in urine. SKIN: Denies puritis. Denies rash. Physical examination: Gen: This is a 79-year-old female in no acute distress VS: reviewed HEENT: Head is atraumatic, normocephalic. Pupils equal, round. Sclerae is anicteric. NECK: Supple. No JVD. LUNGS: Clear to auscultation. No wheezes or rhonchi. No intercostal retractions. HEART: Regular rate and rhythm. 2/6 systolic murmur. ABDOMEN: Soft No tenderness. EXTREMITIES: No pedal edema. No calf tenderness. NEUROLOGICAL: Patient is awake, alert and oriented x3. Assessment: Atypical chest pain, acute coronary syndrome ruled out Paroxysmal atrial fibrillation currently in sinus rhythm Dyslipidemia Hypertension Plan: Resume patient's home cardiac medications No further cardiac workup at this time. Patient is cleared for discharge and may follow-up with Dr. Overton in 1 week for outpatient stress test. Thank you kindly for this consultation. Nurse practitioner note has been reviewed, I agree with documented findings and plan of care. Patient was seen and examined. Past Medical History Past Medical History: Atrial Fibrillation, Asthma, Cancer, GERD/Reflux, GI Bleed, Hearing Disorder / Deafness, Hypertension, Pneumonia, Seizure Disorder, Skin Disorder Additional Past Medical History / Comment(s): Intermittent dysphagia, diverticular disease, IBS, lower GI bleed, pt states placed on statin as a precaution, brain surgery for benign tumor, seizures since brain surgery with last seizure more than a year ago, bilateral tinnitis since brain surgery, bronchitis, sinus problems, rosacea, skin cancer with removal. History of Any Multi-Drug Resistant Organisms: None Reported Past Surgical History: Cholecystectomy, Heart Catheterization, Joint Replacement, Orthopedic Surgery Additional Past Surgical History / Comment(s): Brain tumor resection (benign), skin cancer removal R arm, L shoulder surgery for spur, total R knee arthroplasty, R hand dupuytren's surgery, 3 R breast biopsies (benign) and 2 L breast biopsies (benign), EGDs, colonoscopies/bening polypectomies. left hand surgery Past Anesthesia/Blood Transfusion Reactions: No Reported Reaction, Postoperative Nausea & Vomiting (PONV) Additional Past Anesthesia/Blood Transfusion Reaction / Comment(s): claustrophobia Past Psychological History: No Psychological Hx Reported Additional Psychological History / Comment(s): Pt resides with her spouse and adult grandson. She is independent. Smoking Status: Former smoker Past Alcohol Use History: Rare Additional Past Alcohol Use History / Comment(s): Pt started smoking in 1957 and quit in 1984, smoked 1/2 ppd Past Drug Use History: None Reported - Past Family History Mother Family Medical History: Diabetes Mellitus Father Family Medical History: Diabetes Mellitus Additional Family Medical History / Comment(s): HEART DISEASE Medications and Allergies Home Medications Medication Instructions Recorded Confirmed Type lamoTRIgine 200 mg PO BID 01/19/20 03/18/25 History Fluticasone Propion/Salmeterol 1 puff INHALATION RT-BID 05/13/20 03/18/25 History [Advair 100-50 Diskus] cycloSPORINE 0.05% OPHTH SOLN 1 drop BOTH EYES BID 11/28/21 03/18/25 History [Restasis] Atorvastatin [Lipitor] 20 mg PO HS 10/27/22 03/18/25 History Pantoprazole [Protonix] 40 mg PO W/SUPPER 01/14/23 03/18/25 History Apixaban [Eliquis] 5 mg PO BID 30 Days #60 tab 01/17/23 03/18/25 Rx Metoprolol Succinate (ER) [Toprol 50 mg PO DAILY 30 Days #30 tab 01/17/23 03/18/25 Rx XL] Dicyclomine [Bentyl] 10 mg PO TID 12/13/24 03/18/25 History Baclofen [Lioresal] 10 mg PO DAILY 01/12/25 03/18/25 History Baclofen [Lioresal] 20 mg PO HS 03/18/25 03/18/25 History Losartan Potassium [Cozaar] 100 mg PO W/SUPPER 03/18/25 03/18/25 History Rifaximin [Xifaxan] 550 mg PO TID 03/18/25 03/18/25 History Allergies Allergy/AdvReac Type Severity Reaction Status Date / Time Sulfa (Sulfonamide Allergy Unknown Verified 03/18/25 14:54 Antibiotics) Childhood sertraline [From Zoloft] AdvReac DEPRESSION Verified 03/18/25 14:54 Physical Exam Vitals: Vital Signs Temp Pulse Pulse Resp BP BP Pulse Ox 03/19/25 07:00 98.1 F 63 15 171/68 95 03/19/25 01:43 97.9 F 58 L 16 135/54 95 03/18/25 21:04 97.6 F 65 17 162/73 93 L 03/18/25 20:33 56 L 18 110/90 95 03/18/25 20:00 18 03/18/25 18:00 52 L 18 167/72 95 03/18/25 17:11 55 L 18 163/66 96 03/18/25 16:51 52 L 16 150/52 98 03/18/25 15:02 47 L 16 143/63 95 03/18/25 14:30 53 L 18 161/69 95 03/18/25 13:25 97.9 F 69 18 160/81 95 Intake and Output 03/18/25 03/19/25 03/19/25 22:59 06:59 14:59 Other: Voiding Method Toilet Toilet # Voids 1 2 Weight 108.409 kg Results 03/18/25 14:10 03/18/25 14:10 Cardiac Enzymes 03/18/25 03/18/25 03/18/25 Range/Units 14:10 14:10 16:41 AST 22 (14-36) U/L Troponin I <0.012 <0.012 (0.000-0.034) ng/mL 03/18/25 Range/Units 19:21 AST (14-36) U/L Troponin I <0.012 (0.000-0.034) ng/mL Coagulation 03/18/25 Range/Units 14:10 PT 10.5 (10.0-12.5) sec APTT 22.6 (22.0-30.0) sec CBC 03/18/25 Range/Units 14:10 WBC 6.17 (4.50-10.00) 10*3/uL RBC 3.63 L (4.10-5.20) 10*6/uL Hgb 11.3 L (12.0-15.0) g/dL Hct 33.8 L (37.2-46.3) % Plt Count 144 (140-440) 10*3/uL Comprehensive Metabolic Panel 03/18/25 Range/Units 14:10 Sodium 158 H (137-145) mmol/L Potassium 3.7 (3.5-5.1) mmol/L Chloride 106 (98-107) mmol/L Carbon Dioxide 26 (22-30) mmol/L BUN 14 (7-17) mg/dL Creatinine 0.98 (0.52-1.04) mg/dL Glucose 138 H (74-99) mg/dL Calcium 9.0 (8.4-10.2) mg/dL AST 22 (14-36) U/L ALT 18 (4-34) U/L Alkaline Phosphatase 81 (38-126) U/L Total Protein 6.0 L (6.3-8.2) g/dL Albumin 3.3 L (3.5-5.0) g/dL Current Medications Generic Name Dose Route Start Last Admin Trade Name Freq PRN Reason Stop Dose Admin Apixaban 5 mg 03/18/25 21:00 03/18/25 21:37 Apixaban 5 Mg Tab PO 5 mg BID JAIME Administration Protocol Aspirin 325 mg 03/19/25 09:00 Aspirin 325 Mg Tab PO DAILY JAIME Atorvastatin Calcium 20 mg 03/18/25 21:00 03/18/25 21:37 Atorvastatin 20 Mg Tab PO 20 mg HS JAIME Administration Baclofen 20 mg 03/18/25 21:00 03/18/25 21:37 Baclofen 10 Mg Tab PO 20 mg HS JAIEM Administration Baclofen 10 mg 03/19/25 09:00 Baclofen 10 Mg Tab PO DAILY [facility] Budesonide/Formoterol Fumarate 2 puff 03/18/25 20:00 03/19/25 01:56 Symbicort 80-4.5 Mcg Inhaler INHALATION Not Given RT-BID JAIEM Cyclosporine 1 drops 03/18/25 21:00 03/18/25 21:37 Cyclosporine 0.05% Ophth 0.4 Ml Droperette BOTH EYES 1 drops BID JAIME Administration Dicyclomine HCl 10 mg 03/18/25 22:00 03/18/25 22:26 Dicyclomine 10 Mg Cap PO 10 mg TID JAIME Administration Lamotrigine 200 mg 03/18/25 21:00 03/18/25 21:36 Lamotrigine 100 Mg Tab PO 200 mg BID JAIME Administration Losartan Potassium 100 mg 03/18/25 17:30 03/18/25 17:10 Losartan 50 Mg Tab PO 100 mg W/SUPPER JAIME Administration Metoprolol Succinate 50 mg 03/19/25 09:00 Metoprolol Succinate (Er) 50 Mg Tab.Er.24h PO DAILY JAIME Nitroglycerin 0.4 mg 03/18/25 16:20 Nitroglycerin Sl Tabs 0.4 Mg Tab SUBLINGUAL Q5M PRN Chest Pain Nitroglycerin 1 inch 03/18/25 18:00 03/19/25 05:24 Nitroglycerin Oint 1 Inch/Gm Packet TOPICAL Not Given Q6HR [facility] Pantoprazole Sodium 40 mg 03/18/25 17:30 03/18/25 17:08 Pantoprazole 40 Mg Tablet PO 40 mg W/SUPPER JAIME Administration Intake and Output 03/18/25 03/19/25 03/19/25 22:59 06:59 14:59 Other: Voiding Method Toilet Toilet # Voids 1 2 Weight 108.409 kg 03/18/25 14:10 03/18/25 14:10
--- NOTE | 2025-03-19 10:43 | P.HPIM ---
History of Present Illness H&P Date: 03/19/25April Vamsi, is a 79-year-old female who presented to [facility] emergency room with a chief complaint of chest pain. Patient states that for the last 3 days her blood pressure has been elevated with systolic blood pressures in the 170, on the day of presentation she started having feeling of heaviness in her chest that lasted for several hours and was relieved with nitroglycerin in the emergency room. She was evaluated in the emergency room vital examination on presentation revealed a temperature of 97.9 pulse 69 respiration 18 blood pressure 160/81 pulse ox 95% on room air Laboratory data revealed a white blood count of 6.17 hemoglobin 11.3 platelet count 144 sodium 158 potassium 3.7 chloride 106 CO2 26 BUN 14 creatinine 0.98 troponin level 0.012 Testing in the emergency room revealed EKG revealed normal sinus rhythm normal EKG chest x-ray revealed low lung volumes with a generalized hazy appearance which could represent atelectasis versus pulmonary edema Patient was admitted to medical floor for further evaluation and treatment Past medical history is significant for history of atrial fibrillation, history of hypertension, history of asthma, history of seizure disorder, history of diverticulosis with previous history of lower GI bleed, history of skin cancer removal and history of benign brain tumor removal On review of systems patient is alert and oriented x 3 in no apparent distress there is no fever or chills no headache or dizziness no chest pain no shortness of breath no cough no nausea or vomiting no abdominal pain no diarrhea no blood in the stools no burning with urination no frequency or urgency and no hematuria. Past Medical History Past Medical History: Atrial Fibrillation, Asthma, Cancer, GERD/Reflux, GI Bleed, Hearing Disorder / Deafness, Hypertension, Pneumonia, Seizure Disorder, Skin Disorder Additional Past Medical History / Comment(s): Intermittent dysphagia, d iverticular disease, IBS, lower GI bleed, pt states placed on statin as a precaution, brain surgery for benign tumor, seizures since brain surgery with last seizure more than a year ago, bilateral tinnitis since brain surgery, bronchitis, sinus problems, rosacea, skin cancer with removal. History of Any Multi-Drug Resistant Organisms: None Reported Past Surgical History: Cholecystectomy, Heart Catheterization, Joint Replacement, Orthopedic Surgery Additional Past Surgical History / Comment(s): Brain tumor resection (benign), skin cancer removal R arm, L shoulder surgery for spur, total R knee arthroplasty, R hand dupuytren's surgery, 3 R breast biopsies (benign) and 2 L breast biopsies (benign), EGDs, colonoscopies/bening polypectomies. left hand surgery Past Anesthesia/Blood Transfusion Reactions: No Reported Reaction, Postoperative Nausea & Vomiting (PONV) Additional Past Anesthesia/Blood Transfusion Reaction / Comment(s): claustrophobia Past Psychological History: No Psychological Hx Reported Additional Psychological History / Comment(s): Pt resides with her spouse and adult grandson. She is independent. Smoking Status: Former smoker Past Alcohol Use History: Rare Additional Past Alcohol Use History / Comment(s): Pt started smoking in 1957 and quit in 1984, smoked 1/2 ppd Past Drug Use History: None Reported - Past Family History Mother Family Medical History: Diabetes Mellitus Father Family Medical History: Diabetes Mellitus Additional Family Medical History / Comment(s): HEART DISEASE Medications and Allergies Home Medications Medication Instructions Recorded Confirmed Type lamoTRIgine 200 mg PO BID 01/19/20 03/18/25 History Fluticasone Propion/Salmeterol 1 puff INHALATION RT-BID 05/13/20 03/18/25 History [Advair 100-50 Diskus] cycloSPORINE 0.05% OPHTH SOLN 1 drop BOTH EYES BID 11/28/21 03/18/25 History [Restasis] Atorvastatin [Lipitor] 20 mg PO HS 10/27/22 03/18/25 History Pantoprazole [Protonix] 40 mg PO W/SUPPER 01/14/23 03/18/25 History Apixaban [Eliquis] 5 mg PO BID 30 Days #60 tab 01/17/23 03/18/25 Rx Metoprolol Succinate (ER) [Toprol 50 mg PO DAILY 30 Days #30 tab 01/17/23 03/18/25 Rx XL] Dicyclomine [Bentyl] 10 mg PO TID 12/13/24 03/18/25 History Baclofen [Lioresal] 10 mg PO DAILY 01/12/25 03/18/25 History Baclofen [Lioresal] 20 mg PO HS 03/18/25 03/18/25 History Losartan Potassium [Cozaar] 100 mg PO W/SUPPER 03/18/25 03/18/25 History Rifaximin [Xifaxan] 550 mg PO TID 03/18/25 03/18/25 History Allergies Allergy/AdvReac Type Severity Reaction Status Date / Time Sulfa (Sulfonamide Allergy Unknown Verified 03/18/25 14:54 Antibiotics) Childhood sertraline [From Zoloft] AdvReac DEPRESSION Verified 03/18/25 14:54 Physical Exam Vitals: Vital Signs Temp Pulse Pulse Pulse Pulse Pulse Resp 03/19/25 08:22 95 100 96 03/19/25 07:00 98.1 F 63 15 03/19/25 01:43 97.9 F 58 L 16 03/18/25 21:04 97.6 F 65 17 03/18/25 20:33 56 L 18 03/18/25 20:00 18 03/18/25 18:00 52 L 18 03/18/25 17:11 55 L 18 03/18/25 16:51 52 L 16 03/18/25 15:02 47 L 16 03/18/25 14:30 53 L 18 03/18/25 13:25 97.9 F 69 18 BP BP BP BP BP Pulse Ox 03/19/25 08:22 146/78 161/65 148/54 03/19/25 07:00 171/68 95 03/19/25 01:43 135/54 95 03/18/25 21:04 162/73 93 L 03/18/25 20:33 110/90 95 03/18/25 20:00 03/18/25 18:00 167/72 95 03/18/25 17:11 163/66 96 03/18/25 16:51 150/52 98 03/18/25 15:02 143/63 95 03/18/25 14:30 161/69 95 03/18/25 13:25 160/81 95 Intake and Output 03/18/25 03/19/25 03/19/25 22:59 06:59 14:59 Other: Voiding Method Toilet Toilet # Voids 1 2 Weight 108.409 kg In general patient is alert and oriented x 3 in no distress HEENT head normocephalic and atraumatic Neck is supple no JVD no goiter no lymphadenopathy no carotid bruit Chest examination is clear to auscultation no crackles no wheezing Cardiac exam reveals regular heart sounds S1 and S2 no gallops no murmurs Abdomen is soft nontender no organomegaly with normal bowel sounds Extremity exam reveals no edema no cyanosis or clubbing Neurological examination reveals no gross focal deficits Results CBC & Chem 7: 03/18/25 14:10 03/18/25 14:10 Labs: Abnormal Lab Results - Last 24 Hours (Table) 03/18/25 03/18/25 Range/Units 14:10 14:10 RBC 3.63 L (4.10-5.20) 10*6/uL Hgb 11.3 L (12.0-15.0) g/dL Hct 33.8 L (37.2-46.3) % Sodium 158 H (137-145) mmol/L Glucose 138 H (74-99) mg/dL Total Protein 6.0 L (6.3-8.2) g/dL Albumin 3.3 L (3.5-5.0) g/dL Thrombosis Risk Factor Assmnt - Choose All That Apply Any of the Below Risk Factors Present?: Yes Each Factor Represents 1 point: Obesity (BMI >25) Other Risk Factors: Yes Each Risk Factor Represents 3 Points: Age 75 years or older Other congenital or acquired thrombophilia - If yes, enter type in comment: No Thrombosis Risk Factor Assessment Total Risk Factor Score: 4 Thrombosis Risk Factor Assessment Level: Moderate Risk Assessment and Plan Plan: Episode of chest heaviness Severe hyponatremia on presentation Underlying history of hypertension Underlying history of atrial fibrillation Underlying history of asthma Underlying history of diverticulosis with previous history of lower GI bleed Underlying history of seizure disorder Previous history of benign brain tumor removal Underlying history of skin cancer At this time patient was seen and examined Home medications reviewed and reordered Patient will be started on half-normal saline at 75 cc/h, repeat CMP to assess hypernatremia Cardiology consultation was requested Will follow closely
[2025-03-19] MEDS: SODIUM CHLORIDE 0.45% 1,000 ML IV SCH (11:00)
[2025-03-19 11:42] LABS: ALT 18 U/L (4-34); AST 25 U/L (14-36); African American GFR (CKD) 69 (>60 ml/min/1.73 sqM); Albumin 3.5 g/dL (3.5-5.0); Albumin/Globulin Ratio 1.3; Alkaline Phosphatase 106 U/L (38-126); Anion Gap 9 mmol/L; Blood Urea Nitrogen 16 mg/dL (7-17); Calcium 9.3 mg/dL (8.4-10.2); Carbon Dioxide 26 mmol/L (22-30); Chloride 103 mmol/L (98-107); Globulin 2.7 g/dL; Glucose 98 mg/dL (74-99); Non-African American GFR(CKD) 60 (>60 ml/min/1.73 sqM); Potassium 3.7 mmol/L (3.5-5.1); Sodium 138 mmol/L (137-145); Total Bilirubin 1.2 mg/dL (0.2-1.3); Total Protein 6.2 g/dL (6.3-8.2)
--- NOTE | 2025-03-23 09:26 | P.DS ---
Providers Date of admission: 03/18/25 16:20 Expected date of discharge: 03/19/25 Attending physician: Becka Fletcher Consults: 03/18/25 16:20 Consult Physician Urgent Consulting Provider: Ronald Dinh Consult Reason/Comments: cp Do you want consulting provider notified?: Yes Primary care physician: Becka Justine [facility] Course: Diagnosis on discharge: Episode of chest heaviness Severe hyponatremia on presentation Underlying history of hypertension Underlying history of atrial fibrillation Underlying history of asthma Underlying history of diverticulosis with previous history of lower GI bleed Underlying history of seizure disorder Previous history of benign brain tumor removal Underlying history of skin cancer Hospital course: Lucille Agustin, is a 79-year-old female who presented to [facility] emergency room with a chief complaint of chest pain. Patient states that for the last 3 days her blood pressure has been elevated with systolic blood pressures in the 170, on the day of presentation she started having feeling of heaviness in her chest that lasted for several hours and was relieved with nitroglycerin in the emergency room. She was evaluated in the emergency room vital examination on presentation revealed a temperature of 97.9 pulse 69 respiration 18 blood pressure 160/81 pulse ox 95% on room air Laboratory data revealed a white blood count of 6.17 hemoglobin 11.3 platelet count 144 sodium 158 potassium 3.7 chloride 106 CO2 26 BUN 14 creatinine 0.98 troponin level 0.012 Testing in the emergency room revealed EKG revealed normal sinus rhythm normal EKG chest x-ray revealed low lung volumes with a generalized hazy appearance which could represent atelectasis versus pulmonary edema Patient was admitted to medical floor for further evaluation and treatment Past medical history is significant for history of atrial fibrillation, history of hypertension, history of asthma, history of seizure disorder, history of diverticulosis with previous history of lower GI bleed, history of skin cancer removal and history of benign brain tumor removal On review of systems patient is alert and oriented x 3 in no apparent distress there is no fever or chills no headache or dizziness no chest pain no shortness of breath no cough no nausea or vomiting no abdominal pain no diarrhea no blood in the stools no burning with urination no frequency or urgency and no hematuria. On 03/19/2025 patient is alert and oriented x 3. Patient was eval by cardiology services and cleared for discharge. Patient denies chest pain or shortness of breath. Patient denies nausea vomiting or diarrhea. Patient denies any urinary burning or frequency patient to follow-up with PCP and cardiology services for further management Plan - Discharge Summary Discharge Rx Participant: Yes New Discharge Prescriptions: New Isosorbide Mononitrate ER [Imdur] 15 mg PO DAILY 30 Days #30 tab Nitroglycerin Sl Tabs [Nitrostat] 0.4 mg SUBLINGUAL Q5M PRN 30 Days #25 tab PRN Reason: Chest Pain Continue lamoTRIgine 200 mg PO BID Fluticasone Propion/Salmeterol [Advair 100-50 Diskus] 1 puff INHALATION RT- BID Atorvastatin [Lipitor] 20 mg PO HS Pantoprazole [Protonix] 40 mg PO W/SUPPER Apixaban [Eliquis] 5 mg PO BID 30 Days #60 tab Dicyclomine [Bentyl] 10 mg PO TID Losartan Potassium [Cozaar] 100 mg PO W/SUPPER Rifaximin [Xifaxan] 550 mg PO TID cycloSPORINE 0.05% OPHTH SOLN [Restasis] 1 drop BOTH EYES BID Metoprolol Succinate (ER) [Toprol XL] 50 mg PO DAILY 30 Days #30 tab Baclofen [Lioresal] 10 mg PO DAILY Baclofen [Lioresal] 20 mg PO HS Discharge Medication List lamoTRIgine 200 mg PO BID 01/19/20 [History] Fluticasone Propion/Salmeterol [Advair 100-50 Diskus] 1 puff INHALATION RT-BID 05/13/20 [History] cycloSPORINE 0.05% OPHTH SOLN [Restasis] 1 drop BOTH EYES BID 11/28/21 [History] Atorvastatin [Lipitor] 20 mg PO HS 10/27/22 [History] Pantoprazole [Protonix] 40 mg PO W/SUPPER 01/14/23 [History] Apixaban [Eliquis] 5 mg PO BID 30 Days #60 tab 01/17/23 [Rx] Metoprolol Succinate (ER) [Toprol XL] 50 mg PO DAILY 30 Days #30 tab 01/17/23 [Rx] Dicyclomine [Bentyl] 10 mg PO TID 12/13/24 [History] Baclofen [Lioresal] 10 mg PO DAILY 01/12/25 [History] Baclofen [Lioresal] 20 mg PO HS 04/27/25 [History] Losartan Potassium [Cozaar] 100 mg PO W/SUPPER 03/18/25 [History] Rifaximin [Xifaxan] 550 mg PO TID 03/18/25 [History] Isosorbide Mononitrate ER [Imdur] 15 mg PO DAILY 30 Days #30 tab 03/19/25 [Rx] Nitroglycerin Sl Tabs [Nitrostat] 0.4 mg SUBLINGUAL Q5M PRN 30 Days #25 tab 03/19/25 [Rx] Follow up Appointment(s)/Referral(s): Becka Fletcher MD [Primary Care Provider] - 1-2 days Patient Instructions/Handouts: Chest Pain (DC) Discharge Disposition: HOME SELF-CARE
== END 2025-03-19 14:29 | disposition home or self-care (01) ==
LOC: EC 13:22 → 6NMEDSUR 16:20
PROVIDERS: ADMIT Internal Medicine; ATTEND Internal Medicine
DX: R07.89 Other chest pain (principal); E87.0 Hyperosmolality and hypernatremia; I48.0 Paroxysmal atrial fibrillation; I10 Essential (primary) hypertension; G40.909 Epilepsy, unspecified, not intractable, without status epilepticus; I08.3 Combined rheumatic disorders of mitral, aortic and tricuspid valves; J45.909 Unspecified asthma, uncomplicated; K57.90 Diverticulosis of intestine, part unspecified, without perforation or abscess without bleeding; E78.5 Hyperlipidemia, unspecified; E66.9 Obesity, unspecified; Z68.35 Body mass index [BMI] 35.0-35.9, adult; Z79.51 Long term (current) use of inhaled steroids; Z79.01 Long term (current) use of anticoagulants; Z79.899 Other long term (current) drug therapy; Z88.2 Allergy status to sulfonamides; Z88.8 Allergy status to other drugs, medicaments and biological substances; Z87.891 Personal history of nicotine dependence; Z87.19 Personal history of other diseases of the digestive system; Z86.011 Personal history of benign neoplasm of the brain; Z85.828 Personal history of other malignant neoplasm of skin
CPT/HCPCS: 99285; 36415; 94640; 93005; 83880; 80061; 80053 ×2; 83735; 84484; 85025; 85610; 85730; 71046; G0378 ×2